=== PATIENT | female | born 1940 | race Caucasian/White ===

== ENCOUNTER 2018-02-07 01:33 | Outpatient (CLI) | payer OTHER, SELFPAY ==
[2018-02-07 11:00] LABS: HCT 39.5 % (36.0-46.0); Mean Corp. HGB Concentration 32.9 g/dL (32.0-36.0); Mean Corpuscular Hemoglobin 31.2 pg (27.0-33.0); Mean Corpuscular Volume 94.7 fL (80-95); Mean Platelet Volume 11.6 fL (8.0-11.0); Platelet Count 163 x1000/uL (130-400); RBC 4.17 m/cumm (4.00-5.20); White Blood Cell Count 3.76 k/cumm (4.4-10.8)
[2018-02-07 11:33] LABS: ALT 20 U/L (12-78); AST 19 U/L (15-37); Albumin 3.2 g/dL (3.4-5.0); Alkaline Phosphatase 60 U/L (46-116); Anion Gap 6.8 mmol/L (3-11); BUN 19 mg/dL (7-18); Bilirubin, Total 0.6 mg/dL (0.2-1.0); CO2 29.2 mmol/L (21.0-32.0); CREATININE 0.73 mg/dL (0.55-1.02); Calcium 8.5 mg/dL (8.5-10.1); Chloride 106 mmol/L (98-107); Glucose 110 mg/dL (70-100); Potassium 4.2 mmol/L (3.5-5.1); Sodium 142 mmol/L (136-145); TSH (W/Ref FT4) 1.87 uIU/mL (0.358-3.74); Total Protein 6.2 g/dL (6.4-8.2)
== END 2018-02-07 01:53 ==
PROVIDERS: PCP Family Medicine; Visit Provider Family Medicine
DX: E03.9 Hypothyroidism, unspecified (principal)
CPT/HCPCS: 36415; 80053; 85027; 84443

== ENCOUNTER 2018-04-03 13:21 | Outpatient (CLI) | payer OTHER, SELFPAY ==
--- NOTE | 2018-04-03 14:36 | DI.RAD_ITS ---
SYMPTOM/DIAGNOSIS: KNEE INJURY, RIGHT KNEE PAIN RIGHT KNEE: 04/03/18 Three views were obtained. There is mild hypertrophic spurring of the bones in the knee. No other focal bony abnormality seen. No evidence of acute fracture.
== END 2018-04-03 13:41 ==
PROVIDERS: PCP Family Medicine; Referring Provider Family Medicine; Visit Provider Student in an Organized Health Care Education/Training Program
DX: M25.561 Pain in right knee (principal); M23.91 Unspecified internal derangement of right knee
CPT/HCPCS: 73562; 99203; 99214

== ENCOUNTER 2018-07-12 19:10 | Outpatient (REF) | payer OTHER, SELFPAY | END 2018-07-12 19:30 | LOC: LBN 19:10 | PROVIDERS: PCP Family Medicine; Visit Provider Nurse Practitioner Family | DX: R35.0 Frequency of micturition (principal) | CPT/HCPCS: 87077; 87086; 87186 ==

== ENCOUNTER 2018-10-15 00:09 | Outpatient (CLI) | payer OTHER, SELFPAY ==
--- NOTE | 2018-10-15 08:50 | DI.MAMMO_ITS ---
SYMPTOM/DIAGNOSIS: SCREENING, Z12.31 MAMMOGRAMS: Mammograms were interpreted according to the usual protocol including computer analysis with CAD system, tomosynthesis and C view imaging. Comparison is made with prior examinations. Breast density, Category B. No suspicious microcalcifications are seen. No suspicious masses are seen in the left breast. There is a focal asymmetric density in the upper posterior right breast seen on the mediolateral oblique view. This area should be further evaluated with a spot compression view. Ultrasound may be indicated at that time. IMPRESSION: Additional views of the right breast as described above. Category 0. MQSA ASSESSMENT OF FINDINGS: Incomplete: Needs additional imaging evaluation. Category 0. Patient will receive a letter notifying them of these results. BI-RADS category B. There are scattered areas of fibroglandular density.
== END 2018-10-15 00:29 ==
PROVIDERS: PCP Family Medicine; Visit Provider Nurse Practitioner Family
DX: Z12.31 Encounter for screening mammogram for malignant neoplasm of breast (principal); R92.8 Other abnormal and inconclusive findings on diagnostic imaging of breast
CPT/HCPCS: 77063; 77067

== ENCOUNTER 2018-10-17 01:35 | Outpatient (CLI) | payer OTHER, SELFPAY ==
--- NOTE | 2018-10-17 14:55 | DI.COMBO_ITS ---
SYMPTOMS/DIAGNOSIS: F/U ABNORMAL MAMMO, FOCAL ASYMMETRIC DENSITY, UPPER POSTERIOR RIGHT BREAST ADDITIONAL VIEWS OF THE RIGHT BREAST AND RIGHT BREAST ULTRASOUND: A mediolateral compression spot film of the right breast was obtained. Nonspecific fibroglandular densities are demonstrated. There is no discrete mass. At ultrasound, no cyst or mass is identified. SUMMARY: No evidence of malignancy. Category 1. Annual screening mammography is recommended. Breast density category B. MQSA ASSESSMENT OF FINDINGS: Negative. Category 1. Patient will receive a letter notifying them of these results. BI-RADS category B. There are scattered areas of fibroglandular density.
== END 2018-10-17 01:55 ==
PROVIDERS: PCP Family Medicine; Visit Provider Nurse Practitioner Family
DX: Z12.31 Encounter for screening mammogram for malignant neoplasm of breast (principal); R92.8 Other abnormal and inconclusive findings on diagnostic imaging of breast; N60.81 Other benign mammary dysplasias of right breast
CPT/HCPCS: 76642; 77063; 77067

== ENCOUNTER 2018-10-28 10:06 | Outpatient (CLI) | payer OTHER, SELFPAY ==
[2018-10-28 13:07] LABS: ALT 25 U/L (12-78); AST 22 U/L (15-37); Albumin 3.6 g/dL (3.4-5.0); Alkaline Phosphatase 64 U/L (46-116); Anion Gap 5.9 mmol/L (3-11); BUN 21 mg/dL (7-18); Bilirubin, Total 0.5 mg/dL (0.2-1.0); CO2 30.1 mmol/L (21.0-32.0); CREATININE 0.67 mg/dL (0.55-1.02); Calcium 8.9 mg/dL (8.5-10.1); Chloride 102 mmol/L (98-107); Glucose 104 mg/dL (70-100); Potassium 4.5 mmol/L (3.5-5.1); Sodium 138 mmol/L (136-145); Total Protein 6.8 g/dL (6.4-8.2)
== END 2018-10-28 10:26 ==
PROVIDERS: PCP Family Medicine; Visit Provider Family Medicine
DX: R73.9 Hyperglycemia, unspecified (principal)
CPT/HCPCS: 36415; 80053; 83036

== ENCOUNTER 2019-04-29 01:12 | Outpatient (CLI) | payer OTHER, SELFPAY ==
--- NOTE | 2019-04-29 11:23 | DI.US_ITS ---
EXAM: US LOWER EXTREMITY VENOUS LT CLINICAL HISTORY: Superficial thrombophlebitis of greater saphenous vein, I80.9,? dvt TECHNIQUE: Ultrasound performed using standard protocol. COMPARISON: No exams were available for comparison FINDINGS: Thrombus is visible in the saphenous vein from the distal thigh through the level of the calf. The deep venous system appears free of thrombus. No hematoma or Gould's cyst is seen. IMPRESSION: Saphenous thrombosis. No evidence of deep venous thrombosis.
== END 2019-04-29 01:32 ==
PROVIDERS: PCP Family Medicine; Visit Provider Family Medicine
DX: I82.812 Embolism and thrombosis of superficial veins of left lower extremity (principal)
CPT/HCPCS: 93971

== ENCOUNTER 2019-05-01 09:51 | Outpatient (REF) | payer OTHER, SELFPAY | END 2019-05-01 10:11 | LOC: LBN 09:51 | PROVIDERS: PCP Family Medicine; Visit Provider Nurse Practitioner Family | DX: R30.0 Dysuria (principal) | CPT/HCPCS: 87086 ==

== ENCOUNTER 2019-11-13 17:49 | Outpatient (REF) | payer OTHER, SELFPAY ==
[2019-11-13 15:34] LABS: Bilirubin Negative (Negative); Blood Trace-intact (Negative); Clarity Clear (Clear); Glucose Negative (Negative); Ketones Negative (Negative); Leukocyte Esterase Negative (Negative); Nitrite Negative (Negative); Specific Gravity >= 1.030 (1.005-1.025); Urobilinogen 0.2 EU/dL (Up TO 0.2); pH 5.5 (5-8)
[2019-11-13 16:08] LABS: Bacteria Negative HPF (Negative); C & S Indicated? No/Sq. Contamination; Casts Negative LPF (Negative); Crystals Many Calcium Oxalate HPF (Negative); Epithelial Cells Many HPF (Negative); Mucus Negative (Negative); Other Cells Negative (Negative); RBC Negative HPF (0-2)
== END 2019-11-13 18:09 ==
LOC: LBN 17:49
PROVIDERS: PCP Family Medicine; Visit Provider Family Medicine
DX: N13.9 Obstructive and reflux uropathy, unspecified (principal); R53.81 Other malaise
CPT/HCPCS: 81003; 81015

== ENCOUNTER 2019-11-18 02:43 | Outpatient (CLI) | payer OTHER, SELFPAY ==
[2019-11-18 14:08] LABS: Absolute Basophil Count 0.02 k/cumm (0.0-0.2); Absolute Eosinophil Count 0.26 k/cumm (0.0-0.7); Absolute Lymphocyte Count 1.47 k/cumm (1.2-3.4); Absolute Monocyte Count 0.36 k/cumm (0.11-0.7); Absolute Neutrophil Count 2.58 k/cumm (1.2-6.7); Basophils % 0.4; Eosinophils % 5.5; HCT 41.6 % (36.0-46.0); HGB 13.9 g/dL (12.0-15.5); Lymphocytes % 31.3; Mean Corp. HGB Concentration 33.4 g/dL (32.0-36.0); Mean Corpuscular Hemoglobin 31.5 pg (27.0-33.0); Mean Corpuscular Volume 94.3 fL (80-95); Mean Platelet Volume 10.2 fL (8.0-11.0); Monocytes % 7.7; Neutrophils % 55.1; Platelet Count 192 x1000/uL (130-400); RBC 4.41 m/cumm (4.00-5.20); White Blood Cell Count 4.69 k/cumm (4.4-10.8)
[2019-11-18 14:45] LABS: ESR 20 mm/hr (0-30)
[2019-11-18 15:20] LABS: ALT 24 U/L (14-59); AST 22 U/L (15-37); Albumin 3.7 g/dL (3.4-5.0); Alkaline Phosphatase 59 U/L (46-116); Anion Gap 7.9 mmol/L (3-11); BUN 16 mg/dL (7-18); Bilirubin, Total 0.5 mg/dL (0.2-1.0); CO2 29.1 mmol/L (21.0-32.0); Calcium 9.5 mg/dL (8.5-10.1); Chloride 104 mmol/L (98-107); Glucose 99 mg/dL (74-106); Potassium 4.2 mmol/L (3.5-5.1); Sodium 141 mmol/L (136-145); TSH 1.54 uIU/mL (0.36-3.74); Total Protein 6.7 g/dL (6.4-8.2)
== END 2019-11-18 03:03 ==
PROVIDERS: PCP Family Medicine; Visit Provider Family Medicine
DX: E03.9 Hypothyroidism, unspecified (principal); R53.81 Other malaise
CPT/HCPCS: 36415; 80053; 85652; 84443; 85025

== ENCOUNTER 2020-04-07 16:52 | Outpatient (REF) | payer OTHER, SELFPAY | END 2020-04-07 17:12 | LOC: LBN 16:52 | PROVIDERS: PCP Family Medicine; Visit Provider Nurse Practitioner Women's Health | DX: R30.0 Dysuria (principal) | CPT/HCPCS: 87077; 87086; 87186 ==

== ENCOUNTER → 2020-04-26 09:34 | Outpatient (BNVA) | payer OTHER, SELFPAY | PROVIDERS: PCP Family Medicine; Referring Provider Family Medicine; Visit Provider Nurse Practitioner Gerontology | DX: N39.0 Urinary tract infection, site not specified (principal) | CPT/HCPCS: 81003; 99204; 99215 ==

== ENCOUNTER 2020-04-30 02:21 | Outpatient (CLI) | payer OTHER, SELFPAY ==
--- NOTE | 2020-04-30 06:45 | DI.CT_ITS ---
EXAM: CT ABDOMEN PELVIS WO/W TECHNIQUE: Imaging Protocol: Axial computed tomography images with coronal and sagittal reformatted images were created and reviewed. Pre and postcontrast imaging including delayed phase. CONTRAST MATERIAL: Intravenous: Omnipaque 350 Contrast volume:100 ml Contrast route:IV - Oral: no COMPARISON: US ABDOMEN ULTRASOUND (P) from 05/30/2011 FINDINGS: ABDOMEN: Lung Bases: Normal where visualized. Dilated left ventricle. Liver: Normal density. No measurable mass. Gallbladder and biliary tract: Numerous stones. No gallbladder wall thickening or biliary dilatation . Pancreas: Normal density, no abnormal calcifications or inflammatory process. Spleen: Normal. Kidneys: Normal size, contour and axis. No radiodense stones or obstructive uropathy. No masses seen. Adrenal glands: No masses seen. Lymph nodes: Within normal limits. Abdominal Aorta: Abdominal portion non-dilated. PELVIS: Bladder: Symmetric distention, no gross wall thickening. No calculi Bowel: No obstruction or bowel wall thickening. Extensive diverticulosis of the descending through si gmoid colon. No evidence of diverticulitis. Normal appendix. Peritoneal cavity: No ascites, collection or mesenteric inflammatory response. Bones: Mild degenerative changes in the spine and hips.. Reproductive organs: Fluid within the endometrial cavity. IMPRESSION: 1. No evidence of renal calculi, mass or hydronephrosis. No bladder abnormality. 2. Severe diverticulosis. 3. Cholelithiasis. No evidence of cholecystitis. 4. Apparent fluid within the endometrial cavity. Pelvic ultrasound could be considered for further evaluation. RADIATION DOSE DELIVERED: 2,396.62mGy.cm Total DLP DATA REPOSITORY: All CT scans at this facility are submitted to the National Radiology Data Registry (NRDR) Dose Index Registry (DIR) with the [employer] (ACR). RADIATION OPTIMIZATION: All CT scans at this facility use at least one of these dose optimization te chniques: automated exposure control; mA and/or kV adjustment per patient size (includes targeted exa ms where dose is matched to clinical indication); or iterative reconstruction.
[2020-04-30 08:14] LABS: CREATININE 0.88 mg/dL (0.55-1.02)
[2020-04-30] MEDS: Omnipaque 350 MG/ML 100 ML BTL IJ (09:05)
[2020-04-30] MEDS: Normal Saline - Diluent 50 ML VIAL IV (09:06)
== END 2020-04-30 02:41 ==
PROVIDERS: PCP Family Medicine; Visit Provider Nurse Practitioner Gerontology
DX: K57.30 Diverticulosis of large intestine without perforation or abscess without bleeding (principal); K80.20 Calculus of gallbladder without cholecystitis without obstruction; Z87.440 Personal history of urinary (tract) infections
CPT/HCPCS: 74178; 82565; J3490

== ENCOUNTER → 2020-05-03 14:52 | Outpatient (BNVA) | payer OTHER, SELFPAY | PROVIDERS: PCP Family Medicine; Referring Provider Family Medicine; Visit Provider Nurse Practitioner Gerontology | DX: R39.89 Other symptoms and signs involving the genitourinary system (principal); Z87.440 Personal history of urinary (tract) infections; Z79.899 Other long term (current) drug therapy | CPT/HCPCS: 99213 ==

== ENCOUNTER 2020-05-19 01:46 | Outpatient (CLI) | payer OTHER, SELFPAY ==
--- NOTE | 2020-05-19 08:23 | DI.US_ITS ---
APPROVED REPORT EXAM: Comprehensive 2D, Doppler, and color-flow Echocardiogram Patient Location: Out-Patient Supervisor [employer]: Kacie Cortes RDCS (AE) Indications: Arrhythmia Other Information Study Quality: Adequate Conclusion Normal left ventricular wall thickness and chamber size. Estimated ejection fraction is 60 to 65%. Wall motion is normal Normal right ventricular size and systolic function Both atria are normal in size Trileaflet aortic valve without regurgitation or stenosis Thickened mitral leaflets with systolic prolapse. There is moderate eccentric mitral regurgitation Structurally normal tricuspid valve with trace to mild regurgitation, normal estimated right ventricu lar systolic pressure Structurally normal pulmonic valve with trace physiologic regurgitation Wall motion Left Ventricle The left ventricle is normal size. The left ventricular systolic function is normal. The left ventric ular ejection fraction is within the normal range. There is normal left ventricular wall thickness. T here is normal LV segmental wall motion. There is no ventricular septal defect visualized. LVEF is 60 %-65%. Right Ventricle The right ventricle is normal size. The right ventricular systolic function is normal. The RVSP is 21 .8 mmHg. Atria The left atrium size is normal. The right atrium size is normal. The interatrial septum is intact wit h no evidence for an atrial septal defect. Aortic Valve The aortic valve is normal in structure. Aortic valve is trileaflet. There is no aortic valvular sten osis. No aortic regurgitation is present. Mitral Valve Mitral valve leaflets are thickened. No evidence of mitral valve stenosis. Moderate mitral regurgitat ion. Mitral regurgitation jet is eccentrically directed. Moderate mitral valve prolapse. Tricuspid Valve The tricuspid valve is normal in structure. There is no tricuspid valve stenosis. Trace to mild tricu spid regurgitation. Pulmonic Valve The pulmonary valve is normal in structure. There is no pulmonic valvular stenosis. Trace pulmonic re gurgitation. Great Vessels The aortic root is normal in size. The ascending aorta is normal in size. Aortic arch is normal in ca liber. IVC is normal in size and collapses >50% with inspiration. Pericardium There is no pericardial effusion. 2D Dimensions IVSD d PLAX 1.01 cm F: 0.6-1.0 LV Vol A2C d MOD 76.8 mL LVPW d PLAX 1.02 cm F: 0.6 - 1.0 LV Vol A4C d MOD 79.6 mL LVID d PLAX 4.87 cm F: 3.8 - 5.2 LA vol/ BSA A2C s A-L 36.9 mL/m2 LVDs 3.40 cm F: 2.2 - 3.5 LA vol/ BSA A4C s A-L 22.9 mL/m2 Ao Root d 3.00 cm F: 2.7 - 3.3 LA Vol/ BSA Biplane s A-L 29.1 mL/m2 RA Area A4C 13.41 cm2 LA Area A4C s MOD 15.82 cm2 RA Vol/ BSA A4C s A-L 20.0 mL/m2 LA Area A2C s MOD 20.05 cm2 Ao Asc Diam d 3.48 cm F: 2.3 - 3.1 LV EF A4C MOD 59.8 % LV EF Teichholz 57.2 % LV EF A2C MOD 61.3 % LVEF (Wetzel's) 59.99 % F: 54 - 74 LV EF Biplane MOD 60.0 % LV Volume 62.02 mL F: 46 - 106 SV 48.02 mL LV Volume Index 34.07 mL/m2 F: 29 - 61 SV Index 26.40 mL/m2 LV Vol Biplane MOD 80.0 mL FS 30.05 % M-Mode TAPSE 2.27 cm (M/F) >1.7 LV Diastology MV E' medial 0.062 (>0.07 m/s) E/A Ratio 0.8 LV E/e MED 10.55 (<14) MV E Vmax 0.66 (0.4-1.3 m/s) MV E' lateral 0.071 (>0.1 m/s) MV A Vmax 0.85 (0.4-1.3 m/s) LV E/e LAT 9.25 (<14) MV E/A Ratio 0.75 MV E/E' medial 10.57 MV E/E' lateral 9.29 Aortic Valve LVOT Area 3.36 cm2 AoV Area Vmax 2.72 cm2 LVOT Vmax 0.98 m/s AoV Area/ BSA (Vmax) 1.49 cm2/m2 LVOT Mean Rodrick. 0.58 m/s MARY ANN Mean Rodrick. 2.34 cm2 LVOT Peak Grad 3.9 mmHg MARY ANN Mean Rodrick. Index 1.29 cm2/m2 LVOT Mean Grad 1.7 mmHg LVOT VTI 0.212 m LVOT Diam s 2.05 cm AoV Vmax 1.21 m/s Velocity Ratio 0.80 AoV Mean Rodrick. 0.83 m/s AoV Peak Grad 5.9 mmHg LVOT SV 71.39 mL AoV Mean Grad 3.2 mmHg AoV VTI 0.230 m AoV Area VTI 3.10 cm2 AoV Area/ BSA (VTI) 1.70 cm/m2 Mitral Valve MV DT 273 (160-240 msec) MR Vmax 5.89 m/s MV PHT 79 msec MR VTI 2.049 m MV Area PHT 2.77 cm2 MR Peak Grad 138.8 mmHg MV VTI 0.284 m MR Mean Grad 108.0 mmHg MV VTI Annulus 0.289 m MR PISA Radius 0.56 cm MV Area VTI 2.56 (4.0-6.0 cm2) MR EROA 0.12 cm2 MR Aliasing Velocity 0.35 m/s MR PISA 1.99 cm2 Pulmonary Valve PV Vmax 0.82 (0.5-1.5 m/s) RVOT Peak Gr. 2.28 mmHg PV Peak Grad 2.7 mmHg RVOT Mean Gr. 1.05 mmHg PV Mean Grad 1.5 mmHg RVOT VTI 0.175 m PV VTI 0.192 m RVOT Vmax 0.75 m/s Tricuspid Valve TR Peak Grad 18.8 mmHg TR Vmax 2.17 m/s RA Pressure 3.00 mmHg RVSP (TR) 21.8 mmHg
== END 2020-05-19 02:06 ==
PROVIDERS: PCP Family Medicine; Visit Provider Family Medicine
DX: I49.9 Cardiac arrhythmia, unspecified (principal); I51.7 Cardiomegaly; I08.1 Rheumatic disorders of both mitral and tricuspid valves
CPT/HCPCS: 93306

== ENCOUNTER 2020-06-11 02:04 | Outpatient (CLI) | payer OTHER, SELFPAY ==
[2020-06-11 10:23] LABS: Bilirubin Negative (Negative); Blood Small (Negative); Clarity Sl Cloudy (Clear); Glucose Negative (Negative); Ketones Negative (Negative); Leukocyte Esterase Small (Negative); Nitrite Positive (Negative); Specific Gravity >= 1.030 (1.005-1.025); Urobilinogen 0.2 EU/dL (Up TO 0.2)
[2020-06-11 10:31] LABS: Bacteria Moderate HPF (Negative); C & S Indicated? Yes; Casts Negative LPF (Negative); Crystals Negative HPF (Negative); Epithelial Cells Few HPF (Negative); Mucus Trace (Negative); WBC 20-50 HPF (0-5)
== END 2020-06-11 02:24 ==
PROVIDERS: PCP Family Medicine; Visit Provider Nurse Practitioner Gerontology
DX: N39.0 Urinary tract infection, site not specified (principal); N32.89 Other specified disorders of bladder
CPT/HCPCS: 87077; 81003; 81015; 87086

== ENCOUNTER → 2020-07-06 10:03 | Outpatient (BNVA) | payer OTHER, SELFPAY | PROVIDERS: PCP Family Medicine; Referring Provider Family Medicine; Visit Provider Nurse Practitioner Gerontology | DX: N39.0 Urinary tract infection, site not specified (principal) | CPT/HCPCS: 81003; 99213 ==

== ENCOUNTER → 2020-10-13 13:53 | Outpatient (BNVA) | payer OTHER, SELFPAY | PROVIDERS: PCP Nurse Practitioner Family; Referring Provider Nurse Practitioner Family; Visit Provider Nurse Practitioner Gerontology | DX: N39.0 Urinary tract infection, site not specified (principal) | CPT/HCPCS: 81003; 99213 ==

== ENCOUNTER 2020-10-13 18:27 | Outpatient (REF) | payer OTHER, SELFPAY | END 2020-10-13 18:28 | disposition home or self-care (01) | LOC: LBN 18:27 | PROVIDERS: PCP Nurse Practitioner Family; Visit Provider Nurse Practitioner Gerontology | DX: R82.998 Other abnormal findings in urine (principal); Z87.440 Personal history of urinary (tract) infections | CPT/HCPCS: 87077; 87086 ==

== ENCOUNTER → 2020-10-27 07:53 | Outpatient (BNVA) | payer OTHER, SELFPAY | PROVIDERS: PCP Nurse Practitioner Family; Referring Provider Nurse Practitioner Family; Visit Provider Nurse Practitioner Gerontology | DX: R39.89 Other symptoms and signs involving the genitourinary system (principal); Z87.440 Personal history of urinary (tract) infections | CPT/HCPCS: 81003; 99213 ==

== ENCOUNTER → 2021-01-04 09:52 | Outpatient (BNVA) | payer OTHER, SELFPAY | PROVIDERS: PCP Nurse Practitioner Family; Referring Provider Family Medicine; Visit Provider Nurse Practitioner Gerontology | DX: N39.0 Urinary tract infection, site not specified (principal); R30.0 Dysuria | CPT/HCPCS: 81003; 99213 ==

== ENCOUNTER 2021-03-24 12:15 | Outpatient (REF) | payer MEDICARE, SELFPAY ==
[2021-03-24 12:56] LABS: Bilirubin Negative (Negative); Blood Large (Negative); Clarity Sl Cloudy (Clear); Glucose Negative (Negative); Ketones Negative (Negative); Leukocyte Esterase Large (Negative); Nitrite Negative (Negative); Specific Gravity 1.025 (1.005-1.025); Urobilinogen 0.2 EU/dL (Up TO 0.2); pH 6.5 (5-8)
[2021-03-24 13:04] LABS: Bacteria Few HPF (Negative); C & S Indicated? C&S Done As Ordered; Casts 0-2 Hyaline LPF (Negative); Crystals Negative HPF (Negative); Epithelial Cells Few HPF (Negative); Mucus Negative (Negative); RBC 20-50 HPF (0-2); WBC >50 HPF (0-5)
== END 2021-03-24 12:16 | disposition home or self-care (01) ==
LOC: LBN 12:15
PROVIDERS: PCP Nurse Practitioner Family; Visit Provider Nurse Practitioner Gerontology
DX: N39.0 Urinary tract infection, site not specified (principal)
CPT/HCPCS: 87077; 81003; 81015; 87086; 87186

== ENCOUNTER → 2021-03-30 07:52 | Outpatient (BNVA) | payer MEDICARE, SELFPAY | PROVIDERS: PCP Nurse Practitioner Family; Referring Provider Nurse Practitioner Family; Visit Provider Nurse Practitioner Gerontology | DX: N39.0 Urinary tract infection, site not specified (principal); Z79.899 Other long term (current) drug therapy | CPT/HCPCS: 99214 ==

== ENCOUNTER 2021-03-30 15:28 | Outpatient (REF) | payer MEDICARE, SELFPAY | END 2021-03-30 15:29 | disposition home or self-care (01) | LOC: LBN 15:28 | PROVIDERS: PCP Nurse Practitioner Family; Visit Provider Nurse Practitioner Gerontology | DX: N39.0 Urinary tract infection, site not specified (principal) | CPT/HCPCS: 87086 ==

== ENCOUNTER 2021-04-13 14:21 | Outpatient (REF) | payer MEDICARE, SELFPAY ==
[2021-04-13 12:29] LABS: Bilirubin Negative (Negative); Blood Negative (Negative); Clarity Clear (Clear); Glucose Negative (Negative); Ketones Negative (Negative); Leukocyte Esterase Negative (Negative); Nitrite Negative (Negative); Specific Gravity >= 1.030 (1.005-1.025); Urobilinogen 0.2 EU/dL (Up TO 0.2); pH 5.5 (5-8)
== END 2021-04-13 14:22 | disposition home or self-care (01) ==
LOC: LBN 14:21
PROVIDERS: PCP Nurse Practitioner Family; Visit Provider Nurse Practitioner Gerontology
DX: N39.0 Urinary tract infection, site not specified (principal)
CPT/HCPCS: 81003; 87086

== ENCOUNTER → 2021-10-06 09:56 | Outpatient (BNVA) | payer MEDICARE, SELFPAY | PROVIDERS: PCP Nurse Practitioner Family; Referring Provider Nurse Practitioner Family; Visit Provider Nurse Practitioner Gerontology | DX: N39.0 Urinary tract infection, site not specified (principal) | CPT/HCPCS: 81003; 99214 ==

== ENCOUNTER 2021-12-29 01:54 | Outpatient (CLI) | payer MEDICARE, SELFPAY ==
[2021-12-29 12:44] LABS: HCT 40.9 % (36.0-46.0); HGB 13.4 g/dL (11.2-15.7); MCH 31.2 pg (27.0-33.0); MCHC 32.8 % (32.0-36.0); MCV 95 fL (80-95); MPV 10.9 fL (8.0-11.0); Platelet Count 170 10^3/uL (130-400); RDW 12.5 % (11.7-14.6); RDW-SD 43.4 fL; WBC 4.21 10^3/uL (4.4-10.8)
[2021-12-30 10:46] LABS: Lyme Ab w Rflx to Lyme Confirm Negative (Negative)
[2022-01-02 00:34] LABS: Anaplasma phagocytophilum Negative (Negative); B. miyamotoi PCR Negative (Negative); Babesia divergens/MO-1 Negative (Negative); Babesia duncani Negative (Negative); Babesia microti Negative (Negative); Ehrlichia chaffeensis Negative (Negative); Ehrlichia ewingii/canis Negative (Negative); Ehrlichia muris eauclairensis Negative (Negative)
== END 2021-12-29 01:55 | disposition home or self-care (01) ==
LOC: LOS 01:55
PROVIDERS: PCP Nurse Practitioner Family; Visit Provider Nurse Practitioner Family
DX: R53.83 Other fatigue (principal); M79.18 Myalgia, other site
CPT/HCPCS: 36415; 85027; 87798; 84443; 86618

== ENCOUNTER → 2022-04-04 14:23 | Outpatient (BNVA) | payer MEDICARE, SELFPAY | PROVIDERS: PCP Nurse Practitioner Family; Referring Provider Nurse Practitioner Family; Visit Provider Nurse Practitioner Gerontology | DX: N39.0 Urinary tract infection, site not specified (principal) | CPT/HCPCS: 99213 ==

== ENCOUNTER 2022-04-26 15:14 | Outpatient (REF) | payer MEDICARE, SELFPAY ==
[2022-04-26 11:38] LABS: Bilirubin Negative (Negative); Blood Large (Negative); Clarity Cloudy (Clear); Glucose Negative (Negative); Ketones Negative (Negative); Leukocyte Esterase Large (Negative); Nitrite Positive (Negative); Specific Gravity 1.025 (1.005-1.025); pH 6.5 (5-8)
[2022-04-26 11:55] LABS: C & S Indicated? C&S Done As Ordered; WBC >50 HPF (0-5)
== END 2022-04-26 15:15 | disposition home or self-care (01) ==
LOC: LBN 15:14
PROVIDERS: PCP Nurse Practitioner Family; Visit Provider Nurse Practitioner Gerontology
DX: N39.0 Urinary tract infection, site not specified (principal)
CPT/HCPCS: 87077; 81003; 81015; 87086; 87186

== ENCOUNTER 2022-09-28 21:45 | Emergency (ER) | payer MEDICARE, SELFPAY ==
[2022-09-28 21:50] VITALS: BP 144/89; PULSE 84; RESP 16; TEMP 36.7; O2SAT 96
--- NOTE | 2022-09-28 22:36 | ED.GENADUL_ITS ---
Discharge Plan Disposition Patient Disposition: Home Discharge Details Clinical Impression: Edema, peripheral Primary Care Provider: Kobe Barrett ED Provider: Laura Humphries Home Meds and New Rx's Prescriptions: Continued fluocinonide-emollient [Fluocinonide-E] 0.05 % cream 1 applic TP BID-QID PRN Premarin 0.625 mg/gram cream See Rx Instructions .ROUTE .COMPLEX Qty: 30 0RF Dose Instruction: INSERT 0.5 GRAM VAGINALLY TWICE WEEKLY Rx Instructions: INSERT 0.5 GRAM VAGINALLY TWICE WEEKLY levothyroxine 50 mcg tablet 50 mcg PO DAILY Qty: 90 3RF No Action sulfamethoxazole-trimethoprim [Bactrim DS] 800-160 mg tablet 1 tab PO BID Qty: 14 0RF Discharge Instructions Additional Instructions: Elevate your leg is much as possible Please call at 7:00 in the morning to get your ultrasound scheduled, you should have this done on Sunday We will reassess you on Sunday after ultrasound was performed in the emergency department Please return immediately with chest pain, shortness of breath, fever, or should you develop new or worsening complaints Your exam today is reassuring aside from the swelling, I do not see clear evidence of infection Referrals: Kobe Barrett, [employer] MAINTENANCE WORKER [Primary Care Provider] - Discharge Data Discharge Date/Time-TO BE ENTERED AT DEPARTURE: 09/28/22 22:50 HPI General Date/Time Provider Initiated Documentation: 09/28/22 21:57 . HPI Narrative: This 82-year-old female presents with report of swelling to her left foot that she noticed when she arrived in [place] after a long drive from [place] where she stayed during the winter. She states that she had a recent trauma to her left leg. She states that she tripped and fell in July and was actually admitted secondary to a possible hemorrhage at the site of her adrenal gland on the right side. She states she was discharged the next day and cleared from a surgical standpoint. She states that approximately 3 days ago she completed an antibiotic for possible cellulitis on her left lower extremity. She denies any fever or chills. She denies any real pain to her left leg. She denies chest pain or shortness of breath. Denies history of coagulopathy. States that she arrived home yesterday evening from [place]. Related Data Home Medications Medication Instructions Recorded Confirmed fluocinonide-emollient 0.05 % 1 applic topical BID-QID PRN 07/12/18 09/28/22 topical cream (Fluocinonide-E) conjugated estrogens 0.625 mg/gram See Rx Instructions .Route 09/29/21 09/28/22 vaginal cream (Premarin) .COMPLEX #30 grams levothyroxine 50 mcg tablet 50 mcg PO DAILY #90 tab-caps 09/18/22 09/28/22 sulfamethoxazole 800 1 tab PO BID #14 tabs 09/29/22 mg-trimethoprim 160 mg tablet (Bactrim DS) Previous Rx's Medication Instructions Recorded conjugated estrogens 0.625 mg/gram See Rx Instructions .Route 09/29/21 vaginal cream (Premarin) .COMPLEX #30 grams levothyroxine 50 mcg tablet 50 mcg PO DAILY #90 tab-caps 09/18/22 sulfamethoxazole 800 1 tab PO BID #14 tabs 09/29/22 mg-trimethoprim 160 mg tablet (Bactrim DS) Allergies Allergy/AdvReac Type Severity Reaction Status Date / Time nitrofurantoin Allergy Intermediate Hives Verified 05/05/22 10:45 cyclobenzaprine Allergy Mild Verified 05/05/22 10:45 codeine AdvReac Intermediate NAUSEA Verified 05/05/22 10:45 rofecoxib AdvReac Mild Verified 05/05/22 10:45 lactose AdvReac ABDOMINAL Verified 05/05/22 10:45 CRAMPING. DIARRHEA General Stated Complaint: Cellulitis BRAYAN: 3 PFSH All Active Problems (Updated 09/28/22 @ 22:34 by [place]) Edema, peripheral (Acute) Influenza A (Acute) Abdominal cramping (Acute) Ganglion cyst (Acute) Cervical pain (Acute) Umbilical hernia (Acute) Body aches (Acute) Mitral prolapse (Acute) Actinic keratosis (Acute) Diverticulitis (Chronic) Cholelithiasis (Acute) Venous insufficiency (chronic) (peripheral) (Acute) Dysuria (Acute) Superficial phlebitis (Acute) Disequilibrium (Acute) Superficial thrombophlebitis of lower extremity (Acute) Tinnitus (Acute) Abnormal auditory perception (Acute) Sensory hearing loss, bilateral (Acute) History of section (Acute) History of surgical removal of lesion (Acute) Frequent UTI (Acute) Tubular adenoma of colon (Acute 02/27/17) Lichen planus (Acute 10/26/17) Hypothyroidism (Acute 01/31/08) Atrophic vaginitis (Acute 03/06/11) Cardiac arrhythmia (Acute 01/31/08) Surgical History section X 4 Colonoscopy - MAC (02/27/17) Skin Cancer Removal (~2009) 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 Maternal Grandfather Stroke Paternal Grandfather No problems noted. Maternal Grandmother , 103 Diabetes TYPE II Paternal Grandmother , 85 No problems noted. Son History of colon resection Hodgkin's disease Daughter Clotting disorder FACTOR 5 AND ONE OTHER DISORDER Asthma Daughter No problems noted. Social History Smoking/Tobacco Use Status: Former Tobacco Use tobacco type: cigarettes Quit Date: 05/21/1964 Tobacco: How many years used: 10 Second Hand Exposure: Yes Smoking risk assessment performed?: Yes Alcohol Intake: current Alcohol Intake frequency: a few times a month Alcohol type: beer, wine and hard liquor Drug use: Never Substance use type: does not use Counseling given: No Caregiver/Support person: No Household members: spouse Housing: house Communication Needs: None Do you need help understanding health information?: Never Pets and animals: Yes Pets and animals: dog(s) Sexually active: Yes Do you think of yourself as: straight/heterosexual Current gender identity: female What is your relationship status?: How often do you talk on the phone with friends or family?: three or more times per week How often do you get together with friends or relatives?: three or more times per week How often do you attend protestant or hoahaoism services?: 1-3 times per year Do you belong to any clubs or organized social groups?: yes Panel score (0-1 are the most socially isolated patients): 3 What type of physical activity do you participate in: walking, bicycling and other Details: Tennis,golf,pickleball,kayaking, gradening Duration: > 90 minutes/day Frequency: 3-4 times per week Joycelyn/Christianity: Restoration Special joycelyn needs: No Seatbelt use: always Helmet use: Yes Helmet use: sometimes Drive intox or ride w/intox car driver: No Do you feel safe at home: Yes Do you feel safe in your relationship?: Yes History History Para 4 Hx # Term Pregnancies Multiple births Hx # Pregnancies Ectopic pregnancies AB induced Hx Number of Living Children AB spontaneous Exam Narrative Exam Narrative: Patient is calm, cooperative, in no acute distress, lungs clear to auscultation, cardiac regular rate and rhythm regular, left lower extremity with swelling, 13.75 inches, right lower extremity 12 inches, 2+ edema, no evidence of cellulitis Resp Other: Lungs clear to auscultation bilaterally Cardio Other: Cardiac rate rhythm regular GI Other: No abdominal tenderness Extrem Other: Left lower extremity swelling no significant tenderness, no warmth, no erythema, distal pulses intact No evidence of secondary infection, distal pulses intact, no crepitus Course Vital Signs Vital signs: Vital Signs Temperature 36.7 C 09/28/22 21:50 Pulse 84 09/28/22 21:50 Respiratory Rate 16 09/28/22 21:50 Blood Pressure 144/89 H 09/28/22 21:50 Pulse Oximetry 96 09/28/22 21:50 Temperature 36.7 C 09/28/22 21:50 Temperature Source Oral 09/28/22 21:50 Pulse 84 09/28/22 21:50 Respiratory Rate 16 09/28/22 21:50 Respiratory Effort Normal 09/28/22 21:57 Blood Pressure 144/89 H 09/28/22 21:50 Pulse Oximetry 96 09/28/22 21:50 Oxygen Delivery Method Room Air 09/28/22 21:50 Oxygen Flow Rate 0 09/28/22 21:50 Pain Level 0 09/28/22 21:50
--- NOTE | 2022-09-28 23:54 | NUR.NOTE ---
RLE ultrasound requisiont faxed to DI for 09/29/22 appt. To f/u in E.D. Nursing Note:
== END 2022-09-28 22:50 | disposition home or self-care (01) ==
PROVIDERS: Emergency Provider Physician Assistant; PCP Nurse Practitioner Family
DX: M79.89 Other specified soft tissue disorders (principal); W19.XXXS Unspecified fall, sequela; R60.9 Edema, unspecified
CPT/HCPCS: 99281; 99282

== ENCOUNTER 2022-09-29 09:42 | Outpatient (CLI) | payer MEDICARE, SELFPAY ==
--- NOTE | 2022-09-29 | DI.US_ITS ---
Exam(s) US LOWER EXTREMITY VENOUS LT EXAM: US LOWER EXTREMITY VENOUS LT CLINICAL HISTORY: LT LOWER EXT PERIPHERAL EDEMA, R22.42, ? DVT. TECHNIQUE: Lower extremity venous ultrasound performed using grayscale, color-flow, and spectral Do ppler analysis. COMPARISON: No exams were available for comparison FINDINGS: The common femoral, femoral and popliteal veins demonstrate normal compressibility, augmentation, and color Doppler. The posterior tibial veins are patent. No saphenous vein thrombosis or other superfi cial venous thrombosis is seen. No hematoma or Gould's cyst is seen. IMPRESSION: Negative lower extremity ultrasound. No evidence of DVT. DATA REPOSITORY:
--- NOTE | 2022-09-29 10:42 | W.ED.FU ---
Date of service: 09/29/22 Time of Service: 10:42 Follow Up Plan: Patient brought to the emergency department by the concrete engineering technician with a negative DVT study that was ordered yesterday. I assessed the patient in the waiting room. She tells me that this is very similar to the episode of cellulitis she had approximately the 6 weeks ago that resolved with Bactrim. The left lower extremity is swollen with some anterior erythema and warmth. Mild tenderness. At this point I believe she would benefit from another course of antibiotics. Given that she has tolerated Bactrim in the past I will send a prescription of Bactrim to her pharmacy [facility].
== END 2022-09-29 10:02 | disposition home or self-care (01) ==
PROVIDERS: PCP Nurse Practitioner Family; Visit Provider Physician Assistant
DX: R22.42 Localized swelling, mass and lump, left lower limb (principal)
CPT/HCPCS: 93971

== ENCOUNTER 2022-10-02 09:37 | Outpatient (CLI) | payer MEDICARE, SELFPAY ==
--- NOTE | 2022-10-02 09:15 | DI.RAD_ITS ---
Exam(s) XR WRIST RT COMPLETE EXAM: XR WRIST RT COMPLETE CLINICAL HISTORY: fall/pain. TECHNIQUE: 2D digital imaging was performed. Three views. COMPARISON: No exams were available for comparison FINDINGS: BONES: No acute fracture is present. Scaphoid not well profiled. No bony destructive lesion is seen . JOINTS: Mild negative ulnar variance. Severe narrowing at the capitate lunate joint. Degenerative c hanges seen to a lesser extent the remaining joints. Chondrocalcinosis. SOFT TISSUE: Normal. IMPRESSION: Degenerative changes, greatest of the capitate lunate joint. DATA REPOSITORY: RADIATION DOSE DELIVERED:
== END 2022-10-02 09:38 | disposition home or self-care (01) ==
LOC: DIORS 09:37
PROVIDERS: PCP Nurse Practitioner Family; Referring Provider Nurse Practitioner Family; Visit Provider Student in an Organized Health Care Education/Training Program
DX: M19.031 Primary osteoarthritis, right wrist
CPT/HCPCS: 99213; 73110

== ENCOUNTER → 2022-10-10 14:17 | Outpatient (BNVA) | payer MEDICARE, SELFPAY | PROVIDERS: PCP Nurse Practitioner Family; Visit Provider Nurse Practitioner Gerontology | DX: Z09 Encounter for follow-up examination after completed treatment for conditions other than malignant neoplasm (principal); Z87.440 Personal history of urinary (tract) infections | CPT/HCPCS: 81003; 99213 ==

== ENCOUNTER 2022-10-23 02:18 | Outpatient (CLI) | payer MEDICARE, SELFPAY ==
--- NOTE | 2022-10-23 07:00 | DI.MAMMO_ITS ---
Exam(s) MAMMO SCREENING EXAM: MAMMO SCREENING CLINICAL HISTORY: screening,z12.39 TECHNIQUE: Bilateral full field digital CC and MLO mammographic images were obtained with 3D tomosyn thesis and utilizing computer aided detection (CAD). COMPARISON: Available for comparison. FINDINGS: Masses/Architectural Distortion: None seen. Microcalcifications: No suspicious pleomorphic-type are seen. Skin Thickening/Nipple Retraction: None. IMPRESSION: 1. No significant interval change with no specific features of malignancy noted. 2. Unless there is more urgent need, screening mammography is recommended, as per [employer] guidelines. BI-RADS Category 1 - Negative Breast Density - Category B - Scattered areas of fibroglandular density Breast density category C or D implies that the patient has dense breast tissue. Dense breast tissue is very common and is not abnormal but dense breast tissue can make it harder to find cancer on a ma mmogram. Also, dense breast tissue may increase their breast cancer risk. This information about the result of the mammogram report was provided to the patient to raise their awareness. Use this report when you speak with the patient about their risks for breast cancer, which includes their family hist ory. At that time, you may recommend for more screening tests (Ultrasound or MRI) as they might be us eful based on their risk. A negative radiographic report should not delay biopsy if a dominant or clinically suspicious mass is present. Up to ten percent of cancers are not identified on mammography. A negative report may reinforce clinical impression. Adenosis and dense breasts may obscure an underlying neoplasm. False positive reports average 6 to 10%. Patient will receive a letter notifying them of these results.
== END 2022-10-23 02:38 ==
LOC: DI 02:18
PROVIDERS: PCP Nurse Practitioner Family; Visit Provider Nurse Practitioner Women's Health
DX: Z12.31 Encounter for screening mammogram for malignant neoplasm of breast (principal)
CPT/HCPCS: 77063; 77067

== ENCOUNTER 2022-11-23 02:33 | Outpatient (CLI) | payer MEDICARE, SELFPAY ==
--- NOTE | 2022-11-23 08:15 | DI.US_ITS ---
Exam(s) US THYROID EXAM: US THYROID CLINICAL HISTORY: Incidental finding of thyroid nodule on CT, THYROID NODULE, E04.1. TECHNIQUE: Ultrasound thyroid performed using standard protocol. COMPARISON: MR MRI, CERVICAL SPINE S/ CONTRAST from 10/11/2022 FINDINGS: ISTHMUS: 3 mm RIGHT LOBE: Size: 5.0 x 2.1 x 2.3 cm Echogenicity: Heterogeneous Vascularity: Normal. Nodules: 1. Questionable isoechoic nodule superior pole measured at 1.5 x 1.1 x 1.9 cm. TR 3 2. Mixed cystic and solid nodule, mostly solid, isoechoic, smoothly marginated without echogenic foc i. 2.3 x 1.7 x 1.8 cm. This corresponds to the nodule seen on MRI. TR 3. LEFT LOBE: Size: 4.7 x 1.9 x 1.8 cm Echogenicity: Mildly heterogeneous. Vascularity: Normal. Nodules: No definite nodules. OTHER FINDINGS: None. IMPRESSION: 2.3 centimeter mixed cystic and solid nodule at the lower pole of the right lobe of the thyroid, TR 3 , follow-up recommended. Question of an additional isoechoic nodule at the upper pole of the right lobe although this is diffi cult to determine since the entire right lobe of the thyroid is heterogeneous. DATA REPOSITORY:
== END 2022-11-23 02:53 ==
LOC: DI 02:33
PROVIDERS: PCP Nurse Practitioner Family; Visit Provider Nurse Practitioner Family
DX: E04.1 Nontoxic single thyroid nodule (principal)
CPT/HCPCS: 76536

== ENCOUNTER → 2023-01-29 09:42 | Outpatient (BNVA) | payer MEDICARE, SELFPAY | PROVIDERS: PCP Nurse Practitioner Family; Referring Provider Nurse Practitioner Family; Visit Provider Surgery | DX: Z12.11 Encounter for screening for malignant neoplasm of colon (principal); Z86.010 Personal history of colon polyps; Z80.0 Family history of malignant neoplasm of digestive organs ==

== ENCOUNTER 2023-02-14 07:47 | Day surgery (SDC) | payer MEDICARE, SELFPAY ==
[2023-02-14 08:20] VITALS: BP 142/76; PULSE 68; RESP 16; TEMP 36.3; O2SAT 99
[2023-02-14] MEDS: Lactated Ringers 1,000 ML 80 ML IV (08:45)
--- NOTE | 2023-02-14 09:23 | W.ANESPRE ---
General Info Date of Service Date Performed: 02/14/23 Height: 5 ft 6.5 in Weight: 73.3 kg Body Mass Index (BMI): 25.7 Surgical Procedure: Operation Date: 02/14/23 09:05 Proposed Procedure Side Surgeon p Colonoscopy Gustavo Holley MD Actual Procedure Side Surgeon p Colonoscopy Not Applicable Gustavo Holley MD Meds Allergies and Home Medications Allergies Allergy/AdvReac Type Severity Reaction Status Date / Time nitrofurantoin Allergy Intermediate Hives Verified 02/14/23 08:13 cyclobenzaprine Allergy Mild Verified 02/14/23 08:13 codeine AdvReac Intermediate NAUSEA Verified 02/14/23 08:13 rofecoxib AdvReac Mild Verified 02/14/23 08:13 lactose AdvReac ABDOMINAL Verified 02/14/23 08:13 CRAMPING. DIARRHEA Home Medication Medication Instructions Recorded levothyroxine 50 mcg tablet 50 mcg PO DAILY #90 tab-caps 09/18/22 conjugated estrogens 0.625 mg/gram See Rx Instructions .Route 10/10/22 vaginal cream (Premarin) .COMPLEX #30 grams bisacodyl 5 mg tablet,delayed 5 mg PO ONCE #4 tabs 01/29/23 release (Dulcolax (bisacodyl)) polyethylene glycol 3350 17 17 g PO ONCE #238 grams 01/29/23 gram/dose oral powder omeprazole 20 mg capsule,delayed 20 mg PO DAILY 02/13/23 release Current Visit Medications: Current Medications Generic Name Dose Route Start Last Admin Trade Name Freq PRN Reason Stop Dose Admin Ringer's Solution 1,000 mls @ 80 mls/hr 02/14/23 06:00 02/14/23 08:45 IV 03/15/23 23:59 80 mls/hr INFUSION ISABELLA Administration IV Miscellaneous Supplies 1 each 02/14/23 06:00 Iv Access IV 03/15/23 23:59 DIRECTED ISABELLA Sodium Chloride 0 ml 02/14/23 06:00 Normal Saline Flush 10 Ml Syr IV 03/15/23 23:59 PRN PRN Sodium Chloride 0 ml 02/14/23 06:00 Normal Saline 10 Ml Vial IJ 03/15/23 23:59 DIRECTED PRN Sterile Water 0 ml 02/14/23 06:00 Water,Injection,Sterile 10 Ml Vial IJ 03/15/23 23:59 DIRECTED PRN PFSH Active Problems Active Problems: Problem Status Onset Code Cardiac arrhythmia 01/31/08 I49.9 Atrophic vaginitis 03/06/11 N95.2 Hypothyroidism 01/31/08 E03.9 Lichen planus 10/26/17 L43.9 Tubular adenoma of colon 02/27/17 D12.6 Frequent UTI N39.0 History of surgical removal of lesion Z98.890, Z87.2 History of section Z98.891 Sensory hearing loss, bilateral H90.3 Abnormal auditory perception H93.299 Tinnitus H93.19 Superficial thrombophlebitis of lower extremity I80.00 Disequilibrium R42 Superficial phlebitis I80.9 Dysuria R30.0 Venous insufficiency (chronic) (peripheral) I87.2 Cholelithiasis K80.20 Diverticulitis K57.92 Actinic keratosis L57.0 Mitral prolapse I34.1 Body aches R52 Umbilical hernia K42.9 Cervical pain M54.2 Ganglion cyst M67.40 Abdominal cramping R10.9 Influenza A J10.1 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 Tobacco Smoking/Tobacco Use Status: Former Tobacco Use Passive smoking exposure: Yes Second hand exposure: Yes Alcohol Alcohol Intake: current Alcohol intake frequency: a few times a month Alcohol type: beer, wine and hard liquor Substance Use Substance use: Never Substance use type: does not use Details: alcohol: t-5, one drink Prental History History Para 4 Hx # Term Pregnancies Multiple births Hx # Pregnancies Ectopic pregnancies AB induced Hx Number of Living Children AB spontaneous Vital Signs and Lab Results Vital Signs Most Recent Vital Signs in EMR: Most Recent Vital Signs Temp Pulse Resp BP Pulse Ox 36.3 C L 68 16 142/76 H 99 02/14/23 08:20 02/14/23 08:20 02/14/23 08:20 02/14/23 08:20 02/14/23 08:20 Lab Results Blood Type / Crossmatch: No Data to Display Complete Blood Count: No Data to Display Complete Metabolic Panel: No Data to Display Liver Function Panel: No Data to Display Coagulation Panel: No Data to Display Cardiac Panel: No Data to Display Arterial Blood Gas: No Data to Display Venous Blood Gas: No Data to Display Pancreas Panel: No Data to Display Thyroid Panel: No Data to Display Infectious Disease: No Data to Display Blood Cultures: No Data to Display Toxicology Panel: No Data to Display Anesthesia Assessment and Plan Anesthesia History Personal History: No History of Anesthesia Complications Family History: No Family History of Anesthesia Complications Exercise Tolerance Exercise Tolerance: Metabolic Equivalents>4 Pertinent Negatives Pertinent Negatives: No Symptoms of GERD Cardiac & Pulmonary Exam Cardiac Exam: Normal S1/S2 Heart Sounds Pulmonary Exam: Clear Bilateral Breath Sounds Implantable Cardiac Device Does patient have a Pacemaker or an ICD?: No Airway Exam Known Difficult Airway: No Mallampati Class: 2 Mouth Opening: Normal (> 3cm) Thyromental Distance: Greater than 3 cm Neck Range of Motion: Full ROM Neck Circumference: Normal Teeth Condition: Normal Dentition ASA Classification ASA Score: ASA 2 Emergency Case?: No NPO Status NPO Status: NPO Clears >2 hours, Solids >8 hours Anesthesia Plan Resuscitation Status: Full Code Anesthesia Technique: General Anesthesia Airway Planned: Natural Airway Monitors Used: Standard Monitors
[2023-02-14 09:24] VITALS: BMI 25.7
--- NOTE | 2023-02-14 09:43 | BOWEL_PTH ---
PATIENT: [place] LOC: [facility] U#:[id number] AGE/SX: 83/F ROOM: RE02/14/[address]: Gustavo Holley : 1940 BED: DIS: 02/14/2023 SPEC #: [id number] RECD: 02/14/23 12:50 STATUS: CRISTOBAL RE #: [id number] FRANCISCA: 02/14/23 09:[address]: Gustavo Holley DEPT: Surgical Specimen RECD BY: Laura Llamas ENTERED: 02/14/23 12:51 SP TYPE: Bowel OTHR DR: Kobe Barrett, JANUARY Tissues: 1 - BIOPSY BOWEL Procedures: GROSS AND MICRO LEVEL 4 Comments: [id number]
[2023-02-14 10:00] VITALS: BP 159/72; PULSE 72; RESP 16; TEMP 36; O2SAT 98
--- NOTE | 2023-02-14 10:00 | W.COLOREPORT ---
Date of service: 02/14/23 Time of Service: 10:00 Colonoscopy Report Procedure Description: Procedures performed: 1. Colonoscopy with cold forceps polypectomy x1 Preoperative diagnosis: Surveillance colonoscopy Postoperative diagnosis: Colon polyps, moderate/severe sigmoid diverticulosis Surgeon: Max Holley Anesthesia: Dillon Indication for procedure: Patient is a 83-year-old woman with a personal history of adenomatous polyps. Her last colonoscopy was 5 years ago. Her son actually recently had colon cancer in his 60s. Findings: The terminal ileum was normal. A 3-5 mm sessile polyp was removed from the ascending colon with cold forceps technique in piecemeal fashion. No other polyps were seen. Moderate/severe diverticular changes are present in the left colon but without stricture or active inflammation. Surveillance/follow-up recommendations: The patient is quite healthy and as long as there is a 5-10-year life expectancy perceived by her and her PCP, she should continue surveillance colonoscopies with a history of adenomatous polyps and colon cancer in the family. Complications: None Blood loss: Minimal Specimens:?? YES Quality of Prep:?? Good Procedure in detail: Written consent was obtained from the patient who was in agreement with the risks, benefits and indications of the procedure.? We went to the endoscopy suite and laid the patient in left lateral decubitus position.? Anesthesia was administered which was tolerated well.? A timeout was performed and when we are all in agreement we began the procedure. Digital rectal exam and visual examination was performed and within normal limits.? A well?lubricated colonoscope was advanced without difficulty all the way to the cecum identified by the ileocecal valve, and triangular folds and appendiceal orifice.? The terminal ileum was briefly intubated and look normal. The scope was then slowly withdrawn.?? Retroflexion was performed in the rectum.? The findings/interventions are noted above. The scope was then removed and the patient tolerated the procedure well and was then taken back to the PACU in hemodynamically stable condition.
--- NOTE | 2023-02-14 10:08 | W.ANESPOSTOP ---
Postoperative Evaluation Date, Time and Location Date Performed: 02/14/23 Time Performed: 10:08 Patient Location: Day Surgery Unit Vital Signs Most Recent Imported Vital Signs: Most Recent Vital Signs Temp Pulse Resp BP Pulse Ox 36.3 C L 68 16 142/76 H 99 02/14/23 08:20 02/14/23 08:20 02/14/23 08:20 02/14/23 08:20 02/14/23 08:20 Pain Score Most Recent Pain Score: Most Recent Pain Score Pain Level 0 02/14/23 08:20 Assessment Mental Status: Awake (Alert & Oriented to Patient Baseline) Airway and Respiratory Function: Patent airway with normal (patient baseline) respiratory exam Cardiovascular Function: Hemodynamically Stable Hydration Status: Adequately Hydrated Nausea & Vomiting: No Nausea or Vomiting Pain: Pt. Denies Any Pain Peripheral Nerve Block: Patient did not receive a nerve block Postoperative Comments:: Hypertension during procedure resolved in post-op area. BP at baseline. Polly Khalil CRNA
--- NOTE | 2023-02-14 10:13 | W.PM.DSUDISC ---
Date of service: 02/14/23 Time of Service: 10:13 Discharge Plan Disposition Patient Disposition: Home Condition: Good Discharge Details Attending Provider: Gustavo Holley Primary Care Provider: Kobe Barrett Home Meds and New Rx's Prescriptions: No Action Premarin 0.625 mg/gram cream See Rx Instructions .ROUTE .COMPLEX Qty: 30 0RF Dose Instruction: INSERT 0.5 GRAM VAGINALLY TWICE WEEKLY Rx Instructions: INSERT 0.5 GRAM VAGINALLY 3x WEEKLY bisacodyl [Dulcolax (bisacodyl)] 5 mg tablet,delayed release (DR/EC) 5 mg PO ONCE Qty: 4 0RF Rx Instructions: Take per colonoscopy instructions provided by ordering providers office polyethylene glycol 3350 17 gram/dose powder 17 g PO ONCE Qty: 238 0RF Rx Instructions: Take per colonoscopy instructions provided by ordering providers office levothyroxine 50 mcg tablet 50 mcg PO DAILY Qty: 90 3RF omeprazole 20 mg capsule,delayed release(DR/EC) 20 mg PO DAILY Patient Comments: TAKE ONE CAPSULE BY MOUTH EVERY DAY, pt. reports she is taking prilosec Discharge Instructions Stand Alone Forms: Colonoscopy Post Instructions Activity:: Activity as Tolerated Diet:: As Tolerated Discharge Orders Discharge Orders: Discharge Order (Routine); Ordered 02/14/23 Ordered By: Gustavo Holley DS: Diagnosis Discharge Diagnosis (1) Tubular adenoma of colon: Status: Acute Asessment and Plan: FINDINGS: Another polyp was found and removed today. This will redo the colonoscopy. It is nothing you need to worry about. As long as you continue to stay healthy you should consider repeating another colonoscopy in 5 years. Diverticular disease was again seen today. This is a very common, benign condition and nothing needs to be done about it as long as you not have symptoms.
[2023-02-14 10:45] VITALS: BP 140/66; PULSE 60; RESP 13; TEMP 35.9; O2SAT 98
== END 2023-02-14 11:00 | disposition home or self-care (01) ==
PROVIDERS: PCP Nurse Practitioner Family; Visit Provider Student in an Organized Health Care Education/Training Program
PROC: 0DJD8ZZ Inspection of Lower Intestinal Tract, Via Natural or Artificial Opening Endoscopic (ICD-10-PCS; CPT 45378; principal; 2023-02-14 09:00)
DX: Z12.11 Encounter for screening for malignant neoplasm of colon (principal); D12.2 Benign neoplasm of ascending colon; Z86.010 Personal history of colon polyps; Z80.0 Family history of malignant neoplasm of digestive organs; K57.30 Diverticulosis of large intestine without perforation or abscess without bleeding
CPT/HCPCS: 45380; 43239; 88305; J2001

== ENCOUNTER 2023-03-02 04:36 | Outpatient (CLI) | payer MEDICARE, SELFPAY ==
[2023-03-02 12:43] LABS: TSH (W/Ref FT4) 2.25 uIU/mL (0.36-3.74)
== END 2023-03-02 04:37 | disposition home or self-care (01) ==
LOC: LOS 04:36
PROVIDERS: PCP Nurse Practitioner Family; Visit Provider Nurse Practitioner Family
DX: E03.9 Hypothyroidism, unspecified (principal)
CPT/HCPCS: 36415; 84443

== ENCOUNTER → 2023-09-24 13:10 | Outpatient (CLI) | payer MEDICARE, SELFPAY ==
--- NOTE | 2023-09-24 09:30 | DI.US_ITS ---
Exam(s) US LOWER EXTREMITY VENOUS LT EXAM: US LOWER EXTREMITY VENOUS LT CLINICAL HISTORY: pain lt calf, M79.662,? dvt. TECHNIQUE: Lower extremity venous ultrasound performed using grayscale, color-flow, and spectral Do ppler analysis. COMPARISON: No exams were available for comparison FINDINGS: The common femoral, femoral and popliteal veins demonstrate normal compressibility, augmentation, and color Doppler. The posterior tibial veins are patent. No saphenous vein thrombosis is seen. There is a superficial thrombosis involving a branch over the saphenous vein in the mid calf which corresp onds to the palpable left abnormality. Length is approximately 1.5 cm. No hematoma or Gould's cyst is seen. IMPRESSION: Superficial thrombophlebitis in the mid calf involving branch off the greater saphenous vein. No jack dence of DVT. DATA REPOSITORY:
== END ==
PROVIDERS: PCP Nurse Practitioner Family; Visit Provider Nurse Practitioner Family
DX: M79.662 Pain in left lower leg (principal); I80.02 Phlebitis and thrombophlebitis of superficial vessels of left lower extremity
CPT/HCPCS: 93971

== ENCOUNTER → 2023-11-27 01:38 | Outpatient (CLI) | payer MEDICARE, SELFPAY ==
--- NOTE | 2023-11-27 07:45 | DI.US_ITS ---
Exam(s) US THYROID EXAM: US THYROID CLINICAL HISTORY: TR-3 follow up thyroid nodule,e04.1. TECHNIQUE: Ultrasound thyroid performed using standard protocol. COMPARISON: US US THYROID from 11/23/2022 FINDINGS: ISTHMUS: 4 mm RIGHT LOBE: Size: 4.9 x 2.1 x 2.2 cm Echogenicity: Mildly heterogeneous. Vascularity: Normal. Nodules: Dominant nodule measuring 2.5 x 1.8 x 1.7 cm, not significantly changed from prior exam. Ag ain noted to be mostly solid, isoechoic, wider than tall, smoothly marginated, without echogenic foci , TR 3. Additional nodule at the upper pole measuring 1.7 x 1.3 x 1.5 cm is less clearly seen, blending in wi th the thyroid tissue. It is isoechoic, smoothly marginated and shows no echogenic foci. TR 3. LEFT LOBE: Size: 4.9 x 1.8 x 1.7 cm Echogenicity: Normal mildly heterogeneous. Vascularity: Normal. Nodules: None. OTHER FINDINGS: No adenopathy. IMPRESSION: TI-RADS category 3 nodules in the right lobe of the thyroid, without significant change. Follow-up c ould be considered. DATA REPOSITORY:
== END ==
PROVIDERS: PCP Nurse Practitioner Family; Visit Provider Nurse Practitioner Family
DX: E04.1 Nontoxic single thyroid nodule (principal)
CPT/HCPCS: 76536

== ENCOUNTER 2023-11-30 10:07 | Emergency (ER) | payer MEDICARE, SELFPAY ==
[2023-11-30] VITALS (10 sets, daily range): BP systolic 149–209; BP diastolic 64–84; PULSE 62–78; RESP 12–18; TEMP 36.4; O2SAT 95–100
--- NOTE | 2023-11-30 10:31 | W.ED.GENAD ---
Discharge Plan Disposition Patient Disposition: Home Condition: Stable Discharge Details Clinical Impression: Closed dislocation of left shoulder Primary Care Provider: Kobe Barrett ED Provider: Yony Coppola Home Meds and New Rx's Prescriptions: Continued fluticasone propionate [Flonase Allergy Relief] 50 mcg/actuation spray,suspension 1 spray intranasal DAILY Qty: 16 3RF Rx Instructions: administer into each nostril levothyroxine 50 mcg tablet 50 mcg PO DAILY Qty: 90 3RF Premarin 0.625 mg/gram cream See Rx Instructions .ROUTE .COMPLEX Qty: 30 0RF Dose Instruction: INSERT 0.5 GRAM VAGINALLY TWICE WEEKLY Rx Instructions: INSERT 0.5 GRAM VAGINALLY 3x WEEKLY Discharge Instructions Instructions: Shoulder Dislocation, Procedural Sedation, Adult ED Additional Instructions: Please keep your shoulder in sling and follow-up with orthopedics. Call to schedule follow-up. Please contact your primary care physician to arrange follow-up. Return to the ER immediately for any worsening or new concerning symptoms. Referrals: [facility] [Provider Group] Kobe Barrett, HEALTH SOCIAL WORK PROFESSOR [Primary Care Provider] - Discharge Data Discharge Date/Time-TO BE ENTERED AT DEPARTURE: 11/30/23 14:08 HPI General Mode of arrival: ambulatory. Date/Time Provider Initiated Documentation: 11/30/23 10:22. Limitations to Documentation: no limitations. Information obtained by: patient. HPI Narrative: 83-year-old female presents with chief complaint of right shoulder pain. Patient notes she tripped over her dog and fell to the ground landing directly on her right shoulder. This occurred just prior to arrival. She has severe pain that is worse with any movement. No associated neck pain or head injury. No headache. No chest pain or abdominal pain. No pelvic pain. Related Data Home Medications ?Medication ?Instructions ?Recorded ?Confirmed fluticasone propionate 50 1 spray intranasal DAILY #16 grams 02/28/23 12/03/23 mcg/actuation nasal spray,suspension (Flonase Allergy Relief) levothyroxine 50 mcg tablet 50 mcg PO DAILY #90 tab-caps 09/21/23 12/03/23 conjugated estrogens 0.625 mg/gram See Rx Instructions .Route 10/21/23 12/03/23 vaginal cream (Premarin) .COMPLEX #30 grams Previous Rx's ?Medication ?Instructions ?Recorded fluticasone propionate 50 1 spray intranasal DAILY #16 grams 02/28/23 mcg/actuation nasal spray,suspension (Flonase Allergy Relief) levothyroxine 50 mcg tablet 50 mcg PO DAILY #90 tab-caps 09/21/23 conjugated estrogens 0.625 mg/gram See Rx Instructions .Route 10/21/23 vaginal cream (Premarin) .COMPLEX #30 grams Allergies Allergy/AdvReac Type Severity Reaction Status Date / Time nitrofurantoin Allergy Intermediate Hives Verified 12/03/23 13:23 cyclobenzaprine Allergy Mild Heart Verified 12/03/23 13:23 racing codeine AdvReac Intermediate NAUSEA Verified 12/03/23 13:23 rofecoxib AdvReac Mild Other (See Verified 12/03/23 13:23 Comment) lactose AdvReac ABDOMINAL Verified 12/03/23 13:23 CRAMPING. DIARRHEA General Stated Complaint: Orthopedic BRAYAN: 3 Review of Systems Musculoskeletal Musculoskeletal: Reports as per HPI Exam Const General: uncomfortable HENMT Head: normocephalic and atraumatic Mouth: moist mucous membranes Resp Auscultation: clear to auscultation bilaterally, no rales, no rhonchi and no wheezes Cardio Rate: regular rate and not tachycardic Rhythm: regular rhythm GI Palpation: soft, not firm, no guarding, no masses, not rigid and nontender Neuro General: patient alert, patient awake and tone normal Extrem Right upper extremity: shoulder/upper arm Details: tenderness Location: of the proximal humerus and hand Details: normal capillary refill, neuromotor exam normal, neurosensory exam normal and vascular exam Details: radial pulse present Course Vital Signs Vital signs: Vital Signs Temperature 36.4 C L 11/30/23 10:16 Pulse 78 11/30/23 10:16 Respiratory Rate 18 11/30/23 10:16 Blood Pressure 162/74 H 11/30/23 10:16 Pulse Oximetry 100 11/30/23 10:16 Temperature 36.4 C L 11/30/23 10:16 Pulse 78 11/30/23 10:16 Respiratory Rate 18 11/30/23 10:16 Respiratory Effort Normal 11/30/23 10:22 Blood Pressure 162/74 H 11/30/23 10:16 Blood Pressure Position Sitting 11/30/23 10:16 Pulse Oximetry 100 11/30/23 10:16 Oxygen Delivery Method Room Air 11/30/23 10:16 Oxygen Flow Rate 0 11/30/23 10:16 Pain Level 8 11/30/23 10:27 Procedures Orthopedic Joint Reduction Joint #1: Time Out Performed: Yes Side: right Joint Reduction Location: shoulder Analgesia: procedural sedation Shoulder Technique Used (if applicable): traction/counter-traction Technique used: traction/counter-traction Post-reduction neuro exam: intact Post-reduction vascular: intact Post Reduction X-Ray Obtained: Yes Post Reduction X-Ray Results: reduced Splint Applied: Yes Patient Tolerated Procedure: well Procedural Sedation Indication: fracture/dislocation reduction ASA Class: II Preparation: telemetry monitor applied, pulse oximeter, capnometry used, supplemental O2 applied and suction/airway equipment at bedside IV Propofol dose (mg): 70 Complications: hypoxia Interventions: oxygen applied, airway repositioned and assist by BVM Additional Comments: Patient had brief episode of hypoxia that responded quickly to oxygen by BVM. Medical Decision Making 83-year-old female here with right upper arm pain after mechanical fall just prior to arrival. Patient focally tender proximal humerus. Suspect fracture versus dislocation of the shoulder. Patient is neurovascular intact distally. X-ray of the right humerus and shoulder interpreted by radiology:Anterior shoulder dislocation. No evidence of fracture. Patient was given acetaminophen IV, Dilaudid IV, Toradol IV. Both the Weiss and fares technique were attempted and unsuccessful in reduction. Patient provided informed consent to procedural sedation for closed reduction of her right shoulder dislocation. Shoulder was reduced easily with sedation. Shoulder sling was applied. Patient did have brief episode of hypoxia which responded quickly to BVM ventilation. 145p -- Patient reassessed: Mentating well. Pain much improved now in sling. Postreduction x-rays confirm shoulder reduced. Usual customary discharge instructions were reviewed with the patient. She was encouraged to follow-up with orthopedics. Quality:SDOH Health Related Social Needs: No Data to Display PFSH All Active Problems (Updated 11/30/23 @ 13:49 by Yony Coppola MD) Closed dislocation of left shoulder (Acute) Tubular adenoma (Acute ~01/2023) Cardiac arrhythmia (Acute 01/31/08) Atrophic vaginitis (Acute 03/06/11) Hypothyroidism (Acute 01/31/08) Lichen planus (Acute 10/26/17) Frequent UTI (Acute) Sensory hearing loss, bilateral (Acute) Abnormal auditory perception (Acute) Tinnitus (Acute) Disequilibrium (Acute) Venous insufficiency (chronic) (peripheral) (Acute) Cholelithiasis (Acute) Diverticulitis (Chronic) Actinic keratosis (Acute) Mitral prolapse (Acute) Umbilical hernia (Acute) Cervical pain (Acute) Ganglion cyst (Acute) Osteoarthritis of right wrist (Acute) Neuroforaminal stenosis of cervical spine (Acute) Severe on CT C5-C6 and C6-C7 (see report from 08/04/22 Thyroid nodule (Acute) Medical History History of cellulitis L ankle from accident in July 2022 History of neck pain august 04 2022, pt. injured in parking garage, ramp came up and fell Family history of colon cancer Hx of adenomatous colonic polyps Tubular adenoma of colon (02/27/17) Surgical History History of section History of surgical removal of lesion Skin Cancer Removal (~2009) small cell carcinoma removed from chin section X 4 Colonoscopy - MAC (01/2023) sessile polups removed Family History Mother , 90 Pancreatic cancer Father , 85 Essential hypertension Aneurysm Heart disease Hyperlipidemia Hypertension Brother No problems noted. Maternal Grandfather Stroke Paternal Grandfather No problems noted. Maternal Grandmother , 103 Diabetes TYPE II Paternal Grandmother , 85 No problems noted. Son History of colon resection Hodgkin's disease Daughter Clotting disorder FACTOR 5 AND ONE OTHER DISORDER Asthma Daughter No problems noted. Social History Smoking/Tobacco Use Status: Former Tobacco Use tobacco type: cigarettes Quit Date: 05/21/1964 Tobacco: How many years used: 10 Quit status: has quit before Second Hand Exposure: Yes Smoking risk assessment performed?: Yes Alcohol Intake: current Alcohol Intake frequency: a few times a month Alcohol type: beer, wine and hard liquor Drug use: Never Substance use type: does not use Counseling given: No Details: alcohol: t-5, one drink Caregiver/Support person: No Household members: spouse Housing: house Communication Needs: None Do you need help understanding health information?: Never Pets and animals: Yes Pets and animals: dog(s) Sexually active: Yes Do you think of yourself as: straight/heterosexual Current gender identity: female What is your relationship status?: How often do you talk on the phone with friends or family?: three or more times per week How often do you get together with friends or relatives?: three or more times per week How often do you attend presybeterian or episcopalian services?: 1-3 times per year Do you belong to any clubs or organized social groups?: yes Panel score (0-1 are the most socially isolated patients): 3 What type of physical activity do you participate in: walking, bicycling and other Details: Tennis,golf,pickleball,kayaking, gradening Duration: > 90 minutes/day Frequency: 3-4 times per week Joycelyn/Restoration: Sabianism Special joycelyn needs: No Seatbelt use: always Helmet use: Yes Helmet use: sometimes Drive intox or ride w/intox charter driver: No Do you feel safe at home: Yes Do you feel safe in your relationship?: Yes History History Para 4 Hx # Term Pregnancies Multiple births Hx # Pregnancies Ectopic pregnancies AB induced Hx Number of Living Children AB spontaneous PAWSS Have you Been Recently Intoxicated or Drunk Within the Last 30 days?: No Have you Ever Experienced Previous Episodes of Alcohol Withdrawal?: No Have you ever Experienced Withdrawal Seizures?: No Have you ever Experienced Delirium Tremens(DT)s?: No Have you ever undergone Alcohol Rehabilitation Treatment (i.e, inpt ot outpatient treatment programs)?: No Have you ever Experienced Blackouts?: No Have you ever Combined Alcohol with other Downers within the last 90 days?: No Have you ever Combined Alcohol with any other Substance of Abuse during the last 90 days?: No Positive Blood Alcohol level on Presentation? [PCS.BAL]: No Evidence of Increased Autonomic Activity (i.e. HR>120, tremor, sweating, agitation, nausea)?: No Result: 0
[2023-11-30] MEDS: Ketorolac 15 MG/ML VIAL IVP (10:40)
[2023-11-30] MEDS: HYDROmorphone 2 MG/ML SYR 0.5 MG IVP (10:40)
[2023-11-30] MEDS: ACETAMINOPHEN 1,000 MG/100 ML BTL 400 MG IVPB (10:40)
--- NOTE | 2023-11-30 11:25 | DI.RAD_ITS ---
Exam(s) XR HUMERUS RT XR SHOULDER RT COMPLETE 2+V EXAM: XR SHOULDER RT COMPLETE 2+V CLINICAL HISTORY: pain. TECHNIQUE: 2D digital imaging was performed. Four views of the shoulder. Two views of the humerus COMPARISON: CR XR HUMERUS RT from 11/30/2023 FINDINGS: BONES: No acute fracture is present. No bony destructive lesion is seen. JOINTS: The humeral head is dislocated anteriorly and inferiorly with respect to the glenoid. Mild u nderlying degenerative changes. SOFT TISSUE: Normal. IMPRESSION: Anterior shoulder dislocation. No evidence of fracture. DATA REPOSITORY: RADIATION DOSE DELIVERED:
--- NOTE | 2023-11-30 12:20 | RESPIRATORY ---
Respiratory Therapy on emergency stand by for conscious sedation. ETC02, ambu, suction, and nasal trumpet set up and at bedside. Patient given few support breaths with ambu. Procedure tolerated well.
[2023-11-30] MEDS: Propofol 200 MG/20 ML VIAL 70 MG IVP (12:26)
[2023-11-30] MEDS: Ondansetron 4 MG/2 ML VIAL (12:26)
--- NOTE | 2023-11-30 12:50 | DI.RAD_ITS ---
Exam(s) XR SHOULDER RT COMP POST REDUC EXAM: XR SHOULDER RT COMP POST REDUC CLINICAL HISTORY: post reduction. TECHNIQUE: 2D digital imaging was performed. Three views. COMPARISON: No exams were available for comparison FINDINGS: BONES: No acute fracture is present. No bony destructive lesion is seen. JOINTS: The previously noted dislocation has been reduced. SOFT TISSUE: Normal. IMPRESSION: Reduction previously noted shoulder dislocation. No evidence of fracture DATA REPOSITORY: RADIATION DOSE DELIVERED:
== END 2023-11-30 14:08 | disposition home or self-care (01) ==
PROVIDERS: Emergency Provider Student in an Organized Health Care Education/Training Program; PCP Nurse Practitioner Family
DX: S43.014A Anterior dislocation of right humerus, initial encounter (principal); W01.0XXA Fall on same level from slipping, tripping and stumbling without subsequent striking against object, initial encounter; Z87.891 Personal history of nicotine dependence; Y93.01 Activity, walking, marching and hiking; Y92.018 Other place in single-family (private) house as the place of occurrence of the external cause
CPT/HCPCS: 23650; 73030; 96365; 96375; 99284; 73060; J0131; J1170; J1885; J2405; J2704

== ENCOUNTER → 2023-12-18 14:17 | Outpatient (BNVA) | payer MEDICARE, SELFPAY | PROVIDERS: PCP Nurse Practitioner Family; Referring Provider Nurse Practitioner Family; Visit Provider Student in an Organized Health Care Education/Training Program | DX: S43.014D Anterior dislocation of right humerus, subsequent encounter (principal); X58.XXXD Exposure to other specified factors, subsequent encounter | CPT/HCPCS: 99441 ==

== ENCOUNTER 2024-01-15 02:27 | Outpatient (CLI) | payer MEDICARE, SELFPAY ==
--- NOTE | 2024-01-15 | DI.CT_ITS ---
Exam(s) CT CERVICAL SPINE WO EXAM: CT CERVICAL SPINE WO CLINICAL HISTORY: NECK PAIN,M54.2,GREATER ON LT,S/P FALL,? FX. TECHNIQUE: Imaging Protocol: Axial computed tomography images with coronal and sagittal reformatted images were created and reviewed CONTRAST MATERIAL: Noncontrast COMPARISON: No exams were available for comparison FINDINGS: Bones: No fracture, lytic or blastic lesion. Degenerative changes noted at C1-2. C2-3 and C3-4 discs are unremarkable. Facet degenerative changes present. Findings greater on the l eft. Mild loss of height and small endplate osteophytes at C4-5. No significant central canal stenosis. Mild left foraminal narrowing. Moderate loss of disc height and circumferential small endplate Osteophytes at C5-6 cause left neural foraminal narrowing. Endplate osteophytes projecting posteriorly and toward the right at C6-7. Facet degenerative changes . There is severe right neural foraminal narrowing and mild left neural foraminal narrowing. There is also significant narrowing of the AP dimension of the central canal down to 7 millimeters. C7-T1 and T1-2 discs. Facet degenerative changes present at C7-T1. Soft Tissues: Right thyroid nodule noted. This was evaluated previously by ultrasound. The visualiz ed portions of the lung apices are clear. No pneumothorax is seen. IMPRESSION: Degenerative disc changes greatest at C6-7 with posteriorly projecting osteophytes causing narrowing of the AP dimension of the central canal as well as bilateral neural foraminal narrowing. Degenerative changes seen to a lesser extent at other levels. RADIATION DOSE DELIVERED: Total DLP DATA REPOSITORY: All CT scans at this facility are submitted to the National Radiology Data Registry (NRDR) Dose Index Registry (DIR) with the [employer] (ACR). RADIATION OPTIMIZATION: All CT scans at this facility use at least one of these dose optimization te chniques: automated exposure control; mA and/or kV adjustment per patient size (includes targeted exa ms where dose is matched to clinical indication); or iterative reconstruction.
--- NOTE | 2024-01-15 | DI.RAD_ITS ---
Exam(s) XR CERVICAL SP SANTILLAN TRAUMA 2-3V EXAM: XR CERVICAL SP SANTILLAN TRAUMA 2-3V CLINICAL HISTORY: NECK PAIN,M54.2,LT GREATER THAN RT, S/P FALL,? INSTABILITY. TECHNIQUE: 2D digital imaging was performed. Lateral view in flexion and extension only. COMPARISON: No exams were available for comparison FINDINGS: BONES: No fracture or destructive lesion. Vertebral bodies are unremarkable. Facet degenerative dixon ges present throughout. DISKS: Mild narrowing of the C 4 5 and C5-6 disc spaces with small endplate osteophytes. ALIGNMENT: Cervical spinal alignment is within normal limits. The odontoid and atlantoaxial articulat ions are normal. No subluxation with flexion or extension. Somewhat limited range of motion which c ould be secondary to degenerative changes.. SOFT TISSUE: Normal. The lung apices are clear. IMPRESSION: Degenerative disc changes greatest at 4 5 and C5-6. Facet degenerative changes noted throughout. DATA REPOSITORY: RADIATION DOSE DELIVERED:
--- OUTSIDE RECORDS SUMMARY | 2024-01-15 02:31 | XMS_ITS | Clinical Summary ---
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 0 Active omeprazole (PriLOSEC) 20 MG Oral Capsule Delayed Release Take 20 mg by mouth daily. 0 04/08/2022 Active conjugated estrogens (Premarin) 0.625 MG/GM Vaginal Cream vaginally. 0 Active Active Problems No known active problems Immunizations Name Administration Dates Next Due ADACEL, BOOSTRIX, Tdap Vacci ne, (7 yo and older), IM ([id number]) 08/04/2022 Family History Medical History Relation Comments Arthritis Brother Hearing Loss Brother Vision Loss Brother Heart Disease Father High Blood Pressure Father Vision Loss Father Hearing Loss Maternal Grandfather Arthritis Mother Cancer Mother Hearing Loss Mother No Known Problems Paternal Grandfather Stroke Paternal Grandmother Relation Status Comments Brother Father Maternal Grandfather Mother Paternal Grandfather Paternal Grandmother Social History Tobacco Use Types Packs/Day Years Used Date Smoking Tobacco: Never Smokeless Tobacco: Never Tobacco Cessation:Counseling Given: Not Answered Alcohol Use Standard Drinks/Week Comments Never 0 (1 standard drink = 0.6 oz pur e alcohol) Social Connection and Isolat ion Panel [NHANES] Answer Date Recorded In a typical week, how many times do you talk on the phone with family, friends, or neighbors? More than three times a week 08/22/2022 How often do you get togethe r with friends or relatives? More than three times a week 08/22/2022 How often do you attend chur ch or yazidism services? 1 to 4 times per year 08/22/2022 Do you belong to any clubs o r organizations such as moravian groups, unions, fraternal or athletic groups, or school groups? No 08/22/2022 How often do you attend meet ings of the clubs or organizations you belong to? More than 4 times per year 08/22/2022 Are you , , di vorced, , never , or living with a partner? 08/22/2022 AUDIT-C Answer Date Recorded Q1: How often do you have a drink containing alc ohol? 2-4 times a month 08/22/2022 Q2: How many drinks containi ng alcohol do you have on a typical day when you are drinking? 1 or 2 08/22/2022 Q3: How often do you have si x or more drinks on one occasion? Never 08/22/2022 Overall Financial Resource Strain (CARDIA) Answe r Date Recorded How hard is it for you to pa y for the very basics like food, housing, medical care, and heating? Not hard at all 08/22/2022 [facility] - Occupational Stress Questionnaire Answer Date Recorded Do you feel stress - tense, restless, nervous, or anxious, or unable to sleep at night because your mind is troubled all the time - these days? Not at all 08/22/2022 Exercise Vital Sign Answer Date Recorde d On average, how many days pe r week do you engage in moderate to strenuous exercise (like a brisk walk)? 4 days 08/22/2022 On average, how many minutes do you engage in exercise at this level? 120 min 08/22/2022 Hunger Vital Sign Answer Date Recorded Within the past 12 months, y ou worried that your food would run out before you got the money to buy more. Never true 08/23/19 23 Within the past 12 months, t he food you bought just didn't last and you didn't have money to get more. Never true 08/22/2022 PRAPARE - Transportation Answer Date Re corded In the past 12 months, has l ack of transportation kept you from medical appointments or from getting medications? No 04/0 08/2022 In the past 12 months, has l ack of transportation kept you from meetings, work, or from getting things needed for daily living? No 08/22/2022 Housing Stability Vital Sign Answer Tj e Recorded In the last 12 months, was t here a time when you were not able to pay the mortgage or rent on time? No 08/22/2022 In the last 12 months, how many places have you lived? 2 08/22/2022 In the last 12 months, was t here a time when you did not have a steady place to sleep or slept in a penitentiary (including now)? No 08/22/2022 PHQ-2 Risk Classification Answer Date R ecorded Patient Health Questionnaire-9 Score 2 08/22/2022 PHQ-9 Risk Classification Answer Date R ecorded Patient Health Questionnaire-9 Score 2 08/22/2022 Sex and Gender Information Value Date Recorded Sex Assigned at Not on file Gender Identity Not on file Sexual Orientation Not on file Last Filed Vital Signs Vital Sign Reading Time Taken Comments Blood Pressure 155/87 08/22/2022 1:28 PM EDT Pulse 69 08/22/2022 1:28 PM EDT Temperature 36.3 ??C (97.3 ??F) 08/22/2022 1:28 PM ED T Respiratory Rate 16 08/05/2022 12:22 AM EDT Oxygen Saturation 97% 08/22/2022 1:28 PM EDT Inhaled Oxygen Concentration - - Weight 72.6 kg (160 lb) 08/22/2022 1:28 PM EDT Height 167.6 cm (5' 6) 08/22/2022 1:28 PM EDT Body Mass Index 25.82 08/22/2022 1:28 PM EDT Plan of Treatment Health Maintenance Due Date Last Done Comments Preventive Wellness Visit 01/20/1960 Lipid Profile 1987 Zoster Vaccine (1 of 2) 01/20/1992 RSV Vaccine (1 - 1-dose 60+ series) 2002 Dexa 2007 Pneumococcal Vaccine (65+ yr s) (1 of 1 - PCV) 2007 SARS-CoV-2 (COVID-19) (1 - 2 023-24 season) 2023 Influenza Vaccine (#1) 2024 DTaP,Tdap,and Td Vaccines (2 - Td or Tdap) 08/04/2032 08/04/2022 HIB Vaccine Aged Out No longer eligi ble based on patient's age to complete this topic HPV Vaccine Aged Out No longer eligi ble based on patient's age to complete this topic Hepatitis A Vaccine Aged Out No longe r eligible based on patient's age to complete this topic Hepatitis B Vaccine Aged Out No longe r eligible based on patient's age to complete this topic Meningococcal ACWY Aged Out No longer eligible based on patient's age to complete this topic Polio Vaccine Aged Out No longer elig ible based on patient's age to complete this topic Rotavirus Vaccine Aged Out No longer eligible based on patient's age to complete this topic 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
--- OUTSIDE RECORDS SUMMARY | 2024-01-15 02:31 | XMS_ITS | Encounter Summary ---
Author Organization [facility] Address [address] [id number] Care Team Providers Care Mechanism Inspector Name Role Phone Анна Lyman APRN Primary Care Provider Reason for Visit * Reason Comments New Patient Hospital D/c Follow-up Encounter Details Date Type Department Care Team (Late st Contact Info) Description 08/22/2022 1:00 PM EDT Office Visit [facility] [address] [place] [address] Анна Lyman APRN [address] [place] [address] Fall from standing, initial encounter; Body mass index (BMI) of 25.0-25.9 in adult; Adrenal hemorrhage ([facility]: 23) Social History Tobacco Use Types Packs/Day Years [...] often do you attend chur ch or hoahaoism services? 1 to 4 times per year 08/22/2022 Do you belong to any clubs o r organizations such as yazidism groups, unions, fraternal or athletic groups, or [...] and heating? Not hard at all 08/22/2022 [facility] - Occupational Stress [...] medical appointments or from getting medications? No 08/2022 In the past 12 months, has [...] place to sleep or slept in a detention (including now)? No 08/22/2022 PHQ-2 Risk Classification Answer Date R ecorded Patient Health Questionnaire-9 Score 2 08/22/2022 PHQ-9 Risk Classification Answer Date R ecorded Patient Health Questionnaire-9 Score 2 08/22/2022 Sex and Gender Information Value Date Recorded Sex Assigned at Not on file Gender Identity Not on file Sexual Orientation Not on file COVID-19 Exposure Response Date Recorded In the last 10 days, have yo u been in contact with someone who was confirmed or suspected to have Coronavirus/COVID-19? No / Unsure 08/04/2022 12:31 PM EDT documented as of this encounter Last Filed Vital Signs Vital Sign Reading Time Taken Comments Blood Pressure 155/87 08/22/2022 1:28 PM EDT Pulse 69 08/22/2022 1:28 PM EDT Temperature 36.3 ??C (97.3 ??F) 08/22/2022 1:28 PM ED T Respiratory Rate - - Oxygen Saturation 97% 08/22/2022 1:28 PM EDT Inhaled Oxygen Concentration - - Weight 72.6 kg (160 lb) 08/22/2022 1:28 PM EDT Height 167.6 cm (5' 6) 08/22/2022 1:28 PM EDT Body Mass Index 25.82 08/22/2022 1:28 PM EDT documented in this encounter Progress Notes * Анна Lyman, MONICA - 08/22/2022 1:00 PM EDT Images from the original note were not included. Subjective: Aide Hills is a 82 y.o. female being seen today for New Patient and Hospital D/c Follow-up HPI Mrs. Hills is an 82 year old female here to establish care and for f/u from ER with overnight admission at in [place]. Patient is from [place] and is here visiting in [place] until 09/18/22. Patient was walking in garage of rental car facility and tripped over mechanism that comes up toprotect cars from rolling backward. Patient was following her , she is unsure if the action of him walking past caused the piece to come out of the floor, but ultimately she tripped injuring her right wrist, left lower leg, and right torso. Patient has questions regarding incidental findings on her xrays. One is thyroid nodule and the other is abnormal neck xray. Since 01/2022 started with left ear having beating vibration sensation, neck started clicking same time. No numbness or tingling. Patient wonders if this is correlated to her neck abnormalities. Admission on 08/04/2022, Discharged on 08/05/2022 Component Date Value Ref Range Status ??? Sodium 08/04/2022 137 135 - 145 MMOL/L Final ??? Potassium 08/04/2022 4.0 3.3 - 4.6 MMOL/L Final ??? Chloride 08/04/2022 101 101 - 110 MMOL/L Final ??? CO2 08/04/2022 24 21 - 29 MMOL/L Final ??? Urea Nitrogen 08/04/2022 15 6 - 22 MG/DL Final ??? Creatinine 08/04/2022 0.60 0.51 - 0.96 MG/DL Final ??? BUN/Creatinine Ratio 08/04/2022 25.0 (H) 6.0 - 22.0 (CALC) Final ??? Glucose 08/04/2022 147 (H) 71 - 99 MG/DL Final ??? Calcium 08/04/2022 9.3 8.6 - 10.0 MG/DL Final ??? Osmolality Calc 08/04/2022 277.3 Final ??? Anion Gap 08/04/2022 12 4 - 16 MMOL/L Final ? ? EGFR (CKD-EPI) 08/04/2022 91 >=60 ML/MIN/1.73M2 Final Calculation based on the??Chronic Kidney Disease Epidemiology Collaboration (CKD-EPI) equation refit??without adjustment for race ??? WBC 08/04/2022 8.96 4.5 - 11 THOU/CUMM Final ??? RBC 08/04/2022 4.53 4.20 - 5.40 x10E6/uL Final ??? Hemoglobin 08/04/2022 14.3 12.0 - 16.0 G/DL Final ??? Hematocrit 08/04/2022 42.2 37.0 - 47.0 % Final ??? MCV 08/04/2022 93.2 82.0 - 101.0 FL Final ??? MCH 08/04/2022 31.6 27.0 - 34.0 PG Final ??? MCHC 08/04/2022 33.9 31.0 - 36.0 G/DL Final ??? RDW 08/04/2022 12.9 12.0 - 16.1 % Final ??? Platelet Count 08/04/2022 173 140 - 440 x10E3/uL Final ??? MPV 08/04/2022 9.9 9.5 - 12.2 FL Final ??? nRBC % 08/04/2022 0.0 0.0 - 1.0 % Final ??? Neutrophils % 08/04/2022 85.3 (H) 34.0 - 73.0 % Final ??? Lymphocytes % 08/04/2022 8.4 (L) 25.0 - 45.0 % Final ??? Monocytes % 08/04/2022 5.2 % Final ??? Eosinophils % 08/04/2022 0.2 % Final ??? Immature Granulocytes % 08/04/2022 0.7 % Final ??? Neutrophils Absolute 08/04/2022 7.64 (H) 1.40 - 7.50 THOU/CUMM Final ??? Lymphocytes Absolute 08/04/2022 0.75 (L) 0.90 - 3.00 X10E3/UL Final ??? Monocytes Absolute 08/04/2022 0.47 0.20 - 0.90 X10E3/UL Final ??? Eosinophils Absolute 08/04/2022 0.02 0.00 - 0.50 THOU/CUMM Final ??? Basophil Absolute 08/04/2022 0.02 0.00 - 0.10 X10E3/UL Final ??? Absolute Immature Granulocytes 08/04/2022 0.06 (H) 0 - 0 X10E3/UL Final ??? Basophils % 08/04/2022 0.2 % Final ??? Absolute NRBC Count 08/04/2022 0.00 10*9/L Final ??? WBC 08/05/2022 4.62 4.5 - 11 THOU/CUMM Final ??? RBC 08/05/2022 4.19 (L) 4.20 - 5.40 x10E6/uL Final ??? Hemoglobin 08/05/2022 12.8 12.0 - 16.0 G/DL Final ??? Hematocrit 08/05/2022 38.7 37.0 - 47.0 % Final ??? MCV 08/05/2022 92.4 82.0 - 101.0 FL Final ??? MCH 08/05/2022 30.5 27.0 - 34.0 PG Final ??? MCHC 08/05/2022 33.1 31.0 - 36.0 G/DL Final ??? RDW 08/05/2022 13.0 12.0 - 16.1 % Final ??? Platelet Count 08/05/2022 172 140 - 440 x10E3/uL Final ??? MPV 08/05/2022 9.8 9.5 - 12.2 FL Final ??? nRBC % 08/05/2022 0.0 0.0 - 1.0 % Final ??? Neutrophils % 08/05/2022 73.2 (H) 34.0 - 73.0 % Final ??? Lymphocytes % 08/05/2022 17.3 (L) 25.0 - 45.0 % Final ??? Monocytes % 08/05/2022 7.4 % Final ??? Eosinophils % 08/05/2022 1.7 % Final ??? Immature Granulocytes % 08/05/2022 0.2 % Final ??? Neutrophils Absolute 08/05/2022 3.38 1.40 - 7.50 THOU/CUMM Final ??? Lymphocytes Absolute 08/05/2022 0.80 (L) 0.90 - 3.00 X10E3/UL Final ??? Monocytes Absolute 08/05/2022 0.34 0.20 - 0.90 X10E3/UL Final ??? Eosinophils Absolute 08/05/2022 0.08 0.00 - 0.50 THOU/CUMM Final ??? Basophil Absolute 08/05/2022 0.01 0.00 - 0.10 X10E3/UL Final ??? Absolute Immature Granulocytes 08/05/2022 0.01 (H) 0 - 0 X10E3/UL Final ??? Basophils % 08/05/2022 0.2 % Final ??? Absolute NRBC Count 08/05/2022 0.00 10*9/L Final ??? WBC 08/05/2022 4.73 4.5 - 11 THOU/CUMM Final ??? RBC 08/05/2022 4.14 (L) 4.20 - 5.40 x10E6/uL Final ??? Hemoglobin 08/05/2022 12.9 12.0 - 16.0 G/DL Final ??? Hematocrit 08/05/2022 38.5 37.0 - 47.0 % Final ??? MCV 08/05/2022 93.0 82.0 - 101.0 FL Final ??? MCH 08/05/2022 31.2 27.0 - 34.0 PG Final ??? MCHC 08/05/2022 33.5 31.0 - 36.0 G/DL Final ??? RDW 08/05/2022 13.2 12.0 - 16.1 % Final ??? Platelet Count 08/05/2022 161 140 - 440 x10E3/uL Final ??? MPV 08/05/2022 10.1 9.5 - 12.2 FL Final ??? nRBC % 08/05/2022 0.0 0.0 - 1.0 % Final ??? Neutrophils % 08/05/2022 66.9 34.0 - 73.0 % Final ??? Lymphocytes % 08/05/2022 20.9 (L) 25.0 - 45.0 % Final ??? Monocytes % 08/05/2022 9.1 % Final ??? Eosinophils % 08/05/2022 2.7 % Final ??? Immature Granulocytes % 08/05/2022 0.2 % Final ??? Neutrophils Absolute 08/05/2022 3.16 1.40 - 7.50 THOU/CUMM Final ??? Lymphocytes Absolute 08/05/2022 0.99 0.90 - 3.00 X10E3/UL Final ??? Monocytes Absolute 08/05/2022 0.43 0.20 - 0.90 X10E3/UL Final ??? Eosinophils Absolute 08/05/2022 0.13 0.00 - 0.50 THOU/CUMM Final ??? Basophil Absolute 08/05/2022 0.01 0.00 - 0.10 X10E3/UL Final ??? Absolute Immature Granulocytes 08/05/2022 0.01 (H) 0 - 0 X10E3/UL Final ??? Basophils % 08/05/2022 0.2 % Final ??? Absolute NRBC Count 08/05/2022 0.00 10*9/L Final Past Medical History: Diagnosis Date ??? Arthritis ??? Clotting disorder ([facility]: 48) ??? Hypothyroidism ??? Migraines Past Surgical History: Procedure Laterality Date ??? SECTION Family History Problem Relation Age of Onset ??? Hearing Loss Mother ??? Cancer Mother ??? Arthritis Mother ??? Vision Loss Father ??? High Blood Pressure Father ??? Heart Disease Father ??? Arthritis Brother ??? Hearing Loss Brother ??? Vision Loss Brother ??? Hearing Loss Maternal Grandfather ??? Stroke Paternal Grandmother ??? No Known Problems Paternal Grandfather Social History Socioeconomic History ??? Marital status: Spouse name: Guy ??? Number of children: 4 ??? Years of education: Not on file ??? Highest education level: Not on file Occupational History ??? Not on file Tobacco Use ??? Smoking status: Never ??? Smokeless tobacco: Never Vaping Use ??? Vaping status: Never Used Substance and Sexual Activity ??? Alcohol use: Never ??? Drug use: Never ??? Sexual activity: Yes Partners: Male Other Topics Concern ??? Not on file Social History Narrative ??? Not on file Social Determinants of Health Financial Resource Strain: Low Risk (08/22/2022) Overall Financial Resource Strain (CARDIA) ??? Difficulty of Paying Living Expenses: Not hard at all Food Insecurity: No Food Insecurity (08/22/2022) Hunger Vital Sign ??? Worried About Running Out of Food in the Last Year: Never true ??? Ran Out of Food in the Last Year: Never true Transportation Needs: No Transportation Needs (08/22/2022) PRAPARE - Transportation ??? Lack of Transportation (Medical): No ??? Lack of Transportation (Non-Medical): No Physical Activity: Sufficiently Active (08/22/2022) Exercise Vital Sign ??? Days of Exercise per Week: 4 days ??? Minutes of Exercise per Session: 120 min Stress: No Stress Concern Present (08/22/2022) [facility] - Occupational Stress Questionnaire ??? Feeling of Stress : Not at all Social Connections: Socially Integrated (08/22/2022) Social Connection and Isolation Panel [NHANES] ??? Frequency of Communication with Friends and Family: More than three times a week ??? Frequency of Social Gatherings with Friends and Family: More than three times a week ??? Attends Anabaptism Services: 1 to 4 times per year ??? Active Member of Clubs or Organizations: No ??? Attends Club or Organization Meetings: More than 4 times per year ??? Marital Status: Intimate Partner Violence: Not At Risk (08/22/2022) Humiliation, Afraid, Rape, and Kick questionnaire ??? Fear of Current or Ex-Partner: No ??? Emotionally Abused: No ??? Physically Abused: No ??? Sexually Abused: No Housing Stability: Low Risk (08/22/2022) Housing Stability Vital Sign ??? Unable to Pay for Housing in the Last Year: No ??? Number of Places Lived in the Last Year: 2 ??? Unstable Housing in the Last Year: No Current Outpatient Medications on File Prior to Visit Medication Sig ??? conjugated estrogens (Premarin) 0.625 MG/GM Vaginal Cream vaginally. ??? levothyroxine (SYNTHROID) 112 MCG Oral Tablet by mouth. ??? omeprazole (PriLOSEC) 20 MG Oral Capsule Delayed Release Take 20 mg by mouth daily. No current facility-administered medications on file prior to visit. Allergies Allergen Reactions ??? Codeine Review of Systems Constitutional: Negative for fever, chills, diaphoresis and unexpected weight change. Eyes: Negative. Respiratory: Negative. Cardiovascular: Hypertension Gastrointestinal: Negative. Endocrine: Negative. Genitourinary: Negative. Musculoskeletal:Mild swelling and pain to right hand, states much improved. Skin: Negative. Allergic/Immunologic: Negative. Neurological:Negative. Hematological: Negative. Psychiatric/Behavioral: Negative. Objective: VITAL SIGNS (all recorded) Clinic Vitals Row Name 08/22/22 1328 Amb Encounter Vitals Weight 72.6 kg (160 lb) -EP at 08/22/22 1329 Height 1.676 m (5' 6) -EP at 08/22/22 1329 BMI (Calculated) 25.88 -EP at 08/22/22 1329 BSA (Calculated - sq m) 1.84 -EP at 08/22/22 1329 BP 155/87 -EP at 08/22/22 1329 BP Location Right upper arm -EP at 08/22/22 1329 Position Sitting -EP at 08/22/22 1329 Pulse 69 -EP at 08/22/22 1329 Pulse Source Monitor -EP at 08/22/22 1329 Temp 36.3 ??C (97.3 ??F) -EP at 08/22/22 1329 Temperature Source Tympanic -EP at 08/22/22 1329 SpO2 97 % -EP at 08/22/22 1329 FiO2 Source RA -EP at 08/22/22 132 Pain Score Zero -EP at 08/22/22 132 Education/Communication Barriers? Learning/Communication Barriers? No -EP at 08/22/22 132 User Jamison (r) = Recorded By, (t) = Taken By, (c) = Cosigned By Initials Name Effective Dates EP Sanam, StephGERMANIA 09/29/21 - Physical Exam Constitutional: Pt is oriented to person, place, and time.Appears well-developed and well-nourished. Normal gait. HENT: Head: Normocephalic and atraumatic, without tenderness and visible depressions, scars, masses. Right Ear: External ear normal. TM is normal, translucent, no discharge, canal s not inflamed Left Ear: External ear normal. TM is normal, translucent, no discharge, canal not inflamed. Nose: Nose normal, no lesions, nasal turbinates: no inflammation, no polyps noted. Mouth/Throat: Oropharynx is clear and moist. Oral mucosa moist, pink, no bleeding noted. Eyes: Conjunctivae and EOM are normal. Pupils are equal, round, and reactive to light, no nystagmusnoted. Neck: Normal range of motion. Neck supple. Thyroid is normal. No cervical lymphoadenopathy appreciated. Cardiovascular: Normal rate, regular rhythm, normal heart sounds and intact distal pulses. Pulmonary/Chest: Effort normal and breath sounds normal. Abdominal: . Bowel sounds are normal in all quadrants . Soft, no masses. No rebound tenderness is present. Musculoskeletal: Good ROM, slight swelling to left lower leg, pt states overall pain is improving daily. Neurological:Alert and oriented to person, place, and time. Skin: Skin is warm and dry. Left lower leg with healing abrasion, scabbing noted. Psychiatric:Patient has a normal mood and affect. Patient's behavior is normal, cooperative . Judgment and thought content normal. Nursing note and vitals reviewed. Assessment/Plan: ICD-10-CM ICD-9-CM 1. Body mass index (BMI) of 25.0-25.9 in adult Z68.25 V85.21 Body mass index is 25.82 kg/m??. 1. Notify office with any new concerns 2. F/u with primary care when you return home Patient verbalized understanding and agrees with plan. No orders of the following type(s) were placed in this encounter: Medications. No orders of the following type(s) were placed in this encounter: Procedures Health Maintenance was reviewed. The patient has: There are no preventive care reminders to display for this patient. Maintaining a healthy weight is essential. Behavior modification, exercise (150 minutes of moderateintensity exercise per week), and dietary changes are encouraged. Information was provided. Will consider pharmacologic therapy for patients with a BMI greater than 30 kg/m2 that have failed to lose weight with diet and exercise alone. I spent 30 minutes on the date of the encounter preparing for, providing, and documenting the [facility]/ service and all associated orders/referrals/communications. documented in this encounter Plan of Treatment Not on file documented as of this encounter Visit Diagnoses Diagnosis Fall from standing, initial encounter Body mass index (BMI) of 25.0-25.9 in adult Body Mass Index 25.0-25.9, adult Adrenal hemorrhage ([facility]: 23) Glucocorticoid deficiency documented in this encounter Care Teams Mechanism Inspector Relationship Specialty Start Date End Date Анна Lyman APRN [address] [place] [address] PCP - General Family Medicine 08/22/22 documented as of this encounter
--- OUTSIDE RECORDS SUMMARY | 2024-01-15 02:31 | XMS_ITS | Referral Summary ---
Author Organization [facility] Address [address] [id number] Care Team Providers Care Classification Analyst Name Role Phone Анна Lyman MONICA Primary [...] Vacci ne, (7 yo and older), IM (CCI=444) 08/04/2022 Social History Tobacco Use Types Packs/Day Years [...] often do you attend chur ch or jehovah's witness services? 1 to 4 times per year 08/22/2022 Do you belong to any clubs o r organizations such as anglican groups, unions, fraternal or athletic groups, or [...] and heating? Not hard at all 08/22/2022 [facility] - Occupational Stress [...] place to sleep or slept in a longterm (including now)? No 08/22/2022 PHQ-2 Risk Classification [...] 08/22/2022 1:28 PM EDT Plan of Treatment Not on file Care Teams Classification Analyst Relationship Specialty Start Date End Date Анна Lyman APRN [address] [place] [address] PCP - General Family Medicine 08/22/22
--- OUTSIDE RECORDS SUMMARY | 2024-01-15 02:32 | XMS_ITS | Encounter Summary ---
Author Organization [facility] [place] [address] Care Team Providers Care Block Mechanic Name Role Phone oKbe Barrett APRN Primary Care Provider [phone]- [phone] Encounter Details Date Type Department Care Team (Late st Contact Info) Description 01/14/2024 [place] [address] Joon Roberts MD [address] [place] [address] RD, [place] [address] Social History Tobacco Use Types Packs/Day Years Used Date Smoking Tobacco: Former Cigarettes Q uit: 05/21/1964 Smokeless Tobacco: Never Alcohol Use Standard Drinks/Week Comments Yes 2 (1 standard drink = 0.6 oz pur e alcohol) Sex and Gender Information Value Date Recorded Sex Assigned at Not on file Gender Identity Not on file Sexual Orientation Not on file documented as of this encounter Plan of Treatment Pending Results Name Type Priority Associated Diagnoses Date /Time Surgical Pathology (Req Entry) Pathology/Cytol ogy Routine 01/14/2024 12:00 PM EDT documented as of this encounter Visit Diagnoses Not on filedocumented in this encounter Care Teams Block Mechanic Relationship Specialty Start Date End Date Kobe Barrett APRN [address] [place], [place] [address] PCP - General Family Medicine 03/06/23 documented as of this encounter
--- OUTSIDE RECORDS SUMMARY | 2024-01-15 02:32 | XMS_ITS | Encounter Summary ---
[place] [address] Care Team Providers Care Strip Picker Name Role Phone Kobe Barrett APRN Primary Care Provider +1- [phone] Encounter Details Date Type Department Care Team (Latest Contact Info) Description 01/14/2024 Travel Social History Tobacco Use Types Packs/Day Years [...] as of this encounter Plan of Treatment Not on file documented as of this encounter Visit Diagnoses Not on filedocumented in this encounter Care Teams Strip Picker Relationship Specialty Start Date End Date Kobe Barrett APRN [address] [place] [address] PCP - General Family Medicine 03/06/23 documented as of this encounter
--- OUTSIDE RECORDS SUMMARY | 2024-01-15 02:32 | XMS_ITS | Encounter Summary ---
Author Organization [facility] [place] [address] Care Team Providers Care Filer Finish Name Role Phone NenaKobe mckee MONICA Primary Care Provider +1- [phone] Reason for Visit * Reason Onset Date Comments Prior Authorization 12/31/2023 [facility] Encounter Details Date Type Department Care Team (Late st Contact Info) Description 12/31/2023 Telephone [place] [id number] Tawnya Joseph Prior Authorization ([facility] ) Social History Tobacco Use Types Packs/Day Years Used Date Smoking Tobacco: Former Cigarettes Q uit: 05/21/1964 Smokeless Tobacco: Never Alcohol Use Standard Drinks/Week Comments Yes 2 (1 standard drink = 0.6 oz pur e alcohol) Sex and Gender Information Value Date Recorded Sex Assigned at Not on file Gender Identity Not on file Sexual Orientation Not on file documented as of this encounter Miscellaneous Notes * Telephone Encounter - Tawnya Joseph - 12/31/2023 1:59 PM EDT Voicemail received in [place] Prior Authorization Office from this patient. Patient advised Dr. Toña Shetty at [facility] ordered a X-ray and CT of the neck to be performed at an outside facility, [facility] in [place]. This was ordered in September and no appointment has been made or prior auth obtained. The patient stated she has called several times and has [facility] and has still not received any answers and she is becoming very frustrated. Patient would like a return call to her at [phone]. I believe the ordering provider's office needs to submit for prior authorization. Our office does not submit prior authorizations for patient's going to external facilities. Sending in basket mssg to Gianni Serrano D.Sarantopoulos and Chasidy documented in this encounter Plan of Treatment Not on file documented as of this encounter Visit Diagnoses Not on filedocumented in this encounter Care Teams Filer Finish Relationship Specialty Start Date End Date Kobe Barrett, RN REVIEW [address] [place] [address] PCP - General Family Medicine 03/06/23 documented as of this encounter
--- OUTSIDE RECORDS SUMMARY | 2024-01-15 02:32 | XMS_ITS | Encounter Summary ---
Author Organization [facility] Address [address] [place] [address] Care Team Providers Care State Historical Society Director Name Role Phone Unavailable Primary Care Provider Unavailabl e Encounter Details Date Type Department Care Team (Latest Contact Info) Description 08/04/2022 Travel Social History Tobacco Use Types Packs/Day Years Used Date Smoking Tobacco: Never Smokeless Tobacco: Never Alcohol Use Standard Drinks/Week Comments Never 0 [...] PM EDT documented as of this encounter Plan of Treatment Not on file documented as of this encounter Visit Diagnoses Not on filedocumented in this encounter
--- OUTSIDE RECORDS SUMMARY | 2024-01-15 02:32 | XMS_ITS | Encounter Summary ---
Author Organization [facility] [place] [address] Care Team Providers Care Mechanical Service Representative Name Role Phone Unknown Primary Care Provider Unavailabl e Reason for Visit * Reason Onset Date Comments Prior Authorization 04/22/2021 no PA needed for echocardiogram Encounter Details Date Type Department Care Team (Late st Contact Info) Description 04/22/2021 Telephone Cardiology at [address] [address] Paula Heart, telesales agent (no PA needed for echocardiogram) Social History Tobacco Use Types Packs/Day Years [...] encounter Miscellaneous Notes * Telephone Encounter - Paula Heart, RN - 04/22/2021 2:09 PM EST Primary insurance is AARP Medicare AARP Managed Medicare AAR no longer requires prior authorization for .... CT, MRI, MRA, TRANSTHORACIC ECHOCARDIOGRAM ... as of 05/21/2017 documented in this encounter Plan of Treatment Not on file documented as of this encounter Visit Diagnoses Not on filedocumented in this encounter Care Teams Mechanical Service Representative Relationship Specialty Start Date End Date Unknown None PCP - General 02/18/21 09/25/21 documented as of this encounter
--- OUTSIDE RECORDS SUMMARY | 2024-01-15 02:32 | XMS_ITS | Encounter Summary ---
[place] [address] Care Team Providers Care Leaf Sticker Name Role Phone NenaDanielle mckeeyumi Garcia APRN Primary Care Provider [phone] Encounter Details Date Type Department Care Team (Late st Contact Info) Description 11/27/2023 Telephone [facility] [place] [id number] Nasrin Solares, RN Social History Tobacco Use Types Packs/Day Years [...] encounter Miscellaneous Notes * Telephone Encounter - Nasrin Solares RN - 11/27/2023 4:06 PM EDTSummary: Requesting clarification of CT and XR orders Today 11/27/23 - Received a call from Magy at [facility] Radiology calls for clarification of cervical spine xray order and cervical spine CT order. She states she has not received the auth, but she has received a copy of the CT order now marked URGENT. Review of chart: 10/01/23 - Patient was seen by Toña Shetty for neck pain. The cervical xray and CT were ordered atthat visit with f/u appointment to be scheduled following completion. 10/23/23 - Next documentation on chart, an outgoing fax from Barbara Madison to [facility] with orders andsafety questions. 11/12/23 - Documentation of secure chat from Jemima Kramer to Kiki, to check status of CT Auth. 11/26/23 - Yony Chantelgio records incoming call from patientAide, in regard to the auth status and secure chat to Kiki. documented in this encounter Plan of Treatment Not on file documented as of this encounter Visit Diagnoses Not on filedocumented in this encounter Care Teams Leaf Sticker Relationship Specialty Start Date End Date Kobe Barrett, FIELD LIABILITY GENERALIST [address] [place] [address] PCP - General Family Medicine 03/06/23 documented as of this encounter
--- OUTSIDE RECORDS SUMMARY | 2024-01-15 02:32 | XMS_ITS | Encounter Summary ---
[place] [address] Care Team Providers Care Emergency Services Director Name Role Phone Charley Stout MD Primary Care Provider [phone] Reason for Visit * Reason Comments Skin Check Encounter Details Date Type Department Care Team (Late st Contact Info) Description 06/06/2012 2:30 PM EST Office Visit Dermatology [address] [place] [address] [address] [place] [address] Joon Roberts MD [address] [place] [address] History of basal cell carcinoma (Primary Dx); Actinic keratosis Social History Tobacco Use Types Packs/Day Years Used Date Smoking Tobacco: Never Sex and Gender Information Value Date Recorded Sex Assigned at Not on file Gender Identity Not on file Sexual Orientation Not on file documented as of this encounter Progress Notes * Joon Roberts MD - 06/06/2012 3:00 PM EST Problem: 1. Skin lesion of concern. 2. 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 Aide Pabon follows up and has been doing well. She has noted a new lesion of concern. Physical examination reveals an actinic keratosis on the left medial cheek, which apparently was treated at one point in the past by Dr. Costello with LN2. Also on the left medial thigh she has an erythematous flat-topped papule that has not resolved over about a year. Physical examination confirms the presence of these and lack of evidence of any recurrence or erythema at the BCCA excision site on her central chin. Assessment and Plan: 1. Actinic keratosis, left medial cheek. a. After obtaining informed consent, the site was treated with LN2 times two. b. Patient tolerated well. 2. History of sclerosing BCCA, chin, May 2009. a. No evidence of recurrence. b. Patient reassured. 3. Irritated seborrheic keratosis versus rule out BCCA/SCCA of the left medial thigh. a. After obtaining informed consent, the site was anesthetized and shave C and D times three performed. b. Triple antibiotic ointment and Band-Aids placed. Wound care instructions and supplies given. Return to clinic on a p.r.n. basis for new lesions of concern. We will notify the patient of biopsy results within the next week. Copy: Charley Stout M.D. documented in this encounter Procedure Notes * Provider, Scanning - 06/13/2012 10:45 AM ESTAssociated Order(s): SCAN DOC: SURGICAL PATHOLOGY documented in this encounter Miscellaneous Notes * Miscellaneous - Provider, Scanning - 06/17/2012 1:19 PM EST * Miscellaneous - Provider, Scanning - 06/06/2012 2:36 PM EST documented in this encounter Plan of Treatment Not on file documented as of this encounter Procedures Procedure Name Priority Date/Time Associated Diagnosis Comments SURGICAL PATHOLOGY SCAN 06/13/2012 10:45 AM EST documented in this encounter Results * SCAN DOC: SURGICAL PATHOLOGY (06/13/2012 10:45 AM EST) Narrative Transcriptions Provider, Scanning - 06/13/2012 10:45 AM EST Scanning Provider MEDIA MGR SCAN EXT O RDR/RSLT documented in this encounter Visit Diagnoses Diagnosis History of basal cell carcinoma- Primary Personal history of other malignant neoplasm of skin Actinic keratosis documented in this encounter Care Teams Emergency Services Director Relationship Specialty Start Date End Date Charley Stout MD [address] [address] PCP - General 06/06/12 06/28/14 documented as of this encounter
--- OUTSIDE RECORDS SUMMARY | 2024-01-15 02:32 | XMS_ITS | Encounter Summary ---
[place] [address] Care Team Providers Care Assistant Press Operator Offset Name Role Phone Kirk Cornelius MD Primary Care Provider [phone] Encounter Details Date Type Department Care Team (Late st Contact Info) Description 01/27/2021 Telephone Dermatology at [address] [address] Mariela Bowles LPN Social History Tobacco Use Types Packs/Day Years [...] encounter Miscellaneous Notes * Telephone Encounter - Mariela Bowles LPN - 01/27/2021 11:07 AM EDT 01/18/21 Left mid jaw line, skin shave biospsy Dx: Benign Liver spot large sun freckle, NOT CANCER, no further treatment necessary, RTC PRN Reviewed above information with patient. She voiced understanding. documented in this encounter Plan of Treatment Not on file documented as of this encounter Visit Diagnoses Not on filedocumented in this encounter Care Teams Assistant Press Operator Offset Relationship Specialty Start Date End Date Kirk Cornelius MD PCP - General General Internal Medicine 06/28/2001/21 documented as of this encounter
--- OUTSIDE RECORDS SUMMARY | 2024-01-15 02:32 | XMS_ITS | Encounter Summary ---
Author Organization [facility] Address [facility] [place] [address] Care Team Providers Care Vp Cardiovascular Service Line Name Role Phone Kirk Cornelius MD Primary Care Provider [phone] Reason for Visit * Reason Comments Establish Care Hypertension Mitral Valve Prolapse * Consultation (Urgent) - Closed Specialty Diagnoses / Procedures Referred By Estela florez Referred To Contact Cardiology Diagnoses Nonrheumatic mitral (valve) prolapse Ela Reza L, SUPERVISOR [employer] [address] [place] [address] Maximino Guadarrama MD [facility] [place] [place] [address] Referral ID Status Reason Start Date Expiration Date V isits Requested Visits Authorized [id number] Closed Consult, Test & Treat Connection Center PCP Updated and/or Approved 06/28/2020 06/28/2021 6 6 Encounter Details Date Type Department Care Team (Late st Contact Info) Description 09/28/2020 3:20 PM EDT Office Visit Cardiology at [address] [place] [phone] Maximino Guadarrama MD [facility] [place] [address] Nonrheumatic mitral valve regurgitation, moderate Social History Tobacco Use Types Packs/Day Years Used Date Smoking Tobacco: Former Cigarettes Q uit: 05/21/1964 Smokeless Tobacco: Never Alcohol Use Standard Drinks/Week Comments Yes 2 (1 standard drink = 0.6 oz pur e alcohol) Sex and Gender Information Value Date Recorded Sex Assigned at Not on file Gender Identity Not on file Sexual Orientation Not on file documented as of this encounter Last Filed Vital Signs Vital Sign Reading Time Taken Comments Blood Pressure 137/78 09/28/2020 3:21 PM EDT Pulse 74 09/28/2020 3:21 PM EDT Temperature - - Respiratory Rate 18 09/28/2020 3:21 PM EDT Oxygen Saturation - - Inhaled Oxygen Concentration - - Weight 72.6 kg (160 lb) 09/28/2020 3:21 PM EDT Height 168.9 cm (5' 6.5) 09/28/2020 3:21 PM EDT Body Mass Index 25.44 09/28/2020 3:21 PM EDT documented in this encounter Progress Notes * Maximino Guadarrama MD - 09/28/2020 3:20 PM EDT Images from the original note were not included. CARDIOLOGY NEW OUTPATIENT PRIMARY CARE PROVIDER: Kirk Cornelius MD PROBLEM LIST: Patient Active Problem List Diagnosis ??? Nonrheumatic mitral valve regurgitation, moderate 04/2020 TTE ([facility]): moderate mitral regurgitation due to prolapse ??? Lactose intolerance ??? History of section ??? Sensory hearing loss, bilateral ??? Venous insufficiency (chronic) (peripheral) ??? Superficial thrombophlebitis of lower extremity ??? Tinnitus ??? Cholelithiasis and cholecystitis without obstruction ??? Diverticulosis of large intestine without perforation or abscess with bleeding ??? Frequent UTI ??? PVD (peripheral vascular disease) with claudication ??? Tubular adenoma of colon ??? Atrophic vaginitis ??? Hypothyroidism MEDICATIONS: Current Outpatient Medications Medication Sig Dispense Refill ??? fluocinonide-emollient 0.05 % Cream Apply 1 g topically 4 times daily as needed. ??? Premarin 0.625 mg/gram Cream Place 1 g vaginally three times a week. ??? levothyroxine (Synthroid) 50 mcg Tablet Take 50 mcg by mouth daily. No current facility-administered medications for this visit. Subjective: Patient ID: Aide Hills is a 80 y.o. female. HPI: 80 F referred by GP for moderate mitral regurgitation Patient was having frequent UTIs and had a CT scan for further evaluation. She notes that the heartappeared enlarged on it, and thus echocardiography was pursued, which demonstrate the moderate MR. She is incredibly active, enjoying tennis, walking golf, and pickleball multiple times a week without angina, dyspnea, palpitations, LH. bp reasonably controlled at home Objective: Patient Vitals for the past 24 hrs: Pulse Resp BP 09/28/20 1521 74 18 137/78 Gen: pleasant female in NAD Cor: rrr, s1/s2 of nl character and amplitude, II/ holosystolic best appreciated anteriorly. Estimated RAP not elevated. Carotids without bruit. Pulm: CTAB. Normal diaphragmatic movement without use of accessory muscles Ext: no c/c/e. Dp/pt ++ EKG: nsr, nl ekg TTE 04/2020 LV normal s/f RV normal s/f MV prolapse, with moderate eccentric regurgitation Assessment and Plan: Nonrheumatic mitral valve regurgitation, moderate Reviewed that mitral valve prolapse is the wear and tear on the mitral valve, and that overtime may lead to a bit of leakiness. By auscultation, it is likely posterior prolapse with an anteriorly-directed jet) She is incredibly active without symptoms, and there is only reported moderate disease. Thus, will obtain surveillance echocardiograph in 05/2021, with f/u shortly thereafter to review. By probability, the mitral valve won't require intervention. She was encouraged to remain active, continue to track BP, and inform her GP should SBP remain over 140 more often than not - TTE in 2021 RTC 9 months ( to review echocardiogram to be performed around 05/2021) Maximino Guadarrama MD documented in this encounter Miscellaneous Notes * Assessment & Plan Note - Maximino Guadarrama MD - 09/28/2020 3:55 PM EDT Associated Problem(s): Nonrheumatic mitral valve regurgitation, moderate Reviewed that mitral valve prolapse is the wear and tear on the mitral valve, and that overtime may lead to a bit of leakiness. By auscultation, it is likely posterior prolapse with an anteriorly-directed jet) She is incredibly active without symptoms, and there is only reported moderate disease. Thus, will obtain surveillance echocardiograph in 05/2021, with f/u shortly thereafter to review. By probability, the mitral valve won't require intervention. She was encouraged to remain active, continue to track BP, and inform her GP should SBP remain over 140 more often than not - TTE in 2021 documented in this encounter Plan of Treatment Not on file documented as of this encounter Visit Diagnoses Diagnosis Nonrheumatic mitral valve regurgitation, moderate documented in this encounter Care Teams Vp Cardiovascular Service Line Relationship Specialty Start Date End Date Kirk Cornelius MD PCP - General General Internal Medicine 06/28/2001/21 documented as of this encounter
--- OUTSIDE RECORDS SUMMARY | 2024-01-15 02:32 | XMS_ITS | Encounter Summary ---
Author Organization [facility] Address [address] [place] [address] Care Team Providers Care Bobj Developer Name Role Phone Unavailable Primary Care Provider Unavailabl e Encounter Details Date Type Department Care Team (Latest Contact Info) Description 02/27/2017 14:22 EDT - 02/27/2017 23:59 EDT Hospital Encounter [address] [address] Unknown, Provider, Discharge Disposition: Home or Self Care Social History Tobacco Use Types Packs/Day Years Used Date Smoking Tobacco: Never Assessed Sex and Gender Information Value Date Recorded Sex Assigned at Not on file Gender Identity Not on file Sexual Orientation Not on file documented as of this encounter Discharge Disposition Disposition Code Departure Means Destination Home or Self [facility] documented in this encounter Plan of Treatment Not on file documented as of this encounter Visit Diagnoses Not on filedocumented in this encounter
--- OUTSIDE RECORDS SUMMARY | 2024-01-15 02:32 | XMS_ITS | Encounter Summary ---
Author Organization [facility] [place] [address] Care Team Providers Care Generating Plant Superintendent Name Role Phone Unknown Primary Care Provider Unavailabl e Encounter Details Date Type Department Care Team (Late st Contact Info) Description 04/27/2021 Telephone Cardiology at [address] [place] [address] Maximino Guadarrama MD [facility] [place] [address] Social History Tobacco Use Types Packs/Day Years [...] encounter Miscellaneous Notes * Telephone Encounter - Lizzie Mcmanus - 04/29/2021 1:05 PM EST Note from LETAkirk Hinton that Patient declined appt to schedule an ECHO. #[phone] * Telephone Encounter - Danya Sainz - 04/27/2021 3:44 PM EST Patient called because someone had called her about having an echo. She said she is feeling fine, is having no issues. Does she need to have it? Please call her back @ [phone]. documented in this encounter Plan of Treatment Not on file documented as of this encounter Visit Diagnoses Not on filedocumented in this encounter Care Teams Generating Plant Superintendent Relationship Specialty Start Date End Date Unknown None PCP - General 02/18/21 09/25/21 documented as of this encounter
--- OUTSIDE RECORDS SUMMARY | 2024-01-15 02:32 | XMS_ITS | Encounter Summary ---
Author Organization [facility] [place] [address] Care Team Providers Care Television Maintenance Worker Name Role Phone Kobe Barrett APRN Primary Care Provider [phone] Reason for Referral * Diagnostic Test (Routine) - Pending Review Specialty Diagnoses / Procedures Referred By Contac t Referred To Contact Radiology Diagnoses Neck pain Procedures CT Cervical Spine wo Contrast Toña Shetty APRN [facility] [place] [address] [facility], [address] [place] [address] Referral ID Status Reason Start Date Expiration Date Visits Requested Visits Authorized [id number] Pending Review Specialty Service Requested 10/01/2023 04/02/2025 1 1 Reason for Visit * Reason Comments Neck Pain * Consultation (Routine) - Closed Specialty Diagnoses / Procedures Referred By Contac t Referred To Contact [facility] Sp[facility] Center Diagnoses Cervical pain cervical foraminal narrowing/ MRI 10/11/22 @ [place] Kobe York APRN [address] [place] [address] [facility] [place] [address] Referral ID Status Reason Start Date Expiration Date V isits Requested Visits Authorized [id number] Closed Consult, Test & Treat PCP Updated and/or Approved 03/06/2023 03/05/2024 1 1 Encounter Details Date Type Department Care Team (Late st Contact Info) Description 10/01/2023 1:45 PM EDT Office Visit [facility] [place] [address] Toña Shetty CAR INSPECTOR [facility] [address] [place] [address] Neck pain Social History Tobacco Use Types Packs/Day Years [...] Sign Reading Time Taken Comments Blood Pressure - - Pulse - - Temperature - - Respiratory Rate - - Oxygen Saturation - - Inhaled Oxygen Concentration - - Weight 72.6 kg (160 lb) 10/01/2023 1:42 PM EDT Height 168.9 cm (5' 6.5) 10/01/2023 1:42 PM EDT Body Mass Index 25.44 10/01/2023 1:42 PM EDT documented in this encounter Progress Notes * Toña Shetty APRN - 10/01/2023 1:45 PM EDT [facility] Medical Decision Making: Aide Hills is a pleasant 83 y.o. female seen today for a chief complaint of predominantly axial neck pain on the left greater than right that has been present since a traumatic fall in July 2022. Her MRI does not necessarily explain the etiology of her significant neck pain. I do somewhat suspect that she may have some slight excess motion given her sense that her neck locks up with certainmovements. I also do not think it is unreasonable since the suspect that she may have had a fracture given the significant mechanism of injury. I would recommend at this point dynamic cervical x-rayswith flexion and extension views along with a CT scan to evaluate in more detail, the bony structures of her neck. I will see her back once completed to review the results as well as to discuss any potential next steps. Diagnosis: ICD-10-CM 1. Neck pain M54.2 XR Cervical Spine AP Flexion & Extension Only CT Cervical Spine wo Contrast Plan Dynamic x-ray cervical CT cervical Follow-up with me when the above is completed NURIS Aide Hills is a 83 y.o. female seen in referral today upon the request of Kobe Barrett forevaluation of a chief complaint of neck pain. In review of her referral documentation, she did havesome falls while wintering in [place] and has had persistent neck pain with a sense of so her neck locks up since which has caused difficulties with range of motion. Subsequently, she has been referred here for further evaluation. Of note, referral was sent in February 2023. Last clinical documentation of this issue with her primary care provider is October 2022. Today, the patient reports that prior to her fall in July 2022, she did have a sense of stiffness in her neck was an occasional sense of her neck locking up. However, the symptoms were painless. Hersymptoms were generally managed with chiropractic manipulation. Additionally, in July 2022, while walking [place] an airport, she tripped over a electronic metal grate that popped up to deter car traffic. She fell landing forcefully on the right side of her face causing extreme left-sided rotation. Since the injury, she has had significant neck pain on the left greater than the right. She has tried to stay active but has been struggling. She had been planning on coming here to [facility] to have this addressed but her discomfort became so significant while she was wintering in [place] that she ultimately sought treatment with a spine clinic in [place]. 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 I was able to review these visit notes today. It is documented that she receivedat least 90% improvement in her pain and ultimately, the plan was to move forward with radiofrequency ablation. The patient ultimately opted to hold off [place] She advises me today that while the documentation of her pain improvement demonstrated a significant amount of improvement, she does not necessarily recall getting this type of feedback such as significant improvement in her pain. She also does not seem to be entirely clear on the purpose of radiofrequency ablation and would like to discuss this further. Her symptoms today consisted of neck pain on the left greater than the right. She does indicate the occipital region is the most predominant area of discomfort that does tend to refer down to the region of the C7 vertebral prom inence. She has increased discomfort on extension and rotation. There is no radicular pain but she does have some right shoulder discomfort that worsens with attempts at over the shoulder activities. 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 reports that she quit smoking about 59 years ago. Her smoking use included cigarettes. She has never used smokeless tobacco. Conservative Treatment: Physical Therapy: None recently Home Exercise Program: She has a provider directed home exercise program that she performs as tolerated Medications: Tylenol Other Treatments: Rest Activity modification Chiropractic manipulation Injections: MBB bilaterally C2-C4 (07/26/2023-[place] [facility])-90% improvement with improved performance of ADLs (per pain clinic records) MBB bilaterally C2-C4 (08/09/2023-[place] [facility]) -90% improvement with improved performance ofADLs (per pain clinic records) Physical Examination Wt Readings from Last 1 Encounters: 10/01/23 72.6 kg (160 lb) BMI Readings from Last 1 Encounters: 10/01/23 25.44 kg/m?? Pain: 0 - No pain (past 7 days pain lvl at lowest 0, highest 8) General: Pleasant, cooperative, Mood and affect are appropriate Posture: Upright Gait: Normal, Non-Antalgic Palpation: No palpable masses, lesions or deformities Skin: Intact with no stigmata of underlying disease. ROM: Limited with pain on movement, left worse than right Sensation: Grossly intact throughout all dermatomes Neuro: Strength: 5/5 throughout all muscle groups with the exception of some slight weakness to the right deltoid at 4+/5 Provocative Maneuvers: Facet loading Maneuvers: Positive with increased discomfort upon extension and rotation Imaging and Test Review: On the day of this encounter, I independently reviewed an MRI of the cervical spine was completed on 10/11/2022 demonstrating degenerative disc changes spanning C5-C7 with bilateral foraminal stenosisat C6-7 and additional left- sided foraminal stenosis at C5-6. CC: Kobe Barrett APRN Referring Provider: Kobe Sehtty APRN 10/01/2023 [facility] documented in this encounter Plan of Treatment Scheduled Orders Name Type Priority Associated Diagnoses Orde r Schedule CT Cervical Spine wo Contrast Imaging Routine Neck pain Expected: 10/08/2023, Expires: 04/08/2024 documented as of this encounter Visit Diagnoses Diagnosis Neck pain Cervicalgia documented in this encounter Care Teams Television Maintenance Worker Relationship Specialty Start Date End Date Kobe Barrett APRN [address] [facility] [address] [place] [address] PCP - General Family Medicine 03/06/23 documented as of this encounter
--- OUTSIDE RECORDS SUMMARY | 2024-01-15 02:32 | XMS_ITS | Encounter Summary ---
Author Organization [facility] Address [address] [place] [address] Care Team Providers Care Roll Threader Operator Name Role Phone Unavailable Primary Care Provider Unavailabl e Encounter Details Date Type Department Care Team (Late st Contact Info) Description 12/04/2005 Results Only [facility] - [facility] conversion [address] [place] [address] Veronika Mcknight, [address] [place] [address] Social History Tobacco Use Types Packs/Day Years Used Date Smoking Tobacco: Never Assessed Sex and Gender Information Value Date Recorded Sex Assigned at Not on file Gender Identity Not on file Sexual Orientation Not on file documented as of this encounter Plan of Treatment Not on file documented as of this encounter Procedures Procedure Name Priority Date/Time Associated Diagnosis Comments CYTOPATHOLOGY Routine 12/04/2005 0:00 EDT documented in this encounter Results * CYTOPATHOLOGY (12/04/2005 0:00 EDT) Pathology Report: CYTOPATHOLOGY REPORT Reports generated via electronic interface contain original data; however they are lacking the format of the original report. Caution should be taken when reading/interpreti ng unformatted reports. Name: ? REANNA HILLS ? Accession #: ? [id number] : ? 1940 (Age: 65) ??F ?Collect Date: ? 12/04/2005 Location: ? [facility] ? Receive Date: ? 12/05/2005 Provider: ?VERONIKA MCKNIGHT EXTRUDING PRESS OPERATOR Copy to: ? Specimen/Source: ?ThinPrep Pap Test, Cervix/Endocervix, processed on [employer] ThinPrep Imaging System, with manual evaluation Last Menstrual Period: ? 1989 Other: ? HPVA - HPV testing requested if ASC-US on the current ThinPrep Pap test. ? SPECIMEN ADEQUACY ? Satisfactory for Evaluation - transformation zone component present - scant squamous epithelial component secondary to excessive inflammation GENERAL CATEGORIZATION ? Negative for Intraepithelial Lesion or Malignancy ? Document reviewed and electronically signed by: ? LISA Win(ASCP) ? Report Date: ??12/06/2005 10:37 End of Report HEATHER PEREZ 12/04/2005 12/05/2005 Veronika Mcknight EXTRUDING PRESS OPERATOR PATHOLOGY ORDERABLES Performing Organization Address City/State/[facility] Co de Phone Number HEATHER PEREZ [address] [place] [address] documented in this encounter Visit Diagnoses Not on filedocumented in this encounter
--- OUTSIDE RECORDS SUMMARY | 2024-01-15 02:32 | XMS_ITS | Encounter Summary ---
Author Organization [facility] Address [address] [place] [address] Care Team Providers Care Defective Cigarette Slitter Name Role Phone Unavailable Primary Care Provider Unavailabl e Encounter Details Date Type Department Care Team (Late st Contact Info) Description 11/17/2003 Results Only [facility] - [facility] conversion [address] [place] [address] Veronika Mcknight, [address] [place] [address] Social History Tobacco Use Types [...] Priority Date/Time Associated Diagnosis Comments CYTOPATHOLOGY Routine 11/17/2003 0:00 EDT documented in this encounter Results * CYTOPATHOLOGY (11/17/2003 0:00 EDT) Pathology Report: CYTOPATHOLOGY REPORT Reports generated via electronic interface contain original data; however they are lacking the format of the original report. Caution should be taken when reading/interpreti ng unformatted reports. Name: ? REANNA HILLS ? Accession #: ? [id number] : ? 1940 (Age: 63) ??F ?Collect Date: ? 11/17/2003 Location: ? [facility] ? Receive Date: ? 11/18/2003 Provider: ?VERONIKA MCKNIGHT ADJUNCT INSTRUCTOR IN ECONOMICS Copy to: ? Specimen/Source: ?ThinPrep Pap Test, Cervix/Endocervix Last Menstrual Period: ? 1990 Other: ? HPVA - HPV testing requested if ASC-US on the current ThinPrep Pap test. ? SPECIMEN ADEQUACY ? Satisfactory for Evaluation - transformation zone component present GENERAL CATEGORIZATION ? Negative for Intraepithelial Lesion or Malignancy ? Document reviewed and electronically signed by: ? LISA Gunn(ASCP) ? Report Date: ??11/25/2003 15:20 End of Report HEATHER PEREZ 11/17/2003 11/18/2003 Veronika Mcknight ADJUNCT INSTRUCTOR IN ECONOMICS PATHOLOGY ORDERABLES HEATHER PEREZ [address] [place] [address] documented in this encounter Visit Diagnoses Not on filedocumented in this encounter
--- OUTSIDE RECORDS SUMMARY | 2024-01-15 02:32 | XMS_ITS | Encounter Summary ---
Author Organization [facility] Address [address] [place] [address] Care Team Providers Care Poultry Process Worker Name Role Phone Krista Carroll NP Primary Care Provider [phone] Kobe Barrett Primary Care Provider + [phone] Encounter Details Date Type Department Care Team (Late st Contact Info) Description 06/14/2020 Lab Requisition [facility] Pathology & Laboratory Medicine - [facility] [address] [place] [address] Krista Carroll, JANUARY [facility] [place] [address] Social History Tobacco Use Types Packs/Day Years Used Date Smoking Tobacco: Never Assessed Interpersonal Safety Answer Date Record ed Physically Hurt Never 12/21/2019 Verbally Threaten Not on file 12/21/2019 Sex and Gender Information Value Date Recorded Sex Assigned at Not on file Gender Identity Not on file Sexual Orientation Not on file documented as of this encounter Plan of Treatment Not on file documented as of this encounter Procedures Procedure Name Priority Date/Time Associated Diagnosis Comments ORGANISM IDENTIFICATION AND SUSCEPTIBILITY Today 06/11/2020 10:37 EST documented in this encounter Results * (ABNORMAL) ORGANISM IDENTIFICATION AND SUSCEPTIBILITY (06/11/2020 10:37 EST) Organism ID Escherichia coli(A) VITEK SUSCEPTIBILITY 06/16/2020 8:46 EST [facility] Comment: Cefazolin susceptibility results can be used to predict susceptibility results for the following oral cephalosporins when used for therapy of uncomplicated UTIs due to E.coli, K.pneumoniae, and P.mirabilis: cefaclor, cefdinir, cefpodoxime, cefprozil, cefuroxime, cephalexin, loracarbef. Cefdinir, cefpodoxime, and cefuroxime may be tested individually because some isolates may be susceptibile to these agents while testing resistance to cefazolin. Please note that only cefpodoxime and cephalexin are on the [facility] inpatient formulary. Organism (organism) URINE / Unknown 06/11/2020 10:37 EST 06/14/2020 16:43 EST Narrative Organism Antibiotic Method Susceptibility Escherichia coli Ampicillin VITEK SUSCEPTIBILITY >=32 ug/mL: Resistant Escherichia coli Cefazolin VITEK SUSCEPTIBILITY <=4 ug/mL: Susceptible Escherichia coli Ceftriaxone VITEK SUSCEPTIBILITY <=1 ug/mL: Susceptible Escherichia coli Ciprofloxacin VITEK SUSCEPTIBILITY <=0.25 ug/mL: Susceptible Escherichia coli Ertapenem VITEK SUSCEPTIBILITY <=0.5 ug/mL: Susceptible Escherichia coli Meropenem VITEK SUSCEPTIBILITY <=0.25 ug/mL: Susceptible Escherichia coli Nitrofurantoin VITEK SUSCEPTIBILITY 32 ug/mL: Susceptible Escherichia coli Piperacillin Tazobactam VITEK SUSCEPT IBILITY <=4 ug/mL: Susceptible Escherichia coli Trimethoprim-Sulfame thox azole VITEK SUSCEPTIBILITY <=20 ug/mL: Susceptible Krista Carroll NP MICROBIOLOGY - GENER AL ORDERABLES Performing Organization Address City/State/[facility] Co de Phone Number [facility] [address] [place] [address] documented in this encounter Visit Diagnoses Not on filedocumented in this encounter Care Teams Poultry Process Worker Relationship Specialty Start Date End Date Krista Carroll NP PCP - General 03/01/17 12/18/22 Kobe Barrett [address] [place] [address] PCP - General Family Medicine - [facility] 12/19/22 documented as of this encounter
--- OUTSIDE RECORDS SUMMARY | 2024-01-15 02:32 | XMS_ITS | Encounter Summary ---
[place] [address] Care Team Providers Care Laborer Fryer Farm Name Role Phone Kobe Barrett APRN Primary Care Provider [phone] Encounter Details Date Type Department Care Team (Late st Contact Info) Description 11/12/2023 Telephone [facility] [place] [id number] Jemima Kramer Social History Tobacco Use Types Packs/Day Years [...] on filedocumented in this encounter Care Teams Laborer Fryer Farm Relationship Specialty Start Date End Date Kobe Barrett APRN [address] [place] [address] PCP - General Family Medicine 03/06/23 documented as of this encounter
--- OUTSIDE RECORDS SUMMARY | 2024-01-15 02:32 | XMS_ITS | Encounter Summary ---
[place] [address] Care Team Providers Care Supervisor Webbing Name Role Phone Kobe Barrett APRN Primary Care Provider [phone] Reason for Referral * Consultation (Routine) - Closed Specialty Diagnoses / Procedures Referred By Estela t Referred To [facility] Diagnoses Cervical pain cervical foraminal narrowing/ MRI 10/11/22 @ [place] [facility] Kobe Barrett APRN [address] [place] [address] [facility] [place] [address] Referral ID Status Reason Start Date Expiration Date V isits Requested Visits Authorized [id number] Closed Consult, Test & Treat PCP Updated and/or Approved 03/06/2023 03/05/2024 1 1 Encounter Details Date Type Department Care Team (Late st Contact Info) Description 03/06/2023 Transcribe Orders eDH Incoming Referrals [phone] Kobe Barrett APRN [address] [place], [place] [address] Cervical pain Social History Tobacco Use Types Packs/Day [...] as of this encounter Plan of Treatment Scheduled Referrals Name Type Priority Associated Diagnoses Orde r Schedule Referral to Spine Center Outpatient Referral Routine Cervical pain Ordered: 03/06/2023 documented as of this encounter Visit Diagnoses Diagnosis Cervical pain Cervicalgia documented in this encounter Care Teams Supervisor Webbing Relationship Specialty Start Date End Date Kobe Barrett, METAL FLOORING INSTALLER [address] [place] [address] PCP - General Family Medicine 03/06/23 documented as of this encounter
--- OUTSIDE RECORDS SUMMARY | 2024-01-15 02:32 | XMS_ITS | Encounter Summary ---
Author Organization [facility] Address [address] [id number] Care Team Providers Care Manager Care Name Role Phone Unavailable Primary Care Provider Unavailabl e Reason for Visit * Reason Comments Fall * Auth/Cert Specialty Diagnoses / Procedures Referred By Estela t Referred To Contact Diagnoses Fall Maximino Lane MD [address] [place] [id number] Referral ID Status Reason Start Date Expiration Date Visits Re quested Visits Authorized [id number] 1 1 Encounter Details Date Type Department Care Team (Late st Contact Info) Description 08/04/2022 12:28 PM EDT - 08/05/2022 3:51 PM EDT Emergency [facility] Department of Emergency Medicine [address] [place] [phone] Kojo Hicks MD [address] [place] [address] [phone] Chris Ho MD [address] [place] [address] [phone] Mahamed Morris MD [address] [place] [phone] MD [address] [place] [address] [phone] Fall (Primary Dx); Contusion of face; Abrasion; Adrenal hemorrhage (CMS-HCC: 23); Fall; Left ankle pain; Right wrist pain Discharge Disposition: Discharge to Home or Self Care Social History Tobacco [...] Sign Reading Time Taken Comments Blood Pressure 125/83 08/05/2022 3:00 PM EDT Pulse 68 08/05/2022 3:00 PM EDT Temperature 36.8 ??C (98.2 ??F) 08/04/2022 12:30 PM E DT Respiratory Rate 16 08/05/2022 12:22 AM EDT Oxygen Saturation 97% 08/05/2022 3:00 PM EDT Inhaled Oxygen Concentration - - Weight 72.6 kg (160 lb) 08/04/2022 12:30 PM EDT Height 167.6 cm (5' 6) 08/04/2022 12:30 PM EDT Body Mass Index 25.82 08/04/2022 12:30 PM EDT documented in this encounter Discharge Instructions * Discharge Instructions* Mia Fuentes PA-C - 08/04/2022 3:44 PM EDT Per Radiology CT C Spine w/o IV Con Result Date: 08/04/2022 CT HEAD W/O IV CON, CT C SPINE W/O IV CON HISTORY:82 years Female Facial trauma, blunt TECHNIQUE: CT of the head and cervical spine was performed without intravenous contrast. Multiplanar reformattedimages were reviewed. COMPARISON: None. FINDINGS: HEAD: There is no acute intracranial hemorrhage. There is no intracranial mass effect, midline shift, or extra-axial fluid collection. There is normal size and configuration of the ventricular system. The basal cisterns are patent. There is no CT evidence of an evolved acute territorial infarct. There is no displaced calvarial fracture. Right maxillary and zygomatic facial soft tissue contusions. Mild mucosal thickening of the maxillary sinuses.Osteoma of the left ethmoid sinuses. The mastoid air cells are clear. Globes are unremarkable. CERVICAL SPINE: There is straightening of the cervical lordosis. No evidence of an acute fracture or traumatic malalignment. The bilateral atlantooccipital intervals are congruent. No acute prevertebral soft tissue swelling. Scattered disc space narrowing and degenerative endplate changes. Prominent posterior disc osteophyte complex at C6-C7 causing moderate to severe central canal stenosis. Combination of facet hypertrophy and uncovertebral hypertrophy noted to be causing severe neuroforaminal stenosis on the left at C5-C6 with further severe narrowing on the right also noted at C6-C7. No acute abnormalities of the unenhanced neck soft tissues. 1.6 x 1.5 cm hypodensity within the right thyroid lobe. Bilateral lung apices are clear. The visualized lung apices are clear. HEAD: Right facial soft tissue contusions without acute intracranial hemorrhage or displaced calvarial fracture. CERVICAL SPINE: No evidence of acute fracture or traumatic malalignment. Advanced degenerative changes of the cervical spine with large posterior disc osteophyte complex at C6-C7 causingmoderate to severe central canal stenosis. Multilevel degenerative severe neuroforaminal stenoses on the left at C5-C6 on the right at C6-C7. Consider follow-up noncontrast cervical MRI for further evaluation, pending patient clinical symptoms. 1.6 cm hypodensity within the right thyroid lobe. Can consider outpatient follow-up thyroid sonogram. I personally reviewed the images and the residents findings and agree with the above. Read By Nikole Hope M.D. Electronically Verified By Nikole Hope M.D. Released Date Time - 08/04/2022 3:11 PM Resident - Luis E Lester Per Radiology CT Head w/o IV Con Result Date: 08/04/2022 CT HEAD W/O IV CON, CT C SPINE W/O IV CON HISTORY:82 years Female Facial trauma, blunt TECHNIQUE: CT of the head and cervical spine was performed without intravenous contrast. Multiplanar reformattedimages were reviewed. COMPARISON: None. FINDINGS: HEAD: There is no acute intracranial hemorrhage. There is no intracranial mass effect, midline shift, or extra-axial fluid collection. There is normal size and configuration of the ventricular system. The basal cisterns are patent. There is no CT evidence of an evolved acute territorial infarct. There is no displaced calvarial fracture. Right maxillary and zygomatic facial soft tissue contusions. Mild mucosal thickening of the maxillary sinuses.Osteoma of the left ethmoid sinuses. The mastoid air cells are clear. Globes are unremarkable. CERVICAL SPINE: There is straightening of the cervical lordosis. No evidence of an acute fracture or traumatic malalignment. The bilateral atlantooccipital intervals are congruent. No acute prevertebral soft tissue swelling. Scattered disc space narrowing and degenerative endplate changes. Prominent posterior disc osteophyte complex at C6-C7 causing moderate to severe central canal stenosis. Combination of facet hypertrophy and uncovertebral hypertrophy noted to be causing severe neuroforaminal stenosis on the left at C5-C6 with further severe narrowing on the right also noted at C6-C7. No acute abnormalities of the unenhanced neck soft tissues. 1.6 x 1.5 cm hypodensity within the right thyroid lobe. Bilateral lung apices are clear. The visualized lung apices are clear. HEAD: Right facial soft tissue contusions without acute intracranial hemorrhage or displaced calvarial fracture. CERVICAL SPINE: No evidence of acute fracture or traumatic malalignment. Advanced degenerative changes of the cervical spine with large posterior disc osteophyte complex at C6-C7 causingmoderate to severe central canal stenosis. Multilevel degenerative severe neuroforaminal stenoses on the left at C5-C6 on the right at C6-C7. Consider follow-up noncontrast cervical MRI for further evaluation, pending patient clinical symptoms. 1.6 cm hypodensity within the right thyroid lobe. Can consider outpatient follow-up thyroid sonogram. I personally reviewed the images and the residents findings and agree with the above. Read By Nikole Hope M.D. Electronically Verified By Nikoel Hope M.D. Released Date Time - 08/04/2022 3:11 PM Resident - Luis E Lester Per Radiology CT Lumbar Spine W/O IV Con Result Date: 08/04/2022 History: 82 years Female Back trauma, no prior imaging (Age >= 16y) Comparison: None. Exam: Noncontrast CT of the thoracic and lumbar spine. Findings: Thoracic spine: There is anatomic alignment of the thoracic spine neutral position preservation thoracic vertebral body height. No evidence of acute osseous abnormality. There is minimal multilevel degenerative disc disease. There is a 1.6 cm right thyroid lobe nodule. There is a small hiatal hernia. Partially visualized gallstones in the gallbladder. There is a hyperdense nodule on the right adrenal gland measuring 2.5 cm with mild surrounding fatty stranding. Lumbar spine: There is anatomic alignment of the lumbar spine neutral position p reservation of lumbar vertebral body height. No evidence of acute osseous abnormality. Moderate L4-5 degenerative disc disease. Scattered calcified plaque within the abdominal aorta. Diffuse sigmoid colon diverticulosis. Impression: 1. Thoracic spine: No acute osseous abnormality. 2.6 cm mildly hyperdense right adrenalnodule with mild surrounding fatty stranding, which may represent a focal adrenal hemorrhage versusadrenal mass, possibly hemorrhagic. Recommend follow-up abdominal pelvic CT adrenal mass protocol for further evaluation. 1.6 mm right thyroid lobe nodule. Cholelithiasis. 2. Lumbar spine: No acute osseous abnormality. Findings discussed directly with Dr. Quick in the ED via telephone on 08/04/2022t 1500 hours by vice president of marketing Dr. Lester. Read By - Gustavo Hope M.D. Electronically Verified By - Gustavo Hope M.D. Released Date Time - 08/04/2022 3:04 PM Resident - Per Radiology CT T Spine w/o IV Con Result Date: 08/04/2022 History: 82 years Female Back trauma, no prior imaging (Age >= 16y) Comparison: None. Exam: Noncontrast CT of the thoracic and lumbar spine. Findings: Thoracic spine: There is anatomic alignment of the thoracic spine neutral position preservation thoracic vertebral body height. No evidence of acute osseous abnormality. There is minimal multilevel degenerative disc disease. There is a 1.6 cm right thyroid lobe nodule. There is a small hiatal hernia. Partially visualized gallstones in the gallbladder. There is a hyperdense nodule on the right adrenal gland measuring 2.5 cm with mild surrounding fatty stranding. Lumbar spine: There is anatomic alignment of the lumbar spine neutral position p reservation of lumbar vertebral body height. No evidence of acute osseous abnormality. Moderate L4-5 degenerative disc disease. Scattered calcified plaque within the abdominal aorta. Diffuse sigmoid colon diverticulosis. Impression: 1. Thoracic spine: No acute osseous abnormality. 2.6 cm mildly hyperdense right adrenalnodule with mild surrounding fatty stranding, which may represent a focal adrenal hemorrhage versusadrenal mass, possibly hemorrhagic. Recommend follow-up abdominal pelvic CT adrenal mass protocol for further evaluation. 1.6 mm right thyroid lobe nodule. Cholelithiasis. 2. Lumbar spine: No acute osseous abnormality. Findings discussed directly with Dr. Quick in the ED via telephone on 08/04/2022t 1500 hours by vice president of marketing Dr. Lester. Read By - Gustavo Hope M.D. Electronically Verified By Nikole Hope M.D. Released Date Time - 08/04/2022 3:04 PM Resident - Per Radiology US Venous Doppler Lower Ext Left Result Date: 08/05/2022 US VENOUS DOPPLER LOWER EXT LEFT ORDERING HISTORY: Not provided COMPARISON: None FINDINGS: Duplex Doppler evaluation of the deep venous system of the left lower extremity from the common femoral veinto the popliteal vein including color Doppler and spectral/pulsed waveform analysis was performed. The common femoral vein demonstrates appropriate compressibility and waveform variability. There is compressibility/patency of the great saphenous vein at the proximal thigh. The femoral vein demonstrates appropriate compressibility and waveform variability . The proximal deep femoral vein demonstrates appropriate compressibility. The popliteal vein demonstrates appropriate compressibility and waveform variability. 1.No left deep femoropopliteal venous thrombosis. If clinical concern/symptoms persist or worsen, short-interval follow-up study is suggested. Read By Nikole García Electronically Verified By Nikole García Released Date Time - 08/05/2022 11:06 AM Resident - Per Radiology XR Ankle Left 3 or More Views Result Date: 08/04/2022 XR ANKLE LEFT 3 OR MORE VIEWS, XR TIBIA & FIBULA LEFT Clinical indication:82 years Female Anklepain Comparison: None Findings: Small calcification along the medial margin of the medial tibial plateau. Small calcification along the inferior margin of the lateral malleolus tip no acute fracture.No dislocation. The ankle mortise is congruent. There is mild circumferential calf soft tissue swelling and edema. Small focus of Achilles enthesopathy. Impression: No acute osseous abnormality. Chronic appearing sequela from likely prior avulsion injuries at the medial tibial plateau and lateral malleolus tip. Circumferential calf soft tissue swelling and edema. Read By Nikole García Electronically Verified By Nikole García Released Date Time - 08/04/2022 2:03 PM Resident - Per Radiology XR Chest Single View Result Date: 08/04/2022 EXAMINATION: XR CHEST SINGLE VIEW CLINICAL HISTORY: 82 years old Female with Fall. COMPARISON: NoneFINDINGS: No abnormal tracheal deviation. Cardiac silhouette is normal in size. No pleural effusion, although the left costophrenic angle is not completely included within the [id number]. No pneumothorax. Lung volumes are normal. No acute pulmonary parenchymal abnormality. Rounded opacity withinthe right hilar/perihilar region could reflect a pulmonary vessel en face versus hilar lymph node. No acute bony abnormality. No acute cardiopulmonary process, within the limitations as described above. I personally reviewed the images and the residents findings and agree with the above. Read By Nikole Reese M.D. Electronically Verified By Nikole Reese M.D. Released Date Time - 08/04/2022 2:55 PM Resident Nikole Stephens Per Radiology XR Hand Right 3 Views Result Date: 08/04/2022 XR WRIST RIGHT MIN 3 VIEWS, XR HAND RIGHT 3 VIEWS Clinical indication:82 years Female Wrist pain Comparison: None Findings: Negative ulnar variance of approximately 5 mm. Calcifications within the TFCC. Scapholunate dissociation with intervening chondrocalcinosis. Moderate first CMC and mild STT ost eoarthritis. Flattening of the ulnar styloid mild interphalangeal degeneration. Mild to moderate interphalangeal osteoarthritis. No fracture. No dislocation Impression: No acute osseous abnormality of the right hand or wrist. 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 No erosion. Read By Nikole García Electronically Verified By Nikole García Released Date Time - 08/04/2022 2:01 PM Resident - Per Radiology XR Tibia & Fibula Left Result Date: 08/04/2022 XR ANKLE LEFT 3 OR MORE VIEWS, XR TIBIA & FIBULA LEFT Clinical indication:82 years Female Anklepain Comparison: None Findings: Small calcification along the medial margin of the medial tibial plateau. Small calcification along the inferior margin of the lateral malleolus tip no acute fracture.No dislocation. The ankle mortise is congruent. There is mild circumferential calf soft tissue swelling and edema. Small focus of Achilles enthesopathy. Impression: No acute osseous abnormality. Chronic appearing sequela from likely prior avulsion injuries at the medial tibial plateau and lateral malleolus tip. Circumferential calf soft tissue swelling and edema. Read By - Mahamed García Electronically Verified By Nikole García Released Date Time - 08/04/2022 2:03 PM Resident - Per Radiology XR Wrist Right Min 3 Views Result Date: 08/04/2022 XR WRIST RIGHT MIN 3 VIEWS, XR HAND RIGHT 3 VIEWS Clinical indication:82 years Female Wrist pain Comparison: None Findings: Negative ulnar variance of approximately 5 mm. Calcifications within the TFCC. Scapholunate dissociation with intervening chondrocalcinosis. Moderate first CMC and mild STT ost eoarthritis. Flattening of the ulnar styloid mild interphalangeal degeneration. Mild to moderate interphalangeal osteoarthritis. No fracture. No dislocation Impression: No acute osseous abnormality of the right hand or wrist. 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 No erosion. Read By Nikole García Electronically Verified By Nikole García Released Date Time - 08/04/2022 2:01 PM Resident - Per Radiology CT ADRENAL MASS w/o & w/ IV con, NO PO Result Date: 08/04/2022 STUDY: CT ADRENAL MASS W/O & W/ IV CON, NO PO CON HISTORY:82 years Female blunt abd trauma Comparison: Same day CT lumbar spine. TECHNIQUE: Volumetric imaging was performed from lung bases to iliac crest prior to intravenous contrast and then following hundred ML of Omnipaque 350 in portal venous and 15 minute delayed phases. FINDINGS: No lung base abnormality. Liver is normal in size,. No focal lesions or biliary dilatation. Patent hepatic vasculature. Normal appearance of the spleen pancreas. Cholelithiasis without evidence of cholecystitis. Symmetric renal enhancement without hydronephrosis. Normal caliber of small bowel and colon. No ascites. Normal caliber and appearance of the appendix. No bulky mesenteric or retroperitoneal lymphadenopathy. There is normal vascular enhancement within the abdomen. Review of bones demonstrates no suspicious lesions or fracture. Mild degenerative changes throughout the visualized spine. L4-L5 disc space target disc phenomena anterior and posterior disc osteophyte complex with left neural foraminal stenosis. There is a right 2.6 cm hyperattenuating lesion measuring 64 Hounsfield units on noncontrast examination.. There is no evidence of enhancement on material or contrast delayed imaging. There is fat stranding surrounding the right adrenal gland. Attenuation values are as follows: Pre-contrast phase: 64 Hounsfield units. Portal Venous phase: 62 Hounsfield units. 15 minute delayed phase: 61 Hounsfield units. 1. A 2.6 cm right adrenal nodule with characteristics of a right adrenal hemorrhage. No evidence ofactive extravasation 2. Incidental findings as above. I personally reviewed the images and the residents findings and agree with the above. Read By - Jona Giles Electronically Verified By - Jona Giles Released Date Time - 08/04/2022 9:02 PM Resident - Albert Mohan - BASIC METABOLIC PANEL - Abnormal Result Value Ref Range Sodium 137 135 - 145 MMOL/L Potassium 4.0 3.3 - 4.6 MMOL/L Chloride 101 101 - 110 MMOL/L CO2 24 21 - 29 MMOL/L Urea Nitrogen 15 6 - 22 MG/DL Creatinine 0.60 0.51 - 0.96 MG/DL BUN/Creatinine Ratio 25.0 (*) 6.0 - 22.0 (CALC) Glucose 147 (*) 71 - 99 MG/DL Calcium 9.3 8.6 - 10.0 MG/DL Osmolality Calc 277.3 Anion Gap 12 4 - 16 MMOL/L EGFR (CKD-EPI) 91 >=60 ML/MIN/1.73M2 Comment: Calculation based on the Chronic Kidney Disease Epidemiology Collaboration (CKD-EPI) equation refit without adjustment for race CBC AUTODIFF - Abnormal WBC 8.96 4.5 - 11 THOU/CUMM RBC 4.53 4.20 - 5.40 x10E6/uL Hemoglobin 14.3 12.0 - 16.0 G/DL Hematocrit 42.2 37.0 - 47.0 % MCV 93.2 82.0 - 101.0 FL MCH 31.6 27.0 - 34.0 PG MCHC 33.9 31.0 - 36.0 G/DL RDW 12.9 12.0 - 16.1 % Platelet Count 173 140 - 440 x10E3/uL MPV 9.9 9.5 - 12.2 FL nRBC % 0.0 0.0 - 1.0 % Neutrophils % 85.3 (*) 34.0 - 73.0 % Lymphocytes % 8.4 (*) 25.0 - 45.0 % Monocytes % 5.2 % Eosinophils % 0.2 % Immature Granulocytes % 0.7 % Neutrophils Absolute 7.64 (*) 1.40 - 7.50 THOU/CUMM Lymphocytes Absolute 0.75 (*) 0.90 - 3.00 X10E3/UL Monocytes Absolute 0.47 0.20 - 0.90 X10E3/UL Eosinophils Absolute 0.02 0.00 - 0.50 THOU/CUMM Basophil Absolute 0.02 0.00 - 0.10 X10E3/UL Absolute Immature Granulocytes 0.06 (*) 0 - 0 X10E3/UL Basophils % 0.2 % Absolute NRBC Count 0.00 10*9/L CBC AND DIFFERENTIAL Mia Fuentes PA-C 3:09 PM 08/05/2022 Please follow up with a primary care physician within 1 week, especially if symptoms do not improve. Return to the emergency department if your symptoms worsen, if new symptoms develop, or any other perceived emergencies. Please continue taking all previously prescribed prescriptions and keep all upcoming scheduled appointments. Non-Ionic Post Contrast AVS You have had an exam that required the use of a contrast material. The injected contrast material leaves the body during normal urination; the color of the urine is not changed. You may also experience diarrhea with nausea or vomiting for the next few hours because the contrast you drank is in yourdigestive system. We recommend: 1. Resume your normal diet after this exam unless your Provider has told you otherwise. 2. Drink plenty of fluids unless you are under fluid restrictions. 3. Renal-impaired patients on dialysis are advised to attend your next scheduled appointment. 4. You are encouraged to contact your Provider if any of the following occur: The injection site becomes red, swollen or hot. You develop hives or shortness of breath within 24 hours of the exam. You develop any unusual symptoms that you did not have before the exam. It is recommended you carry a list of your medications with you at all times in the event of an emergency situation. It is recommended that you notify your primary care Provider whenever you have a change in medication, medication dosage change or a new medication is added. * Attachments The following attachments cannot be sent through Care Everywhere. * BLUNT TRAUMA (COMORAN) * Facial or Scalp Contusion (Macedonian) * Fall Prevention in the Home Adult [id number] (Macedonian) documented in this encounter Medications at Time of Discharge Medication Sig Dispensed Refills Start Date End Date levothyroxine (SYNTHROID) 112 MCG Oral Tablet by mouth. 0 omeprazole (PriLOSEC) 20 MG Oral Capsule Delayed Release Take 20 mg by mouth daily. 0 04/08/2022 oseltamivir (TAMIFLU) 75 MG Oral Capsule TAKE ONE CAPSULE BY MOUTH TWO TIMES A DAY FOR 5 DAYS 0 05/05/2022 08/22/2022 phenazopyridine (PYRIDIUM) 100 MG Oral Tablet 0 06/19/2022 08/22/2022 sulfamethoxazole-trimeth oprim (BACTRIM DS) 800-160 MG Oral Tablet TAKE ONE TABLET BY MOUTH TWICE A DAY FOR UTI USE 0 05/03/2022 08/22/2022 documented as of this encounter Progress Notes * Mia Fuentes PA-C - 08/05/2022 11:02 AM EDT Images from the original note were not included. History Chief Complaint Patient presents with ??? Fall The primary encounter diagnosis was Fall. Diagnoses of Contusion of face, Abrasion, Adrenal hemorrhage (CMS-HCC: 23), Fall, Left ankle pain, and Right wrist pain were also pertinent to this visit. Patient is an 82-year-old female who presented to the ED for fall. History of hypothyroidism. She reports tripping over something that comes about the ground to stop cars from rolling backwards. Describes a purely mechanical fall. States she fell forward and hit her right face. Denies LOC. she reports right rib pain, right wrist pain, left ankle pain. She states she is not on any blood thinners. She states she is had a DVT in her left leg before and was on blood thinners but is no longer on them. She denies fever, chills, chest pain, shortness of breath, abdominal pain, nausea, vomiting, vision changes, headache, dizziness, neck pain, back pain, inability to ambulate. The history is provided by the patient. No language and literature division chair was used. Fall The accident occurred yesterday. The fall occurred while walking. Distance fallen: from standing. She landed on concrete. Pertinent negatives include no fever, no numbness, no abdominal pain, no nausea, no vomiting, no headaches and no loss of consciousness. Allergies Allergen Reactions ??? Codeine Patient's Medications New Prescriptions No medications on file Previous Medications LEVOTHYROXINE (SYNTHROID) 112 MCG ORAL TABLET by mouth. Modified Medications No medications on file Discontinued Medications No medications on file Past Medical History: Diagnosis Date ??? Hypothyroidism History reviewed. No pertinent surgical history. History reviewed. No pertinent family history. Social History Socioeconomic History ??? Marital status: Tobacco Use ??? Smoking status: Never ??? Smokeless tobacco: Never Substance and Sexual Activity ??? Alcohol use: Never Review of Systems Constitutional: Negative. Negative for fever, chills, diaphoresis and fatigue. HENT: Negative. Eyes: Negative. Negative for visual disturbance. Respiratory: Negative. Negative for chest tightness and shortness of breath. Cardiovascular: Negative. Negative for chest pain and palpitations. Gastrointestinal: Negative. Negative for nausea, vomiting, abdominal pain and diarrhea. Genitourinary: Negative. Musculoskeletal: Positive for joint swelling and arthralgias. Negative for back pain, gait problem and neck pain. Skin: Positive for wound. Neurological: Negative. Negative for dizziness, loss of consciousness, weakness, numbness and headaches. Psychiatric/Behavioral: Negative. Allergic/Immunologic: negative. Endocrine: negative. All other systems reviewed and are negative. Physical Exam ED Triage Vitals [08/04/22 1230] BP (!) 183/95 Pulse 89 Resp 18 Temp 36.8 ??C (98.2 ??F) Temp src Tympanic Height 1.676 m Weight 72.6 kg SpO2 100 % BMI (Calculated) 25.88 Physical Exam Vitals and nursing note reviewed. Constitutional: General: She is not in acute distress. Appearance: She is not ill-appearing, toxic-appearing or diaphoretic. HENT: Head: Normocephalic. Contusion present. Jaw: No trismus. Right Ear: External ear normal. Left Ear: External ear normal. Eyes: General: No scleral icterus. Right eye: No discharge. Left eye: No discharge. Extraocular Movements: Extraocular movements intact. Conjunctiva/sclera: Conjunctivae normal. Pupils: Pupils are equal, round, and reactive to light. Cardiovascular: Rate and Rhythm: Normal rate and regular rhythm. Pulses: Radial pulses are 2+ on the right side and 2+ on the left side. Dorsalis pedis pulses are 2+ on the right side and 2+ on the left side. Heart sounds: Normal heart sounds. No murmur heard. No friction rub. No gallop. Pulmonary: Effort: Pulmonary effort is normal. No respiratory distress. Breath sounds: Normal breath sounds. No stridor. No wheezing, rhonchi or rales. Chest: Chest wall: Tenderness (right lateral ribs) present. Abdominal: Palpations: Abdomen is soft. Tenderness: There is no abdominal tenderness. Musculoskeletal: Right shoulder: Normal. Left shoulder: Normal. Right upper arm: Normal. Left upper arm: Normal. Right elbow: Normal. Left elbow: Normal. Right forearm: Normal. Left forearm: Normal. Right wrist: Swelling, tenderness and bony tenderness present. Decreased range of motion. Normal pulse. Left wrist: Normal. Right hand: Swelling, tenderness and bony tenderness present. Normal range of motion. Normal strength. Normal sensation. Normal capillary refill. Left hand: Normal. Cervical back: Normal, full passive range of motion without pain and normal range of motion. No tenderness. No spinous process tenderness or muscular tenderness. Thoracic back: Normal. Lumbar back: Normal. Right hip: Normal. Left hip: Normal. Right upper leg: Normal. Left upper leg: Normal. Right knee: Normal. Left knee: Normal. Right lower leg: Normal. Left lower leg: Swelling, tenderness and bony tenderness present. Right ankle: Normal. Left ankle: Normal. Right foot: Normal. Left foot: Normal. Comments: Positive homans sign on left calf Skin: General: Skin is warm and dry. Findings: Abrasion and bruising present. Neurological: Mental Status: She is alert and oriented to person, place, and time. Sensory: No sensory deficit. Motor: Weakness (FROM and 5/5 strength in all 4 extremities except difficulty assessing at right wrist secondary to pain) present. Psychiatric: Mood and Affect: Mood normal. Behavior: Behavior normal. Thought Content: Thought content normal. Judgment: Judgment normal. Recent Results (from the past 24 hour(s)) Basic Metabolic Panel Collection Time: 08/04/22 3:40 PM Result Value Ref Range Sodium 137 135 - 145 MMOL/L Potassium 4.0 3.3 - 4.6 MMOL/L Chloride 101 101 - 110 MMOL/L CO2 24 21 - 29 MMOL/L Urea Nitrogen 15 6 - 22 MG/DL Creatinine 0.60 0.51 - 0.96 MG/DL BUN/Creatinine Ratio 25.0 (H) 6.0 - 22.0 (CALC) Glucose 147 (H) 71 - 99 MG/DL Calcium 9.3 8.6 - 10.0 MG/DL Osmolality Calc 277.3 Anion Gap 12 4 - 16 MMOL/L EGFR (CKD-EPI) 91 >=60 ML/MIN/1.73M2 CBC with Differential panel result Collection Time: 08/04/22 3:40 PM Result Value Ref Range WBC 8.96 4.5 - 11 THOU/CUMM RBC 4.53 4.20 - 5.40 x10E6/uL Hemoglobin 14.3 12.0 - 16.0 G/DL Hematocrit 42.2 37.0 - 47.0 % MCV 93.2 82.0 - 101.0 FL MCH 31.6 27.0 - 34.0 PG MCHC 33.9 31.0 - 36.0 G/DL RDW 12.9 12.0 - 16.1 % Platelet Count 173 140 - 440 x10E3/uL MPV 9.9 9.5 - 12.2 FL nRBC % 0.0 0.0 - 1.0 % Neutrophils % 85.3 (H) 34.0 - 73.0 % Lymphocytes % 8.4 (L) 25.0 - 45.0 % Monocytes % 5.2 % Eosinophils % 0.2 % Immature Granulocytes % 0.7 % Neutrophils Absolute 7.64 (H) 1.40 - 7.50 THOU/CUMM Lymphocytes Absolute 0.75 (L) 0.90 - 3.00 X10E3/UL Monocytes Absolute 0.47 0.20 - 0.90 X10E3/UL Eosinophils Absolute 0.02 0.00 - 0.50 THOU/CUMM Basophil Absolute 0.02 0.00 - 0.10 X10E3/UL Absolute Immature Granulocytes 0.06 (H) 0 - 0 X10E3/UL Basophils % 0.2 % Absolute NRBC Count 0.00 10*9/L CBC with Differential panel result Collection Time: 08/05/22 9:40 AM Result Value Ref Range WBC 4.62 4.5 - 11 THOU/CUMM RBC 4.19 (L) 4.20 - 5.40 x10E6/uL Hemoglobin 12.8 12.0 - 16.0 G/DL Hematocrit 38.7 37.0 - 47.0 % MCV 92.4 82.0 - 101.0 FL MCH 30.5 27.0 - 34.0 PG MCHC 33.1 31.0 - 36.0 G/DL RDW 13.0 12.0 - 16.1 % Platelet Count 172 140 - 440 x10E3/uL MPV 9.8 9.5 - 12.2 FL nRBC % 0.0 0.0 - 1.0 % Neutrophils % 73.2 (H) 34.0 - 73.0 % Lymphocytes % 17.3 (L) 25.0 - 45.0 % Monocytes % 7.4 % Eosinophils % 1.7 % Immature Granulocytes % 0.2 % Neutrophils Absolute 3.38 1.40 - 7.50 THOU/CUMM Lymphocytes Absolute 0.80 (L) 0.90 - 3.00 X10E3/UL Monocytes Absolute 0.34 0.20 - 0.90 X10E3/UL Eosinophils Absolute 0.08 0.00 - 0.50 THOU/CUMM Basophil Absolute 0.01 0.00 - 0.10 X10E3/UL Absolute Immature Granulocytes 0.01 (H) 0 - 0 X10E3/UL Basophils % 0.2 % Absolute NRBC Count 0.00 10*9/L US Venous Doppler Lower Ext Left Final Result 1.No left deep femoropopliteal venous thrombosis. If clinical concern/symptoms persist or worsen, short-interval follow-up study is suggested. Read By Nikole García Electronically Verified By Nikole García Released Date Time - 08/05/2022 11:06 AM Resident - CT ADRENAL MASS w/o & w/ IV con, NO PO Final Result 1. A 2.6 cm right adrenal nodule with characteristics of a right adrenal hemorrhage. No evidence of active extravasation 2. Incidental findings as above. I personally reviewed the images and the residents findings and agree with the above. Read By Nikole Giles Electronically Verified By Nikole Giles Released Date Time - 08/04/2022 9:02 PM Resident - Albert Mohan CT C Spine w/o IV Con Final Result HEAD: Right facial soft tissue contusions without acute intracranial hemorrhage or displaced calvarial fracture. CERVICAL SPINE: No evidence of acute fracture or traumatic malalignment. Advanced degenerative changes of the cervical spine with large posterior disc osteophyte complex at C6-C7 causing moderate to severe central canal stenosis. Multilevel degenerative severe neuroforaminal stenoses on the left at C5-C6 on the right at C6-C7. Consider follow-up noncontrast cervical MRI for further evaluation, pending patient clinical symptoms. 1.6 cm hypodensity within the right thyroid lobe. Can consider outpatient follow-up thyroid sonogram. I personally reviewed the images and the residents findings and agree with the above. Read By Nikole Hope M.D. Electronically Verified By Nikole Hope M.D. Released Date Time - 08/04/2022 3:11 PM Resident - Luis E Lester CT T Spine w/o IV Con Final Result Impression: 1. Thoracic spine: No acute osseous abnormality. 2.6 cm mildly hyperdense right adrenal nodule with mild surrounding fatty stranding, which may represent a focal adrenal hemorrhage versus adrenal mass, possibly hemorrhagic. Recommend follow-up abdominal pelvic CT adrenal mass protocol for further evaluation. 1.6 mm right thyroid lobe nodule. Cholelithiasis. 2. Lumbar spine: No acute osseous abnormality. Findings discussed directly with Dr. Quick in the ED via telephone on 08/04/2022 at 1500 hours by vice president of marketing Dr. Lester. Read By Nikole Hope M.D. Electronically Verified By Nikole Hope M.D. Released Date Time - 08/04/2022 3:04 PM Resident - CT Lumbar Spine W/O IV Con Final Result Impression: 1. Thoracic spine: No acute osseous abnormality. 2.6 cm mildly hyperdense right adrenal nodule with mild surrounding fatty stranding, which may represent a focal adrenal hemorrhage versus adrenal mass, possibly hemorrhagic. Recommend follow-up abdominal pelvic CT adrenal mass protocol for further evaluation. 1.6 mm right thyroid lobe nodule. Cholelithiasis. 2. Lumbar spine: No acute osseous abnormality. Findings discussed directly with Dr. Quick in the ED via telephone on 08/04/2022 at 1500 hours by vice president of marketing Dr. Lester. Read By Nikole Hope M.D. Electronically Verified By Nikole Hope M.D. Released Date Time - 08/04/2022 3:04 PM Resident - CT Head w/o IV Con Final Result HEAD: Right facial soft tissue contusions without acute intracranial hemorrhage or displaced calvarial fracture. CERVICAL SPINE: No evidence of acute fracture or traumatic malalignment. Advanced degenerative changes of the cervical spine with large posterior disc osteophyte complex at C6-C7 causing moderate to severe central canal stenosis. Multilevel degenerative severe neuroforaminal stenoses on the left at C5-C6 on the right at C6-C7. Consider follow-up noncontrast cervical MRI for further evaluation, pending patient clinical symptoms. 1.6 cm hypodensity within the right thyroid lobe. Can consider outpatient follow-up thyroid sonogram. I personally reviewed the images and the residents findings and agree with the above. Read By - Gustavo Hope M.D. Electronically Verified By Nikole Hope M.D. Released Date Time - 08/04/2022 3:11 PM Resident - Luis E Lester XR Hand Right 3 Views Final Result Impression: No acute osseous abnormality of the right hand or wrist. 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 No erosion. Read By Nikole García Electronically Verified By Nikole García Released Date Time - 08/04/2022 2:01 PM Resident - XR Wrist Right Min 3 Views Final Result Impression: No acute osseous abnormality of the right hand or wrist. 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 No erosion. Read By Nikole García Electronically Verified By Nikole García Released Date Time - 08/04/2022 2:01 PM Resident - XR Chest Single View Final Result No acute cardiopulmonary process, within the limitations as described above. I personally reviewed the images and the residents findings and agree with the above. Read By Nikole Reese M.D. Electronically Verified By Nikole Reese M.D. Released Date Time - 08/04/2022 2:55 PM Resident - Austin Stephens XR Tibia & Fibula Left Final Result Impression: No acute osseous abnormality. Chronic appearing sequela from likely prior avulsion injuries at the medial tibial plateau and lateral malleolus tip. Circumferential calf soft tissue swelling and edema. Read By Nikole García Electronically Verified By - Mahamed García Released Date Time - 08/04/2022 2:03 PM Resident - XR Ankle Left 3 or More Views Final Result Impression: No acute osseous abnormality. Chronic appearing sequela from likely prior avulsion injuries at the medial tibial plateau and lateral malleolus tip. Circumferential calf soft tissue swelling and edema. Read By - Mahamed García Electronically Verified By Nikole García Released Date Time - 08/04/2022 2:03 PM Resident - ED Course Procedures Assumed care of patient. Reviewed history, labs, imaging. No acute pathology seen on x-ray of rightwrist however edematous, tenderness to palpation, decreased range of motion secondary to pain. Willplace in Velcro splint and have her follow-up with ortho outpatient. Left lower extremity slightly larger than right will obtain DVT ultrasound. CT with a right adrenal nodule with concerns for hemorrhage. However no active extravasation. Ordered CBC which shows hgb of 12.8 this morning from 14.3 last night. Will d/w attending. Pt with no neck pain or back pain and without any neuro deficits. Trauma signed off and recommended admission for observation adenoma workup. Will discuss further admission versus outpatient follow-up with attending. Mia Fuentes PA-C 11:07 AM 08/05/2022 DVT US negative. Mia Fuentes PA-C 11:20 AM 08/05/2022 Discussed adrenal nodule with drop in hemoglobin with Dr. Caraballo who agrees with checking a repeat at 5 hrs from the last. If stable then d/c if still dropping will admit. Mia Fuentes PA-C 11:58 AM 08/05/2022 Repeat Hgb stable. D/c home with strict return precautions. F/u with PCP and ortho. Pt understands and agrees with plan. Mia Fuentes PA-C 3:11 PM 08/05/2022 Assessment and Plan Ms. Hills is a 82 y.o. female admitted to CDU for fall. Potential Intervention in CDU-OBU Monitoring for potential arrhythmias or hemodynamic issues Repeat laboratories as indicated Frequent re-assessments and documentation of clinical condition and response to therapy Repeat Hgb stable. D/c home with strict return precautions. F/u with PCP and ortho. Pt understands and agrees with plan. Mia Fuentes PA-C 08/05/22 1512 * Breanne Palmer MD - 08/05/2022 7:01 AM EDT Department of Surgery Division of Trauma/Critical Care Tertiary Survey Admission Date and Time: 08/04/2022 Mechanism of Injury: GLF after tripping over a metal car ramp at a rental car facility. Denies amnesia or LOC. Complained of R-sided facial soreness upon arrival. GCS: 15 SBP: 114 Hct: 42.2 FAST: N/a Past Medical History: Diagnosis Date ??? Hypothyroidism Social History: No current or prior use of tobaaco No current or prior use of alcohol Conditions Present on Admission Endocrine: right adrenal nodule with hematoma; hypothyroidism Objective: Physical Exam: exam completed while patient alert/confused. Vital signs: BP (!) 114/59 Pulse 60 Temp 36.8 ??C (98.2 ??F) (Tympanic) Resp 16 Ht 1.676 m (5' 6) Wt 72.6 kg (160 lb) SpO2 95% BMI 25.82 kg/m?? General appearance: alert, no distress, relaxed, cooperative Head: atraumatic Eyes: pupils equal and reactive. Periobrital ecchymosis to R eye noted. Nose/Midface: superficial abrasion to R chin Lungs: clear to auscultation bilaterally Heart: normal rate, regular rhythm and no murmurs, clicks, or gallops Abdomen: abdomen is soft without significant tenderness, masses, organomegaly or guarding Extremities: extremities normal, atraumatic, no clubbing, cyanosis or edema; superficial abrasion over L salazar Pulses: 2+ and symmetric Skin: warm, dry; normal except as above Neurologic: Alert and oriented X 3, normal strength and tone. ROM Strength Skin exam: R hip Full 5/5 Warm, dry without lesions R knee Full 5/5 Warm, dry without lesions R ankle Full 5/5 Superficial abrasion to L salazar R foot/toes Full 5/5 Warm, dry without lesions L hip Full 5/5 Warm, dry without lesions L knee Full 5/5 Warm, dry without lesions L ankle Full 5/5 Warm, dry without lesions L foot Full 5/5 Warm, dry without lesions R shoulder Full 5/5 Warm, dry without lesions R elbow Full 5/5 Warm, dry without lesions R wrist Full 5/5 Warm, dry without lesions R hand/fingers Full 5/5 Warm, dry without lesions L shoulder Full 5/5 Warm, dry without lesions L elbow Full 5/5 Warm, dry without lesions L wrist Full 5/5 Warm, dry without lesions L hand/fingers Full 5/5 Warm, dry without lesions Labs: Hct trend 42.2 Etoh N/a Cr 0.60 UDS N/a Radiology: CT ADRENAL MASS w/o & w/ IV con, NO PO Final Result 1. A 2.6 cm right adrenal nodule with characteristics of a right adrenal hemorrhage. No evidence of active extravasation 2. Incidental findings as above. I personally reviewed the images and the residents findings and agree with the above. Read By - Jona Giles Electronically Verified By Nikole Giles Released Date Time - 08/04/2022 9:02 PM Resident - Albert Mohan CT C Spine w/o IV Con Final Result HEAD: Right facial soft tissue contusions without acute intracranial hemorrhage or displaced calvarial fracture. CERVICAL SPINE: No evidence of acute fracture or traumatic malalignment. Advanced degenerative changes of the cervical spine with large posterior disc osteophyte complex at C6-C7 causing moderate to severe central canal stenosis. Multilevel degenerative severe neuroforaminal stenoses on the left at C5-C6 on the right at C6-C7. Consider follow-up noncontrast cervical MRI for further evaluation, pending patient clinical symptoms. 1.6 cm hypodensity within the right thyroid lobe. Can consider outpatient follow-up thyroid sonogram. I personally reviewed the images and the residents findings and agree with the above. Read By - Gustavo Hope M.D. Electronically Verified By - Gustavo Hope M.D. Released Date Time - 08/04/2022 3:11 PM Resident - Luis E Lester CT T Spine w/o IV Con Final Result Impression: 1. Thoracic spine: No acute osseous abnormality. 2.6 cm mildly hyperdense right adrenal nodule with mild surrounding fatty stranding, which may represent a focal adrenal hemorrhage versus adrenal mass, possibly hemorrhagic. Recommend follow-up abdominal pelvic CT adrenal mass protocol for further evaluation. 1.6 mm right thyroid lobe nodule. Cholelithiasis. 2. Lumbar spine: No acute osseous abnormality. Findings discussed directly with Dr. Quick in the ED via telephone on 08/04/2022 at 1500 hours by vice president of marketing Dr. Lester. Read By Nikole Hope M.D. Electronically Verified By Nikole Hope M.D. Released Date Time - 08/04/2022 3:04 PM Resident - CT Lumbar Spine W/O IV Con Final Result Impression: 1. Thoracic spine: No acute osseous abnormality. 2.6 cm mildly hyperdense right adrenal nodule with mild surrounding fatty stranding, which may represent a focal adrenal hemorrhage versus adrenal mass, possibly hemorrhagic. Recommend follow-up abdominal pelvic CT adrenal mass protocol for further evaluation. 1.6 mm right thyroid lobe nodule. Cholelithiasis. 2. Lumbar spine: No acute osseous abnormality. Findings discussed directly with Dr. Quick in the ED via telephone on 08/04/2022 at 1500 hours by vice president of marketing Dr. Lester. Read By Nikole Hope M.D. Electronically Verified By Nikole Hope M.D. Released Date Time - 08/04/2022 3:04 PM Resident - CT Head w/o IV Con Final Result HEAD: Right facial soft tissue contusions without acute intracranial hemorrhage or displaced calvarial fracture. CERVICAL SPINE: No evidence of acute fracture or traumatic malalignment. Advanced degenerative changes of the cervical spine with large posterior disc osteophyte complex at C6-C7 causing moderate to severe central canal stenosis. Multilevel degenerative severe neuroforaminal stenoses on the left at C5-C6 on the right at C6-C7. Consider follow-up noncontrast cervical MRI for further evaluation, pending patient clinical symptoms. 1.6 cm hypodensity within the right thyroid lobe. Can consider outpatient follow-up thyroid sonogram. I personally reviewed the images and the residents findings and agree with the above. Read By Nikole Hope M.D. Electronically Verified By Nikole Hope M.D. Released Date Time - 08/04/2022 3:11 PM Resident - Luis E Lester XR Hand Right 3 Views Final Result Impression: No acute osseous abnormality of the right hand or wrist. 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 No erosion. Read By - Mahamed García Electronically Verified By - Mahamed García Released Date Time - 08/04/2022 2:01 PM Resident - XR Wrist Right Min 3 Views Final Result Impression: No acute osseous abnormality of the right hand or wrist. 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 No erosion. Read By - Mahamed García Electronically Verified By - Mahamed García Released Date Time - 08/04/2022 2:01 PM Resident - XR Chest Single View Final Result No acute cardiopulmonary process, within the limitations as described above. I personally reviewed the images and the residents findings and agree with the above. Read By - Arnoldo Reese M.D. Electronically Verified By - Arnoldo Reese M.D. Released Date Time - 08/04/2022 2:55 PM Resident - Max Wallack XR Tibia & Fibula Left Final Result Impression: No acute osseous abnormality. Chronic appearing sequela from likely prior avulsion injuries at the medial tibial plateau and lateral malleolus tip. Circumferential calf soft tissue swelling and edema. Read By - Mahamed García Electronically Verified By - Mahamed García Released Date Time - 08/04/2022 2:03 PM Resident - XR Ankle Left 3 or More Views Final Result Impression: No acute osseous abnormality. Chronic appearing sequela from likely prior avulsion injuries at the medial tibial plateau and lateral malleolus tip. Circumferential calf soft tissue swelling and edema. Read By - Mahamed García Electronically Verified By Nikole García Released Date Time - 08/04/2022 2:03 PM Resident - Status of C collar: CT negative collar cleared clinically Consultants: n/a Service Date seen: Plan/Recs: Assessment and Plan: Injuries: Plan: 2.6cm right adrenal nodule with associated hematoma -No acute surgical intervention necessary -recommend inpatient admission for observation & adenoma workup -recommend outpatient referral for endorine surgery Breanne Francisco Emergency Medicine, PGY-1 08/05/2022 7:01 AM Associated attestation - Tiago Dacosta MD - 08/08/2022 4:50 PM EDT ATTENDING NOTE I have seen and evaluated the patient with trauma team 08/05/2022. I have discussed with the resident and agree with resident???s findings and plan as documented in the resident???s note. Tiago Dacosta MD 08/08/2022 4:50 PM * Chris Ho MD - 08/04/2022 12:28 PM EDT Attestation I saw and evaluated the patient. I reviewed and agree with the findings and plan as documented in the note. I reviewed the patient's history. I discussed this patient with the resident/fellow. Chris Ho MD 08/04/22 1727 Chris Ho MD 08/05/22 [id number] * Varun Caraballo MD - 08/04/2022 12:28 PM EDT Attestation I saw and evaluated the patient. I reviewed and agree with the findings and plan as documented in the note. I reviewed the patient's history. I have made corrections and additions as appropriate. I discussed this patient with the VP ANCILLARY/PA (Mia Wilson). Comments: CDU attestation. Patient denies any blood thinners (not even aspirin, no Plavix). States only on Levothyroxine. Pending repeat CBC to check blood counts. Varun Caraballo MD 12:22 PM 08/05/2022 Varun Caraballo MD 08/05/22 1222 Varun Caraballo MD 08/05/22 1231 Varun Caraballo MD 08/11/22 1042 * Kojo Hicks MD - 08/04/2022 12:28 PM EDT Attestation I saw and evaluated the patient. I reviewed and agree with the findings and plan as documented in the note. I reviewed the patient's history. I have made corrections and additions as appropriate. I discussed this patient with the resident/fellow. Comments: Admitted to CDU for transport, cleared from trauma Kojo Hicks MD 08/07/22 1027 documented in this encounter Consult Notes * Chaparro Zacarias MD - 08/04/2022 9:47 PM EDTAssociated Order(s): IP CONSULT TO SURGICAL CRITICAL CARE [facility] Department of Trauma Surgery CONSULTATION NOTE Date of Consult: 08/04/2022 Chief complaint/ Reason for request: adrenal hemorrhage s/p GLD Aide Hills is a 82 y.o. female who is being evaluated for injuries following a ground level fall. This consultation was requested by Dr. Castellon of the ED service. Subjective: History of present illness: Aide Hills is a 82 y.o. female with a PMHx of hypothyroidism who sustained a GLF earlier this afternoon. She states that she tripped over a metal car ramp while at a rental car facility. There is not history of amnesia. she did not have LOC. She was brought to the hospital by family members for evaluation. Complained of R-sided facial soreness on arrival. Imaging obtained by the ED notable for a 2.6cm right adrenal nodule with associated hemorrhage however no active extravastation. Patient has been hemodynamically normal since arrival. Hg stable at 14.3. Denies abdominal pain, N/V, flank pain, lightheadedness, dizziness. Past Medical History: Diagnosis Date ??? Hypothyroidism History reviewed. No pertinent surgical history. History reviewed. No pertinent family history. I have updated and/or confirmed the past medical, surgical history. Home Medications: (Not in a hospital admission) Current Hospital Medications: Scheduled: Continuous Infusions: PRN: Allergies: Codeine Review of Systems: All systems are negative except for: what is noted in the HPI Objective: Ht Readings from Last 1 Encounters: 08/04/22 1.676 m (5' 6) Wt Readings from Last 1 Encounters: 08/04/22 72.6 kg (160 lb) Body mass index is 25.82 kg/m??. Patient Vitals for the past 8 hrs: BP Pulse Resp SpO2 08/04/22 195 (!) 163/78 77 18 96 % 08/04/22 1935 -- 75 -- 99 % 08/04/22 1759 -- 83 16 96 % 08/04/22 1645 (!) 157/108 76 18 99 % Date 08/03/22 2300 - 08/04/22 0659(Not Admitted) 08/04/22 0700 - 08/05/22 0659 Shift 8999-2122 24 Hour Total 4076-6727 9731-0331 7660-6467 24 Hour Total INTAKE IV Piggyback 1000 1000 Volume (mL) (LR 1,000 mL bolus) 1000 1000 Shift Total 1000 1000 OUTPUT Shift Total NET 1000 1000 Physical Exam: BP (!) 163/78 Pulse 77 Temp 36.8 ??C (98.2 ??F) (Tympanic) Resp 18 Ht 1.676 m (5' 6) Wt 72.6 kg (160 lb) SpO2 96% BMI 25.82 kg/m?? General appearance: alert, cooperative, no distress, appears stated age Head: Normocephalic, without obvious abnormality Eyes: Periorbital ecchymosis to R eye. PERRL, EOM's intact. Face: superficial abrasion to R chin Back: no C/T/L spine tenderness Lungs: unlabored on RA Heart: regular rate and rhythm Abdomen: soft, non-distended, non-tender. No CVA tenderness bilaterally Pelvis: stable to anterior and lateral compression Extremities: Moves all extremities spontaneously. Superficial abrasion overlying L salazar Pulses: 2+ and symmetric Skin: As above, otherwise warm & dry Neurologic: Grossly normal Data Review: Recent Results (from the past 24 hour(s)) Basic Metabolic Panel Collection Time: 08/04/22 3:40 PM Result Value Ref Range Sodium 137 135 - 145 MMOL/L Potassium 4.0 3.3 - 4.6 MMOL/L Chloride 101 101 - 110 MMOL/L CO2 24 21 - 29 MMOL/L Urea Nitrogen 15 6 - 22 MG/DL Creatinine 0.60 0.51 - 0.96 MG/DL BUN/Creatinine Ratio 25.0 (H) 6.0 - 22.0 (CALC) Glucose 147 (H) 71 - 99 MG/DL Calcium 9.3 8.6 - 10.0 MG/DL Osmolality Calc 277.3 Anion Gap 12 4 - 16 MMOL/L EGFR (CKD-EPI) 91 >=60 ML/MIN/1.73M2 CBC with Differential panel result Collection Time: 08/04/22 3:40 PM Result Value Ref Range WBC 8.96 4.5 - 11 THOU/CUMM RBC 4.53 4.20 - 5.40 x10E6/uL Hemoglobin 14.3 12.0 - 16.0 G/DL Hematocrit 42.2 37.0 - 47.0 % MCV 93.2 82.0 - 101.0 FL MCH 31.6 27.0 - 34.0 PG MCHC 33.9 31.0 - 36.0 G/DL RDW 12.9 12.0 - 16.1 % Platelet Count 173 140 - 440 x10E3/uL MPV 9.9 9.5 - 12.2 FL nRBC % 0.0 0.0 - 1.0 % Neutrophils % 85.3 (H) 34.0 - 73.0 % Lymphocytes % 8.4 (L) 25.0 - 45.0 % Monocytes % 5.2 % Eosinophils % 0.2 % Immature Granulocytes % 0.7 % Neutrophils Absolute 7.64 (H) 1.40 - 7.50 THOU/CUMM Lymphocytes Absolute 0.75 (L) 0.90 - 3.00 X10E3/UL Monocytes Absolute 0.47 0.20 - 0.90 X10E3/UL Eosinophils Absolute 0.02 0.00 - 0.50 THOU/CUMM Basophil Absolute 0.02 0.00 - 0.10 X10E3/UL Absolute Immature Granulocytes 0.06 (H) 0 - 0 X10E3/UL Basophils % 0.2 % Absolute NRBC Count 0.00 10*9/L CT ADRENAL MASS w/o & w/ IV con, NO PO Final Result 1. A 2.6 cm right adrenal nodule with characteristics of a right adrenal hemorrhage. No evidence of active extravasation 2. Incidental findings as above. I personally reviewed the images and the residents findings and agree with the above. Read By - Jona Giles Electronically Verified By - Jona Giles Released Date Time - 08/04/2022 9:02 PM Resident - Albert Mohan CT C Spine w/o IV Con Final Result HEAD: Right facial soft tissue contusions without acute intracranial hemorrhage or displaced calvarial fracture. CERVICAL SPINE: No evidence of acute fracture or traumatic malalignment. Advanced degenerative changes of the cervical spine with large posterior disc osteophyte complex at C6-C7 causing moderate to severe central canal stenosis. Multilevel degenerative severe neuroforaminal stenoses on the left at C5-C6 on the right at C6-C7. Consider follow-up noncontrast cervical MRI for further evaluation, pending patient clinical symptoms. 1.6 cm hypodensity within the right thyroid lobe. Can consider outpatient follow-up thyroid sonogram. I personally reviewed the images and the residents findings and agree with the above. Read By Nikole Hope M.D. Electronically Verified By Nikole Hope M.D. Released Date Time - 08/04/2022 3:11 PM Resident - Luis E Lester CT T Spine w/o IV Con Final Result Impression: 1. Thoracic spine: No acute osseous abnormality. 2.6 cm mildly hyperdense right adrenal nodule with mild surrounding fatty stranding, which may represent a focal adrenal hemorrhage versus adrenal mass, possibly hemorrhagic. Recommend follow-up abdominal pelvic CT adrenal mass protocol for further evaluation. 1.6 mm right thyroid lobe nodule. Cholelithiasis. 2. Lumbar spine: No acute osseous abnormality. Findings discussed directly with Dr. Quick in the ED via telephone on 08/04/2022 at 1500 hours by vice president of marketing Dr. Lester. Read By Nikole Hope M.D. Electronically Verified By Nikole Hope M.D. Released Date Time - 08/04/2022 3:04 PM Resident - CT Lumbar Spine W/O IV Con Final Result Impression: 1. Thoracic spine: No acute osseous abnormality. 2.6 cm mildly hyperdense right adrenal nodule with mild surrounding fatty stranding, which may represent a focal adrenal hemorrhage versus adrenal mass, possibly hemorrhagic. Recommend follow-up abdominal pelvic CT adrenal mass protocol for further evaluation. 1.6 mm right thyroid lobe nodule. Cholelithiasis. 2. Lumbar spine: No acute osseous abnormality. Findings discussed directly with Dr. Quick in the ED via telephone on 08/04/2022 at 1500 hours by vice president of marketing Dr. Lester. Read By Nikole Hope M.D. Electronically Verified By Nikole Hope M.D. Released Date Time - 08/04/2022 3:04 PM Resident - CT Head w/o IV Con Final Result HEAD: Right facial soft tissue contusions without acute intracranial hemorrhage or displaced calvarial fracture. CERVICAL SPINE: No evidence of acute fracture or traumatic malalignment. Advanced degenerative changes of the cervical spine with large posterior disc osteophyte complex at C6-C7 causing moderate to severe central canal stenosis. Multilevel degenerative severe neuroforaminal stenoses on the left at C5-C6 on the right at C6-C7. Consider follow-up noncontrast cervical MRI for further evaluation, pending patient clinical symptoms. 1.6 cm hypodensity within the right thyroid lobe. Can consider outpatient follow-up thyroid sonogram. I personally reviewed the images and the residents findings and agree with the above. Read By - Gustavo Hope M.D. Electronically Verified By Nikole Hope M.D. Released Date Time - 08/04/2022 3:11 PM Resident - Luis E Lester XR Hand Right 3 Views Final Result Impression: No acute osseous abnormality of the right hand or wrist. 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 No erosion. Read By Nikole García Electronically Verified By Nikole García Released Date Time - 08/04/2022 2:01 PM Resident - XR Wrist Right Min 3 Views Final Result Impression: No acute osseous abnormality of the right hand or wrist. 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 No erosion. Read By Nikole García Electronically Verified By Nikole García Released Date Time - 08/04/2022 2:01 PM Resident - XR Chest Single View Final Result No acute cardiopulmonary process, within the limitations as described above. I personally reviewed the images and the residents findings and agree with the above. Read By - Arnoldo Reese M.D. Electronically Verified By Nikole Reese M.D. Released Date Time - 08/04/2022 2:55 PM Resident - Austin Stephens XR Tibia & Fibula Left Final Result Impression: No acute osseous abnormality. Chronic appearing sequela from likely prior avulsion injuries at the medial tibial plateau and lateral malleolus tip. Circumferential calf soft tissue swelling and edema. Read By - Mahamed García Electronically Verified By - Mahamed García Released Date Time - 08/04/2022 2:03 PM Resident - XR Ankle Left 3 or More Views Final Result Impression: No acute osseous abnormality. Chronic appearing sequela from likely prior avulsion injuries at the medial tibial plateau and lateral malleolus tip. Circumferential calf soft tissue swelling and edema. Read By - Mahamed García Electronically Verified By - Mahamed García Released Date Time - 08/04/2022 2:03 PM Resident - Assessment & Recommendations: ASSESSMENT Aide [place] is a 82 y.o. female with a 2.6cm right adrenal nodule with associated hematoma without active extravastion. Right adrenal hemorrhage is likely an incidental finding that is unrelated to the fall in the setting of low mechanism injury. PLAN - No acute surgical intervention necessary - Recommend inpatient admission for observation and adenoma workup - Recommend outpatient referral with Endocrine Surgery. Appointment requested. - Please call Trauma Surgery with any questions or concerns Chaparro Zacarias 08/04/2022 11:37 PM Associated attestation - Mandi Delcid MD - 08/07/2022 12:10 AM EDT ATTENDING NOTE I have seen and evaluated the patient. I have discussed with the resident and agree with their findings and plan as documented in their note. Mandi Delcid MD documented in this encounter ED Notes * Julianna Yip RN - 08/05/2022 3:50 PM EDT IV removed with catheter intact. Pressure applied, Time of discharge: 1550 PM., Patient discharged to Home. Patient discharged ambulatory. to exit with belongings in Stable condition. Patient escorted by family., Written discharge instructions given to patient. Patient/recipient verbalizes discharge instructions. * Julianna Yip RN - 08/05/2022 9:02 AM EDT Observed patient in bed alert and oriented, able to make wants and needs known, family at bedside, discoloration on right side on face, and wrist. Pt c/o some discomfort on right side, pt given tylenol for pain comfort. Pt has limited ROM on right side due to injury from fall, active ROM in left side extremities. Family is at bedside. * Amrik Jacobo RN - 08/05/2022 2:16 AM EDT Report given to KAMI Lee. KAMI Lee transporting patient to CDU. Pt stable and in NAD at time oftransport. * Amrik Jacobo RN - 08/05/2022 12:30 AM EDT Pt rounding complete. Patient is resting in stretcher comfortably. Stretcher locked and in lowest position with side rails raised for patient safety. Respirations are even and unlabored. Pt VS stableand in NAD at this time. * Amrik Jacobo RN - 08/04/2022 8:09 PM EDT Pt rounding complete. Patient is resting in recliner comfortably. Respirations are even and unlabored. Pt VS stable and in NAD at this time. * Amrik Jacobo RN - 08/04/2022 7:15 PM EDT Report received from KAMI Miles. Assumed care of patient at this time. * Ginger Small RN - 08/04/2022 1:11 PM EDT Pt here due to fall. She denies being on blood thinners. Pt denied LOC but hit right side of face. Abrasion noted to right side of face near eye. Pt reports 8/10 pain and is aching mostly on R side area. Abraision noted on LLE. No bone abnormalties or step offs noted. Pt is in supine position with c-collar on. RR e/u. Pt is able to control secretions.she is able to speak in full and complete sentences. VSS on the monitor. Spouse is at bedside. * Gricelda Gerber RN - 08/04/2022 12:31 PM EDT Pt to TC via [facility] fully immobilized on LBB with c-collar in place. Per report, [place] Pt denies hitting her head, denies LOC, and does not take blood thinners. Pt has laceration to L salazar. No paresthesias, is able to move all extremities. Pt is Aox4,GCS 15. Pt rolled off LBB while maintaining spinal precautions. No step-offs, complaining of T spine tenderness. Pt does not meet trauma criteria and is going to flex for further evaluation. * Cy Castellon MD - 08/04/2022 12:28 PM EDT History Chief Complaint Patient presents with ??? Fall Pt is an 82yoF with hx of hypothyroidism presenting to the ED with a fall that happened this afternoon. She reports that she was in her garage and she has something that comes up out of the ground tostop her cars from rolling backward and she tripped over it. She reports that she fell forward and hit her right face. She denies LOC but reports that she was unable to talk for a while after the incident. She reports she is currently having R flank pain, R wrist and hand pain, and left ankle pain.She reports that she does not take any blood thinners. She is unsure when her last tdap was. The history is provided by the patient. Fall The accident occurred 1 to 2 hours ago. The fall occurred while walking. She landed on a hard floor. The point of impact was the head. The pain is present in the right wrist. Pertinent negatives include no fever, no numbness, no abdominal pain, no nausea, no vomiting and no headaches. Allergies Allergen Reactions ??? Codeine Patient's Medications New Prescriptions No medications on file Previous Medications LEVOTHYROXINE (SYNTHROID) 112 MCG ORAL TABLET by mouth. Modified Medications No medications on file Discontinued Medications No medications on file Past Medical History: Diagnosis Date ??? Hypothyroidism History reviewed. No pertinent surgical history. History reviewed. No pertinent family history. Social History Socioeconomic History ??? Marital status: Tobacco Use ??? Smoking status: Never ??? Smokeless tobacco: Never Substance and Sexual Activity ??? Alcohol use: Never Review of Systems Constitutional: Negative for fever and chills. HENT: Negative for nasal congestion and sore throat. Respiratory: Negative for cough and shortness of breath. Cardiovascular: Negative for chest pain. Gastrointestinal: Negative for nausea, vomiting, abdominal pain, diarrhea and constipation. Genitourinary: Positive for flank pain. Negative for dysuria, urgency and frequency. Musculoskeletal: Negative for back pain and neck pain. Skin: Negative for rash. Neurological: Negative for dizziness, syncope, weakness, light-headedness, numbness and headaches. Psychiatric/Behavioral: Negative for confusion. All other systems reviewed and are negative. Physical Exam ED Triage Vitals [08/04/22 1230] BP (!) 183/95 Pulse 89 Resp 18 Temp 36.8 ??C (98.2 ??F) Temp src Tympanic Height 1.676 m Weight 72.6 kg SpO2 100 % BMI (Calculated) 25.88 Physical Exam Vitals and nursing note reviewed. Constitutional: General: She is not in acute distress. Appearance: Normal appearance. HENT: Head: Normocephalic. Comments: R face with contusion below eye and ttp. No crepitus noted. No other abrasions, bruising noted. Right Ear: Tympanic membrane, ear canal and external ear normal. Left Ear: Tympanic membrane, ear canal and external ear normal. Ears: Comments: No hemotympanum. Nose: Nose normal. No congestion or rhinorrhea. Mouth/Throat: Mouth: Mucous membranes are moist. Pharynx: Oropharynx is clear. No oropharyngeal exudate or posterior oropharyngeal erythema. Eyes: Extraocular Movements: Extraocular movements intact. Conjunctiva/sclera: Conjunctivae normal. Pupils: Pupils are equal, round, and reactive to light. Neck: Comments: Difficulty with downward motion of head. Cardiovascular: Rate and Rhythm: Normal rate and regular rhythm. Pulses: Normal pulses. Heart sounds: Normal heart sounds. No murmur heard. Pulmonary: Effort: Pulmonary effort is normal. No respiratory distress. Breath sounds: Normal breath sounds. Comments: R sided chest ttp. Chest: Chest wall: Tenderness present. Abdominal: General: Abdomen is flat. There is no distension. Palpations: Abdomen is soft. Tenderness: There is no abdominal tenderness. There is no right CVA tenderness, left CVA tenderness, guarding or rebound. Musculoskeletal: General: Swelling, tenderness and signs of injury present. No deformity. Normal range of motion. Cervical back: Neck supple. Tenderness present. No rigidity. Right lower leg: No edema. Left lower leg: No edema. Comments: R wrist with dorsal contusion and ttp. Dorsal wrist ttp. ROM of wrist decreased due to pain. Finger ROM intact. L leg with anterior abrasion and contusions. L ankle with lateral ttp. No crepitus noted. ROM normal. Radial and pedal pulses 2+ bilaterally. Skin: General: Skin is warm and dry. Findings: No rash. Neurological: General: No focal deficit present. Mental Status: She is alert and oriented to person, place, and time. Cranial Nerves: No cranial nerve deficit. Sensory: No sensory deficit. Motor: No weakness. Coordination: Coordination normal. Psychiatric: Mood and Affect: Mood normal. Behavior: Behavior normal. Differential DDx: Fracture, Closed head injury, laceration/abrasions, spinal cord injury, hemothorax, pneumothorax, pulmonary contusion, and others Is this an Emergent Medical Condition? Yes - Severe Pain/Acute Onset of Symptoms 409.901 FS 641.19 FS 627.732 (16) FS ED Workup Procedures Labs: - BASIC METABOLIC PANEL - Abnormal Result Value Ref Range Sodium 137 135 - 145 MMOL/L Potassium 4.0 3.3 - 4.6 MMOL/L Chloride 101 101 - 110 MMOL/L CO2 24 21 - 29 MMOL/L Urea Nitrogen 15 6 - 22 MG/DL Creatinine 0.60 0.51 - 0.96 MG/DL BUN/Creatinine Ratio 25.0 (*) 6.0 - 22.0 (CALC) Glucose 147 (*) 71 - 99 MG/DL Calcium 9.3 8.6 - 10.0 MG/DL Osmolality Calc 277.3 Anion Gap 12 4 - 16 MMOL/L EGFR (CKD-EPI) 91 >=60 ML/MIN/1.73M2 Comment: Calculation based on the??Chronic Kidney Disease Epidemiology Collaboration (CKD-EPI) equation refit??without adjustment for race CBC AUTODIFF - Abnormal WBC 8.96 4.5 - 11 THOU/CUMM RBC 4.53 4.20 - 5.40 x10E6/uL Hemoglobin 14.3 12.0 - 16.0 G/DL Hematocrit 42.2 37.0 - 47.0 % MCV 93.2 82.0 - 101.0 FL MCH 31.6 27.0 - 34.0 PG MCHC 33.9 31.0 - 36.0 G/DL RDW 12.9 12.0 - 16.1 % Platelet Count 173 140 - 440 x10E3/uL MPV 9.9 9.5 - 12.2 FL nRBC % 0.0 0.0 - 1.0 % Neutrophils % 85.3 (*) 34.0 - 73.0 % Lymphocytes % 8.4 (*) 25.0 - 45.0 % Monocytes % 5.2 % Eosinophils % 0.2 % Immature Granulocytes % 0.7 % Neutrophils Absolute 7.64 (*) 1.40 - 7.50 THOU/CUMM Lymphocytes Absolute 0.75 (*) 0.90 - 3.00 X10E3/UL Monocytes Absolute 0.47 0.20 - 0.90 X10E3/UL Eosinophils Absolute 0.02 0.00 - 0.50 THOU/CUMM Basophil Absolute 0.02 0.00 - 0.10 X10E3/UL Absolute Immature Granulocytes 0.06 (*) 0 - 0 X10E3/UL Basophils % 0.2 % Absolute NRBC Count 0.00 10*9/L CBC AND DIFFERENTIAL Imaging (Read by ED Provider): CT C Spine w/o IV Con Final Result HEAD: Right facial soft tissue contusions without acute intracranial hemorrhage or displaced calvarial fracture. CERVICAL SPINE: No evidence of acute fracture or traumatic malalignment. Advanced degenerative changes of the cervical spine with large posterior disc osteophyte complex at C6-C7 causing moderate to severe central canal stenosis. Multilevel degenerative severe neuroforaminal stenoses on the left at C5-C6 on the right at C6-C7. Consider follow-up noncontrast cervical MRI for further evaluation, pending patient clinical symptoms. 1.6 cm hypodensity within the right thyroid lobe. Can consider outpatient follow-up thyroid sonogram. I personally reviewed the images and the residents findings and agree with the above. Read By Nikole Hope M.D. Electronically Verified By Nikole Hope M.D. Released Date Time - 08/04/2022 3:11 PM Resident - Luis E Lester CT T Spine w/o IV Con Final Result Impression: 1. Thoracic spine: No acute osseous abnormality. 2.6 cm mildly hyperdense right adrenal nodule with mild surrounding fatty stranding, which may represent a focal adrenal hemorrhage versus adrenal mass, possibly hemorrhagic. Recommend follow-up abdominal pelvic CT adrenal mass protocol for further evaluation. 1.6 mm right thyroid lobe nodule. Cholelithiasis. 2. Lumbar spine: No acute osseous abnormality. Findings discussed directly with Dr. Quick in the ED via telephone on 08/04/2022 at 1500 hours by vice president of marketing Dr. Lester. Read By Nikole Hope M.D. Electronically Verified By Nikole Hope M.D. Released Date Time - 08/04/2022 3:04 PM Resident - CT Lumbar Spine W/O IV Con Final Result Impression: 1. Thoracic spine: No acute osseous abnormality. 2.6 cm mildly hyperdense right adrenal nodule with mild surrounding fatty stranding, which may represent a focal adrenal hemorrhage versus adrenal mass, possibly hemorrhagic. Recommend follow-up abdominal pelvic CT adrenal mass protocol for further evaluation. 1.6 mm right thyroid lobe nodule. Cholelithiasis. 2. Lumbar spine: No acute osseous abnormality. Findings discussed directly with Dr. Quick in the ED via telephone on 08/04/2022 at 1500 hours by vice president of marketing Dr. Lester. Read By Nikole Hope M.D. Electronically Verified By Nikole Hope M.D. Released Date Time - 08/04/2022 3:04 PM Resident - CT Head w/o IV Con Final Result HEAD: Right facial soft tissue contusions without acute intracranial hemorrhage or displaced calvarial fracture. CERVICAL SPINE: No evidence of acute fracture or traumatic malalignment. Advanced degenerative changes of the cervical spine with large posterior disc osteophyte complex at C6-C7 causing moderate to severe central canal stenosis. Multilevel degenerative severe neuroforaminal stenoses on the left at C5-C6 on the right at C6-C7. Consider follow-up noncontrast cervical MRI for further evaluation, pending patient clinical symptoms. 1.6 cm hypodensity within the right thyroid lobe. Can consider outpatient follow-up thyroid sonogram. I personally reviewed the images and the residents findings and agree with the above. Read By - Gustavo Hope M.D. Electronically Verified By Nikole Hope M.D. Released Date Time - 08/04/2022 3:11 PM Resident - Luis E Lester XR Hand Right 3 Views Final Result Impression: No acute osseous abnormality of the right hand or wrist. 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 No erosion. Read By Nikole García Electronically Verified By Nikole García Released Date Time - 08/04/2022 2:01 PM Resident - XR Wrist Right Min 3 Views Final Result Impression: No acute osseous abnormality of the right hand or wrist. 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 No erosion. Read By Nikole García Electronically Verified By Nikole García Released Date Time - 08/04/2022 2:01 PM Resident - XR Chest Single View Final Result No acute cardiopulmonary process, within the limitations as described above. I personally reviewed the images and the residents findings and agree with the above. Read By - Arnoldo Reese M.D. Electronically Verified By Nikole Reese M.D. Released Date Time - 08/04/2022 2:55 PM Resident - Austin Stephens XR Tibia & Fibula Left Final Result Impression: No acute osseous abnormality. Chronic appearing sequela from likely prior avulsion injuries at the medial tibial plateau and lateral malleolus tip. Circumferential calf soft tissue swelling and edema. Read By Nikole García Electronically Verified By Nikole García Released Date Time - 08/04/2022 2:03 PM Resident - XR Ankle Left 3 or More Views Final Result Impression: No acute osseous abnormality. Chronic appearing sequela from likely prior avulsion injuries at the medial tibial plateau and lateral malleolus tip. Circumferential calf soft tissue swelling and edema. Read By Nikole García Electronically Verified By Nikole García Released Date Time - 08/04/2022 2:03 PM Resident - CT ED ONLY ABD/PEL W/ IV CON (NO ORAL) (Results Pending) EKG (Read by ED Provider): not applicable Point of Care Ultrasound (Read by ED Provider): No results found. No results found. ED Course & Re-Evaluation ED Course as of 08/05/22 1445 SunAug 04, 2022 1319 Pt is an 82yoF with hx of hypothyroidism presenting to the ED with a fall that happened this afternoon. She reports that she was in her garage and she has something that comes up out of the ground to stop her cars from rolling backward and she tripped over it. She reports that she fell forwardand hit her right face. She denies LOC but reports that she was unable to talk for a while after the incident. She reports she is currently having R flank pain, R wrist and hand pain, and left ankle pain. She reports that she does not take any blood thinners. She is unsure when her last tdap was. [MS] 1416 Fast negative [MS] 1457 Xrs negative for fx. [MS] 1458 Radiology called, concern for R adrenal hemorrhage on CT. Adding on dedicated ct a/p [MS] 1504 Cleared C spine at this time [MS] [address] a/p [MS] 1658 Received sign-out from Dr. Quick, pending CT adrenal mass protocol. If worse, consult to trauma. [BS] 1659 Patient signed out to Dr. Castellon at this time. Pending ct a/p. [MS] 1716 XR Wrist Right Min 3 Views Impression: No acute osseous abnormality of the right hand or wrist. ?? 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 No erosion. [BS] 1747 Wrist findings appear chronic. Will have patient f/u with ortho outpatient. [BS] 210 CT ADRENAL MASS w/o & w/ IV con, NO PO IMPRESSION: 1. A 2.6 cm right adrenal nodule with characteristics of a right adrenal hemorrhage. No evidence of active extravasation [BS] 2108 Consulted trauma. [BS] 2158 Spoke with trauma. [BS] 2204 Trauma with patient. [BS] 2228 Admitted to trauma for R adrenal hemorrhage s/p GLF. Vital signs have remained stable. [BS] 233 Sign-out taken from off going physician. Pending trauma recs to dispo. If getting discharged will need BLS transport home. [ROSALINE] Sat Aug 05, [address] in CDU status for transport in the morning and trauma re- evaluation in the morning.[ROSALINE] 0112 CDU orders placed [ROSALINE] ED Course User Index [BS] Cy Castellon MD [ROSALINE] Casey Solorzano MD [MS] Keshav Quick MD MDM Decide to obtain history from someone other than the patient: No Decide to obtain previous medical records: No Clinical Lab Test(s): Ordered and Reviewed Results discussed with patient?: Yes Pertinent normals and abnormals discussed with patient. Specific treatments and interventions outlined in the ED record. Diagnostic Tests (Radiology, EKG): Ordered and Reviewed Results discussed with patient?: Yes Pertinent normals and abnormals discussed with patient. Specific treatments and interventions outlined in the ED record. Independent Visualization (ED US, Wet Prep, Other): No Used Risk Assessment Tool: No Discussed patient with NON-ED Provider: Perch Machine Inspector and Admitting Team Medication Treatment Plan & Referrals Medications given this encounter: Medications 0.9% NaCl flush 20-180 mL (has no administration in time range) levothyroxine (SYNTHROID) tablet 112 mcg (112 mcg Oral $$Given$$ 08/05/22 0902) acetaminophen (TYLENOL) tablet 650 mg (650 mg Oral $$Given$$ 08/05/22 0903) temazepam (RESTORIL) capsule 15 mg (has no administration in time range) ndtvrck-dzvpwfajbp-iprxikxxt vaccine, Tdap (BOOSTRIX) injection 0.5 mL (0.5 mLs Intramuscular $$Given$$ 08/04/22 1453) HYDROcodone-acetaminophen (NORCO) 5-325 MG per tablet 1 tablet (1 tablet Oral $$Given$$ 08/04/22 1453) LR 1,000 mL bolus ( Intravenous Stopped 08/04/22 193) ondansetron (ZOFRAN) injection 4 mg (4 mg Intravenous $$Given$$ 08/04/22 165) iohexol (OMNIPAQUE 350) injection 100 mL (100 mLs Intravenous $$Given$$ 08/04/222024) ondansetron (ZOFRAN) injection 4 mg (4 mg Intravenous $$Given$$ 08/04/222152) acetaminophen (TYLENOL) tablet 650 mg (325 mg Oral $$Given$$ 08/04/222152) OTC Medications considered: No Prescription Medications considered? N/A Referrals: N/A SDOH Diagnosis/treatment significantly limited by social determinants of health? Yes - Problems related to housing circumstances ED Disposition ED Disposition: ED CDU ED Clinical Impression ED Clinical Impression: Fall Contusion of face Abrasion Adrenal hemorrhage (CMS-HCC: 23) Fall Left ankle pain Right wrist pain ED Patient Status Patient Status: Fair ED Medical Evaluation Initiated Medical Evaluation Initiated: Yes, filed at 08/04/22 1237 by Keshav Quick MD Salvato, Bryan, MD Resident 08/04/22 2231 Cy Castellon MD Resident 08/05/22 1445 documented in this encounter Plan of Treatment Not on file documented as of this encounter Procedures Procedure Name Priority Date/Time Associated Diagnosis Comments CBC AUTODIFF STAT 08/05/2022 2:40 PM EDT CBC AND DIFFERENTIAL STAT 08/05/2022 2:40 PM EDT US VENOUS DOPPLER LOWER EXT LEFT STAT 08/05/2022 11:03 AM EDT CBC AUTODIFF STAT 08/05/2022 9:40 AM EDT CBC AND DIFFERENTIAL STAT 08/05/2022 9:[address] ADRENAL MASS W/O & W/ IV CON, NO PO CON STAT 08/04/2022 8:48 PM EDT CBC AUTODIFF STAT 08/04/2022 3:40 PM EDT CBC AND DIFFERENTIAL STAT 08/04/2022 3:40 PM EDT BASIC METABOLIC PANEL STAT 08/04/2022 3:[address] T SPINE W/O IV CON STAT 08/04/2022 2:[address] LUMBAR SPINE W/O IV CON STAT 08/04/2022 2:[address] HEAD W/O IV CON STAT 08/04/2022 2: [address] C SPINE W/O IV CON STAT 08/04/2022 2:44 PM EDT XR WRIST RIGHT MIN 3 VIEWS STAT 08/04/2022 1:54 PM EDT XR TIBIA & FIBULA LEFT STAT 08/04/2022 1:54 PM EDT XR HAND RIGHT 3 VIEWS STAT 08/04/2022 1:54 PM EDT XR CHEST SINGLE VIEW STAT 08/04/2022 1:54 PM EDT XR ANKLE LEFT 3 OR MORE VIEWS STAT 08/04/2022 1:54 PM EDT documented in this encounter Results * (ABNORMAL) CBC with Differential panel result (08/05/2022 2:40 PM EDT) [facility] WBC 4.73 4.5 - 11 THOU/CUMM 08/05/2022 3:02 PM EDT [facility] RBC 4.14(L) 4.20 - 5.40 x10E6/uL 08/05/2022 3:02 PM EDT [facility] Hemoglobin 12.9 12.0 - 16.0 G/DL 08/05/2022 3:02 PM EDT [facility] Hematocrit 38.5 37.0 - 47.0 % 08/05/2022 3:02 PM EDT [facility] MCV 93.0 82.0 - 101.0 FL 08/05/2022 3:02 PM EDT [facility] MCH 31.2 27.0 - 34.0 PG 08/05/2022 3:02 PM EDT [facility] MCHC 33.5 31.0 - 36.0 G/DL 08/05/2022 3:02 PM EDT [facility] RDW 13.2 12.0 - 16.1 % 08/05/2022 3:02 PM EDT [facility] Platelet Count 161 140 - 440 x10E3/uL 08/05/2022 3:02 PM EDT [facility] MPV 10.1 9.5 - 12.2 FL 08/05/2022 3:02 PM EDT [facility] nRBC % 0.0 0.0 - 1.0 % 08/05/2022 3:02 PM EDT [facility] Neutrophils % 66.9 34.0 - 73.0 % 08/05/2022 3:02 PM EDT [facility] Lymphocytes % 20.9(L) 25.0 - 45.0 % 08/05/2022 3:02 PM EDT [facility] Monocytes % 9.1 % 08/05/2022 3:02 PM EDT [facility] Eosinophils % 2.7 % 08/05/2022 3:02 PM EDT [facility] Immature Granulocytes % 0.2 % 08/05/2022 3:02 PM EDT [facility] Neutrophils Absolute 3.16 1.40 - 7.50 THOU/CUMM 08/05/2022 3:02 PM EDT [facility] Lymphocytes Absolute 0.99 0.90 - 3.00 X10E3/UL 08/05/2022 3:02 PM EDT [facility] Monocytes Absolute 0.43 0.20 - 0.90 X10E3/UL 08/05/2022 3:02 PM EDT [facility] Eosinophils Absolute 0.13 0.00 - 0.50 THOU/CUMM 08/05/2022 3:02 PM EDT [facility] Basophil Absolute 0.01 0.00 - 0.10 X10E3/UL 08/05/2022 3:02 PM EDT [facility] Absolute Immature Granulocytes 0.01(H) 0 - 0 X10E3/UL 08/05/2022 3:02 PM EDT [facility] Basophils % 0.2 % 08/05/2022 3:02 PM EDT [facility] Absolute NRBC Count 0.00 10*9/L 08/05/2022 3:02 PM EDT [facility] Blood Venipuncture / Unknown 08/05/2022 2:40 PM EDT 08/05/2022 2:45 PM EDT Mia Fuentes PA-C BLOOD ORDERABLES Performing Organization Address City/State/[facility] Co de Phone Number [facility] [address] [place] [address], [facility] [phone] * US Venous Doppler Lower Ext Left (08/05/2022 11:03 AM EDT) Anatomical Region Laterality Modality Thigh, Knee, Leg, Vascular, Lower Extremity Left Ultrasound 08/05/2022 11:0 5 AM EDT Impressions 08/05/2022 11:06 AM EDT 1.No left deep femoropopliteal venous thrombosis. If clinical concern/symptoms persist or worsen, short-interval follow-up study is suggested. Read By Nikole García Electronically Verified By Nikole García Released Date Time - 08/05/2022 11:06 AM Resident - Narrative 08/05/2022 11:06 AM EDT US VENOUS DOPPLER LOWER EXT LEFT ORDERING HISTORY: ??Not provided COMPARISON: None FINDINGS: Duplex Doppler evaluation of the deep venous system of the left lower extremity from the common femoral vein to the popliteal vein including color Doppler and spectral/pulsed waveform analysis was performed. The common femoral vein demonstrates appropriate compressibility and waveform variability. There is compressibility/patency of the great saphenous vein at the proximal thigh. The femoral vein demonstrates appropriate compressibility and waveform variability . The proximal deep femoral vein demonstrates appropriate compressibility. The popliteal vein demonstrates appropriate compressibility and waveform variability. Procedure Note Mahamed García MD - 08/05/2022 US VENOUS DOPPLER LOWER EXT LEFT ORDERING HISTORY: Not provided COMPARISON: None FINDINGS: Duplex Doppler evaluation of the deep venous system of the left lowerextremity from the common femoral vein to the popliteal vein including color Doppler andspectral/pulsed waveform analysis was performed. The common femoral vein demonstrates appropriate compressibility andwaveform variability. There is compressibility/patency of the great saphenous vein at theproximal thigh. The femoral vein demonstrates appropriate compressibility and waveformvariability . The proximal deep femoral vein demonstrates appropriate compressibility. The popliteal vein demonstrates appropriate compressibility and waveformvariability. IMPRESSION: 1.No left deep femoropopliteal venous thrombosis. If clinical concern/symptoms persist or worsen, short-interval follow-upstudy is suggested. Read By - Mahamed García Electronically Verified By - Mahamed García Released Date Time - 08/05/2022 11:06 AM Resident - Mia Fuentes PA-C RAD JX US ORDERABLES * (ABNORMAL) CBC with Differential panel result (08/05/2022 9:40 AM EDT) WBC 4.62 4.5 - 11 THOU/CUMM 08/05/2022 9:51 AM EDT [facility] RBC 4.19(L) 4.20 - 5.40 x10E6/uL 08/05/2022 9:51 AM EDT [facility] Hemoglobin 12.8 12.0 - 16.0 G/DL 08/05/2022 9:51 AM EDT [facility] Hematocrit 38.7 37.0 - 47.0 % 08/05/2022 9:51 AM EDT [facility] MCV 92.4 82.0 - 101.0 FL 08/05/2022 9:51 AM EDT [facility] MCH 30.5 27.0 - 34.0 PG 08/05/2022 9:51 AM EDT [facility] MCHC 33.1 31.0 - 36.0 G/DL 08/05/2022 9:51 AM EDT [facility] RDW 13.0 12.0 - 16.1 % 08/05/2022 9:51 AM EDT [facility] Platelet Count 172 140 - 440 x10E3/uL 08/05/2022 9:51 AM EDT [facility] MPV 9.8 9.5 - 12.2 FL 08/05/2022 9:51 AM EDT [facility] nRBC % 0.0 0.0 - 1.0 % 08/05/2022 9:51 AM EDT [facility] Neutrophils % 73.2(H) 34.0 - 73.0 % 08/05/2022 9:51 AM EDT [facility] Lymphocytes % 17.3(L) 25.0 - 45.0 % 08/05/2022 9:51 AM EDT [facility] Monocytes % 7.4 % 08/05/2022 9:51 AM EDT [facility] Eosinophils % 1.7 % 08/05/2022 9:51 AM EDT [facility] Immature Granulocytes % 0.2 % 08/05/2022 9:51 AM EDT [facility] Neutrophils Absolute 3.38 1.40 - 7.50 THOU/CUMM 08/05/2022 9:51 AM EDT [facility] Lymphocytes Absolute 0.80(L) 0.90 - 3.00 X10E3/UL 08/05/2022 9:51 AM EDT [facility] Monocytes Absolute 0.34 0.20 - 0.90 X10E3/UL 08/05/2022 9:51 AM EDT [facility] Eosinophils Absolute 0.08 0.00 - 0.50 THOU/CUMM 08/05/2022 9:51 AM EDT [facility] Basophil Absolute 0.01 0.00 - 0.10 X10E3/UL 08/05/2022 9:51 AM EDT [facility] Absolute Immature Granulocytes 0.01(H) 0 - 0 X10E3/UL 08/05/2022 9:51 AM EDT [facility] Basophils % 0.2 % 08/05/2022 9:51 AM EDT [facility] Absolute NRBC Count 0.00 10*9/L 08/05/2022 9:51 AM T [facility] Blood Venipuncture / Unknown 08/05/2022 9:40 AM EDT 08/05/2022 9:45 AM EDT Mia Fuentes PA-C BLOOD ORDERAB[place] [address], [facility] [phone] * CT ADRENAL MASS w/o & w/ IV con, NO PO (08/04/2022 8:48 PM EDT) Anatomical Region Laterality Modality Abdomen Computed Tomogra phy 08/04/2022 8:53 PM EDT Impressions 08/04/2022 9:02 PM EDT 1. ??A 2.6 ??cm right adrenal nodule with characteristics of a right adrenal hemorrhage. No evidence of active extravasation 2. ?? Incidental findings as above. I personally reviewed the images and the residents findings and agree with the above. Read By - Jona Giles Electronically Verified By - Jona Giles Released Date Time - 08/04/2022 9:02 PM Resident - Albert Mohan Narrative 08/04/2022 9:02 PM EDT STUDY: CT ADRENAL MASS W/O & W/ IV CON, NO PO CON HISTORY:82 years Female blunt abd trauma Comparison: Same day CT lumbar spine. TECHNIQUE: ??Volumetric imaging was performed from lung bases to iliac crest prior to intravenous contrast and then following hundred ML of Omnipaque 350 in portal venous and 15 minute delayed phases. FINDINGS: No lung base abnormality. ?? Liver is normal in size,. No focal lesions or biliary dilatation. Patent hepatic vasculature. ?? Normal appearance of the spleen pancreas. ?? Cholelithiasis without evidence of cholecystitis. Symmetric renal enhancement without hydronephrosis. Normal caliber of small bowel and colon. ?? No ascites. ??Normal caliber and appearance of the appendix. ?? No bulky mesenteric or retroperitoneal lymphadenopathy. ?? There is normal vascular enhancement within the abdomen. Review of bones demonstrates no suspicious lesions or fracture. ??Mild degenerative changes throughout the visualized spine. L4-L5 disc space target disc phenomena anterior and posterior disc osteophyte complex with left neural foraminal stenosis. There is a right 2.6 cm hyperattenuating lesion measuring 64 Hounsfield units on noncontrast examination.. There is no evidence of enhancement on material or contrast delayed imaging. There is fat stranding surrounding the right adrenal gland. Attenuation values are as follows: Pre-contrast phase: ?? 64 Hounsfield units. Portal Venous phase: ??62 Hounsfield units. 15 minute delayed phase: 61 Hounsfield units. ?? Procedure Note Jona Giles MD - 08/04/2022 STUDY: CT ADRENAL MASS W/O & W/ IV CON, NO PO CON HISTORY:82 years Female blunt abd trauma Comparison: Same day CT lumbar spine. TECHNIQUE: Volumetric imaging was performed from lung bases to iliaccrest prior to intravenous contrast and then following hundred ML of Omnipaque 350 inportal venous and 15 minute delayed phases. FINDINGS: No lung base abnormality. Liver is normal in size,. No focal lesions or biliary dilatation. Patenthepatic vasculature. Normal appearance of the spleen pancreas. Cholelithiasis without evidence of cholecystitis. Symmetric renal enhancement without hydronephrosis. Normal caliber of small bowel and colon. No ascites. Normal caliber and appearance of the appendix. No bulky mesenteric or retroperitoneal lymphadenopathy. There is normal vascular enhancement within the abdomen. Review of bones demonstrates no suspicious lesions or fracture. Milddegenerative changes throughout the visualized spine. L4-L5 disc space target disc phenomenaanterior and posterior disc osteophyte complex with left neural foraminal stenosis. There is a right 2.6 cm hyperattenuating lesion measuring 64 Hounsfieldunits on noncontrast examination.. There is no evidence of enhancement on material or contrastdelayed imaging. There is fat stranding surrounding the right adrenal gland. Attenuation values are as follows: Pre-contrast phase: 64 Hounsfield units. Portal Venous phase: 62 Hounsfield units. 15 minute delayed phase: 61 Hounsfield units. IMPRESSION: 1. A 2.6 cm right adrenal nodule with characteristics of a right adrenalhemorrhage. No evidence of active extravasation 2. Incidental findings as above. I personally reviewed the images and the residents findings and agree withthe above. Read By - Jona Giles Electronically Verified By - Grit Chan Released Date Time - 08/04/2022 9:02 PM Resident - Albert Mohan Keshav Quick MD RAD JX CT LYLE UREÑA * (ABNORMAL) CBC with Differential panel result (08/04/2022 3:40 PM EDT) WBC 8.96 4.5 - 11 THOU/CUMM 08/04/2022 3:50 PM EDT [facility] RBC 4.53 4.20 - 5.40 x10E6/uL 08/04/2022 3:50 PM EDT [facility] Hemoglobin 14.3 12.0 - 16.0 G/DL 08/04/2022 3:50 PM EDT [facility] Hematocrit 42.2 37.0 - 47.0 % 08/04/2022 3:50 PM EDT [facility] MCV 93.2 82.0 - 101.0 FL 08/04/2022 3:50 PM EDT [facility] MCH 31.6 27.0 - 34.0 PG 08/04/2022 3:50 PM EDT [facility] MCHC 33.9 31.0 - 36.0 G/DL 08/04/2022 3:50 PM EDT [facility] RDW 12.9 12.0 - 16.1 % 08/04/2022 3:50 PM EDT [facility] Platelet Count 173 140 - 440 x10E3/uL 08/04/2022 3:50 PM EDT [facility] MPV 9.9 9.5 - 12.2 FL 08/04/2022 3:50 PM EDT [facility] nRBC % 0.0 0.0 - 1.0 % 08/04/2022 3:50 PM EDT [facility] Neutrophils % 85.3(H) 34.0 - 73.0 % 08/04/2022 3:50 PM EDT [facility] Lymphocytes % 8.4(L) 25.0 - 45.0 % 08/04/2022 3:50 PM EDT [facility] Monocytes % 5.2 % 08/04/2022 3:50 PM EDT [facility] Eosinophils % 0.2 % 08/04/2022 3:50 PM EDT [facility] Immature Granulocytes % 0.7 % 08/04/2022 3:50 PM EDT [facility] Neutrophils Absolute 7.64(H) 1.40 - 7.50 THOU/CUMM 08/04/2022 3:50 PM EDT [facility] Lymphocytes Absolute 0.75(L) 0.90 - 3.00 X10E3/UL 08/04/2022 3:50 PM EDT [facility] Monocytes Absolute 0.47 0.20 - 0.90 X10E3/UL 08/04/2022 3:50 PM EDT [facility] Eosinophils Absolute 0.02 0.00 - 0.50 THOU/CUMM 08/04/2022 3:50 PM EDT [facility] Basophil Absolute 0.02 0.00 - 0.10 X10E3/UL 08/04/2022 3:50 PM EDT [facility] Absolute Immature Granulocytes 0.06(H) 0 - 0 X10E3/UL 08/04/2022 3:50 PM EDT [facility] Basophils % 0.2 % 08/04/2022 3:50 PM EDT [facility] Absolute NRBC Count 0.00 10*9/L 08/04/2022 3:50 PM EDT [facility] Blood Venipuncture / Unknown 08/04/2022 3:40 PM EDT 08/04/2022 3:45 PM EDT Keshav Quick MD BLOOD ORDERABL ES Performing Organization Address City/State/[facility] Co de Phone Number [facility] [address] [place] [address] * (ABNORMAL) Basic Metabolic Panel (08/04/2022 3:40 PM EDT) Sodium 137 135 - 145 MMOL/L 08/04/2022 4:21 PM EDT [facility] Potassium 4.0 3.3 - 4.6 MMOL/L 08/04/2022 4:21 PM EDT [facility] Chloride 101 101 - 110 MMOL/L 08/04/2022 4:21 PM EDT [facility] CO2 24 21 - 29 MMOL/L 08/04/2022 4:21 PM EDT [facility] Urea Nitrogen 15 6 - 22 MG/DL 08/04/2022 4:21 PM EDT [facility] Creatinine 0.60 0.51 - 0.96 MG/DL 08/04/2022 4:21 PM EDT [facility] BUN/Creatinine Ratio 25.0(H) 6.0 - 22.0 (CALC) 08/04/2022 4:21 PM EDT [facility] Glucose 147(H) 71 - 99 MG/DL 08/04/2022 4:21 PM EDT [facility] Calcium 9.3 8.6 - 10.0 MG/DL 08/04/2022 4:21 PM EDT [facility] Osmolality Calc 277.3 4:21 PM EDT [facility] Anion Gap 12 4 - 16 MMOL/L 08/04/2022 4:21 PM EDT [facility] EGFR (CKD-EPI) 91 >=60 ML/MIN/1. 73M2 08/04/2022 4:21 PM EDT [facility] Comment:Calculation based on the??Chronic Kidney Disease Epidemiology Collaboration (CKD-EPI) equation refit??without adjustment for race Blood Venipuncture / Unknown 08/04/2022 3:40 PM EDT 08/04/2022 3:45 PM EDT Keshav Quick MD BLOOD ORDERABL ES Performing Organization Address City/State/[facility] Co de Phone Number [facility] [address] [place] [address] * CT Head w/o IV Con (08/04/2022 2:44 PM EDT) Anatomical Region Laterality Modality Head Computed Tomogra phy 08/04/2022 2:48 PM EDT Impressions 08/04/2022 3:11 PM EDT HEAD: Right facial soft tissue contusions without acute intracranial hemorrhage or displaced calvarial fracture. CERVICAL SPINE: No evidence of acute fracture or traumatic malalignment. Advanced degenerative changes of the cervical spine with large posterior disc osteophyte complex at C6-C7 causing moderate to severe central canal stenosis. Multilevel degenerative severe neuroforaminal stenoses on the left at C5-C6 on the right at C6-C7. Consider follow-up noncontrast cervical MRI for further evaluation, pending patient clinical symptoms. 1.6 cm hypodensity within the right thyroid lobe. Can consider outpatient follow-up thyroid sonogram. I personally reviewed the images and the residents findings and agree with the above. Read By - Gustavo Hope M.D. Electronically Verified By - Gustavo Hope M.D. Released Date Time - 08/04/2022 3:11 PM Resident - Luis E Lester Narrative 08/04/2022 3:[address] HEAD W/O IV CON, CT C SPINE W/O IV CON HISTORY:82 years Female Facial trauma, blunt TECHNIQUE: CT of the head and cervical spine was performed without intravenous contrast. Multiplanar reformatted images were reviewed. COMPARISON: None. FINDINGS: HEAD: There is no acute intracranial hemorrhage. There is no intracranial mass effect, midline shift, or extra-axial fluid collection. There is normal size and configuration of the ventricular system. The basal cisterns are patent. There is no CT evidence of an evolved acute territorial infarct. ?? There is no displaced calvarial fracture. Right maxillary and zygomatic facial soft tissue contusions. Mild mucosal thickening of the maxillary sinuses. Osteoma of the left ethmoid sinuses. The mastoid air cells are clear. Globes are unremarkable. CERVICAL SPINE: There is straightening of the cervical lordosis. No evidence of an acute fracture or traumatic malalignment. The bilateral atlantooccipital intervals are congruent. No acute prevertebral soft tissue swelling. Scattered disc space narrowing and degenerative endplate changes. Prominent posterior disc osteophyte complex at C6-C7 causing moderate to severe central canal stenosis. Combination of facet hypertrophy and uncovertebral hypertrophy noted to be causing severe neuroforaminal stenosis on the left at C5-C6 with further severe narrowing on the right also noted at C6-C7. No acute abnormalities of the unenhanced neck soft tissues. 1.6 x 1.5 cm hypodensity within the right thyroid lobe. Bilateral lung apices are clear. The visualized lung apices are clear. Procedure Note Gustavo Hope MD - 08/04/2022 CT HEAD W/O IV CON, CT C SPINE W/O IV CON HISTORY:82 years Female Facial trauma, blunt TECHNIQUE: CT of the head and cervical spine was performed withoutintravenous contrast. Multiplanar reformatted images were reviewed. COMPARISON: None. FINDINGS: HEAD: There is no acute intracranial hemorrhage. There is no intracranial masseffect, midline shift, or extra-axial fluid collection. There is normal size and configurationof the ventricular system. The basal cisterns are patent. There is no CT evidence of anevolved acute territorial infarct. There is no displaced calvarial fracture. Right maxillary and zygomaticfacial soft tissue contusions. Mild mucosal thickening of the maxillary sinuses. Osteoma ofthe left ethmoid sinuses. The mastoid air cells are clear. Globes are unremarkable. CERVICAL SPINE: There is straightening of the cervical lordosis. No evidence of an acutefracture or traumatic malalignment. The bilateral atlantooccipital intervals are congruent. Noacute prevertebral soft tissue swelling. Scattered disc space narrowing and degenerative endplate changes.Prominent posterior disc osteophyte complex at C6-C7 causing moderate to severe central canalstenosis. Combination of facet hypertrophy and uncovertebral hypertrophy noted to be causing severeneuroforaminal stenosis on the left at C5-C6 with further severe narrowing on the rightalso noted at C6-C7. No acute abnormalities of the unenhanced neck soft tissues. 1.6 x 1.5 cmhypodensity within the right thyroid lobe. Bilateral lung apices are clear. The visualized lungapices are clear. IMPRESSION: HEAD: Right facial soft tissue contusions without acute intracranial hemorrhageor displaced calvarial fracture. CERVICAL SPINE: No evidence of acute fracture or traumatic malalignment. Advanced degenerative changes of the cervical spine with large posteriordisc osteophyte complex at C6-C7 causing moderate to severe central canal stenosis.Multilevel degenerative severe neuroforaminal stenoses on the left at C5-C6 on the right at C6- C7.Consider follow-up noncontrast cervical MRI for further evaluation, pending patient clinicalsymptoms. 1.6 cm hypodensity within the right thyroid lobe. Can consider outpatientfollow- up thyroid sonogram. I personally reviewed the images and the residents findings and agree withthe above. Read By Nikole Hope M.D. Electronically Verified By Nikole Hope M.D. Released Date Time - 08/04/2022 3:11 PM Resident - Luis E Lester Keshav Quick MD RAD JX CT ORDE RABLES * CT Lumbar Spine W/O IV Con (08/04/2022 2:44 PM EDT) Anatomical Region Laterality Modality L-spine Computed Tomogra phy 08/04/2022 2:51 PM EDT Impressions 08/04/2022 3:04 PM EDT Impression: 1. Thoracic spine: No acute osseous abnormality. 2.6 cm mildly hyperdense right adrenal nodule with mild surrounding fatty stranding, which may represent a focal adrenal hemorrhage versus adrenal mass, possibly hemorrhagic. Recommend follow-up abdominal pelvic CT adrenal mass protocol for further evaluation. 1.6 mm right thyroid lobe nodule. Cholelithiasis. 2. Lumbar spine: No acute osseous abnormality. Findings discussed directly with Dr. Quick in the ED via telephone on 08/04/2022 at 1500 hours by vice president of marketing Dr. Lester. Read By - Gustavo Hope M.D. Electronically Verified By - Gustavo Hope M.D. Released Date Time - 08/04/2022 3:04 PM Resident - Narrative 08/04/2022 3:04 PM EDT History: 82 years Female Back trauma, no prior imaging (Age >= 16y) Comparison: None. Exam: Noncontrast CT of the thoracic and lumbar spine. Findings: Thoracic spine: There is anatomic alignment of the thoracic spine neutral position preservation thoracic vertebral body height. No evidence of acute osseous abnormality. There is minimal multilevel degenerative disc disease. There is a 1.6 cm right thyroid lobe nodule. There is a small hiatal hernia. Partially visualized gallstones in the gallbladder. There is a hyperdense nodule on the right adrenal gland measuring 2.5 cm with mild surrounding fatty stranding. Lumbar spine: There is anatomic alignment of the lumbar spine neutral position preservation of lumbar vertebral body height. No evidence of acute osseous abnormality. Moderate L4-5 degenerative disc disease. Scattered calcified plaque within the abdominal aorta. Diffuse sigmoid colon diverticulosis. Procedure Note Gustavo Hope MD - 08/04/2022 History: 82 years Female Back trauma, no prior imaging (Age >= 16y) Comparison: None. Exam: Noncontrast CT of the thoracic and lumbar spine. Findings: Thoracic spine: There is anatomic alignment of the thoracic spine neutralposition preservation thoracic vertebral body height. No evidence of acute osseous abnormality.There is minimal multilevel degenerative disc disease. There is a 1.6 cm right thyroid lobenodule. There is a small hiatal hernia. Partially visualized gallstones in the gallbladder.There is a hyperdense nodule on the right adrenal gland measuring 2.5 cm with mild surroundingfatty stranding. Lumbar spine: There is anatomic alignment of the lumbar spine neutralposition preservation of lumbar vertebral body height. No evidence of acute osseous abnormality.Moderate L4-5 degenerative disc disease. Scattered calcified plaque within the abdominalaorta. Diffuse sigmoid colon diverticulosis. IMPRESSION: Impression: 1. Thoracic spine: No acute osseous abnormality. 2.6 cm mildly hyperdense right adrenal nodule with mild surrounding fattystranding, which may represent a focal adrenal hemorrhage versus adrenal mass, possiblyhemorrhagic. Recommend follow-up abdominal pelvic CT adrenal mass protocol for furtherevaluation. 1.6 mm right thyroid lobe nodule. Cholelithiasis. 2. Lumbar spine: No acute osseous abnormality. Findings discussed directly with Dr. Quick in the ED via telephone on08/04/2022 at 1500 hours by vice president of marketing Dr. Lester. Read By Nikole Hope M.D. Electronically Verified By Nikole Hope M.D. Released Date Time - 08/04/2022 3:04 PM Resident - Keshav Quick MD RAD JX CT ORDE RABLES * CT T Spine w/o IV Con (08/04/2022 2:44 PM EDT) Anatomical Region Laterality Modality T-spine Computed Tomogra phy 08/04/2022 2:51 PM EDT Impressions 08/04/2022 3:04 PM EDT Impression: 1. Thoracic spine: No acute osseous abnormality. 2.6 cm mildly hyperdense right adrenal nodule with mild surrounding fatty stranding, which may represent a focal adrenal hemorrhage versus adrenal mass, possibly hemorrhagic. Recommend follow-up abdominal pelvic CT adrenal mass protocol for further evaluation. 1.6 mm right thyroid lobe nodule. Cholelithiasis. 2. Lumbar spine: No acute osseous abnormality. Findings discussed directly with Dr. Quick in the ED via telephone on 08/04/2022 at 1500 hours by vice president of marketing Dr. Lester. Read By - Gustavo Hope M.D. Electronically Verified By - Gustavo Hope M.D. Released Date Time - 08/04/2022 3:04 PM Resident - Narrative 08/04/2022 3:04 PM EDT History: 82 years Female Back trauma, no prior imaging (Age >= 16y) Comparison: None. Exam: Noncontrast CT of the thoracic and lumbar spine. Findings: Thoracic spine: There is anatomic alignment of the thoracic spine neutral position preservation thoracic vertebral body height. No evidence of acute osseous abnormality. There is minimal multilevel degenerative disc disease. There is a 1.6 cm right thyroid lobe nodule. There is a small hiatal hernia. Partially visualized gallstones in the gallbladder. There is a hyperdense nodule on the right adrenal gland measuring 2.5 cm with mild surrounding fatty stranding. Lumbar spine: There is anatomic alignment of the lumbar spine neutral position preservation of lumbar vertebral body height. No evidence of acute osseous abnormality. Moderate L4-5 degenerative disc disease. Scattered calcified plaque within the abdominal aorta. Diffuse sigmoid colon diverticulosis. Procedure Note Gustavo Hope MD - 08/04/2022 History: 82 years Female Back trauma, no prior imaging (Age >= 16y) Comparison: None. Exam: Noncontrast CT of the thoracic and lumbar spine. Findings: Thoracic spine: There is anatomic alignment of the thoracic spine neutralposition preservation thoracic vertebral body height. No evidence of acute osseous abnormality.There is minimal multilevel degenerative disc disease. There is a 1.6 cm right thyroid lobenodule. There is a small hiatal hernia. Partially visualized gallstones in the gallbladder.There is a hyperdense nodule on the right adrenal gland measuring 2.5 cm with mild surroundingfatty stranding. Lumbar spine: There is anatomic alignment of the lumbar spine neutralposition preservation of lumbar vertebral body height. No evidence of acute osseous abnormality.Moderate L4-5 degenerative disc disease. Scattered calcified plaque within the abdominalaorta. Diffuse sigmoid colon diverticulosis. IMPRESSION: Impression: 1. Thoracic spine: No acute osseous abnormality. 2.6 cm mildly hyperdense right adrenal nodule with mild surrounding fattystranding, which may represent a focal adrenal hemorrhage versus adrenal mass, possiblyhemorrhagic. Recommend follow-up abdominal pelvic CT adrenal mass protocol for furtherevaluation. 1.6 mm right thyroid lobe nodule. Cholelithiasis. 2. Lumbar spine: No acute osseous abnormality. Findings discussed directly with Dr. Quick in the ED via telephone on08/04/2022 at 1500 hours by vice president of marketing Dr. Lester. Read By Nikole Hope M.D. Electronically Verified By Nikole Hope M.D. Released Date Time - 08/04/2022 3:04 PM Resident - Keshav Chikis Quick MD RAD JX CT ORDE RABLES * CT C Spine w/o IV Con (08/04/2022 2:44 PM EDT) Anatomical Region Laterality Modality C-spine Computed Tomogra phy 08/04/2022 2:48 PM EDT Impressions 08/04/2022 3:11 PM EDT HEAD: Right facial soft tissue contusions without acute intracranial hemorrhage or displaced calvarial fracture. CERVICAL SPINE: No evidence of acute fracture or traumatic malalignment. Advanced degenerative changes of the cervical spine with large posterior disc osteophyte complex at C6-C7 causing moderate to severe central canal stenosis. Multilevel degenerative severe neuroforaminal stenoses on the left at C5-C6 on the right at C6-C7. Consider follow-up noncontrast cervical MRI for further evaluation, pending patient clinical symptoms. 1.6 cm hypodensity within the right thyroid lobe. Can consider outpatient follow-up thyroid sonogram. I personally reviewed the images and the residents findings and agree with the above. Read By Nikole Hope M.D. Electronically Verified By Nikole Hope M.D. Released Date Time - 08/04/2022 3:11 PM Resident - Luis E Lester Narrative 08/04/2022 3:[address] HEAD W/O IV CON, CT C SPINE W/O IV CON HISTORY:82 years Female Facial trauma, blunt TECHNIQUE: CT of the head and cervical spine was performed without intravenous contrast. Multiplanar reformatted images were reviewed. COMPARISON: None. FINDINGS: HEAD: There is no acute intracranial hemorrhage. There is no intracranial mass effect, midline shift, or extra-axial fluid collection. There is normal size and configuration of the ventricular system. The basal cisterns are patent. There is no CT evidence of an evolved acute territorial infarct. ?? There is no displaced calvarial fracture. Right maxillary and zygomatic facial soft tissue contusions. Mild mucosal thickening of the maxillary sinuses. Osteoma of the left ethmoid sinuses. The mastoid air cells are clear. Globes are unremarkable. CERVICAL SPINE: There is straightening of the cervical lordosis. No evidence of an acute fracture or traumatic malalignment. The bilateral atlantooccipital intervals are congruent. No acute prevertebral soft tissue swelling. Scattered disc space narrowing and degenerative endplate changes. Prominent posterior disc osteophyte complex at C6-C7 causing moderate to severe central canal stenosis. Combination of facet hypertrophy and uncovertebral hypertrophy noted to be causing severe neuroforaminal stenosis on the left at C5-C6 with further severe narrowing on the right also noted at C6-C7. No acute abnormalities of the unenhanced neck soft tissues. 1.6 x 1.5 cm hypodensity within the right thyroid lobe. Bilateral lung apices are clear. The visualized lung apices are clear. Procedure Note Gustavo Hope MD - 08/04/2022 CT HEAD W/O IV CON, CT C SPINE W/O IV CON HISTORY:82 years Female Facial trauma, blunt TECHNIQUE: CT of the head and cervical spine was performed withoutintravenous contrast. Multiplanar reformatted images were reviewed. COMPARISON: None. FINDINGS: HEAD: There is no acute intracranial hemorrhage. There is no intracranial masseffect, midline shift, or extra-axial fluid collection. There is normal size and configurationof the ventricular system. The basal cisterns are patent. There is no CT evidence of anevolved acute territorial infarct. There is no displaced calvarial fracture. Right maxillary and zygomaticfacial soft tissue contusions. Mild mucosal thickening of the maxillary sinuses. Osteoma ofthe left ethmoid sinuses. The mastoid air cells are clear. Globes are unremarkable. CERVICAL SPINE: There is straightening of the cervical lordosis. No evidence of an acutefracture or traumatic malalignment. The bilateral atlantooccipital intervals are congruent. Noacute prevertebral soft tissue swelling. Scattered disc space narrowing and degenerative endplate changes.Prominent posterior disc osteophyte complex at C6-C7 causing moderate to severe central canalstenosis. Combination of facet hypertrophy and uncovertebral hypertrophy noted to be causing severeneuroforaminal stenosis on the left at C5-C6 with further severe narrowing on the rightalso noted at C6-C7. No acute abnormalities of the unenhanced neck soft tissues. 1.6 x 1.5 cmhypodensity within the right thyroid lobe. Bilateral lung apices are clear. The visualized lungapices are clear. IMPRESSION: HEAD: Right facial soft tissue contusions without acute intracranial hemorrhageor displaced calvarial fracture. CERVICAL SPINE: No evidence of acute fracture or traumatic malalignment. Advanced degenerative changes of the cervical spine with large posteriordisc osteophyte complex at C6-C7 causing moderate to severe central canal stenosis.Multilevel degenerative severe neuroforaminal stenoses on the left at C5-C6 on the right at C6- C7.Consider follow-up noncontrast cervical MRI for further evaluation, pending patient clinicalsymptoms. 1.6 cm hypodensity within the right thyroid lobe. Can consider outpatientfollow- up thyroid sonogram. I personally reviewed the images and the residents findings and agree withthe above. Read By Nikole Hope M.D. Electronically Verified By Nikole Hope M.D. Released Date Time - 08/04/2022 3:11 PM Resident - Luis E Lester Keshav Quick MD RAD JX CT LORENE ADELITA * XR Ankle Left 3 or More Views (08/04/2022 1:54 PM EDT) Anatomical Region Laterality Modality Ankle, ORT Ankle Computed Radiog martita 08/04/2022 2:01 PM EDT Impressions 08/04/2022 2:03 PM EDT Impression: No acute osseous abnormality. Chronic appearing sequela from likely prior avulsion injuries at the medial tibial plateau and lateral malleolus tip. Circumferential calf soft tissue swelling and edema. Read By Nikole García Electronically Verified By Nikole García Released Date Time - 08/04/2022 2:03 PM Resident - Narrative 08/04/2022 2:03 PM EDT XR ANKLE LEFT 3 OR MORE VIEWS, XR TIBIA & FIBULA LEFT Clinical indication:82 years Female Ankle pain Comparison: None Findings: Small calcification along the medial margin of the medial tibial plateau. Small calcification along the inferior margin of the lateral malleolus tip no acute fracture. No dislocation. The ankle mortise is congruent. There is mild circumferential calf soft tissue swelling and edema. Small focus of Achilles enthesopathy. Procedure Note Mahamed García MD - 08/04/2022 XR ANKLE LEFT 3 OR MORE VIEWS, XR TIBIA & FIBULA LEFT Clinical indication:82 years Female Ankle pain Comparison: None Findings: Small calcification along the medial margin of the medial tibial plateau.Small calcification along the inferior margin of the lateral malleolus tip no acute fracture.No dislocation. The ankle mortise is congruent. There is mild circumferential calf soft tissueswelling and edema. Small focus of Achilles enthesopathy. IMPRESSION: Impression: No acute osseous abnormality. Chronic appearing sequela from likely prior avulsion injuries at themedial tibial plateau and lateral malleolus tip. Circumferential calf soft tissue swelling and edema. Read By - Mahamed García Electronically Verified By Nikole García Released Date Time - 08/04/2022 2:03 PM Resident - Keshav Quick MD RAD JX XR ORDE RABLES * XR Tibia & Fibula Left (08/04/2022 1:54 PM EDT) Anatomical Region Laterality Modality Leg, ORT Leg, ORT Fibula, ORT Tibia Left Computed Radiography 08/04/2022 2:01 PM EDT Impressions 08/04/2022 2:03 PM EDT Impression: No acute osseous abnormality. Chronic appearing sequela from likely prior avulsion injuries at the medial tibial plateau and lateral malleolus tip. Circumferential calf soft tissue swelling and edema. Read By Nikole García Electronically Verified By Nikole García Released Date Time - 08/04/2022 2:03 PM Resident - Narrative 08/04/2022 2:03 PM EDT XR ANKLE LEFT 3 OR MORE VIEWS, XR TIBIA & FIBULA LEFT Clinical indication:82 years Female Ankle pain Comparison: None Findings: Small calcification along the medial margin of the medial tibial plateau. Small calcification along the inferior margin of the lateral malleolus tip no acute fracture. No dislocation. The ankle mortise is congruent. There is mild circumferential calf soft tissue swelling and edema. Small focus of Achilles enthesopathy. Procedure Note Mahamed García MD - 08/04/2022 XR ANKLE LEFT 3 OR MORE VIEWS, XR TIBIA & FIBULA LEFT Clinical indication:82 years Female Ankle pain Comparison: None Findings: Small calcification along the medial margin of the medial tibial plateau.Small calcification along the inferior margin of the lateral malleolus tip no acute fracture.No dislocation. The ankle mortise is congruent. There is mild circumferential calf soft tissueswelling and edema. Small focus of Achilles enthesopathy. IMPRESSION: Impression: No acute osseous abnormality. Chronic appearing sequela from likely prior avulsion injuries at themedial tibial plateau and lateral malleolus tip. Circumferential calf soft tissue swelling and edema. Read By Nikole García Electronically Verified By Nikole García Released Date Time - 08/04/2022 2:03 PM Resident - Keshav Quick MD RAD JX XR LYLE UREÑA * XR Chest Single View (08/04/2022 1:54 PM EDT) Anatomical Region Laterality Modality Chest, ORT Chest Computed Radiog martita 08/04/2022 2:06 PM EDT Impressions 08/04/2022 2:55 PM EDT No acute cardiopulmonary process, within the limitations as described above. I personally reviewed the images and the residents findings and agree with the above. Read By - Arnoldo Reese M.D. Electronically Verified By - Arnoldo Reese M.D. Released Date Time - 08/04/2022 2:55 PM Resident - Austin Ruiz 08/04/2022 2:55 PM EDT EXAMINATION: XR CHEST SINGLE VIEW CLINICAL HISTORY: ??82 years old Female with Fall. COMPARISON: None FINDINGS: No abnormal tracheal deviation. Cardiac silhouette is normal in size. No pleural effusion, although the left costophrenic angle is not completely included within the [id number]. No pneumothorax. ??Lung volumes are normal. ??No acute pulmonary parenchymal abnormality. Rounded opacity within the right hilar/perihilar region could reflect a pulmonary vessel en face versus hilar lymph node. No acute bony abnormality. Procedure Note Arnoldo Reese MD - 08/04/2022 EXAMINATION: XR CHEST SINGLE VIEW CLINICAL HISTORY: 82 years old Female with Fall. COMPARISON: None FINDINGS: No abnormal tracheal deviation. Cardiac silhouette is normal in size. Nopleural effusion, although the left costophrenic angle is not completely included within [id number]. No pneumothorax. Lung volumes are normal. No acute pulmonary parenchymalabnormality. Rounded opacity within the right hilar/perihilar region could reflect a pulmonaryvessel en face versus hilar lymph node. No acute bony abnormality. IMPRESSION: No acute cardiopulmonary process, within the limitations as describedabove. I personally reviewed the images and the residents findings and agree withthe above. Read By Nikole Reese M.D. Electronically Verified By Nikole Reese M.D. Released Date Time - 08/04/2022 2:55 PM Resident - Austin Stephens Keshav Quick MD RAD JX XR ORDE RABLES * XR Wrist Right Min 3 Views (08/04/2022 1:54 PM EDT) Anatomical Region Laterality Modality Wrist, ORT Wrist Right Computed Radiog martita 08/04/2022 1:57 PM EDT Impressions 08/04/2022 2:01 PM EDT Impression: No acute osseous abnormality of the right hand or wrist. 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 No erosion. Read By Nikole García Electronically Verified By Nikole García Released Date Time - 08/04/2022 2:01 PM Resident - Narrative 08/04/2022 2:01 PM EDT XR WRIST RIGHT MIN 3 VIEWS, XR HAND RIGHT 3 VIEWS Clinical indication:82 years Female Wrist pain Comparison: None Findings: Negative ulnar variance of approximately 5 mm. Calcifications within the TFCC. Scapholunate dissociation with intervening chondrocalcinosis. Moderate first CMC and mild STT osteoarthritis. Flattening of the ulnar styloid mild interphalangeal degeneration. Mild to moderate interphalangeal osteoarthritis. No fracture. No dislocation Procedure Note Mahamed García MD - 08/04/2022 XR WRIST RIGHT MIN 3 VIEWS, XR HAND RIGHT 3 VIEWS Clinical indication:82 years Female Wrist pain Comparison: None Findings: Negative ulnar variance of approximately 5 mm. Calcifications within theTFCC. Scapholunate dissociation with intervening chondrocalcinosis. Moderate first CMC andmild STT osteoarthritis. Flattening of the ulnar styloid mild interphalangealdegeneration. Mild to moderate interphalangeal osteoarthritis. No fracture. No dislocation IMPRESSION: Impression: No acute osseous abnormality of the right hand or wrist. 5 mm negative ulnar variance with chondrocalcinosis of the TFCC, mildscapholunate dissociation without corresponding complication, as well as multifocal regions of mildto moderate osteoarthritis. No erosion. Read By - Mahamed García Electronically Verified By Nikole García Released Date Time - 08/04/2022 2:01 PM Resident - Keshav Quick MD RAD JX XR LYLE UREÑA * XR Hand Right 3 Views (08/04/2022 1:54 PM EDT) Anatomical Region Laterality Modality Hand, ORT Hand Right Computed Radiogr aphy 08/04/2022 1:57 PM EDT Impressions 08/04/2022 2:01 PM EDT Impression: No acute osseous abnormality of the right hand or wrist. 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 No erosion. Read By Nikole García Electronically Verified By Nikole García Released Date Time - 08/04/2022 2:01 PM Resident - Narrative 08/04/2022 2:01 PM EDT XR WRIST RIGHT MIN 3 VIEWS, XR HAND RIGHT 3 VIEWS Clinical indication:82 years Female Wrist pain Comparison: None Findings: Negative ulnar variance of approximately 5 mm. Calcifications within the TFCC. Scapholunate dissociation with intervening chondrocalcinosis. Moderate first CMC and mild STT osteoarthritis. Flattening of the ulnar styloid mild interphalangeal degeneration. Mild to moderate interphalangeal osteoarthritis. No fracture. No dislocation Procedure Note Mahamed García MD - 08/04/2022 XR WRIST RIGHT MIN 3 VIEWS, XR HAND RIGHT 3 VIEWS Clinical indication:82 years Female Wrist pain Comparison: None Findings: Negative ulnar variance of approximately 5 mm. Calcifications within theTFCC. Scapholunate dissociation with intervening chondrocalcinosis. Moderate first CMC andmild STT osteoarthritis. Flattening of the ulnar styloid mild interphalangealdegeneration. Mild to moderate interphalangeal osteoarthritis. No fracture. No dislocation IMPRESSION: Impression: No acute osseous abnormality of the right hand or wrist. 5 mm negative ulnar variance with chondrocalcinosis of the TFCC, mildscapholunate dissociation without corresponding complication, as well as multifocal regions of mildto moderate osteoarthritis. No erosion. Read By - Mahamed García Electronically Verified By - Mahamed García Released Date Time - 08/04/2022 2:01 PM Resident - Keshav Quick MD RAD JX XR LYLE UREÑA documented in this encounter Visit Diagnoses Diagnosis Fall- Primary Unspecified fall Contusion of face Contusion of face, scalp, and neck except eye(s) Abrasion Abrasion or friction burn of other, multiple, and unspecified sites, without mention of infection Adrenal hemorrhage (CMS-HCC: 23) Glucocorticoid deficiency Left ankle pain Pain in joint, ankle and foot Right wrist pain Pain in joint, forearm * Team Conference - Chikis Fragoso RN - 08/04/2022 12:28 PM EDT Bed: [facility] Expected date: Expected time: Means of arrival: Comments: trauma documented in this encounter Administered Medications Inactive Administered Medications - up to 3 most recent administrations Medication Order MAR Action Action Date Dose Rate Site acetaminophen (TYLENOL) tablet 650 mg 650 mg, Oral, ONCE NOW, On Sun08/04/22 at 2200, For 1 dose $$Given$$ 08/04/2022 9:53 PM EDT 325 mg acetaminophen (TYLENOL) tablet 650 mg 650 mg, Oral, EVERY 4 HOURS PRN, T > 38.5 C (101.5 F), Starting on Sun08/05/22 at 0111 $$Given$$ 08/05/2022 9:03 AM EDT 650 mg $$Given$$ 08/05/2022 4:00 AM EDT 650 mg HYDROcodone-acetaminophen (NORCO) 5-325 MG per tablet 1 tablet 1 tablet, Oral, ONCE NOW, On Sun08/04/22 at 1345, For 1 dose $$Given$$ 08/04/2022 2:53 PM EDT 1 tablet iohexol (OMNIPAQUE 350) injection 100 mL 100 mL, Intravenous, ONCE NOW, On Sun08/04/22 at 2015, For 1 dose, Radiology JX pre-procedure- Pharmacist verify $$Given$$ 08/04/2022 8:25 PM EDT 100 mLs levothyroxine (SYNTHROID) tablet 112 mcg 112 mcg, Oral, EVERY MORNING, First dose on Sun08/05/22 at 0600 $$Given$$ 08/05/2022 9:02 AM EDT 112 mcg LR 1,000 mL bolus Intravenous, Administer over 60 Minutes, BOLUS ONCE, On Sun08/04/22 at 1645, For 1 dose $$New Bag$$ 08/04/2022 4:49 PM EDT ondansetron (ZOFRAN) injection 4 mg 4 mg, Intravenous, ONCE NOW, On Sun08/04/22 at 1700, For 1 dose $$Given$$ 08/04/2022 4:50 PM EDT 4 mg ondansetron (ZOFRAN) injection 4 mg 4 mg, Intravenous, ONCE NOW, On Sun08/04/22 at 2200, For 1 dose $$Given$$ 08/04/2022 9:53 PM EDT 4 mg temazepam (RESTORIL) capsule 15 mg 15 mg, Oral, NIGHTLY PRN, sleep, Starting on Sun08/05/22 at 0112, For 1 dose documented in this encounter Active and Recently Administered Medications Times are shown in EDT. Scheduled Medication Order 08/03/2022 08/04/2022 08/05/2022 acetaminophen (TYLENOL) tablet 650 mg (COMPLETED) 650 mg, Oral, ONCE NOW, On Sun08/04/22 at 2200, For 1 dose 2153 ($$Given$$ - Provider: Amrik Jacobo RN - Comment: Pt only wants 1) HYDROcodone-acetaminophen (NORCO) 5-325 MG per tablet 1 tablet (COMPLETED) 1 tablet, Oral, ONCE NOW, On Sun08/04/22 at 1345, For 1 dose 1453 ($$Given$$ - Provider: Ginger Small, KAMI) iohexol (OMNIPAQUE 350) injection 100 mL (COMPLETED) 100 mL, Intravenous, ONCE NOW, On Sun08/04/22 at 2015, For 1 dose, Radiology JX pre-procedure- Pharmacist verify 2024 ($$Given$$ - Provider: Addis Tran) levothyroxine (SYNTHROID) tablet 112 mcg 112 mcg, Oral, EVERY MORNING, First dose on Sun08/05/22 at 0600 0902 ($$Given$$ - Provider: Julianna Yip RN) LR 1,000 mL bolus (COMPLETED) Intravenous, Administer over 60 Minutes, BOLUS ONCE, On Sun08/04/22 at 1645, For 1 dose 1649 ($$New Bag$$ - Provider: Ginger Small, KAMI)1931 (Stopped - Provider: Amrik Jacobo, KAMI) ondansetron (ZOFRAN) injection 4 mg (COMPLETED) 4 mg, Intravenous, ONCE NOW, On Sun08/04/22 at 1700, For 1 dose 1650 ($$Given$$ - Provider: Ginger Small, KAMI) ondansetron (ZOFRAN) injection 4 mg (COMPLETED) 4 mg, Intravenous, ONCE NOW, On Sun08/04/22 at 2200, For 1 dose 2153 ($$Given$$ - Provider: Amrik Jacobo, KAMI) PRN Medication Order 08/03/2022 08/04/2022 08/05/2022 acetaminophen (TYLENOL) tablet 650 mg 650 mg, Oral, EVERY 4 HOURS PRN, T > 38.5 C (101.5 F), Starting on 08/05/22 at 0111 0400 ($$Given$$ - Pr ovider: Dany Basilio RN)0903 ($$Given$$ - Provider: Julianna Yip RN) temazepam (RESTORIL) capsule 15 mg 15 mg, Oral, NIGHTLY PRN, sleep, Starting on 08/05/22 at 0112, For 1 dose documented in this encounter
--- OUTSIDE RECORDS SUMMARY | 2024-01-15 02:32 | XMS_ITS | Encounter Summary ---
Author Organization [facility] Address [address] [place] [address] Care Team Providers Care Field Support Technician Name Role Phone Unavailable Primary Care Provider Unavailabl e Encounter Details Date Type Department Care Team (Late st Contact Info) Description 09/25/2000 Results Only [facility] - [facility] conversion [address] [place] [address] Veronika Mcknight, [address] [place] [address] Social History Tobacco Use Types [...] Priority Date/Time Associated Diagnosis Comments CYTOPATHOLOGY Routine 09/25/2000 0:00 EDT documented in this encounter Results * CYTOPATHOLOGY (09/25/2000 0:00 EDT) Pathology Report: CYTOPATHOLOGY REPORT Reports generated via electronic interface contain original data; however they are lacking the format of the original report. Caution should be taken when reading/interpreti ng unformatted reports. Name: ? REANNA HILLS ? Accession #: ? [id number] : ? 1940 (Age: 60) ??F ?Collect Date: ? 09/25/2000 Location: ? [facility] ? Receive Date: ? 09/26/2000 Provider: ?VERONIKA MCKNIGHT COST ESTIMATOR Copy to: ? Specimen/Source: ?ThinPrep Pap Test, Cervix/Endocervix Last Menstrual Period: ? 1989 Hormonal/Contracep tive Status: ? Hormone Replacement Therapy Previous Gynecologic Pathology: ? Benign cellular changes: ? SPECIMEN ADEQUACY ? Satisfactory for evaluation. GENERAL CATEGORIZATION ? Within Normal Limits ? Document reviewed and electronically signed by: ? Niya Mukherjee, ??SCT(ASCP) ? Report Date: ??09/27/2000 09:49 End of Report HEATHER PEREZ 09/25/2000 09/26/2000 Veronika Mcknight COST ESTIMATOR PATHOLOGY ORDERABLES HEATHER PEREZ [address] [place] [address] documented in this encounter Visit Diagnoses Not on filedocumented in this encounter
--- OUTSIDE RECORDS SUMMARY | 2024-01-15 02:32 | XMS_ITS | Encounter Summary ---
Author Organization [facility] Address [address] [place] [address] Care Team Providers Care Railcar Switcher Name Role Phone Kobe Barrett Primary Care Provider [phone]- [phone] Encounter Details Date Type Department Care Team (Late st Contact Info) Description 02/14/2023 Lab Requisition [facility] Pathology & Laboratory Medicine - [facility] [address] [place] [address] Gustavo Holley MD [address] [place] [phone] Benign neoplasm of colon, unspecified Social History Tobacco Use Types Packs/Day Years [...] Priority Date/Time Associated Diagnosis Comments SURGICAL PATHOLOGY Today 02/14/2023 9: 43 EDT Benign neoplasm of colon, unspecified documented in this encounter Results * SURGICAL PATHOLOGY (02/14/2023 9:43 EDT) Note to Patient The following pathology results have been interpreted by your pathologist and may be available to you before your health provider has had the opportunity to review them. Please allow time for your provider to receive these results and explore management options, if applicable. 02/15/2023 18:03 EDT [facility] Final Diagnosis A. COLON, ASCENDING, POLYP, BIOPSY: - Tubular adenoma. 02/15/2023 18:03 [facility] Attestation By the signature below, the attending physician certifies that they have 1) personally conducted a gross and/or microscopic examination of the described specimen(s), and/or personally interpreted the results of laboratory testing of the described specimen(s), and 2) personally rendered or confirmed the above diagnosis. 02/15/2023 18:03 [facility] at 1803 Clinical History History of polyps, family history of colon cancer, diverticulosis, colon polyp 02/15/2023 18:03 T [facility] Gross Description A. Received in formalin labelled with proper patient identification (initials W, L) and ascending colon polyp x1 is a single alvarez polypoid tissue (0.2 x 0.2 x 0.1 cm). Submitted intact in A1. APOLINAR CH(ASCP) 02/15/2023 7:55 02/15/2023 18:03 T [facility] Performing Lab [facility] 02/15/2023 18:03 [facility] Scanned Images 02/15/2023 18:03 [facility] Tissue ASCENDING COLON STRUCTURE / Unknown 02/14/2023 9:43 EDT 02/14/2023 18:33 EDT Gustavo Holley MD PATHOLOGY ORDERABLES [facility] [address] [place] [address] documented in this encounter Visit Diagnoses Diagnosis Benign neoplasm of colon, unspecified documented in this encounter Care Teams Railcar Switcher Relationship Specialty Start Date End Date Kobe Barrett [address] [place] [address] PCP - General Family Medicine - Hospital Medicine 12/19/22 documented as of this encounter
--- OUTSIDE RECORDS SUMMARY | 2024-01-15 02:32 | XMS_ITS | Encounter Summary ---
Author Organization [facility] Address [address] [place] [address] Care Team Providers Care Director Of Spa And Guest Experience Name Role Phone Unavailable Primary Care Provider Unavailabl e Encounter Details Date Type Department Care Team (Late st Contact Info) Description 03/06/2011 Results Only [facility] Laboratory Services - [facility] ([facility] [address] [place], [place] [id number] Tino Mcknight, [facility] [address] [place] [address] [place] [address] Social History Tobacco Use Types Packs/Day Years Used Date Smoking Tobacco: Never Assessed Sex and Gender Information Value Date Recorded Sex Assigned at Not on file Gender Identity Not on file Sexual Orientation Not on file documented as of this encounter Plan of Treatment Not on file documented as of this encounter Procedures Procedure Name Priority Date/Time Associated Diagnosis Comments PAP TEST- RESULT ONLY Routine 03/06/2011 0:00 EDT documented in this encounter Results * PAP TEST- RESULT ONLY (03/06/2011 0:00 EDT) Pathology Report: CYTOPATHOLOGY REPORT Reports generated via electronic interface contain original data; however they are lacking the format of the original report. Caution should be taken when reading/interpreti ng unformatted reports. Name: ? EDMOND HILLSCLAUDIA ? Accession #: ? [id number] ? : ? 1940 (Age: 71) ??F ?Collect Date: ? 03/06/2011 ? Location: ? [facility] ? Receive Date: ? 03/07/2011 ? Provider: TINO MCKNIGHT SOIL FERTILITY EXTENSION SPECIALIST Copy to: MENG CAMARGO MD ? Final Report SPECIMEN ADEQUACY ? Satisfactory for Evaluation - transformation zone component present GENERAL CATEGORIZATION ? Negative for Intraepithelial Lesion or Malignancy INTERPRETATION ? 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 Last Menstural Period: 1989 Hormonal/Contracep tive status: Estrogen: vaginal Previous Gynecologic Pathology: Benign cellular changes: 1999 Specimen/Source: ??Pap Test, Cervix/Endocervix, ThinPrep Imaging System with manual evaluation Document reviewed and electronically signed by: ? LISA Gunn(ASCP) ? Report ??Date: 03/13/2011 15:10 HPV with Pap Test ? Date Ordered: ? 03/13/2011 ? Status: ?? Signed Out ?Date Complete: ? 03/16/2011 ? By: ??System Interface ? Date Reported: ? 03/16/2011 ? Interpretation RESULT: Negative for HPV types 16, 18, 31, 33, 35, 39, 45, 51, 52, 56, 58, 59, and 68. Comments Document reviewed and electronically signed by: ? System Interface ? Report date: 03/16/2011 By the signature above, the attending physician certifies that he/she has personally conducted a gross and/or microscopic examination of the described specimens and rendered or confirmed the above diagnosis. End of Report [facility] 03/06/2011 03/07/2011 Tino Mcknight SOIL FERTILITY EXTENSION SPECIALIST PATHOLOGY ORDERABLES Performing Organization Address City/State/[facility] Co de Phone Number [facility] [address] [place] [address] documented in this encounter Visit Diagnoses Not on filedocumented in this encounter
--- OUTSIDE RECORDS SUMMARY | 2024-01-15 02:32 | XMS_ITS | Encounter Summary ---
Author Organization [facility] Address [address] [place] [address] Care Team Providers Care Machine Filler Shredder Name Role Phone Krista Carroll NP Primary Care Provider [phone] Kobe Barrett Primary Care Provider + [phone] Encounter Details Date Type Department Care Team (Late st Contact Info) Description 03/27/2021 Lab Requisition [facility] Pathology & Laboratory Medicine - [facility] [address] [place] [address] Krista Carroll, JANUARY [facility] [facility] [place] [phone] Encounter for other general examination Social History Tobacco Use Types Packs/Day Years [...] Diagnosis Comments ORGANISM IDENTIFICATION AND SUSCEPTIBILITY Today 03/24/2021 13:00 EDT Encounter for other general examination documented in this encounter Results * (ABNORMAL) ORGANISM IDENTIFICATION AND SUSCEPTIBILITY (03/24/2021 13:00 EDT) Organism ID Escherichia coli(A) VITEK SUSCEPTIBILITY 03/29/2021 8:02 EST [facility] Comment: Cefazolin susceptibility results can [...] only cefpodoxime and cephalexin are on the [facility] inpatient formulary. Organism (organism) URINE / Unknown 03/24/2021 13:00 EDT 03/27/2021 19:10 EST Narrative Organism Antibiotic Method Susceptibility Escherichia coli Ampicillin VITEK SUSCEPTIBILITY >=32 ug/mL: Resistant Escherichia coli Cefazolin VITEK SUSCEPTIBILITY <=4 ug/mL: Susceptible Escherichia coli Ceftriaxone VITEK SUSCEPTIBILITY <=1 ug/mL: Susceptible Escherichia coli Ciprofloxacin VITEK SUSCEPTIBILITY <=0.25 ug/mL: Susceptible Escherichia coli Ertapenem VITEK SUSCEPTIBILITY <=0.5 ug/mL: Susceptible Escherichia coli Meropenem VITEK SUSCEPTIBILITY <=0.25 ug/mL: Susceptible Escherichia coli Nitrofurantoin VITEK SUSCEPTIBILITY <=16 ug/mL: Susceptible Escherichia coli Piperacillin Tazobactam VITEK SUSCEPT IBILITY 64 ug/mL: Intermediate Escherichia coli Trimethoprim-Sulfame thox azole VITEK SUSCEPTIBILITY <=20 ug/mL: Susceptible Krista Carroll NP MICROBIOLOGY - [facility] ORDERABLES [facility] [address] [place] [address] documented in this encounter Visit Diagnoses Diagnosis Encounter for other general examination documented in this encounter Care Teams Machine Filler Shredder Relationship Specialty Start Date End Date Krista Carroll NP PCP - General 03/01/17 12/18/22 Kobe Barrett [address] [place] [id number] PCP - General Family Medicine - [facility] Medicine 12/19/22 documented as of this encounter
--- OUTSIDE RECORDS SUMMARY | 2024-01-15 02:32 | XMS_ITS | Encounter Summary ---
[place] [address] Care Team Providers Care Fish Cutting Machine Operator Name Role Phone Kobe Barrett APRN Primary Care Provider [phone] Encounter Details Date Type Department Care Team (Late st Contact Info) Description 10/23/2023 Notes Only [facility] [place] [address] Barbara [place] Social History Tobacco Use Types Packs/Day Years [...] as of this encounter Progress Notes * Barbara [place] - 10/23/2023 2:52 PM EDT Outgoing fax 10/23/[address] & Xray orders, including questions, and [facility] to [facility]. documented in this encounter Plan of Treatment Not on file documented as of this encounter Visit Diagnoses Not on filedocumented in this encounter Care Teams Fish Cutting Machine Operator Relationship Specialty Start Date End Date Kobe Barrett APRN [address] [place] [address] PCP - General Family Medicine 03/06/23 documented as of this encounter
--- OUTSIDE RECORDS SUMMARY | 2024-01-15 02:32 | XMS_ITS | Encounter Summary ---
Author Organization [facility] Address [facility] [place] [address] Care Team Providers Care Relay Checker Name Role Phone Unavailable Primary Care Provider Unavailabl e Reason for Visit * Reason Comments Mitral Valve Regurgitation Encounter Details Date Type Department Care Team (Latest Contact Info) Description 09/26/2021 9:20 AM EDT Office Visit Cardiology at [address] [address] Maximino Guadarrama MD [facility] [place] [address] Nonrheumatic mitral valve regurgitation, moderate; Venous insufficiency (chronic) (peripheral) Social History Tobacco Use Types Packs/Day Years [...] Sign Reading Time Taken Comments Blood Pressure 133/86 09/26/2021 9:41 AM EDT Pulse 70 09/26/2021 9:41 AM EDT Temperature - - Respiratory Rate - - Oxygen Saturation - - Inhaled Oxygen Concentration - - Weight 72.7 kg (160 lb 4.8 oz) 09/26/2021 9:34 A M EDT Height 168.5 cm (5' 6.34) 09/26/2021 9:34 AM ED T Body Mass Index 25.61 09/26/2021 9:34 AM EDT documented in this encounter Progress Notes * Maximino Guadarrama MD - 09/26/2021 9:20 AM EDT Images from the original note were not included. Subjective: Patient ID: Aide Hills is a 81 y.o. female who presents on follow-up for: Chief Complaint Patient presents with ??? Mitral Valve Regurgitation HPI Last seen by me 09/2020, at which time no changes were made. Since then, she continues to do well, enjoying tennis without angina nor untoeward dyspnea. Recently came back from [facility]) bp well controlled Stable palpitations, non-bothersome ciracdian peripheral edema, mild. Feels that the legs are more full at night Current Outpatient Medications: ??? sulfamethoxazole-trimethoprim (Bactrim) 400-80 mg Tablet, Take 1 tablet by mouth 2 times daily as needed., Disp: , Rfl: ??? fluocinonide (LIDEX) 0.05 % Gel, Apply topically 4 times daily as needed., Disp: , Rfl: ??? Premarin 0.625 mg/gram Cream, Place 1 g vaginally three times a week., Disp: , Rfl: ??? levothyroxine (Synthroid) 50 mcg Tablet, Take 50 mcg by mouth daily., Disp: , Rfl: Patient Active Problem List Diagnosis ??? Nonrheumatic mitral valve regurgitation, moderate 04/2020 TTE ([facility]): moderate mitral regurgitation due to prolapse ??? Lactose intolerance ??? Sensory hearing loss, bilateral ??? Venous insufficiency (chronic) (peripheral) ??? Superficial thrombophlebitis of lower extremity ??? Cholelithiasis and cholecystitis without obstruction ??? Diverticulosis of large intestine without perforation or abscess with bleeding ??? Frequent UTI ??? PVD (peripheral vascular disease) with claudication ??? Tubular adenoma of colon ??? Atrophic vaginitis ??? Hypothyroidism Objective: BP 133/86 (BP Location (NBP): Left arm, Patient Position: Standing, BP Cuff Sizes: Adult (25-34 cm)) Pulse 70 Ht 168.5 cm (5' 6.34) Wt 72.7 kg (160 lb 4.8 oz) BMI 25.61 kg/m?? Gen: pleasant female in NAD Cor: rrr, s1/s2 of nl character and amplitude, II/ holosys at apex no rg Estimated RAP not elevated. Carotids with normal upstroke without bruit. Pulm: CTAB. Normal diaphragmatic movement without use of accessory muscles Ext: reticular veins at ankles, no edema Assessment and Plan: Nonrheumatic mitral valve regurgitation, moderate No issues per history nor exam. Reviewed circadian peripheral edema is venous insufficiency, and will not cause stress on the heart nor is it a sign that there is anything amiss with the mitral valve. Venous insufficiency (chronic) (peripheral) Advised compression stockings, especially at the latter portion of the day RTC PRN, per patient preference Maximino Guadarrama MD documented in this encounter Miscellaneous Notes * Assessment & Plan Note - Maximino Guadarrama MD - 09/26/2021 10:05 AM EDT Associated Problem(s): Venous insufficiency (chronic) (peripheral) Advised compression stockings, especially at the latter portion of the day * Assessment & Plan Note - Maximino Guadarrama MD - 09/26/2021 10:04 AM EDT Associated Problem(s): Nonrheumatic mitral valve regurgitation, moderate No issues per history nor exam. Reviewed circadian peripheral edema is venous insufficiency, and will not cause stress on the heart nor is it a sign that there is anything amiss with the mitral valve. documented in this encounter Plan of Treatment Not on file documented as of this encounter Visit Diagnoses Diagnosis Nonrheumatic mitral valve regurgitation, moderate Venous insufficiency (chronic) (peripheral) Unspecified venous (peripheral) insufficiency documented in this encounter
--- OUTSIDE RECORDS SUMMARY | 2024-01-15 02:32 | XMS_ITS | Encounter Summary ---
Author Organization [facility] [address] Care Team Providers Care Supervisory Investigative Specialist Name Role Phone Kobe Barrett Radha ANDERSON Primary Care Provider [phone]- [phone] Encounter Details Date Type Department Care Team (Late st Contact Info) Description 06/18/2009 Orders Only D[facility] [place] [address] [facility] [place] [phone] Joon Roberts MD [address] [facility] [place] [facility] DERMATOLOGY [place], [place] [id number] Social History Tobacco Use Types Packs/Day Years Used Date Smoking Tobacco: Never Assessed Sex and Gender Information Value Date Recorded Sex Assigned at Not on file Gender Identity Not on file Sexual Orientation Not on file documented as of this encounter Plan of Treatment Not on file documented as of this encounter Procedures Procedure Name Priority Date/Time Associated Diagnosis Comments SURGICAL PATHOLOGY REPORT Routine 06/18/2009 6:09 PM EST documented in this encounter Results * Surgical Pathology Report (06/18/2009 6:09 PM EST) Surgical Pathology Report [id number] ? Location: [facility] The signing pathologist has (i) examined the relevant preparation(s) for the specimen(s) and (ii) rendered or confirmed the diagnosis(es). . ?Pathology Surgical Pathology Final Report Clinical Information Specimen Submitted: A - Chin, Excision: Clinical History: BX-proven BCCA, [id number] for excision, suture at 12 o'clock Clinical Diagnosis: BCCA Report to: Joon Roberts MD, III [facility] [place], [place] ??[address] Gross Description Labeled/Fixativ e: ? Chin, formalin. Qty/Size/Weight : ?Single, 1.6 x 0.9 x 0.4 cm. Tissue Description: ?? Ellipse of nodular, centrally ulcerated, pink-alvarez ?skin. ??A suture gray the 12 o'clock ellipse tip. ??The 12 to 3 to 6 o'clock margin is marked with black ink, and the 6 to 9 to 12 o'clock margin is marked with blue ink. Sections/Proces sing: ??The specimen is serially sectioned and entirely ?submitted with the 12 o'clock tip in (1), the 6 o'clock tip in (2), and the remaining sequential cross sections from 12 to 6 o'clock in (3-4). (T4) ??aje/EJR Microscopic Description Slides reviewed, microscopic description not recorded. Diagnosis Chin, excision: ?? 1. 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 appear free of basal cell carcinoma. ?? 2. ??Incidental dermal nevus, not at a margin. CR-0 06/19/09 JLK 06/21/09 Verified by: ? Satinder JUSTICE, Robert Waters ?Dermatopathol ogist ?(Electronic Signature) The attending pathologist whose signature appears on this report has reviewed all diagnostic slides and has edited the gross and/or microscopic portion of the report in rendering the final pathologic diagnosis. CARRI KENDALL 06/18/2009 6:09 PM EST Joon Roberts MD PATHOLOGY/CYTOLOGY O RDERABLES CARRI KENDALL documented in this encounter Visit Diagnoses Not on filedocumented in this encounter Care Teams Supervisory Investigative Specialist Relationship Specialty Start Date End Date Kobe Barrett, FIXED ROUTE BUS OPERATOR [address] [place] [address] PCP - General Family Medicine 03/06/23 documented as of this encounter
--- OUTSIDE RECORDS SUMMARY | 2024-01-15 02:32 | XMS_ITS | Encounter Summary ---
Author Organization [facility] Address [address] [place] [address] Care Team Providers Care Demolition Crane Operator Name Role Phone Unavailable Primary Care Provider Unavailabl e Encounter Details Date Type Department Care Team (Late st Contact Info) Description 10/25/2001 Results Only [facility] - Maple conversion [address] [place] [address] Veronika Mcknight, [address] [place] [address] Social History Tobacco Use Types [...] Priority Date/Time Associated Diagnosis Comments CYTOPATHOLOGY Routine 10/25/2001 0:00 EDT documented in this encounter Results * CYTOPATHOLOGY (10/25/2001 0:00 EDT) Pathology Report: CYTOPATHOLOGY REPORT Reports generated via electronic interface contain original data; however they are lacking the format of the original report. Caution should be taken when reading/interpreti ng unformatted reports. Name: ? REANNA HILLS ? Accession #: ? [id number] : ? 1940 (Age: 61) ??F ?Collect Date: ? 10/25/2001 Location: ? [facility] ? Receive Date: ? 10/28/2001 Provider: ?VERONIKA MCKNIGHT CLERICAL ASSISTANT Copy to: ? Specimen/Source: ?ThinPrep Pap Test, Cervix/Endocervix Last Menstrual Period: ? 1989 Hormonal/Contracep tive Status: ? Hormone Replacement Therapy Previous Gynecologic Pathology: ? Benign cellular changes: 1998 & 1999 Other: ? Additional clinical information: Pap 09/18 wnl ? SPECIMEN ADEQUACY ? Satisfactory for Evaluation - transformation zone component present GENERAL CATEGORIZATION ? Negative for Intraepithelial Lesion or Malignancy ? Document reviewed and electronically signed by: ? LISA Baker(ASCP) ? Report Date: ??10/30/2001 08:40 End of Report [facility]ATH[facility] PERE[facility] 10/25/2001 10/28/2001 Veronika Mcknight CLERICAL ASSISTANT PATHOLOGY ORDERABLES Performing Organization Address City/State/[facility] Co de Phone Number HEATHER PEREZ [address] [place] [address] documented in this encounter Visit Diagnoses Not on filedocumented in this encounter
--- OUTSIDE RECORDS SUMMARY | 2024-01-15 02:32 | XMS_ITS | Encounter Summary ---
Author Organization [facility] Address [address] [place] [address] Care Team Providers Care Waffle Machine Operator Name Role Phone Unavailable Primary Care Provider Unavailabl e Encounter Details Date Type Department Care Team (Late st Contact Info) Description 11/30/2004 Results Only [facility] - Maple conversion [address] [place] [address] Veronika Mcknight, [address] [place] [address] Social History Tobacco Use Types [...] Priority Date/Time Associated Diagnosis Comments CYTOPATHOLOGY Routine 11/30/2004 0:00 EDT documented in this encounter Results * CYTOPATHOLOGY (11/30/2004 0:00 EDT) Pathology Report: CYTOPATHOLOGY REPORT Reports generated via electronic interface contain original data; however they are lacking the format of the original report. Caution should be taken when reading/interpreti ng unformatted reports. Name: ? REANNA HILLS ? Accession #: ? [id number] : ? 1940 (Age: 64) ??F ?Collect Date: ? 11/30/2004 Location: ? [facility] ? Receive Date: ? 12/02/2004 Provider: ?VERONIKA MCKNIGHT SEWER AND DRAIN TECHNICIAN Copy to: ? Specimen/Source: ?ThinPrep Pap Test, Cervix/Endocervix, processed on [employer] ThinPrep Imaging System, with manual evaluation Last Menstrual Period: ? 1989 Previous Gynecologic Pathology: ? Benign cellular changes: 99, 2000 Other: ? HPVA - HPV testing requested if ASC-US on the current ThinPrep Pap test. ? SPECIMEN ADEQUACY ? Satisfactory for Evaluation - transformation zone component present GENERAL CATEGORIZATION ? Negative for Intraepithelial Lesion or Malignancy ? Document reviewed and electronically signed by: ? LISA Mijares(ASCP) ? Report Date: ??12/06/2004 15:34 End of Report HEATHER PEREZ 11/30/2004 12/02/2004 Veronika Mcknight SEWER AND DRAIN TECHNICIAN PATHOLOGY ORDERABLES HEATHER PEREZ [address] [place] [address] documented in this encounter Visit Diagnoses Not on filedocumented in this encounter
--- OUTSIDE RECORDS SUMMARY | 2024-01-15 02:32 | XMS_ITS | Encounter Summary ---
Author Organization [facility] Address [address] [place] [address] Care Team Providers Care Propagator Name Role Phone Unavailable Primary Care Provider Unavailabl e Encounter Details Date Type Department Care Team (Late st Contact Info) Description 02/27/2017 Results Only [facility]ISM [phone] Joey Dow, DO [address] [facility] [address] [place], [place] [id number] Social History Tobacco Use Types Packs/Day Years Used Date Smoking Tobacco: Never Assessed Sex and Gender Information Value Date Recorded Sex Assigned at Not on file Gender Identity Not on file Sexual Orientation Not on file documented as of this encounter Plan of Treatment Not on file documented as of this encounter Procedures Procedure Name Priority Date/Time Associated Diagnosis Comments SURGICAL PATHOLOGY Routine 02/27/2017 17 :19 EDT documented in this encounter Results * SURGICAL PATHOLOGY (02/27/2017 17:19 EDT) Pathology Report: SURGICAL PATHOLOGY REPORT Reports generated via electronic interface contain original data; however they are lacking the format of the original report. Caution should be taken when reading/interpret ing unformatted reports. Name: ? CLARI EDMONDCLAUDIA ? Accession #: ? [id number] ? : ? 1940 (Age: 77) ??F ? Collect Date: ? 02/27/2017 ? Location: ? [facility] ? Receive Date: ? 02/27/2017 ? Provider: JOEY DOW DO Copy to: RINKU VERAS CONSULTING SOFTWARE ENGINEER ? Final Pathologic Diagnosis: COLON, CECUM POLYP, BIOPSY: - ??Fragments of tubular adenoma. Document reviewed and electronically signed by: MIKA JOSE MD Report ??Date: 02/28/2017 17:09 By the signature above, the attending physician certifies that he/she has personally conducted a gross and/or microscopic examination of the described specimens and rendered or confirmed the above diagnosis. Specimen(s) Received: Cecum polyp Clinical History: Fm hx of colon CA Gross Description: ? Received in formalin labelled with proper patient identification (initials W, L) and cecum polyp are five alvarez irregular tissues ranging from 0.1 cm in greatest dimension to 0.3 x 0.3 x 0.2 cm. Entirely submitted in 1 and 2. APOLINAR Mcdowell (ASCP) 02/28/2017 9:03 AM End of Report [facility] 02/27/2017 17:1 9 EDT 02/27/2017 17:19 EDT Joey Dow DO PATHOLOGY ORDER MIRNA [facility] [address] [place] [address] documented in this encounter Visit Diagnoses Not on filedocumented in this encounter
--- OUTSIDE RECORDS SUMMARY | 2024-01-15 02:32 | XMS_ITS | Encounter Summary ---
[place] [address] Care Team Providers Care Ground Mixer Name Role Phone Kobe Barrett MONICA Primary Care Provider [phone]- [phone] Reason for Visit * Reason Comments Follow-up Encounter Details Date Type Department Care Team (Late st Contact Info) Description 01/14/2024 11:15 AM EDT Office Visit Dermatology at [address] [address] Joon Roberts MD [address] [facility], [facility] [address] [place] (actinic keratosis) Social History Tobacco Use Types Packs/Day Years [...] Progress Notes * Joon Roberts MD - 01/14/2024 11:15 AM EDT Problem: 1. Skin lesions of concern. 2. 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 Aide follows up and is concerned about some new skin lesions. A nonhealing lesion on the upper posterior left calf x 6 months. No some rough spots on her face. I last saw her in December 2020. Physical examination is a pleasant 83-year-old woman who has an umbilicated ulcerated papular nodule on the left upper posterior calf concerning for SCC versus BCCA. She has actinic's present on the left mid infraorbital fold and on the mid nasal bridge. Otherwise examination of her back is benign examination of the head and neck hands arms and forearms is benign. Assessment and plan: Actinic keratosis [address] 2 x 2 applied to each of 2 sites. BCC versus SCC left upper posterior calf 1. After obtaining consent site was anesthetized and removed with shave C&D 2. Triple antibiotic ointment and bandage placed 3. Wound care instructions and supplies given. After curettage site measured 1 cm in diameter. 4. Return to clinic prn for any new concerns. CC: Kobe Barrett APRN documented in this encounter Plan of Treatment Not on file documented as of this encounter Visit Diagnoses Diagnosis AK (actinic keratosis) Actinic keratosis documented in this encounter Care Teams Ground Mixer Relationship Specialty Start Date End Date Kobe Barrett APRN [address] [place] [address] PCP - General Family Medicine 03/06/23 documented as of this encounter
--- OUTSIDE RECORDS SUMMARY | 2024-01-15 02:32 | XMS_ITS | Encounter Summary ---
[place] [address] Care Team Providers Care Telemarketing Agent Name Role Phone Kirk Cornelius MD Primary Care Provider [phone] Reason for Visit * Reason Comments Skin Check Encounter Details Date Type Department Care Team (Late st Contact Info) Description 01/18/2021 8:30 AM EDT Office Visit Dermatology at [address] [address] Joon Roberts MD [address] [place] [address], [facility] [place] [address] History of basal cell carcinoma; AK (actinic keratosis) Social History Tobacco Use [...] Progress Notes * Joon Roberts MD - 01/18/2021 8:30 AM EDT Problem: 1. Skin lesions of concern. ??2. 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 Aide follows up and is now 80. She is concerned about some new skin lesions. I last saw her in 2014. He is very active playing tennis and pickleball regularly. Physical examination reveals actinic's present 1 left dorsal forearm and one the left dorsal thigh.She has a pigmented patch on the left mid jawline which was 2 cm in diameter when I last saw her [id number], and it now is 3 cm in diameter. Is concerning for possible lentigo maligna. Otherwise examination of the head and the neck the chest the back the hands the arms of forearms thighs and calves is benign. Assessment plan: Solar lentigo rule out lentigo maligna melanoma left mid jawline 1. Today site was anesthetized and a 1cm shave biopsy specimen was obtained and submitted for pathologic analysis. 2. Wound care instructions supplies given 3. We will notify patient by results in 1 week with further treatment to be based on histology. Actinic keratoses left dorsal forearm left dorsal thigh 1. LN 2 x 2 applied each of 2 sites. 2. These do not resolve then return to clinic for shave C&D removal. History of sclerosing BCCA central chin generally 2009 1. No evidence of recurrence 2. Patient reassured about the remainder of her benign skin examination today. CC: Kirk Cornelius MD?? documented in this encounter Plan of Treatment Not on file documented as of this encounter Visit Diagnoses Diagnosis History of basal cell carcinoma Personal history of other malignant neoplasm of skin AK (actinic keratosis) Actinic keratosis documented in this encounter Care Teams Telemarketing Agent Relationship Specialty Start Date End Date Kirk Cornelius MD PCP - General General Internal Medicine 06/28/20 93 documented as of this encounter
--- OUTSIDE RECORDS SUMMARY | 2024-01-15 02:32 | XMS_ITS | Encounter Summary ---
Author Organization [facility] Address [facility] [place] [address] Care Team Providers Care Actuarial Director Name Role Phone Unavailable Primary Care Provider Unavailabl e Encounter Details Date Type Department Care Team (Late st Contact Info) Description 10/11/2022 Ancillary Procedure [place] [phone] Kobe Barrett, CARAMEL MAKER [address] [place] [address] Social History Tobacco Use Types Packs/Day Years [...] Procedure Name Priority Date/Time Associated Diagnosis Comments FILM LIBRARY STORAGE ONLY MR SPINE Routine 10/11/2022 12:00 AM EDT documented in this encounter Results * Film Library- Storage Only MR Spine (10/11/2022 12:00 AM EDT) Narrative [facility] - 09/26/2023 3:39 PM EDT This exam is auto-finalizing. It's purpose is for storage only. Kobe Barrett APRN IMG FILM LIBRARY O RDERABLES [facility] [place] documented in this encounter Visit Diagnoses Not on filedocumented in this encounter
--- OUTSIDE RECORDS SUMMARY | 2024-01-15 02:32 | XMS_ITS | Encounter Summary ---
Author Organization [facility] Address [address] [place] [address] Care Team Providers Care Associate Trainer Name Role Phone Unavailable Primary Care Provider Unavailabl e Encounter Details Date Type Department Care Team (Late st Contact Info) Description 12/27/2007 Before PRISM Converted Visit (Maple) [facility] - Maple conversion [address] [place] [address] Veronika Mcknight, [facility] [address] [place] [address] Social History Tobacco Use Types Packs/Day Years Used Date Smoking Tobacco: Never Assessed Sex and Gender Information Value Date Recorded Sex Assigned at Not on file Gender Identity Not on file Sexual Orientation Not on file documented as of this encounter Plan of Treatment Not on file documented as of this encounter Procedures Procedure Name Priority Date/Time Associated Diagnosis Comments HPV DETECTION, HIGH RISK TYPES Routine 12/27/2007 12:05 EDT CYTOPATHOLOGY Routine 12/27/2007 0:00 EDT documented in this encounter Results * HUMAN PAPILLOMA VIRUS DNA TEST (12/27/2007 12:05 EDT) Specimen Description Cervix, ThinPrep vial [facility] Result Negative for HPV types 16, 18, 31, 33, 35, 39, 45, 51, 52, 56, 58, 59, and 68. [facility] Report Status Final [id number] [facility] 12/27/2007 12:0 5 EDT 01/01/2008 14:18 EDT Veronika Mcknight LABORER BRUSH CLEARING MICROBIOLOGY - GENER AL ORDERABLES HEATHER [address] [address] * CYTOPATHOLOGY (12/27/2007 0:00 EDT) Pathology Report: CYTOPATHOLOGY REPORT ? Reports generated via electronic interface contain original data; ? however they are lacking the format of the original report. ? Caution should be taken when reading/interpreti ng unformatted reports. ? Name: ? REANNA HILLS ? Accession #: ? [id number] ? : ? 1940 (Age: 67) ??F ?Collect Date: ? 12/27/2007 ? Location: ? [facility] ? Receive Date: ? 12/30/2007 ? Provider: ?VERONIKA RILEY LABORER BRUSH CLEARING ? Copy to: ? Specimen/Source: ?ThinPrep Pap Test, Cervix/Endocervix, processed on [employer] ThinPrep Imaging System, with manual evaluation ? Last Menstrual Period: ? 1990 ? Hormonal/Contracep tive Status: ? Estrogen: vag. ? Previous Gynecologic Pathology: ? Benign cellular changes: 99, 00 ? Other: ? HPVDX - HPV testing requested regardless of diagnosis on current ThinPrep Pap ?? test. ? SPECIMEN ADEQUACY ? Satisfactory for Evaluation ? - transformation zone component present ? GENERAL CATEGORIZATION ? Negative for Intraepithelial Lesion or Malignancy ? Document reviewed and electronically signed by: ? Lynan Sony, [place](ASCP) ? Report Date: ??01/01/2008 11:07 ? End of Report ? HEATHER PEREZ 12/27/2007 12/30/2007 Veronika Mcknight LABORER BR[employer] CLEARING PATHOLOGY ORDERABLES [facility]ATH[facility] P[facility] [address] [place] [address] documented in this encounter Visit Diagnoses Not on filedocumented in this encounter
--- OUTSIDE RECORDS SUMMARY | 2024-01-15 02:32 | XMS_ITS | Encounter Summary ---
[place] [address] Care Team Providers Care Transit Planning Manager Name Role Phone Kobe Barrett APRN Primary Care Provider [phone] Encounter Details Date Type Department Care Team (Latest Contact Info) Description 01/12/2024 Travel Social History Tobacco Use Types Packs/Day [...] on filedocumented in this encounter Care Teams Transit Planning Manager Relationship Specialty Start Date End Date Kobe Barrett APRN [address] [place] [address] PCP - General Family Medicine 03/06/23 documented as of this encounter
--- OUTSIDE RECORDS SUMMARY | 2024-01-15 02:32 | XMS_ITS | Clinical Summary ---
Author Organization [facility] Address [address] [place] [address] Care Team Providers Care Payroll Tax Analyst Name Role Phone Kobe Barrett Primary Care Provider [phone] Social History Tobacco Use Types Packs/Day Years Used Date Smoking Tobacco: Never Assessed Interpersonal Safety Answer Date Record ed Physically Hurt Never 12/21/2019 Verbally Threaten Not on file 12/21/2019 Sex and Gender Information Value Date Recorded Sex Assigned at Not on file Gender Identity Not on file Sexual Orientation Not on file Plan of Treatment Health Maintenance Due Date Last Done Comments RSV Immunization ( o r 60+ Years) (1 - 1-dose 60+ series) 2002 Fall Risk Screening 2007 COVID-19 Vaccine ( season) 2023 Care Teams Payroll Tax Analyst Relationship Specialty Start Date End Date Kobe Barrett [address] [place] [id number] PCP - General Family Medicine - [facility] 12/19/22
--- OUTSIDE RECORDS SUMMARY | 2024-01-15 02:32 | XMS_ITS | Encounter Summary ---
Author Organization [facility] Address [address] [place] [address] Care Team Providers Care Lamp Assembler Name Role Phone Unavailable Primary Care Provider Unavailabl e Encounter Details Date Type Department Care Team (Late st Contact Info) Description 10/29/2002 Results Only [facility] - Maple conversion [address] [place] [address] Veronika Mcknight, [address] [place] [address] Social History Tobacco Use Types [...] Priority Date/Time Associated Diagnosis Comments CYTOPATHOLOGY Routine 10/29/2002 0:00 EDT documented in this encounter Results * CYTOPATHOLOGY (10/29/2002 0:00 EDT) Pathology Report: CYTOPATHOLOGY REPORT Reports generated via electronic interface contain original data; however they are lacking the format of the original report. Caution should be taken when reading/interpreti ng unformatted reports. Name: ? REANNA HILLS ? Accession #: ? [id number] : ? 1940 (Age: 62) ??F ?Collect Date: ? 10/29/2002 Location: ? [facility] ? Receive Date: ? 11/03/2002 Provider: ?VERONIKA MCKNIGHT COMPOSITE LAYUP WORKER Copy to: ? Specimen/Source: ?ThinPrep Pap Test, Cervix/Endocervix Last Menstrual Period: ? 1989 ? SPECIMEN ADEQUACY ? Satisfactory for Evaluation - transformation zone component present GENERAL CATEGORIZATION ? Negative for Intraepithelial Lesion or Malignancy ? Document reviewed and electronically signed by: ? Mago Pena, CT(ASCP) ? Report Date: ??11/05/2002 10:54 End of Report HEATHER PEREZ 10/29/2002 11/03/2002 Veronika Mcknight COMPOSITE LAYUP WORKER PATHOLOGY ORDERABLES [facility] [address] [place] [address] documented in this encounter Visit Diagnoses Not on filedocumented in this encounter
--- OUTSIDE RECORDS SUMMARY | 2024-01-15 02:32 | XMS_ITS | Referral Summary ---
Author Organization [facility] Address [address] [place] [address] Care Team Providers Care Digital Account Executive Name Role Phone Kobe Barrett Primary Care Provider [phone]- [phone] Social History Tobacco Use Types Packs/Day Years Used Date Smoking Tobacco: Never Assessed Interpersonal Safety Answer Date Record ed Physically Hurt Never 12/21/2019 Verbally Threaten Not on file 12/21/2019 Sex and Gender Information Value Date Recorded Sex Assigned at Not on file Gender Identity Not on file Sexual Orientation Not on file Plan of Treatment Not on file Care Teams Digital Account Executive Relationship Specialty Start Date End Date Kobe Barrett [address] [place] [phone] PCP - General Family Medicine - Hospital Medicine 12/19/22
--- OUTSIDE RECORDS SUMMARY | 2024-01-15 02:32 | XMS_ITS | Encounter Summary ---
Author Organization [facility] Address [address] [place] [address] Care Team Providers Care Pumper Head Name Role Phone Unavailable Primary Care Provider Unavailabl e Encounter Details Date Type Department Care Team (Late st Contact Info) Description 09/15/1999 Results Only [facility] - Maple conversion [address] [place] [address] Veronika Mcknight, [address] [place] [address] Social History Tobacco Use Types [...] Priority Date/Time Associated Diagnosis Comments CYTOPATHOLOGY Routine 09/15/1999 16:15 EDT documented in this encounter Results * CYTOPATHOLOGY (09/15/1999 16:15 EDT) Pathology Report: CYTOPATHOLOGY REPORT Reports generated via electronic interface contain original data; however they are lacking the format of the original report. Caution should be taken when reading/interpreti ng unformatted reports. Name: ? REANNA HILLS ? Accession #: ? [id number] : ? 1940 (Age: 59) ??F ?Collect Date: ? 09/15/1999 Location: ?Receive Date: ? 09/15/1999 Provider: ?VEROINKA RILEY SPRAYER INSECTICIDE Copy to: ?VERONIKA RILEY SPRAYER INSECTICIDE ? Specimen/Source: ?[employer] Judge ThinPrep Last Menstrual Period: ? GYNECOLOGIC ??CYTOPATHOLOGY ??REPORT Name: REANNA HILLS ? [facility] : 1940 ?? 59Y F ?Client ID: [id number] SS#: ? Clinician: RILEY SPRAYER INSECTICIDE, VERONIKA ?? Location: [facility] ??Copy to: ?? Specimen: ?[employer] Judge ThinPrep ? Source: Cervix/Endocervix ?Collected: 09/13/99 ? Received: 09/15/1999 ?LMP: 1989 ? Hormone Therapy: Yes ? : No ? Radiation Therapy: No ?? Post : No ?Chemotherapy: No ?IUD: No ? Prev Abnormal Pap: No ?? Clinical Hx: ?(Blank duvall indicate information not provided on requisition) SPECIMEN ADEQUACY: ? Satisfactory For Evaluation ?? GENERAL CATEGORIZATION: ? BENIGN CELLULAR CHANGES ?? DESCRIPTIVE DIAGNOSIS: ? 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 Species ? Reviewed And Electronically Signed By: ? Portillo Ortiz, CT(ASCP) ? Report Date: ?? 09/21/1999 [employer] Archived Tests - Final Diagnosis Text Field: Clinical History : ? Document reviewed and electronically signed by: ? Conversion ? Report Date: ??09/21/1999 00:00 End of Report HEATHER PEREZ 09/15/1999 16:1 5 EDT 09/15/1999 16:16 EDT Veronika Mcknight SPRAYER INSECTICIDE PATHOLOGY ORDERABLES [facility]ATH[facility] P[facility] [address] [place] [address] documented in this encounter Visit Diagnoses Not on filedocumented in this encounter
--- OUTSIDE RECORDS SUMMARY | 2024-01-15 02:32 | XMS_ITS | Encounter Summary ---
[place] [address] Care Team Providers Care Highway Landscape Architect Name Role Phone Vicky Kent MD Primary Care Provider Reason for Visit * Reason Comments Skin Check Encounter Details Date Type Department Care Team (Late st Contact Info) Description 06/29/2014 1:15 PM EST Office Visit Dermatology at [address] [address] Joon Roberts MD [address] [place] [address], [facility] [place] [address] [place] (actinic keratosis); History of basal cell carcinoma; Milium Discharge Disposition: Home Social History Tobacco Use Types Packs/Day Years Used Date Smoking Tobacco: Never Sex and Gender Information Value Date Recorded Sex Assigned at Not on file Gender Identity Not on file Sexual Orientation Not on file documented as of this encounter Patient Instructions * Patient Instructions* Pepper Hernandez LPN - 06/29/2014 1:23 PM EST [facility] Actinic Keratosis: After Your Visit Your Care Instructions Actinic keratosis is a skin growth caused by sun damage. It can turn into skin cancer, but this isn't common. Actinic keratoses, also called solar keratoses, are small red, brown, or skin-colored scaly patches. They are most common on the face, neck, hands, and forearms. Your doctor can remove these growths by freezing or scraping them off or by putting medicines on them. Follow-up care is a montaño part of your treatment and safety. Be sure to make and go to all appointments, and call your doctor if you are having problems. It's also a good idea to know your test resultsand keep a list of the medicines you take. How can you care for yourself at home? ?? If your doctor removes the growth, clean the area with soap and water 2 times a day unless your doctor gives you different instructions. Don't use hydrogen peroxide or alcohol, which can slow healing. ?? You may cover the wound with a thin layer of petroleum jelly, such as Vaseline, and a nonstick bandage. To prevent actinic keratosis ?? Always wear sunscreen on exposed skin. Make sure the sunscreen blocks ultraviolet rays (both UVAand UVB) and has a sun protection factor (SPF) of at least 15. Use it every day, even when it is cloudy. Some doctors may recommend a higher SPF, such as 30. ?? Wear long sleeves, a hat, and pants if you are going to be outdoors for a long time. ?? Avoid the sun between 10 a.m. and 4 p.m., the peak time for UV rays. ?? Do not use tanning booths or sunlamps. When should you call for help? Watch closely for changes in your health, and be sure to contact your doctor if: ?? The areas that were treated are red, drain pus, or have red streaks leading from them. ?? You see other growths that do not go away. ?? You do not get better as expected. Where can you learn more? Visit our health information library at [email or web address] You can also view health information on [employer], your personal patient account. Log in or sign up today. Enter L364 in the search box to learn more about Actinic Keratosis: After Your Visit. ?? [id number] [employer]. Care instructions adapted under license by [facility]. This care instruction is for use with your licensed healthcare professional. If you have questions about a medical condition or this instruction, always ask your healthcare professional. [employer] disclaims any warranty or liability for your use of this information. Content Version: 10.3.065103; Current as of: December 18, 2013 documented in this encounter Progress Notes * Joon Roberts MD - 06/29/2014 1:43 PM EST Problem: 1. Skin lesion of concern. 2. 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 Aide Pabon follows up and has noted recurrence of an actinic keratosis on the left infraorbital fold, also she has two milia there. She states that this has been treated three times prior to today's visit and each time it has taken a couple years for it to come back. Patient continues to have a 2-cm pigmented patch on her left chin. Physical examination reveals again an actinic keratosis present on the left infraorbital fold/medial cheek area, and medially there are two milia present. There is no evidence of recurrent BCCA on her chin. Examination of the face and the hands, arms, forearms is otherwise benign. Assessment and Plan: 1. Actinic keratosis, left infraorbital fold. a. LN2 times two applied to single site. b. Patient reassured about remainder of benign skin examination. c. Return to clinic p.r.n. for new lesions/concerns. d. Discussed the possible need for repeat treatments for actinic keratoses. 2. Milia. a. Patient reassured about these lesions. 3. History of BCCA, central chin. a. No evidence of recurrence. b. Patient reassured. Return to clinic p.r.n. COPY: Charley Stout M.D. documented in this encounter Plan of Treatment Not on file documented as of this encounter Visit Diagnoses Diagnosis AK (actinic keratosis) Actinic keratosis History of basal cell carcinoma Personal history of other malignant neoplasm of skin Milium Sebaceous cyst documented in this encounter Care Teams Highway Landscape Architect Relationship Specialty Start Date End Date Vicky Kent MD [address] [place] [address] 1 [place] [address] PCP - General 06/29/14 06/27/20 documented as of this encounter
--- OUTSIDE RECORDS SUMMARY | 2024-01-15 02:32 | XMS_ITS | Encounter Summary ---
Author Organization [facility] [place] [address] Care Team Providers Care Home Based Assistant Name Role Phone Kirk Cornelius MD Primary Care Provider [phone] Encounter Details Date Type Department Care Team (Late st Contact Info) Description 09/27/2020 Orders Only Cardiology at [address] [address] Paula Heart, RN Social History Tobacco Use Types Packs/Day [...] on filedocumented in this encounter Care Teams Home Based Assistant Relationship Specialty Start Date End Date Kirk Cornelius MD PCP - General General Internal Medicine 06/28/20 9/3 documented as of this encounter
--- OUTSIDE RECORDS SUMMARY | 2024-01-15 02:32 | XMS_ITS | Encounter Summary ---
Author Organization [facility] Address [address] [place] [address] Care Team Providers Care Cut Off Operator Scorer Name Role Phone Unavailable Primary Care Provider Unavailabl e Encounter Details Date Type Department Care Team (Late st Contact Info) Description 12/24/2006 Results Only [facility] - [facility] conversion [address] [place] [address] Veronika Mcknight, [address] [place] [address] Social History Tobacco Use Types [...] Priority Date/Time Associated Diagnosis Comments CYTOPATHOLOGY Routine 12/24/2006 0:00 EDT documented in this encounter Results * CYTOPATHOLOGY (12/24/2006 0:00 EDT) Pathology Report: CYTOPATHOLOGY REPORT Reports generated via electronic interface contain original data; however they are lacking the format of the original report. Caution should be taken when reading/interpreti ng unformatted reports. Name: ? REANNA HILLS ? Accession #: ? [id number] : ? 1940 (Age: 66) ??F ?Collect Date: ? 12/24/2006 Location: ? [facility] ? Receive Date: ? 12/25/2006 Provider: ?VERONIKA MCKNIGHT DIRECTOR ERP Copy to: ? Specimen/Source: ?ThinPrep Pap Test, Cervix/Endocervix, processed on [employer] ThinPrep Imaging System, with manual evaluation Last Menstrual Period: ? 1989 Previous Gynecologic Pathology: ? Benign cellular changes: 1998, 1999 Other: ? HPVA - HPV testing requested if ASC-US on the current ThinPrep Pap test. ? SPECIMEN ADEQUACY ? Satisfactory for Evaluation - transformation zone component present GENERAL CATEGORIZATION ? Negative for Intraepithelial Lesion or Malignancy ? Document reviewed and electronically signed by: ? Lizzie Rucker, SCT(ASCP) ? Report Date: ??12/27/2006 10:42 End of Report HEATHER PEREZ 12/24/2006 12/25/2006 Veronika Mcknight DIRECTOR ERP PATHOLOGY ORDERABLES HEATHER PEREZ [address] [place] [address] documented in this encounter Visit Diagnoses Not on filedocumented in this encounter
--- OUTSIDE RECORDS SUMMARY | 2024-01-15 02:32 | XMS_ITS | Encounter Summary ---
Author Organization [facility] Address [address] [place] [address] Care Team Providers Care Counter Waiter Name Role Phone Krista Carroll NP Primary Care Provider Kobe Barrett Primary Care Provider [phone] Encounter Details Date Type Department Care Team (Late st Contact Info) Description 10/17/2020 Lab Requisition [facility] Pathology & Laboratory Medicine - [facility] [address] [place] [address] Krista Carroll, JANUARY [facility] [facility] [place] [phone] Urinary tract infection, site not specified Social History Tobacco Use Types Packs/Day Years [...] Diagnosis Comments ORGANISM IDENTIFICATION AND SUSCEPTIBILITY Today 10/17/2020 18:17 EDT Urinary tract infection, site not specified documented in this encounter Results * (ABNORMAL) ORGANISM IDENTIFICATION AND SUSCEPTIBILITY (10/17/2020 18:17 EDT) Organism ID Escherichia coli(A) VITEK SUSCEPTIBILITY 10/19/2020 8:43 EDT [facility] Comment: Cefazolin susceptibility results [...] only cefpodoxime and cephalexin are on the [facility] inpatient formulary. Organism (organism) URINE / Unknown 10/17/2020 18:17 EDT 10/17/2020 18:34 EDT Narrative Organism Antibiotic Method Susceptibility Escherichia coli Ampicillin VITEK SUSCEPTIBILITY >=32 ug/mL: Resistant Comment:This is an a ppended report. These results have been appended to a previously preliminary verified report. Escherichia coli Cefazolin VITEK SUSCEPTIBILITY >=64 ug/mL: Resistant Comment:This is an a ppended report. These results have been appended to a previously preliminary verified report. Escherichia coli Ceftriaxone VITEK SUSCEPTIBILITY <=1 ug/mL: Susceptible Comment:This is an a ppended report. These results have been appended to a previously preliminary verified report. Escherichia coli Ciprofloxacin VITEK SUSCEPTIBILITY <=0.25 ug/mL: Susceptible Comment:This is an a ppended report. These results have been appended to a previously preliminary verified report. Escherichia coli Ertapenem VITEK SUSCEPTIBILITY <=0.5 ug/mL: Susceptible Comment:This is an a ppended report. These results have been appended to a previously preliminary verified report. Escherichia coli Meropenem VITEK SUSCEPTIBILITY <=0.25 ug/mL: Susceptible Comment:This is an a ppended report. These results have been appended to a previously preliminary verified report. Escherichia coli Nitrofurantoin VITEK SUSCEPTIBILITY <=16 ug/mL: Susceptible Comment:This is an a ppended report. These results have been appended to a previously preliminary verified report. Escherichia coli Piperacillin Tazobactam VITEK SUSCEPT IBILITY 64 ug/mL: Intermediate Comment:This is an a ppended report. These results have been appended to a previously preliminary verified report. Escherichia coli Trimethoprim-Sulfame thox azole VITEK SUSCEPTIBILITY <=20 ug/mL: Susceptible Comment:This is an a ppended report. These results have been appended to a previously preliminary verified report. Krista Carroll NP MICROBIOLOGY - GENER AL ORDERABLES [facility] [address] [place] [address] documented in this encounter Visit Diagnoses Diagnosis Urinary tract infection, site not specified documented in this encounter Care Teams Counter Waiter Relationship Specialty Start Date End Date Krista Carroll NP PCP - General 03/01/17 12/18/22 Kobe Barrett [address] [place] [address] PCP - General Family Medicine - [facility] Medicine 12/19/22 documented as of this encounter
--- OUTSIDE RECORDS SUMMARY | 2024-01-15 02:32 | XMS_ITS | Clinical Summary ---
Author Organization [place] [address] Care Team Providers Care Senior Managing Director Name Role Phone Danielle Barrettyumi Garcia APRN Primary Care Provider [phone] Allergies Active Allergy Reactions Criticality Noted Date Comments Codeine 09/26/2021 Nausea/vomitting Lactose Low 05/10/2020 Other reaction(s): ABDOMINAL CRAMPING. DIARRHEA Nitrofurantoin Macrocrystalline Medium Medications Medication Sig Dispensed Refills Start Date End Date Status Premarin 0.625 mg/gram Cream Place 1 g vaginally three times a week. 05/15/2020 Active levothyroxine (Synthroid) 50 mcg Tablet Take 50 mcg by mouth daily. 07/30/2020 Active fluocinonide (LIDEX) 0.05 % Gel Apply topically 4 times daily as needed. 11/08/2020 Active sulfamethoxazole-trim ethoprim (Bactrim) 400-80 mg Tablet Take 1 tablet by mouth 2 times daily as needed. Active Active Problems Problem Noted Date Diagnosed Date Lactose intolerance 09/28/2020 Sensory hearing loss, bilateral 09/27/2020 Venous insufficiency (chronic) (peripheral) 09/18 Assessment & Plan (09/26/2021 10:06 AM EDT): Advised compression stockings, especially at the latter portion of the day Superficial thrombophlebitis of lower extremity 09/27/2020 Cholelithiasis and cholecystitis without obstruc tion 07/01/2020 Diverticulosis of large inte benigno without perforation or abscess with bleeding 07/01/2020 Nonrheumatic mitral valve regurgitation, moderat e 07/01/2020 Overview (09/28/2020): 04/2020 TTE ([facility]): moderate mitral regurgitation due to prolapse Assessment & Plan (09/26/2021 10:05 AM EDT): No issues per history nor exam. Reviewed circadian peripheral edema is venous insufficiency, and will not cause stress on the heart nor is it a sign that there is anything amiss with the mitral valve. Assessment & Plan (09/28/2020 4:00 PM EDT): Reviewed that mitral valve prolapse is the [...] often than not - TTE in 2021 Frequent UTI 07/01/2020 PVD (peripheral vascular disease) with claudicat ion 07/01/2020 Tubular adenoma of colon 02/27/2017 Atrophic vaginitis 03/06/2011 Hypothyroidism 01/31/2008 Resolved Problems Problem Noted Date Diagnosed Date Resolved Date Intolerance of drug 09/28/2020 09/29/19 21 Overview (09/28/2020): Codeine - causes vomiting Cholelithiasis 09/27/2020 09/28/2020 Disequilibrium 09/27/2020 09/28/2020 Diverticulitis 09/27/2020 09/28/2020 Dysuria 09/27/2020 09/28/2020 History of section 09/27/2020 09/26/2021 History of surgical removal of lesion 09/27/2020 09/28/2020 Tinnitus 09/27/2020 09/26/2021 Post-nasal discharge 07/01/2020 021 Enlarged cardiac ventricle 07/01/2020 0 09/28/2020 Overview (07/01/2020): Left ventricle Lichen planus 10/26/2017 09/28/2020 Actinic keratosis 06/29/2014 09/28/2020 Milium 06/29/2014 09/28/2020 History of basal cell carcinoma 06/06/2012 09/28/2020 Cardiac arrhythmia 01/31/2008 Encounters Date Type Department Care Team Description 01/14/2024 11:15 AM EDT Office Visit Dermatology at [address] [place] [address] Joon Roberts MD [place] (actinic keratosis) 01/14/2024 Lab [place] [address] Joon Roberts MD 01/14/2024 Travel 01/12/2024 Travel 12/31/2023 Telephone [place] [address] Tawnya Joseph Prior Authorization ([facility] ) 12/18/2023 Telephone [facility] [place] [address] Tawnya Person 11/27/2023 Telephone [facility] [place] [address] Nasrin Solares, RN 11/27/2023 Orders Only [facility] [place] [address] Toña Shetty APRN Neck pain 11/26/2023 Telephone [facility] [place] [address] Yony Henson 11/12/2023 Telephone [facility] [place] [address] Jemima Kramer 10/23/2023 Notes Only [facility] [place] [address] Barbara Madison from Last 3 Months Immunizations Name Administration Dates Next Due TD Adult 06/02/2003 Family History Medical History Relation Comments Aneurysm Father Heart Disease Father Hyperlipidemia Father Hypertension Father Cerebrovascular Accident Maternal Grandfather Diabetes Maternal Grandmother Pancreatic Cancer Mother Relation Status Comments Father Maternal Grandfather Maternal Grandmother Mother Social History Tobacco Use Types Packs/Day Years [...] AM EDT Temperature - - Respiratory Rate 18 09/28/2020 3:21 PM EDT Oxygen Saturation - - Inhaled Oxygen Concentration - - Weight 72.6 kg (160 lb) 10/01/2023 1:42 PM EDT Height 168.9 cm (5' 6.5) 10/01/2023 1:42 PM EDT Body Mass Index 25.44 10/01/2023 1:42 PM EDT Plan of Treatment Health Maintenance Due Date Last Done Comments Tdap adult 1961 Zoster vaccine (1 of 2) 01/20/1992 Advance Directive 1997 Bone Density Scan 2007 Pneumoccocal Vaccine: 65+ (1 of 1 - PCV) 2007 Tetanus vaccine 06/02/2013 06/02/2003 Covid-19 Vaccine (1 - 2022-24 season) 2023 Influenza (Flu) vaccine (1 o f 1 - Influenza standard series) 01/20/2024 Care Teams Senior Managing Director Relationship Specialty Start Date End Date Kobe Barrett, FILM BOOKER [address] [place] [address] PCP - General Family Medicine 03/06/23
--- OUTSIDE RECORDS SUMMARY | 2024-01-15 02:32 | XMS_ITS | Encounter Summary ---
Author Organization [facility] Address [address] [place] [address] Care Team Providers Care Proposal Editor Name Role Phone Krista Carroll NP Primary Care Provider [phone] Kobe Barrett Primary Care Provider [phone] Encounter Details Date Type Department Care Team (Late st Contact Info) Description 12/29/2021 Lab Requisition [facility] Pathology & Laboratory Medicine - [facility] [address], [place] [id number] Outr Resulting Lab, Provider Social History Tobacco Use Types Packs/Day Years [...] Procedure Name Priority Date/Time Associated Diagnosis Comments LYME AB Routine 12/29/2021 9:00 EDT documented in this encounter Results * LYME AB (12/29/2021 9:00 EDT) Lyme Ab Negative Negative 12/30/2021 10:41 EDT [facility] Blood VENOUS BLOOD / Unknown 12/29/2021 9:00 EDT 12/29/2021 21:19 EDT Provider Outr Resulting Lab IMMUNOLOGY A ND SEROLOGY ORDERABLES [facility] [address] [place] [address] documented in this encounter Visit Diagnoses Not on filedocumented in this encounter Care Teams Proposal Editor Relationship Specialty Start Date End Date Krista Carroll NP PCP - General 03/01/17 12/18/22 Kobe Barrett [address] [place] [address] [address] [place] [address] PCP - General Family Medicine - [facility] Medicine 12/19/22 documented as of this encounter
--- OUTSIDE RECORDS SUMMARY | 2024-01-15 02:32 | XMS_ITS | Encounter Summary ---
Author Organization [place] [address] Care Team Providers Care Corpsman Name Role Phone Kobe Barrett APRN Primary Care Provider [phone] Encounter Details Date Type Department Care Team (Latest Contact Info) Description 09/30/2023 Travel Social History Tobacco Use Types Packs/Day [...] on filedocumented in this encounter Care Teams Corpsman Relationship Specialty Start Date End Date Kobe Barrett APRN [address] [place] [address] PCP - General Family Medicine 03/06/23 documented as of this encounter
--- OUTSIDE RECORDS SUMMARY | 2024-01-15 02:32 | XMS_ITS | Encounter Summary ---
[place] [address] Care Team Providers Care Blood And Plasma Laboratory Assistant Name Role Phone Kobe Barrett APRN Primary Care Provider [phone] Encounter Details Date Type Department Care Team (Late st Contact Info) Description 11/26/2023 Telephone [facility] [place] [address] Yony Henson Social History Tobacco Use Types Packs/Day Years [...] on filedocumented in this encounter Care Teams Blood And Plasma Laboratory Assistant Relationship Specialty Start Date End Date Kobe Barrett APRN [address] [place] [address] PCP - General Family Medicine 03/06/23 documented as of this encounter
--- OUTSIDE RECORDS SUMMARY | 2024-01-15 02:32 | XMS_ITS | Encounter Summary ---
[place] [address] Care Team Providers Care Oracle Wms Consultant Name Role Phone Kirk Cornelius MD Primary Care Provider [phone] Encounter Details Date Type Department Care Team (Latest Contact Info) Description 01/18/2021 8:46 PM EDT - 01/18/2021 11:59 PM EDT Hospital [place] [address] Discharge Disposition: Home Social History Tobacco Use [...] on file documented as of this encounter Medications at Time of Discharge Medication Sig Dispensed Refills Start Date End Date fluocinonide (LIDEX) 0.05 % Gel Apply topically 4 times daily as needed. 11/08/2020 Premarin 0.625 mg/gram Cream Place 1 g vaginally three times a week. 05/15/2020 levothyroxine (Synthroid) 50 mcg Tablet Take 50 mcg by mouth daily. 07/30/2020 fluocinonide-emollient 0.05 % Cream Apply 1 g topically 4 times daily as needed. 07/12/2018 2 documented as of this encounter Plan of Treatment Not on file documented as of this encounter Procedures Procedure Name Priority Date/Time Associated Diagnosis Comments SURGICAL PATHOLOGY REPORT Routine 01/18/2021 12:00 PM EDT documented in this encounter Results * Surgical Pathology Report (01/18/2021 12:00 PM EDT) Final Diagnosis [id number] ? Location: [facility] The signing pathologist has (i) examined the relevant preparation(s) for the specimen(s) and (ii) rendered or confirmed the diagnosis(es). . ?Surgical Pathology DIAGNOSIS Left mid jawline, skin shave biopsy: - Features of pigmented macular ?? seborrheic keratosis/lentigo with overlapping actinic keratosis-type changes (see discussion) Electronically signed by: ?Jeannine Fofana MD Verified: ??01/26/2021 17:11 ??Dermatopathologist Performed at: ??-[facility] [place], [place], [place] DISCUSSION As the biopsy represents portion of a larger lesion, the findings may not be extrapolated to the lesion in its entirety. ?Clinicopathologic correlation is recommended to determine if this is community representative of the lesion. ADDITIONAL STUDIES Melan-A stain highlights poultry feed supervisor distributed junctional melanocytes. Immunohistochemistry Studies: Formalin-fixed, paraffin-embedded tissue sections are studied using the polymer technique with appropriate positive and negative controls. ?These IHC studies provide the pathologist with adjunctive diagnostic information. Antibody specificity has been verified by testing antibodies on a series of in-house tissues with known immunohistochemical performance characteristics. The clinical interpretation of any antibody positive staining or its absence is evaluated within the context of clinical presentation, morphology, histopathological criteria and other diagnostic tests. SPECIMEN(S) SUBMITTED A - L mid jawline, skin shave biopsy Referring Identifier: ?(not provided) CLINICAL INFORMATION 3 cm atypical pigmented patch; R/O MM in situ, lentigo maligna type SPECIMEN PROCESSING A - Labeled/Fixative: Patient demographics, formalin. Quantity/Size: ??Single, 1.2 x 1.1 x 0.1 cm. Tissue Description: Shave of alvarez-brown, variegated skin. Sections/Processing: Inked, serially sectioned and entirely submitted in 2 cassettes as follows: ?A1: ??Tips ?A2: ??Body ??mary 01/26/2021 5:11 PM EDT [facility] SPECIMEN FROM SKIN / Unknown 01/18/2021 12:00 PM EDT 01/18/2021 12:00 PM EDT Joon Roberts MD PATHOLOGY/CYTOLOGY O RDERAOPAL [facility] [place] [address] documented in this encounter Visit Diagnoses Not on filedocumented in this encounter Care Teams Oracle Wms Consultant Relationship Specialty Start Date End Date Kirk Cornelius MD PCP - General General Internal Medicine 06/28/2001/21 documented as of this encounter
--- OUTSIDE RECORDS SUMMARY | 2024-01-15 02:32 | XMS_ITS | Encounter Summary ---
[place] [address] Care Team Providers Care Program Schedule Clerk Name Role Phone Kobe Barrett APRN Primary Care Provider +1- [phone] Encounter Details Date Type Department Care Team (Late st Contact Info) Description 12/18/2023 Telephone [facility] [place] [phone] Tawnya Person Social History Tobacco Use Types Packs/Day Years [...] Miscellaneous Notes * Telephone Encounter - Tawnya Person - 12/18/2023 8:28 AM EDT Pt called looking to see if her Insurance is going to cover her XR & CT Scan that she is needing, Advised pt she needs to call [facility] for any billing questions and provided her their # and Transferred her to [place] documented in this encounter Plan of Treatment Not on file documented as of this encounter Visit Diagnoses Not on filedocumented in this encounter Care Teams Program Schedule Clerk Relationship Specialty Start Date End Date Kobe Barrett APRN [address] [place] [address] PCP - General Family Medicine 03/06/23 documented as of this encounter
--- OUTSIDE RECORDS SUMMARY | 2024-01-15 02:32 | XMS_ITS | Encounter Summary ---
Author Organization [facility] [place] [address] Care Team Providers Care Jewelry Mechanic Name Role Phone Danielle Barrettyumi Garcia APRN Primary Care Provider +1- [phone] Encounter Details Date Type Department Care Team (Late st Contact Info) Description 05/17/2009 Orders Only Dermatology at [place] [address] [facility] [place] [phone] Joon Roberts MD [address] [facility], [place] Arpan DERMATOLOGY [place], [place] [id number] Social History Tobacco Use Types Packs/Day Years [...] Associated Diagnosis Comments SURGICAL PATHOLOGY REPORT Routine 05/17/2009 6:59 PM EST documented in this encounter Results * Surgical Pathology Report (05/17/2009 6:59 PM EST) Surgical Pathology Report [id number] ? Location: [facility] The signing pathologist has (i) examined the relevant preparation(s) for the specimen(s) and (ii) rendered or confirmed the diagnosis(es). . ?Pathology Surgical Pathology Final Report Clinical Information Specimen Submitted: A - Chin, 4-mm Punch: Clinical History: Crusting scabbing papule x 2 years Clinical Diagnosis: BCCA/SCCA Report to: Joon Roberts MD, III [facility] Dermatology [place], [place] ??[address] Gross Description Labeled/Fixativ e: ? Chin, formalin. Qty/Size/Weight : ?Single punch, 0.4 cm, excised to a depth of 0.35 cm. ?Alvarez skin with an eccentric, 0.25 x 0.2 x 0.1-cm, ?alvarez-brown, friable papule. Sections/Proces sing: ??Bisected. ??(T1) ??aje/CJL Microscopic Description Slides reviewed, microscopic description not recorded. Diagnosis Skin, chin, punch biopsy: ?? Basal cell carcinoma, present at the peripheral and deep specimen edges. CR-0 05/19/09 JLK 05/19/09 Verified by: ? Edgar JUSTICE, PhD, [facility] ?Dermatopathol ogist ?(Electronic Signature) The attending pathologist whose signature appears on this report has reviewed all diagnostic slides and has edited the gross and/or microscopic portion of the report in rendering the final pathologic diagnosis. CARRI ROSASIUM 05/17/2009 6:59 PM EST Joon Roberts MD PATHOLOGY/CYTOLOGY O RDERABLES CARRI KENDALL documented in this encounter Visit Diagnoses Not on filedocumented in this encounter Care Teams Jewelry Mechanic Relationship Specialty Start Date End Date Kobe Barrett, LOCOMOTIVE FIRER/FIREMAN [address] [place] [address] PCP - General Family Medicine 03/06/23 documented as of this encounter
--- OUTSIDE RECORDS SUMMARY | 2024-01-15 02:32 | XMS_ITS | Encounter Summary ---
Author Organization [facility] [place] [address] Care Team Providers Care Records Management Analyst Name Role Phone Kobe Barrett APRN Primary Care Provider +1- [phone] Encounter Details Date Type Department Care Team (Late st Contact Info) Description 11/27/2023 Orders Only [facility] [place] [address] Toña Shetty [facility] [place] [address] Neck pain Social History Tobacco Use Types [...] of this encounter Plan of Treatment Scheduled Orders Name Type Priority Associated Diagnoses Orde r Schedule XR Cervical Spine AP Flexion & Extension Only Imaging Routine Neck pain Expected: 12/04/2023, Expires: 04/08/2024 documented as of this encounter Visit Diagnoses Diagnosis Neck pain Cervicalgia documented in this encounter Care Teams Records Management Analyst Relationship Specialty Start Date End Date Kobe Barrett APRN [address] [place], [place] [address] PCP - General Family Medicine 03/06/23 documented as of this encounter
== END 2024-01-15 02:47 ==
LOC: DI 02:27
PROVIDERS: PCP Nurse Practitioner Family; Visit Provider Nurse Practitioner
DX: M50.023 Cervical disc disorder at C6-C7 level with myelopathy (principal)
CPT/HCPCS: 72040; 72125

== ENCOUNTER 2024-01-24 21:21 | Outpatient (REF) | payer MEDICARE, SELFPAY ==
--- OUTSIDE RECORDS SUMMARY | 2024-01-24 21:23 | XMS_ITS | Encounter Summary ---
Author Organization [facility] Address [address] [place] [address] Care Team Providers Care Public Health Representative Name Role Phone Unavailable Primary Care Provider Unavailabl e Encounter Details Date Type Department Care Team (Late st Contact Info) Description 12/27/2007 Before PRISM Converted Visit (Maple) [facility] - Maple conversion [address] [place] [address] Veronika Mcknight, [facility] [address] [place] [address] Social History Tobacco Use Types [...] 68. [facility] Report Status Final [id number] [facility] 12/27/2007 12:0 5 EDT 01/01/2008 14:18 EDT Veronika Mcknight PICTURE PAINTER MICROBIOLOGY - GENER AL ORDERABLES HEATHER [address] [address] * CYTOPATHOLOGY (12/27/2007 0:00 EDT) Pathology Report: CYTOPATHOLOGY REPORT ? Reports generated via electronic interface contain original data; ? however they are lacking the format of the original report. ? Caution should be taken when reading/interpreti ng unformatted reports. ? Name: ? REANNA HILLS ? Accession #: ? [id number] ? : ? 1940 (Age: 67) ??F ?Collect Date: ? 12/27/2007 ? Location: ? [facility] ? Receive Date: ? 12/30/2007 ? Provider: ?VERONIKA RILEY PICTURE PAINTER ? Copy to: ? Specimen/Source: ?ThinPrep Pap Test, Cervix/Endocervix, processed on Fittr ThinPrep Imaging System, with manual evaluation ? [...] ? HEATHER PEREZ 12/27/2007 12/30/2007 Veronika Mcknight PICTURE PAINTER PATHOLOGY ORDERABLES [facility] P[facility] [address] [place] [address] documented in this encounter Visit Diagnoses Not on filedocumented in this encounter
--- OUTSIDE RECORDS SUMMARY | 2024-01-24 21:23 | XMS_ITS | Encounter Summary ---
Author Organization [facility] Address [address] [place] [address] Care Team Providers Care Search Manager Name Role Phone Unavailable Primary Care Provider Unavailabl e Encounter Details Date Type Department Care Team (Latest Contact Info) Description 02/27/2017 14:22 EDT - 02/27/2017 23:59 EDT Hospital Encounter [address] [address] Unknown, Provider, Discharge Disposition: Home or Self Care Social History Tobacco Use Types Packs/Day Years Used Date Smoking Tobacco: Never Assessed Sex and Gender Information Value Date Recorded Sex Assigned at Not on file Gender Identity Not on file Sexual Orientation Not on file documented as of this encounter Discharge Disposition Disposition Code Departure Means Destination Home or Self Detention documented in this encounter Plan of Treatment Not on file documented as of this encounter Visit Diagnoses Not on filedocumented in this encounter
--- OUTSIDE RECORDS SUMMARY | 2024-01-24 21:23 | XMS_ITS | Encounter Summary ---
Author Organization [facility] Address [address] [place] [address] Care Team Providers Care Tractor Engine Mechanic Name Role Phone Unavailable Primary Care Provider Unavailabl e Encounter Details Date Type Department Care Team (Late st Contact Info) Description 09/15/1999 Results Only [facility] - Maple conversion [address] [place] [address] Veronika Mcknight, [address] [place] [address] Social History Tobacco Use Types [...] ? REANNA HILLS ? Accession #: ? [id number] : ? 1940 (Age: 59) ??F ?Collect Date: ? 09/15/1999 Location: ?Receive Date: ? 09/15/1999 Provider: ?VERONIKA RILEY INFORMATICA MDM ARCHITECT Copy to: ?VERONIKA RILEY INFORMATICA MDM ARCHITECT ? Specimen/Source: ?Bag Sorter ThinPrep Last Menstrual Period: ? GYNECOLOGIC ??CYTOPATHOLOGY ??REPORT Name: REANNA HILLS ? [facility] : 1940 ?? 59Y F ?Client ID: [id number] SS#: ? Clinician: RILEY INFORMATICA MDM ARCHITECT, VERONIKA ?? Location: [facility] ??Copy to: ?? Specimen: ?Bag Sorter ThinPrep ? Source: Cervix/Endocervix ?Collected: 09/13/99 ? [...] Ortiz, CT(ASCP) ? Report Date: ?? 09/21/1999 [email or web address] Archived Tests - Final Diagnosis Text Field: Clinical History : ? Document reviewed and electronically signed by: ? Conversion ? Report Date: ??09/21/1999 00:00 End of Report HEATHER PEREZ 09/15/1999 16:1 5 EDT 09/15/1999 16:16 EDT Veronika Mcknight INFORMATICA MDM ARCHITECT PATHOLOGY ORDERABLES HEATHER PEREZ [address] [place] [address] documented in this encounter Visit Diagnoses Not on filedocumented in this encounter
--- OUTSIDE RECORDS SUMMARY | 2024-01-24 21:23 | XMS_ITS | Encounter Summary ---
Author Organization [facility] Address [address] [place] [address] Care Team Providers Care Radiation Control Technician Name Role Phone Krista Carroll NP Primary Care Provider [phone] Kobe Barrett Primary Care Provider +- [phone] Encounter Details Date Type Department Care Team (Late st Contact Info) Description 12/29/2021 Lab Requisition [facility] Pathology & Laboratory Medicine - [facility] [address] [place], [place] [id number] Outr Resulting Lab, Provider Social History Tobacco [...] Lyme Ab Negative Negative 12/30/2021 10:41 EDT [facility] Blood VENOUS BLOOD / Unknown 12/29/2021 9:00 EDT 12/29/2021 21:19 EDT Provider Outr Resulting Lab IMMUNOLOGY A ND SEROLOGY ORDERABLES [facility] [address] [place] [address] documented in this encounter Visit Diagnoses Not on filedocumented in this encounter Care Teams Radiation Control Technician Relationship Specialty Start Date End Date Krista Carroll NP PCP - General 03/01/17 12/18/22 Kobe Barrett [address] [place] [address] [address] [place] [address] PCP - General Family Medicine - [facility] Medicine 12/19/22 documented as of this encounter
--- OUTSIDE RECORDS SUMMARY | 2024-01-24 21:23 | XMS_ITS | Encounter Summary ---
Author Organization [facility] Address [address] [place] [address] Care Team Providers Care Water Chemist Name Role Phone Unavailable Primary Care Provider [...]
--- OUTSIDE RECORDS SUMMARY | 2024-01-24 21:23 | XMS_ITS | Encounter Summary ---
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 1 to 4 times per year 08/22/2022 Do you belong to any clubs o r organizations such as jew groups, unions, fraternal or athletic groups, or [...] and heating? Not hard at all 08/22/2022 [employer] [place] [facility] [employer] - Occupational Stress [...] place to sleep or slept in a fci (including now)? No 08/22/2022 PHQ-2 Risk Classification [...] from ER with overnight admission at in [place]. Patient is from [place] and is here visiting in [place] until 09/18/22. Patient was walking in garage [...] Diagnosis Date ??? Arthritis ??? Clotting disorder ([facility]-HCC: 48) ??? Hypothyroidism ??? Migraines Past [...] min Stress: No Stress Concern Present (08/22/2022) [employer] [place] [employer] - Occupational Stress Questionnaire ??? Feeling of Stress : Not at all Social Connections: Socially Integrated (08/22/2022) Social Connection and Isolation Panel [NHANES] ??? Frequency of Communication with Friends and Family: More than three times a week ??? Frequency of Social Gatherings with Friends and Family: More than three times a week ??? Attends Rastafari Services: 1 to 4 times per year [...] 1329 FiO2 Source RA -EP at 08/22/22 1329 Pain Score Zero -EP at 08/22/22 132 [...] encounter preparing for, providing, and documenting the above/M service and all associated orders/referrals/communications. 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
--- OUTSIDE RECORDS SUMMARY | 2024-01-24 21:23 | XMS_ITS | Clinical Summary ---
Author Organization [facility] Address [address] [place] [address] Care Team Providers Care Housecalls Nurse Name Role Phone Kobe Barrett Primary Care Provider +1- [phone] Social History Tobacco Use Types Packs/Day Years [...] COVID-19 Vaccine ( season) 2023 Care Teams Housecalls Nurse Relationship Specialty Start Date End Date Kobe Barrett [address] [place] [phone] PCP - General Family Medicine - [facility] Medicine 12/19/22
--- OUTSIDE RECORDS SUMMARY | 2024-01-24 21:23 | XMS_ITS | Encounter Summary ---
Author Organization [facility] Address [address] [place] [address] Care Team Providers Care Cheese Packer Name Role Phone Krista Carroll NP Primary Care Provider [phone] Kobe Barrett Primary Care Provider + [phone] Encounter Details Date Type Department Care Team (Late st Contact Info) Description 03/27/2021 Lab Requisition [facility] Pathology & Laboratory Medicine - [facility] [address] [place] [address] Krista Carroll, JANUARY [facility] [place] [address] Encounter for other general examination Social History [...] Escherichia coli(A) VITEK SUSCEPTIBILITY 03/29/2021 8:02 EST [facility] Comment: Cefazolin susceptibility results [...] only cefpodoxime and cephalexin are on the [facility] inpatient formulary. Organism (organism) URINE / [...] ug/mL: Susceptible Krista Carroll NP MICROBIOLOGY - [facility] ORDERABLES [facility] [address] [place] [address] documented in this encounter Visit Diagnoses Diagnosis Encounter for other general examination documented in this encounter Care Teams Cheese Packer Relationship Specialty Start Date End Date Krista Carroll NP PCP - General 03/01/17 12/18/22 Kobe Barrett [address] [place] [phone] PCP - General Family Medicine - [facility] Medicine 12/19/22 documented as of this encounter
--- OUTSIDE RECORDS SUMMARY | 2024-01-24 21:23 | XMS_ITS | Encounter Summary ---
Author Organization [facility] Address [address] [place] [address] Care Team Providers Care Screw Machine Repairer Name Role Phone Krista Carroll NP Primary Care Provider [phone] Kobe Barrett Primary Care Provider + [phone] Encounter Details Date Type Department Care Team (Late st Contact Info) Description 06/14/2020 Lab Requisition [facility] Pathology & Laboratory Medicine - [facility] [address] [place] [address] Krista Carroll, JANAURY [facility] [place] [address] Social History Tobacco Use Types [...] Escherichia coli(A) VITEK SUSCEPTIBILITY 06/16/2020 8:46 EST [facility] Comment: Cefazolin susceptibility results [...] only cefpodoxime and cephalexin are on the [facility] inpatient formulary. Organism (organism) URINE / [...] - GENER AL ORDERABLES Performing Organization Address City/State/[facility] Co de Phone Number [facility] [address] [place] [address] documented in this encounter Visit Diagnoses Not on filedocumented in this encounter Care Teams Screw Machine Repairer Relationship Specialty Start Date End Date Krista Carroll NP PCP - General 03/01/17 12/18/22 Kobe Barrett [address] [place] [address] PCP - General Family Medicine - [facility] 12/19/22 documented as of this encounter
--- OUTSIDE RECORDS SUMMARY | 2024-01-24 21:23 | XMS_ITS | Encounter Summary ---
Author Organization [facility] Address [address] [place] [address] Care Team Providers Care Skidway Man Name Role Phone Unavailable Primary Care Provider Unavailabl e Encounter Details Date Type Department Care Team (Late st Contact Info) Description 03/06/2011 Results Only [facility] Laboratory Services - [facility] [address] [place], [place] [address] Tino Mcknight, [facility] [address] [place] [address] [place] [address] Social History Tobacco Use [...] ? EDMOND HILLSCLAUDIA ? Accession #: ? [id number] ? : ? 1940 (Age: 71) ??F ?Collect Date: ? 03/06/2011 ? Location: ? [facility] ? Receive Date: ? 03/07/2011 ? Provider: TINO MCKNIGHT SLATER APPRENTICE Copy to: MENG CAMARGO MD ? Final [...] [facility] 03/06/2011 03/07/2011 Tino Mcknight SLATER APPRENTICE PATHOLOGY ORDERABLES Performing Organization Address City/State/[facility] Co de Phone Number [facility] [address] [place] [address] documented in this encounter Visit Diagnoses Not on filedocumented in this encounter
--- OUTSIDE RECORDS SUMMARY | 2024-01-24 21:23 | XMS_ITS | Encounter Summary ---
Author Organization [facility] Address [address] [place] [address] Care Team Providers Care Cake Froster Name Role Phone Unavailable Primary Care Provider Unavailabl e Encounter Details Date Type Department Care Team (Late st Contact Info) Description 09/25/2000 Results Only [facility] - Maple conversion [address] [place] [address] Veronika Mcknight, [address] [place] [address] Social History Tobacco Use Types [...] ? REANNA HILLS ? Accession #: ? [id number] : ? 1940 (Age: 60) ??F ?Collect Date: ? 09/25/2000 Location: ? [facility] ? Receive Date: ? 09/26/2000 Provider: ?VERONIKA MCKNIGHT SALES TEACHER Copy to: ? Specimen/Source: ?ThinPrep Pap Test, [...] Report HEATHER PEREZ 09/25/2000 09/26/2000 Veronika Mcknight SALES TEACHER PATHOLOGY ORDERABLES [facility] [address] [place] [address] documented in this encounter Visit Diagnoses Not on filedocumented in this encounter
--- OUTSIDE RECORDS SUMMARY | 2024-01-24 21:23 | XMS_ITS | Encounter Summary ---
Author Organization [facility] Address [address] [place] [address] Care Team Providers Care Wire Loop Machine Operator Name Role Phone Unavailable Primary Care Provider Unavailabl e Encounter Details Date Type Department Care Team (Late st Contact Info) Description 02/27/2017 Results Only [facility]- PRISM [phone] Joey Dow, DO [address] [facility] [address] [place], [place] [id number] Social History Tobacco Use Types Packs/Day Years [...] when reading/interpret ing unformatted reports. Name: ? EDMOND HILLSCLAUDIA ? Accession #: ? [id number] ? : ? 1940 (Age: 77) ??F ? Collect Date: ? 02/27/2017 ? Location: ? [facility] ? Receive Date: ? 02/27/2017 ? Provider: JOEY DOW DO Copy to: RINKU VERAS ROD HANGER ? Final Pathologic Diagnosis: COLON, CECUM POLYP, [...] (ASCP) 02/28/2017 9:03 AM End of Report [facility] 02/27/2017 17:1 9 EDT 02/27/2017 17:19 EDT Joey Dow DO PATHOLOGY ORDER MIRNA [facility] [address] [place] [address] documented in this encounter Visit Diagnoses Not on filedocumented in this encounter
--- OUTSIDE RECORDS SUMMARY | 2024-01-24 21:23 | XMS_ITS | Encounter Summary ---
Author Organization [facility] Address [address] [id number] Care Team Providers Care Drawer Maker Name Role Phone Unavailable Primary Care Provider Unavailabl e Reason for Visit * Reason Comments Fall * Auth/Cert Specialty Diagnoses / Procedures Referred By Estela t Referred To Contact Diagnoses Fall Maximino Lane MD [address] [place] [id number] Referral ID Status Reason Start Date Expiration Date Visits Re quested Visits Authorized [id number] 1 1 Encounter Details Date Type Department Care Team (Late st Contact Info) Description 08/04/2022 12:28 PM EDT - 08/05/2022 3:51 PM EDT Emergency [facility] Department of Emergency Medicine [address] [place] [address] Kojo Hicks MD [address] [place] [address] [phone] Chris Ho MD [address] [place] [address] [phone] Mahamed Morris MD [address] [place] [address] MD [address] [place] [address] [phone] Fall (Primary Dx); Contusion of face; Abrasion; [...] on 08/04/2022t 1500 hours by vice president planning Dr. Lester. Read By - Gustavo Hope [...] on 08/04/2022t 1500 hours by vice president planning Dr. Lester. Read By - Gustavo Hope [...] angle is not completely included within the [id number]-[id number]. No pneumothorax. Lung volumes are normal. No [...] sent through Care Everywhere. * BLUNT TRAUMA (MALTESE) * Facial or Scalp Contusion (Central African) * Fall Prevention in the Home Adult Jqki-pu-Nhrt (Central African) documented in this encounter Medications at Time [...] history is provided by the patient. No compositor apprentice was used. Fall The accident occurred yesterday. [...] Read By Nikole Giles Electronically Verified By Niokle Giles Released Date Time - 08/04/2022 9:02 [...] 08/04/2022 at 1500 hours by vice president planning Dr. Lester. Read By Nikole Hope M.D. [...] 08/04/2022 at 1500 hours by vice president planning Dr. Lester. Read By Nikole Hope M.D. [...] 08/04/2022 at 1500 hours by vice president planning Dr. Lester. Read By Nikole Hope M.D. [...] 08/04/2022 at 1500 hours by vice president planning Dr. Lester. Read By Nikole Hope M.D. [...] with the resident/fellow. Chris Ho MD 08/04/22 5207 Chris Ho MD 08/05/22 [phone] * Varun Caraballo MD - 08/04/2022 12:28 PM EDT Attestation I saw and evaluated the patient. I reviewed and agree with the findings and plan as documented in the note. I reviewed the patient's history. I have made corrections and additions as appropriate. I discussed this patient with the TUBING MACHINE TENDER/PA (Mia Wilson). Comments: CDU attestation. Patient denies [...] in this encounter Consult Notes * Chaparro Zacarais MD - 08/04/2022 9:47 PM EDTAssociated Order(s): [...] Admitted) 08/04/22 0700 - 08/05/22 0659 Shift [id number] 24 Hour Total [id number] [id number] 1194-2656 24 Hour Total INTAKE IV Piggyback 1000 [...] 08/04/2022 at 1500 hours by vice president planning Dr. Lester. Read By Nikole Hope M.D. [...] 08/04/2022 at 1500 hours by vice president planning Dr. Lester. Read By Nikole Hope M.D. [...] 08/04/2022 at 1500 hours by vice president planning Dr. Lester. Read By Nikole Hope M.D. [...] 08/04/2022 at 1500 hours by vice president planning Dr. Lester. Read By Nikole Hope M.D. [...] Tool: No Discussed patient with NON-ED Provider: Content Administrator and Admitting Team Medication Treatment Plan & Referrals Medications given this encounter: Medications 0.9% NaCl flush 20-180 mL (has no administration in time range) levothyroxine (SYNTHROID) tablet 112 mcg (112 mcg Oral $$Given$$ 08/05/22 0902) acetaminophen (TYLENOL) tablet 650 mg (650 mg Oral $$Given$$ 08/05/22 0903) temazepam (RESTORIL) capsule 15 mg (has no administration in time range) wpfkiyf-zbyprgpfbt-beyhphape vaccine, Tdap (BOOSTRIX) injection 0.5 mL (0.5 [...] Differential panel result (08/05/2022 2:40 PM EDT) [facility] WBC 4.73 4.5 - 11 THOU/CUMM 08/05/2022 3:02 PM EDT [facility] RBC 4.14(L) 4.20 - 5.40 x10E6/uL 08/05/2022 3:02 PM EDT [facility] Hemoglobin 12.9 12.0 - 16.0 G/DL 08/05/2022 3:02 PM EDT [facility] Hematocrit 38.5 37.0 - 47.0 % 08/05/2022 3:02 PM EDT [facility] MCV 93.0 82.0 - 101.0 FL 08/05/2022 3:02 PM EDT [facility] MCH 31.2 27.0 - 34.0 PG 08/05/2022 3:02 PM EDT [facility] MCHC 33.5 31.0 - 36.0 G/DL 08/05/2022 3:02 PM EDT [facility] RDW 13.2 12.0 - 16.1 % 08/05/2022 3:02 PM EDT [facility] Platelet Count 161 140 - 440 x10E3/uL 08/05/2022 3:02 PM EDT [facility] MPV 10.1 9.5 - 12.2 FL 08/05/2022 3:02 PM EDT [facility] nRBC % 0.0 0.0 - 1.0 % 08/05/2022 3:02 PM EDT [facility] Neutrophils % 66.9 34.0 - 73.0 % 08/05/2022 3:02 PM EDT [facility] Lymphocytes % 20.9(L) 25.0 - 45.0 % 08/05/2022 3:02 PM EDT [facility] Monocytes % 9.1 % 08/05/2022 3:02 PM EDT [facility] Eosinophils % 2.7 % 08/05/2022 3:02 PM EDT [facility] Immature Granulocytes % 0.2 % 08/05/2022 3:02 PM EDT [facility] Neutrophils Absolute 3.16 1.40 - 7.50 THOU/CUMM 08/05/2022 3:02 PM EDT [facility] Lymphocytes Absolute 0.99 0.90 - 3.00 X10E3/UL 08/05/2022 3:02 PM EDT [facility] Monocytes Absolute 0.43 0.20 - 0.90 X10E3/UL 08/05/2022 3:02 PM EDT [facility] Eosinophils Absolute 0.13 0.00 - 0.50 THOU/CUMM 08/05/2022 3:02 PM EDT [facility] Basophil Absolute 0.01 0.00 - 0.10 X10E3/UL 08/05/2022 3:02 PM EDT [facility] Absolute Immature Granulocytes 0.01(H) 0 - 0 X10E3/UL 08/05/2022 3:02 PM EDT [facility] Basophils % 0.2 % 08/05/2022 3:02 PM EDT [facility] Absolute NRBC Count 0.00 10*9/L 08/05/2022 3:02 PM EDT [facility] Blood Venipuncture / Unknown 08/05/2022 2:40 PM EDT 08/05/2022 2:45 PM EDT Mia Fuentes PA-C BLOOD ORDERABLES Performing Organization Address City/State/[place] Co de Phone Number [facility] [address] [place] [address], [facility] [phone] * US Venous Doppler Lower Ext Left [...] - 11 THOU/CUMM 08/05/2022 9:51 AM EDT [facility] RBC 4.19(L) 4.20 - 5.40 x10E6/uL 08/05/2022 9:51 AM EDT [facility] Hemoglobin 12.8 12.0 - 16.0 G/DL 08/05/2022 9:51 AM EDT [facility] Hematocrit 38.7 37.0 - 47.0 % 08/05/2022 9:51 AM EDT [facility] MCV 92.4 82.0 - 101.0 FL 08/05/2022 9:51 AM EDT [facility] MCH 30.5 27.0 - 34.0 PG 08/05/2022 9:51 AM EDT [facility] MCHC 33.1 31.0 - 36.0 G/DL 08/05/2022 9:51 AM EDT [facility] RDW 13.0 12.0 - 16.1 % 08/05/2022 9:51 AM EDT [facility] Platelet Count 172 140 - 440 x10E3/uL 08/05/2022 9:51 AM EDT [facility] MPV 9.8 9.5 - 12.2 FL 08/05/2022 9:51 AM EDT [facility] nRBC % 0.0 0.0 - 1.0 % 08/05/2022 9:51 AM EDT [facility] Neutrophils % 73.2(H) 34.0 - 73.0 % 08/05/2022 9:51 AM EDT [facility] Lymphocytes % 17.3(L) 25.0 - 45.0 % 08/05/2022 9:51 AM EDT [facility] Monocytes % 7.4 % 08/05/2022 9:51 AM EDT [facility] Eosinophils % 1.7 % 08/05/2022 9:51 AM EDT [facility] Immature Granulocytes % 0.2 % 08/05/2022 9:51 AM EDT [facility] Neutrophils Absolute 3.38 1.40 - 7.50 THOU/CUMM 08/05/2022 9:51 AM EDT [facility] Lymphocytes Absolute 0.80(L) 0.90 - 3.00 X10E3/UL 08/05/2022 9:51 AM EDT [facility] Monocytes Absolute 0.34 0.20 - 0.90 X10E3/UL 08/05/2022 9:51 AM EDT [facility] Eosinophils Absolute 0.08 0.00 - 0.50 THOU/CUMM 08/05/2022 9:51 AM EDT [facility] Basophil Absolute 0.01 0.00 - 0.10 X10E3/UL 08/05/2022 9:51 AM EDT [facility] Absolute Immature Granulocytes 0.01(H) 0 - 0 X10E3/UL 08/05/2022 9:51 AM EDT [facility] Basophils % 0.2 % 08/05/2022 9:51 AM EDT [facility] Absolute NRBC Count 0.00 10*9/L 08/05/2022 9:51 AM T [facility] Blood Venipuncture / Unknown 08/05/2022 9:40 AM EDT 08/05/2022 9:45 AM EDT Mia Fuentes PA-C [place] [address], [facility] [phone] * CT ADRENAL MASS w/o & w/ [...] - 11 THOU/CUMM 08/04/2022 3:50 PM EDT [facility] RBC 4.53 4.20 - 5.40 x10E6/uL 08/04/2022 3:50 PM EDT [facility] Hemoglobin 14.3 12.0 - 16.0 G/DL 08/04/2022 3:50 PM EDT [facility] Hematocrit 42.2 37.0 - 47.0 % 08/04/2022 3:50 PM EDT [facility] MCV 93.2 82.0 - 101.0 FL 08/04/2022 3:50 PM EDT [facility] MCH 31.6 27.0 - 34.0 PG 08/04/2022 3:50 PM EDT [facility] MCHC 33.9 31.0 - 36.0 G/DL 08/04/2022 3:50 PM EDT [facility] RDW 12.9 12.0 - 16.1 % 08/04/2022 3:50 PM EDT [facility] Platelet Count 173 140 - 440 x10E3/uL 08/04/2022 3:50 PM EDT [facility] MPV 9.9 9.5 - 12.2 FL 08/04/2022 3:50 PM EDT [facility] nRBC % 0.0 0.0 - 1.0 % 08/04/2022 3:50 PM EDT [facility] Neutrophils % 85.3(H) 34.0 - 73.0 % 08/04/2022 3:50 PM EDT [facility] Lymphocytes % 8.4(L) 25.0 - 45.0 % 08/04/2022 3:50 PM EDT [facility] Monocytes % 5.2 % 08/04/2022 3:50 PM EDT [facility] Eosinophils % 0.2 % 08/04/2022 3:50 PM EDT [facility] Immature Granulocytes % 0.7 % 08/04/2022 3:50 PM EDT [facility] Neutrophils Absolute 7.64(H) 1.40 - 7.50 THOU/CUMM 08/04/2022 3:50 PM EDT [facility] Lymphocytes Absolute 0.75(L) 0.90 - 3.00 X10E3/UL 08/04/2022 3:50 PM EDT [facility] Monocytes Absolute 0.47 0.20 - 0.90 X10E3/UL 08/04/2022 3:50 PM EDT [facility] Eosinophils Absolute 0.02 0.00 - 0.50 THOU/CUMM 08/04/2022 3:50 PM EDT [facility] Basophil Absolute 0.02 0.00 - 0.10 X10E3/UL 08/04/2022 3:50 PM EDT [facility] Absolute Immature Granulocytes 0.06(H) 0 - 0 X10E3/UL 08/04/2022 3:50 PM EDT [facility] Basophils % 0.2 % 08/04/2022 3:50 PM EDT [facility] Absolute NRBC Count 0.00 10*9/L 08/04/2022 3:50 PM EDT [facility] Blood Venipuncture / Unknown 08/04/2022 3:40 PM EDT 08/04/2022 3:45 PM EDT Keshav Quick MD BLOOD ORDERABL ES Performing Organization Address City/State/[place] Co de Phone Number [facility] [address] [place] [address] * (ABNORMAL) Basic Metabolic Panel (08/04/2022 3:40 PM EDT) Sodium 137 135 - 145 MMOL/L 08/04/2022 4:21 PM EDT [facility] Potassium 4.0 3.3 - 4.6 MMOL/L 08/04/2022 4:21 PM EDT [facility] Chloride 101 101 - 110 MMOL/L 08/04/2022 4:21 PM EDT [facility] CO2 24 21 - 29 MMOL/L 08/04/2022 4:21 PM EDT [facility] Urea Nitrogen 15 6 - 22 MG/DL 08/04/2022 4:21 PM EDT [facility] Creatinine 0.60 0.51 - 0.96 MG/DL 08/04/2022 4:21 PM EDT [facility] BUN/Creatinine Ratio 25.0(H) 6.0 - 22.0 (CALC) 08/04/2022 4:21 PM EDT [facility] Glucose 147(H) 71 - 99 MG/DL 08/04/2022 4:21 PM EDT [facility] Calcium 9.3 8.6 - 10.0 MG/DL 08/04/2022 4:21 PM EDT [facility] Osmolality Calc 277.3 4:21 PM EDT [facility] Anion Gap 12 4 - 16 MMOL/L 08/04/2022 4:21 PM EDT [facility] EGFR (CKD-EPI) 91 >=60 ML/MIN/1. 73M2 08/04/2022 4:21 PM EDT [facility] Comment:Calculation based on the??Chronic Kidney Disease Epidemiology Collaboration (CKD-EPI) equation refit??without adjustment for race Blood Venipuncture / Unknown 08/04/2022 3:40 PM EDT 08/04/2022 3:45 PM EDT Keshav Quick MD BLOOD ORDERABL ES Performing Organization Address City/State/[place] Co de Phone Number [facility] [address] [place] [address] * CT Head w/o IV Con (08/04/2022 [...] 08/04/2022 at 1500 hours by vice president planning Dr. Lester. Read By - Gustavo Hope M.D. Electronically Verified By - Gustavo oHpe M.D. Released Date Time - 08/04/2022 3:04 [...] on08/04/2022 at 1500 hours by vice president planning Dr. Lester. Read By Nikole Hope M.D. [...] 08/04/2022 at 1500 hours by vice president planning Dr. Lester. Read By - Gustavo Hope [...] on08/04/2022 at 1500 hours by vice president planning Dr. Lester. Read By Nikole Hope M.D. [...] angle is not completely included within the [id number]-fx-fpbc. No pneumothorax. ??Lung volumes are normal. ??No [...] costophrenic angle is not completely included within bhmzcdmy-vg-strb. No pneumothorax. Lung volumes are normal. No [...] RN - 08/04/2022 12:28 PM EDT Bed: [facility] Expected date: Expected time: Means of arrival: [...]
--- OUTSIDE RECORDS SUMMARY | 2024-01-24 21:23 | XMS_ITS | Clinical Summary ---
Author Organization [facility] Address [address] [id number] Care Team Providers Care Molasses Feed Mixer Name Role Phone Анна Lyman APRN Primary Care Provider Unavailable Allergies Active Allergy Reactions Criticality Noted Date [...] Vacci ne, (7 yo and older), IM (VCL=844) 08/04/2022 Family History Medical History Relation Comments [...] often do you attend chur ch or spiritism services? 1 to 4 times per year [...] and heating? Not hard at all 08/22/2022 [facility] - Occupational Stress [...] place to sleep or slept in a residential (including now)? No 08/22/2022 PHQ-2 Risk Classification [...] s) (1 of 1 - PCV) 2007 Influenza Vaccine (#1) 2024 SARS-CoV-2 (COVID-19) (1 - 2 023-24 season) 2024 DTaP,Tdap,and Td Vaccines (2 - Td [...] age to complete this topic Care Teams Molasses Feed Mixer Relationship Specialty Start Date End Date Анна Lyman APRN PCP - General Family Medicine 08/22/22
--- OUTSIDE RECORDS SUMMARY | 2024-01-24 21:23 | XMS_ITS | Encounter Summary ---
Author Organization [facility] Address [address] [place] [address] Care Team Providers Care Final Cigar And Box Examiner Name Role Phone Unavailable Primary Care Provider Unavailabl e Encounter Details Date Type Department Care Team (Late st Contact Info) Description 12/24/2006 Results Only [facility] - Maple conversion [address] [place] [address] Veronika Mcknight, [address] [place] [address] Social History Tobacco Use Types [...] ? REANNA HILLS ? Accession #: ? [id number] : ? 1940 (Age: 66) ??F ?Collect Date: ? 12/24/2006 Location: ? [facility] ? Receive Date: ? 12/25/2006 Provider: ?VERONIKA MCKNIGHT SECRETARY BOOK KEEPER Copy to: ? Specimen/Source: ?ThinPrep Pap Test, Cervix/Endocervix, processed on [employer] ThinPrep Imaging System, with manual evaluation Last [...] Report HEATHER PEREZ 12/24/2006 12/25/2006 Veronika Mcknight SECRETARY BOOK KEEPER PATHOLOGY ORDERABLES HEATHER PEREZ [address] [place] [address] documented in this encounter Visit Diagnoses Not on filedocumented in this encounter
--- OUTSIDE RECORDS SUMMARY | 2024-01-24 21:23 | XMS_ITS | Encounter Summary ---
Author Organization [facility] Address [address] [place] [address] Care Team Providers Care Fish Drier Name Role Phone Unavailable Primary Care Provider Unavailabl e Encounter Details Date Type Department Care Team (Late st Contact Info) Description 11/30/2004 Results Only [facility] - Maple conversion [address] [place] [address] Veronika Mcknight, [address] [place] [address] Social History Tobacco Use Types [...] ? REANNA HILLS ? Accession #: ? [id number] : ? 1940 (Age: 64) ??F ?Collect Date: ? 11/30/2004 Location: ? [facility] ? Receive Date: ? 12/02/2004 Provider: ?VERONIKA MCKNIGHT GLAZIER SUPERVISOR Copy to: ? Specimen/Source: ?ThinPrep Pap Test, Cervix/Endocervix, processed on [employer] ThinPrep Imaging System, with manual evaluation Last [...] Report HEATHER PEREZ 11/30/2004 12/02/2004 Veronika Mcknight GLAZIER SUPERVISOR PATHOLOGY ORDERABLES HEATHER PEREZ [address] [place] [address] documented in this encounter Visit Diagnoses Not on filedocumented in this encounter
--- OUTSIDE RECORDS SUMMARY | 2024-01-24 21:23 | XMS_ITS | Encounter Summary ---
Author Organization [facility] Address [address] [place] [address] Care Team Providers Care Director Clinical Data Name Role Phone Unavailable Primary Care Provider Unavailabl e Encounter Details Date Type Department Care Team (Late st Contact Info) Description 12/04/2005 Results Only [facility] - Maple conversion [address] [place] [address] Veronika Mcknight, [address] [place] [address] Social History Tobacco Use Types [...] ? REANNA HILLS ? Accession #: ? [id number] : ? 1940 (Age: 65) ??F ?Collect Date: ? 12/04/2005 Location: ? [facility] ? Receive Date: ? 12/05/2005 Provider: ?VERONIKA MCKNIGHT NURSERY WORKER Copy to: ? Specimen/Source: ?ThinPrep Pap Test, Cervix/Endocervix, processed on [employer] ThinPrep Imaging System, with manual evaluation Last [...] Report HEATHER PEREZ 12/04/2005 12/05/2005 Veronika Mcknight NURSERY WORKER PATHOLOGY ORDERABLES Performing Organization Address City/State/[facility] Co de Phone Number HEATHER PEREZ [address] [place] [address] documented in this encounter Visit Diagnoses Not on filedocumented in this encounter
--- OUTSIDE RECORDS SUMMARY | 2024-01-24 21:23 | XMS_ITS | Encounter Summary ---
Author Organization [facility] Address [address] [place] [address] Care Team Providers Care Architectural Drafting Instructor Name Role Phone Kobe Barrett Primary Care Provider [phone]- [phone] Encounter Details Date Type Department Care Team (Late st Contact Info) Description 02/14/2023 Lab Requisition [facility] Pathology & Laboratory Medicine - [facility] [address] [place] [address] Gustavo Holley MD [address] [place] [phone] Benign neoplasm of colon, unspecified Social History [...] management options, if applicable. 02/15/2023 18:03 EDT [facility] Final Diagnosis A. COLON, ASCENDING, POLYP, BIOPSY: - Tubular adenoma. 02/15/2023 18:03 [facility] Attestation By the signature below, the attending physician certifies that they have 1) personally conducted a gross and/or microscopic examination of the described specimen(s), and/or personally interpreted the results of laboratory testing of the described specimen(s), and 2) personally rendered or confirmed the above diagnosis. 02/15/2023 18:03 [facility] at 1803 Clinical History History of polyps, family history of colon cancer, diverticulosis, colon polyp 02/15/2023 18:03 T [facility] Gross Description A. Received in formalin labelled with proper patient identification (initials W, L) and ascending colon polyp x1 is a single alvarez polypoid tissue (0.2 x 0.2 x 0.1 cm). Submitted intact in A1. APOLINAR CH(ASCP) 02/15/2023 7:55 02/15/2023 18:03 T [facility] Performing Lab [facility] 02/15/2023 18:03 [facility] Scanned Images 02/15/2023 18:03 [facility] Tissue ASCENDING COLON STRUCTURE / Unknown 02/14/2023 9:43 EDT 02/14/2023 18:33 EDT Gustavo Holley MD PATHOLOGY LYLE UREÑA [facility] [address] [place] [address] documented in this encounter Visit Diagnoses Diagnosis Benign neoplasm of colon, unspecified documented in this encounter Care Teams Architectural Drafting Instructor Relationship Specialty Start Date End Date Kobe Barrett [address] [place] [phone] PCP - General Family Medicine - Hospital Medicine 12/19/22 documented as of this encounter
--- OUTSIDE RECORDS SUMMARY | 2024-01-24 21:23 | XMS_ITS | Encounter Summary ---
Author Organization [facility] Address [address] [place] [address] Care Team Providers Care Milk House Worker Name Role Phone Unavailable Primary Care Provider Unavailabl e Encounter Details Date Type Department Care Team (Late st Contact Info) Description 11/17/2003 Results Only [facility] - Maple conversion [address] [place] [address] Veronika Mcknight, [address] [place] [address] Social History Tobacco Use Types [...] ? REANNA HILLS ? Accession #: ? [id number] : ? 1940 (Age: 63) ??F ?Collect Date: ? 11/17/2003 Location: ? [facility] ? Receive Date: ? 11/18/2003 Provider: ?VERONIKA MCKNIGHT QUALITY ASSURANCE TECH Copy to: ? Specimen/Source: ?ThinPrep Pap Test, [...] Report HEATHER PEREZ 11/17/2003 11/18/2003 Veronika Mcknight QUALITY ASSURANCE TECH PATHOLOGY ORDERABLES HEATHER PEREZ [address] [place] [address] documented in this encounter Visit Diagnoses Not on filedocumented in this encounter
--- OUTSIDE RECORDS SUMMARY | 2024-01-24 21:23 | XMS_ITS | Encounter Summary ---
Author Organization [facility] Address [address] [place] [address] Care Team Providers Care Project Lead Name Role Phone Unavailable Primary Care Provider Unavailabl e Encounter Details Date Type Department Care Team (Late st Contact Info) Description 10/25/2001 Results Only [facility] - Maple conversion [address] [place] [address] Veronika Mcknight, [address] [place] [address] Social History Tobacco Use Types [...] ? REANNA HILLS ? Accession #: ? [id number] : ? 1940 (Age: 61) ??F ?Collect Date: ? 10/25/2001 Location: ? [facility] ? Receive Date: ? 10/28/2001 Provider: ?VERONIKA MCKNIGHT MODEL PHOTOGRAPHERS' Copy to: ? Specimen/Source: ?ThinPrep Pap Test, [...] Report HEATHER PEREZ 10/25/2001 10/28/2001 Veronika Mcknight MODEL PHOTOGRAPHERS' PATHOLOGY ORDERABLES Performing Organization Address City/State/[facility] Co de Phone Number HEATHER PEREZ [address] [place] [address] documented in this encounter Visit Diagnoses Not on filedocumented in this encounter
--- OUTSIDE RECORDS SUMMARY | 2024-01-24 21:23 | XMS_ITS | Referral Summary ---
Author Organization [facility] Address [address] [place] [address] Care Team Providers Care Bowling Ball Patcher Name Role Phone Kobe Barrett Primary Care Provider +1- [phone] Social History Tobacco Use Types Packs/Day Years Used Date Smoking Tobacco: Never Assessed Interpersonal Safety Answer Date Record ed Physically Hurt Never 12/21/2019 Verbally Threaten Not on file 12/21/2019 Sex and Gender Information Value Date Recorded Sex Assigned at Not on file Gender Identity Not on file Sexual Orientation Not on file Plan of Treatment Not on file Care Teams Bowling Ball Patcher Relationship Specialty Start Date End Date Kobe Barrett [address] [place] [phone] PCP - General Family Medicine - Hospital Medicine 12/19/22
--- OUTSIDE RECORDS SUMMARY | 2024-01-24 21:23 | XMS_ITS | Encounter Summary ---
Author Organization [facility] Address [address] [place] [address] Care Team Providers Care Ecommerce Analyst Name Role Phone Krista Carroll NP Primary Care Provider Kobe Barrett Primary Care Provider +- [phone] Encounter Details Date Type Department Care Team (Late st Contact Info) Description 10/17/2020 Lab Requisition [facility] Pathology & Laboratory Medicine - [facility] [address] [place] [address] Krista Carroll, JANUARY [facility] [place] [phone] Urinary tract infection, site not specified Social [...] Escherichia coli(A) VITEK SUSCEPTIBILITY 10/19/2020 8:43 EDT [facility] Comment: Cefazolin susceptibility results [...] only cefpodoxime and cephalexin are on the [facility] inpatient formulary. Organism (organism) URINE / [...] Carroll NP MICROBIOLOGY - GENER AL ORDERABLES [facility] [address] [place] [address] documented in this encounter Visit Diagnoses Diagnosis Urinary tract infection, site not specified documented in this encounter Care Teams Ecommerce Analyst Relationship Specialty Start Date End Date Krista Carroll NP PCP - General 03/01/17 12/18/22 Kobe Barrett [address] [place] [address] PCP - General Family Medicine - [facility] Medicine 12/19/22 documented as of this encounter
--- OUTSIDE RECORDS SUMMARY | 2024-01-24 21:23 | XMS_ITS | Referral Summary ---
Author Organization [facility] Address [address] [id number] Care Team Providers Care Ortho/Prosthetic Aide Name Role Phone Анна Lyman APRN Primary [...] Vacci ne, (7 yo and older), IM (TAU=123) 08/04/2022 Social History Tobacco Use Types Packs/Day [...] often do you attend chur ch or hinduism services? 1 to 4 times per year 08/22/2022 Do you belong to any clubs o r organizations such as mandaen groups, unions, fraternal or athletic groups, or [...] and heating? Not hard at all 08/22/2022 [facility] Occupat ional Health - Occupational Stress [...] place to sleep or slept in a mcc (including now)? No 08/22/2022 PHQ-2 Risk Classification [...] of Treatment Not on file Care Teams Ortho/Prosthetic Aide Relationship Specialty Start Date End Date Анна Lyman APRN PCP - General Family Medicine 08/22/22
--- OUTSIDE RECORDS SUMMARY | 2024-01-24 21:23 | XMS_ITS | Encounter Summary ---
Author Organization [facility] Address [address] [place] [address] Care Team Providers Care Plastic Maker Name Role Phone Unavailable Primary Care Provider Unavailabl e Encounter Details Date Type Department Care Team (Late st Contact Info) Description 10/29/2002 Results Only [facility] - [facility] conversion [address] [place] [address] Veronika Mcknight, [address] [place] [address] Social History Tobacco Use Types [...] ? REANNA HILLS ? Accession #: ? [id number] : ? 1940 (Age: 62) ??F ?Collect Date: ? 10/29/2002 Location: ? [facility] ? Receive Date: ? 11/03/2002 Provider: ?VERONIKA MCKNIGHT WEATHER FORECASTER Copy to: ? Specimen/Source: ?ThinPrep Pap Test, Cervix/Endocervix Last Menstrual Period: ? 1989 ? SPECIMEN ADEQUACY ? Satisfactory for Evaluation - transformation zone component present GENERAL CATEGORIZATION ? Negative for Intraepithelial Lesion or Malignancy ? Document reviewed and electronically signed by: ? Mago Pena, CT(ASCP) ? Report Date: ??11/05/2002 10:54 End of Report HEATHER PEREZ 10/29/2002 11/03/2002 Veronika Mcknight [facility] PATHOLOGY ORDERABLES HEATHER PEREZ [address] [place] [address] documented in this encounter Visit Diagnoses Not on filedocumented in this encounter
--- OUTSIDE RECORDS SUMMARY | 2024-01-24 21:24 | XMS_ITS | Encounter Summary ---
Author Organization [facility] [place] [address] Care Team Providers Care Medical Imaging Technician Name Role Phone Kirk Cornelius MD Primary Care Provider [phone] Encounter Details Date Type Department Care Team (Late st Contact Info) Description 09/27/2020 Orders Only Cardiology at [address] [place] [address] Paula Heart, RN Social History Tobacco [...] on filedocumented in this encounter Care Teams Medical Imaging Technician Relationship Specialty Start Date End Date Kirk Cornelius MD PCP - General General Internal Medicine 06/28/20 9/3 documented as of this encounter
--- OUTSIDE RECORDS SUMMARY | 2024-01-24 21:24 | XMS_ITS | Encounter Summary ---
Author Organization [facility] [place] [address] Care Team Providers Care Flight Engineer Name Role Phone Kirk Cornelius MD Primary Care Provider Encounter Details Date Type Department Care Team (Late st Contact Info) Description 01/27/2021 Telephone Dermatology at [address] [place] [address] Mariela Bowles LPN Social History Tobacco [...] on filedocumented in this encounter Care Teams Flight Engineer Relationship Specialty Start Date End Date Kirk Cornelius MD PCP - General General Internal Medicine 06/28/2001/21 documented as of this encounter
--- OUTSIDE RECORDS SUMMARY | 2024-01-24 21:24 | XMS_ITS | Encounter Summary ---
[place] [address] Care Team Providers Care Survey Manager Name Role Phone Kobe Barrett APRN Primary Care Provider [phone]- [phone] Encounter Details Date Type Department Care Team (Late st Contact Info) Description 11/26/2023 Telephone [facility] [place] [phone] Yony Henson Social History Tobacco Use Types [...] on filedocumented in this encounter Care Teams Survey Manager Relationship Specialty Start Date End Date Kobe Barrett APRN [address] [place] [address] PCP - General Family Medicine 03/06/23 documented as of this encounter
--- OUTSIDE RECORDS SUMMARY | 2024-01-24 21:24 | XMS_ITS | Encounter Summary ---
Author Organization [facility] [place] [address] Care Team Providers Care Xm1 Tank Driver Name Role Phone Kirk Cornelius MD Primary Care Provider [phone] Encounter Details Date Type Department Care Team (Latest Contact Info) Description 01/18/2021 8:46 PM EDT - 01/18/2021 11:59 PM EDT Hospital [place] [address] Discharge Disposition: Home Social History Tobacco Use [...] Report (01/18/2021 12:00 PM EDT) Final Diagnosis [id number] ? Location: [facility] The signing pathologist has (i) examined the relevant preparation(s) for the specimen(s) and (ii) rendered or confirmed the diagnosis(es). . ?Surgical Pathology DIAGNOSIS Left mid jawline, skin shave biopsy: - Features of pigmented macular ?? seborrheic keratosis/lentigo with overlapping actinic keratosis-type changes (see discussion) Electronically signed by: ?Jeannine Fofana MD Verified: ??01/26/2021 17:11 ??Dermatopathologist Performed at: ??-[facility] Dept. of Pathology, [place], [place] DISCUSSION As the biopsy represents portion of a larger lesion, the findings may not be extrapolated to the lesion in its entirety. ?Clinicopathologic correlation is recommended to determine if this is international account representative of the lesion. ADDITIONAL STUDIES Melan-A stain highlights handle sewer distributed junctional melanocytes. Immunohistochemistry Studies: Formalin-fixed, paraffin-embedded [...] ?A2: ??Body ??mary 01/26/2021 5:11 PM EDT [facility] SPECIMEN FROM SKIN / Unknown 01/18/2021 12:00 PM EDT 01/18/2021 12:00 PM EDT Joon Roberts MD PATHOLOGY/CYTOLOGY O RDERABLES [facility] [place] [address] documented in this encounter Visit Diagnoses Not on filedocumented in this encounter Care Teams Xm1 Tank Driver Relationship Specialty Start Date End Date Kirk Cornelius MD PCP - General General Internal Medicine 06/28/20 9/3 documented as of this encounter
--- OUTSIDE RECORDS SUMMARY | 2024-01-24 21:24 | XMS_ITS | Encounter Summary ---
[place] [address] Care Team Providers Care Upper And Bottom Lacer Hand Name Role Phone Nena Kobe Garcia APRN Primary Care Provider [phone]- [phone] Encounter Details Date Type Department Care Team (Late st Contact Info) Description 11/27/2023 Telephone [facility] [place] [phone] Nasrin Solares, RN Social History Tobacco Use [...] - Received a call from Magy at [facility] Radiology calls for clarification of cervical spine [...] an outgoing fax from Barbara [place] to [facility] with orders andsafety questions. 11/12/23 - Documentation of secure chat from Jemima Kramer to Kiki, to check status of CT Auth. 11/26/23 - Yony Henson records incoming call from patient, Aide, in regard to the auth status and secure chat to Kiki. documented in this encounter Plan of Treatment Not on file documented as of this encounter Visit Diagnoses Not on filedocumented in this encounter Care Teams Upper And Bottom Lacer Hand Relationship Specialty Start Date End Date Kobe Barrett, MEDICAL DOCTOR MD/MEDICAL DIRECTOR [address] [place] [address] PCP - General Family Medicine 03/06/23 documented as of this encounter
--- OUTSIDE RECORDS SUMMARY | 2024-01-24 21:24 | XMS_ITS | Encounter Summary ---
Author Organization [facility] [place] [address] Care Team Providers Care Formula Clerk Name Role Phone Nena Kobe Garcia APRN Primary Care Provider [phone]- [phone] Reason for Visit * Reason Comments Follow-up Encounter Details Date Type Department Care Team (Late st Contact Info) Description 01/14/2024 11:15 AM EDT Office Visit Dermatology at [address] [phone] Joon Roberts MD [address] [facility] [place] [address] [place] (actinic keratosis) Social History Tobacco Use [...] keratosis documented in this encounter Care Teams Formula Clerk Relationship Specialty Start Date End Date Kobe Barrett APRN [address] [place] [address] PCP - General Family Medicine 03/06/23 documented as of this encounter
--- OUTSIDE RECORDS SUMMARY | 2024-01-24 21:24 | XMS_ITS | Encounter Summary ---
Author Organization [facility] [place] [address] Care Team Providers Care Bevel Polisher Name Role Phone Nena Kobe Garcia APRN Primary Care Provider [phone]- [phone] Encounter Details Date Type Department Care Team (Late st Contact Info) Description 05/17/2009 Orders Only Dermatology at [place] [address] [facility] [place] [address] Joon Roberts MD [address] [facility] [place] [address] Social History Tobacco Use Types Packs/Day Years [...] (05/17/2009 6:59 PM EST) Surgical Pathology Report [id number] ? Location: [facility] The signing pathologist has (i) examined the relevant preparation(s) for the specimen(s) and (ii) rendered or confirmed the diagnosis(es). . ?Pathology Surgical Pathology Final Report Clinical Information Specimen Submitted: A - Chin, 4-mm Punch: Clinical History: Crusting scabbing papule x 2 years Clinical Diagnosis: BCCA/SCCA Report to: Joon Roberts MD, III [facility] Dermatology [place], [place] ??[address] Gross Description Labeled/Fixativ e: ? Chin, formalin. [...] 05/19/09 Verified by: ? Edgar JUSTICE, PhD, Lata ?Dermatopathol ogist ?(Electronic Signature) The attending pathologist whose signature appears on this report has reviewed all diagnostic slides and has edited the gross and/or microscopic portion of the report in rendering the final pathologic diagnosis. CARRI KENDALL 05/17/2009 6:59 PM EST Joon Roberts MD PATHOLOGY/CYTOLOGY O RDERABLES Performing Organization Address City/State/[facility] Co de Phone Number CARRI KENDALL documented in this encounter Visit Diagnoses Not on filedocumented in this encounter Care Teams Bevel Polisher Relationship Specialty Start Date End Date Kobe Barrett APRN [address] [place] [address] PCP - General Family Medicine 03/06/23 documented as of this encounter
--- OUTSIDE RECORDS SUMMARY | 2024-01-24 21:24 | XMS_ITS | Encounter Summary ---
[place] [address] Care Team Providers Care Rehabilitation Services Manager Name Role Phone Kobe Barrett APRN Primary Care Provider +1- [phone] Reason for Referral * Consultation (Routine) - Closed Specialty Diagnoses / Procedures Referred By Estela florez Referred To [facility] Diagnoses Cervical pain cervical foraminal narrowing/ MRI 10/11/22 @ [facility] Kobe Barrett APRN [address] [place] [address] [facility] [place] [address] Referral ID Status Reason Start Date Expiration Date V isits Requested Visits Authorized [id number] Closed Consult, Test & Treat PCP Updated and/or Approved 03/06/2023 03/05/2024 1 1 Encounter Details Date Type Department Care Team (Late st Contact Info) Description 03/06/2023 Transcribe Orders eDH Incoming Referrals [phone] Kobe Barrett APRN [address] [place], [place] [id number] Cervical pain Social History Tobacco Use Types [...] Cervicalgia documented in this encounter Care Teams Rehabilitation Services Manager Relationship Specialty Start Date End Date Kobe Barrett, HOME HEALTH CARE CASE MANAGER [address] [place] [address] PCP - General Family Medicine 03/06/23 documented as of this encounter
--- OUTSIDE RECORDS SUMMARY | 2024-01-24 21:24 | XMS_ITS | Encounter Summary ---
Author Organization [facility] [place] [address] Care Team Providers Care Respiratory Clinician Name Role Phone Unknown Primary Care Provider Unavailabl e Reason for Visit * Reason Onset Date Comments Prior Authorization 04/22/2021 no PA needed for echocardiogram Encounter Details Date Type Department Care Team (Late st Contact Info) Description 04/22/2021 Telephone Cardiology at [address] [address] Paula Heart, template cutter (no PA needed for echocardiogram) Social History [...] PM EST Primary insurance is AARP Medicare AAR Managed Medicare AARP no longer requires prior authorization for .... CT, MRI, MRA, TRANSTHORACIC ECHOCARDIOGRAM ... as of 05/21/2017 documented in this encounter Plan of Treatment Not on file documented as of this encounter Visit Diagnoses Not on filedocumented in this encounter Care Teams Respiratory Clinician Relationship Specialty Start Date End Date Unknown None PCP - General 02/18/21 09/25/21 documented as of this encounter
--- OUTSIDE RECORDS SUMMARY | 2024-01-24 21:24 | XMS_ITS | Encounter Summary ---
Author Organization [facility] [place] [address] Care Team Providers Care Waste Specialist Name Role Phone Kirk Cornelius MD Primary Care Provider [phone] Reason for Visit * Reason Comments Skin Check Encounter Details Date Type Department Care Team (Late st Contact Info) Description 01/18/2021 8:30 AM EDT Office Visit Dermatology at [address] [phone] Joon Roberts MD [address] [place] [address], [facility] [place] [address] History of basal cell carcinoma; [place] (actinic [...] in diameter when I last saw her [id number], and it now is 3 cm in [...] keratosis documented in this encounter Care Teams Waste Specialist Relationship Specialty Start Date End Date Kirk Cornelius MD PCP - General General Internal Medicine 06/28/2001/21 documented as of this encounter
--- OUTSIDE RECORDS SUMMARY | 2024-01-24 21:24 | XMS_ITS | Encounter Summary ---
[place] [address] Care Team Providers Care Media Marketing Director Name Role Phone Kobe Barrett APRN Primary Care Provider [phone]- [phone] Encounter Details Date Type Department Care Team (Late st Contact Info) Description 11/12/2023 Telephone [place] [phone] [place] Jemima Jannette Social History Tobacco Use Types Packs/Day Years [...] on filedocumented in this encounter Care Teams Media Marketing Director Relationship Specialty Start Date End Date Kobe Barrett APRN [address] [place] [address] PCP - General Family Medicine 03/06/23 documented as of this encounter
--- OUTSIDE RECORDS SUMMARY | 2024-01-24 21:24 | XMS_ITS | Encounter Summary ---
[place] [address] Care Team Providers Care Slat Twister Name Role Phone NenaDanielleyumi Garcia APRN Primary Care Provider [phone]- [phone] Encounter Details Date Type Department Care Team (Late st Contact Info) Description 01/14/2024 Lab [place] [address] Joon Roberts MD [address] [place] [address], [place] [address] Social History Tobacco Use Types Packs/Day Years [...] Priority Date/Time Associated Diagnosis Comments SURGICAL PATHOLOGY (REQ ENTRY) Routine 01/14/2024 12:00 PM EDT documented in this encounter Results * (ABNORMAL) Surgical Pathology (Req Entry) (01/14/2024 12:00 PM EDT) Case Report Surgical Pathology Report ? Case: [id number] ? Authorizing Provider: ??Joon Roberts MD ?Collected: ? 01/14/2024 1200 ? Ordering Location: ? Laboratory ? Received: ?01/14/2024 2248 ? Pathologist: ? Jeannine Fofana MD ? Specimen: ?Calf, Left, (L) upper posterior calf ? 01/17/2024 4:40 PM EDT [facility] Final Diagnosis A. Calf, Left, upper posterior calf Shave biopsy: - Basal cell carcinoma, superficial and nodular patterns, present at the peripheral and deep specimen edges 01/17/2024 4:40 PM EDT [facility] Clinical Information BCCa/SCCa 01/17/2024 4:40 PM EDT [facility] Gross Description A. Calf, Left. Labeled/Fixativ e: Patient demographics, formalin. Quantity/Size: Single, 1.1 x 0.9 x 0.1 cm. Tissue Description: Shave of white skin with 0.7 x 0.4 cm pink eroded skin papule. Sections/Proces sing: Inked, quadrisected and entirely submitted in 2 cassettes as follows: A1: Tips A2: Body 01/17/2024 4:40 PM EDT [facility] Result Note THIS RESULT REQUIRES PHYSICIAN/RUTH FOLLOW UP(A) 01/17/2024 4:40 PM EDT [facility] Tissue STRUCTURE OF CALF OF LEFT LOWER LEG / Unknown 01/14/2024 12:00 PM EDT 01/14/2024 10:48 PM EDT Joon Roberts MD PATHOLOGY/CYTOLOGY O RDERABLES [facility] [place] [address] documented in this encounter Visit Diagnoses Not on filedocumented in this encounter Care Teams Slat Twister Relationship Specialty Start Date End Date Kobe Barrett APRN [address] [place] [address] PCP - General Family Medicine 03/06/23 documented as of this encounter
--- OUTSIDE RECORDS SUMMARY | 2024-01-24 21:24 | XMS_ITS | Encounter Summary ---
Author Organization [facility] [place] [address] Care Team Providers Care Pediatric Social Worker Name Role Phone Kobe Barrett APRN Primary Care Provider +1- [phone] Encounter Details Date Type Department Care Team [...] on filedocumented in this encounter Care Teams Pediatric Social Worker Relationship Specialty Start Date End Date Kobe Barrett APRN [address] [place] [address] PCP - General Family Medicine 03/06/23 documented as of this encounter
--- OUTSIDE RECORDS SUMMARY | 2024-01-24 21:24 | XMS_ITS | Encounter Summary ---
Author Organization [facility] [place] [address] Care Team Providers Care Radio Electronics Technician Name Role Phone Kobe Barrett APRN Primary Care Provider +1- [phone] Encounter Details Date Type Department Care Team (Late st Contact Info) Description 11/27/2023 Orders Only [facility] [place] [address] Tñoa Shetty APRN [facility] [place] [address] Neck pain Social History Tobacco Use Types [...] Cervicalgia documented in this encounter Care Teams Radio Electronics Technician Relationship Specialty Start Date End Date Kobe Barrett APRN [address] [place] [address] PCP - General Family Medicine 03/06/23 documented as of this encounter
--- OUTSIDE RECORDS SUMMARY | 2024-01-24 21:24 | XMS_ITS | Encounter Summary ---
Author Organization [facility] [place] [address] Care Team Providers Care Senior Ui Software Engineer Name Role Phone Nena Kobe Garcia APRN Primary Care Provider [phone]- [phone] Reason for Visit * Reason Onset Date Comments Prior Authorization 12/31/2023 [facility] Encounter Details Date Type Department Care Team (Late st Contact Info) Description 12/31/2023 Telephone Revenue [place] [phone] Tawnya Joseph Prior Authorization ([facility] ) Social History Tobacco Use Types [...] 12/31/2023 1:59 PM EDT Voicemail received in [place] Prior Authorization Office from this patient. Patient advised Dr. Toña Shetty at [facility] ordered a X-ray and CT of the neck to be performed at an outside facility, [facility] in [place]. This was ordered in September and no appointment has been made or prior auth obtained. The patient stated she has called several times and has been sent to many different departments andfacilities and has still not received any answers and she is becoming very frustrated. Patient would like a return call to her at [phone]. I believe the ordering provider's office needs to submit for prior authorization. Our office does not submit prior authorizations for patient's going to external facilities. Sending in basket mssg to Gianni Serrano, Jaylene and Chasidy documented in this encounter Plan of Treatment Not on file documented as of this encounter Visit Diagnoses Not on filedocumented in this encounter Care Teams Senior Ui Software Engineer Relationship Specialty Start Date End Date Kobe Barrett, MONICA [address] [place] [address] PCP - General Family Medicine 03/06/23 documented as of this encounter
--- OUTSIDE RECORDS SUMMARY | 2024-01-24 21:24 | XMS_ITS | Encounter Summary ---
Author Organization [facility] [place] [address] Care Team Providers Care Chef De Cuisine Name Role Phone Unknown Primary Care Provider Unavailabl e Encounter Details Date Type Department Care Team (Late st Contact Info) Description 04/27/2021 Telephone Cardiology at [address] [place] [address] Maximino Guadarrama MD [facility] [place] [address] Social History Tobacco Use Types Packs/Day Years [...] - 04/29/2021 1:05 PM EST Note from Mason Hinton that Patient declined appt to schedule an ECHO. #[phone] * Telephone Encounter - Danya Sainz - 04/27/2021 3:44 PM EST Patient called because someone had called her about having an echo. She said she is feeling fine, is having no issues. Does she need to have it? Please call her back @ [phone]. documented in this encounter Plan of Treatment Not on file documented as of this encounter Visit Diagnoses Not on filedocumented in this encounter Care Teams Chef De Cuisine Relationship Specialty Start Date End Date Unknown None PCP - General 02/18/21 09/25/21 documented as of this encounter
--- OUTSIDE RECORDS SUMMARY | 2024-01-24 21:24 | XMS_ITS | Encounter Summary ---
Author [facility] [place] [address] Care Team Providers Care Security Professional Name Role Phone Kobe Barrett APRN Primary Care Provider +1- [phone] Encounter Details Date Type Department Care Team [...] on filedocumented in this encounter Care Teams Security Professional Relationship Specialty Start Date End Date Kobe Barrett APRN [address] [place] [address] PCP - General Family Medicine 03/06/23 documented as of this encounter
--- OUTSIDE RECORDS SUMMARY | 2024-01-24 21:24 | XMS_ITS | Encounter Summary ---
Author Organization [facility] [place] [address] Care Team Providers Care Assistant Professor Of Chemistry Name Role Phone Kobe Barrett APRN Primary Care Provider +1- [phone] Reason for Referral * Diagnostic Test (Routine) - Pending Review Specialty Diagnoses / Procedures Referred By Estela florez Referred To Contact Radiology Diagnoses Neck pain Procedures CT Cervical Spine wo Contrast Toña Shetty APRN [facility] [place] [address] [facility], [address] KEMAL MCGUIRE [address] [place] [address] Referral ID Status Reason Start Date Expiration Date Visits Requested Visits Authorized [id number] Pending Review Specialty Service Requested 10/01/2023 04/02/2025 1 1 Reason for Visit * Reason Comments Neck Pain * Consultation (Routine) - Closed Specialty Diagnoses / Procedures Referred By Estela florez Referred To Contact [facility] Diagnoses Cervical pain cervical foraminal narrowing/ MRI 10/11/22 @ [place] Kobe York APRN [address] [place] [address] [facility] [place] [address] Referral ID Status Reason Start Date Expiration Date V isits Requested Visits Authorized [id number] Closed Consult, Test & Treat PCP Updated and/or Approved 03/06/2023 03/05/2024 1 1 Encounter Details Date Type Department Care Team (Late st Contact Info) Description 10/01/2023 1:45 PM EDT Office Visit [place] [address] Toña Shetty APRN [facility] [place] [address] Neck pain Social History Tobacco Use Types [...] with me when the above is completed HPI A[place] is a 83 y.o. female seen in referral today upon the request of Kobe Barrett forevaluation of a chief complaint of neck pain. In review of her referral documentation, she did havesome falls while wintering in [place] and has had persistent neck pain with [...] had been planning on coming here to [facility] to have this addressed but her discomfort became so significant while she was wintering in [place] that she ultimately sought treatment with a spine clinic in [place]. 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 I was able to review these visit notes today. It is documented that she receivedat least 90% improvement in her pain and ultimately, the plan was to move forward with radiofrequency ablation. The patient ultimately opted to hold off [place] She advises me today that [...] modification Chiropractic manipulation Injections: MBB bilaterally C2-C4 (07/26/2023-[place] [facility])-90% improvement with improved performance of ADLs (per pain clinic records) MBB bilaterally C2-C4 (08/09/2023-[place] [facility]) -90% improvement with improved performance [...] CC: Kobe Barrett APRN Referring Provider: Kobe Shetty APRN 10/01/2023 [facility] Center for Pain and Spine documented in this encounter Plan of Treatment Scheduled Orders Name Type Priority Associated Diagnoses Orde r Schedule CT Cervical Spine wo Contrast Imaging Routine Neck pain Expected: 10/08/2023, Expires: 04/08/2024 documented as of this encounter Visit Diagnoses Diagnosis Neck pain Cervicalgia documented in this encounter Care Teams Assistant Professor Of Chemistry Relationship Specialty Start Date End Date Kobe Barrett APRN [address] [place] [address] PCP - General Family Medicine 03/06/23 documented as of this encounter
--- OUTSIDE RECORDS SUMMARY | 2024-01-24 21:24 | XMS_ITS | Encounter Summary ---
[place] [address] Care Team Providers Care Mining Technician Name Role Phone Kobe Barrett APRN Primary Care Provider [phone]- [phone] Encounter Details Date Type Department Care Team (Late st Contact Info) Description 10/23/2023 Notes Only [facility] [place] [address] Barbara Madison Social History Tobacco Use Types [...] Xray orders, including questions, and [facility] to [facility]. documented in this encounter Plan of Treatment Not on file documented as of this encounter Visit Diagnoses Not on filedocumented in this encounter Care Teams Mining Technician Relationship Specialty Start Date End Date Kobe Barrett APRN [address] [place] [address] PCP - General Family Medicine 03/06/23 documented as of this encounter
--- OUTSIDE RECORDS SUMMARY | 2024-01-24 21:24 | XMS_ITS | Encounter Summary ---
Author Organization [facility] [place] [address] Care Team Providers Care Airline Security Representative Name Role Phone Vicky Kent MD Primary Care Provider [phone] Reason for Visit * Reason Comments Skin Check Encounter Details Date Type Department Care Team (Late st Contact Info) Description 06/29/2014 1:15 PM EST Office Visit Dermatology at [address] [place] [address] Joon Roberts MD [address] [facility], [place] [address] [place] (actinic keratosis); History of basal cell [...] Hernandez LPN - 06/29/2014 1:23 PM EST [facility] Actinic Keratosis: After Your Visit Your Care [...] more? Visit our health information library at [email or web address] You can also view health information on [email or web address], your personal patient account. Log in or sign up today. Enter L364 in the search box to learn more about Actinic Keratosis: After Your Visit. ?? [id number] [employer]. Care instructions adapted under license by [facility]. This care instruction is for use with your licensed healthcare professional. If you have questions about a medical condition or this instruction, always ask your healthcare professional. [employer] disclaims any warranty or liability for your use of this information. Content Version: 10.3.833046; Current as of: December 18, 2013 documented [...] cyst documented in this encounter Care Teams Airline Security Representative Relationship Specialty Start Date End Date Vicky Kent MD [address] [place] [address], [place] [address] PCP - General 06/29/14 2 documented as of this encounter
--- OUTSIDE RECORDS SUMMARY | 2024-01-24 21:24 | XMS_ITS | Clinical Summary ---
Author Organization [facility] Address [facility] [place] [address] Care Team Providers Care Lay Out Technician Name Role Phone Nena Kobe Garcia APRN Primary Care Provider [phone]- [phone] Allergies Active Allergy Reactions Criticality Noted Date [...] moderat e 07/01/2020 Overview (09/28/2020): 04/2020 TTE ([place]): moderate mitral regurgitation due to prolapse Assessment [...] Encounters Date Type Department Care Team Description 01/18/2024 Telephone Dermatology at [address] [address] Annette Rhodes RN 01/15/2024 12:05 AM EDT Ancillary Procedure [place] [address] Kobe Barrett, PIT MANAGER 01/15/2024 Ancillary Procedure [place] [address] Kobe Barrett, PIT MANAGER 01/14/2024 11:15 AM EDT Office Visit Dermatology at [address] [address] Joon Roberts MD [place] (actinic keratosis) 01/14/2024 Lab [place] [address] Joon Roberts MD 01/14/2024 Travel 01/12/2024 Travel 12/31/2023 Telephone [place] [address] Tawnya Joseph Prior Authorization ([facility] ) 12/18/2023 Telephone [place] [address] Tawnya Person 11/27/2023 Telephone [place] [address] Nasrin Solares RN 11/27/2023 Orders Only [facility] [place] [address] Toña Shetty APRN Neck pain 11/26/2023 Telephone [place] [address] Yony Henson 11/12/2023 Telephone [place] [address] Jemima Kramer from Last 3 Months Immunizations Name Administration [...] vaccine 06/02/2013 06/02/2003 Covid-19 Vaccine (1 - 2023-24 season) 2024 Influenza (Flu) vaccine (1 o f 1 - Influenza standard series) 01/20/2024 Procedures Procedure Name Priority Date/Time Associated Diagnosis Comments FILM LIBRARY STORAGE ONLY CT SPINE Routine 01/15/2024 12:05 AM EDT FILM LIBRARY STORAGE ONLY DX SPINE Routine 01/15/2024 12:00 AM EDT SURGICAL PATHOLOGY (REQ ENTRY) Routine 01/14/2024 12:00 PM EDT from Last 3 Months Results * Film Library- Storage Only CT Spine (01/15/2024 12:05 AM EDT) [facility] 01/16/2024 8:45 AM EDT This exam is auto-finalizing. It's purpose is for storage only. Kobe Barrett APRN IMG FILM LIBRARY O RDERABLES Performing Organization Address [facility] de Phone Number [place], [place] * Film Library- Storage Only DX Spine (01/15/2024 12:00 AM EDT) [facility] 01/16/2024 8:45 AM EDT This exam is auto-finalizing. It's purpose is for storage only. Kobe Barrett APRN IMG FILM LIBRARY O RDERABLES Performing Organization Address [facility] de Phone Number [place], [place] * (ABNORMAL) Surgical Pathology (Req Entry) (01/14/2024 12:00 PM EDT) Case Report Surgical Pathology Report ? Case: [id number] ? Authorizing Provider: ??Joon Roberts MD ?Collected: ? 01/14/2024 1200 ? Ordering Location: ? Laboratory ? Received: ?01/14/2024 2248 ? Pathologist: ? Jeannine Fofana MD ? Specimen: ?Calf, Left, (L) upper posterior calf ? 01/17/2024 4:40 PM EDT [facility] Final Diagnosis A. Calf, Left, upper posterior calf Shave biopsy: - Basal cell carcinoma, superficial and nodular patterns, present at the peripheral and deep specimen edges 01/17/2024 4:40 PM EDT [facility] Clinical Information BCCa/SCCa 01/17/2024 4:40 PM EDT [facility] Gross Description A. Calf, Left. Labeled/Fixativ e: Patient demographics, formalin. Quantity/Size: Single, 1.1 x 0.9 x 0.1 cm. Tissue Description: Shave of white skin with 0.7 x 0.4 cm pink eroded skin papule. Sections/Proces sing: Inked, quadrisected and entirely submitted in 2 cassettes as follows: A1: Tips A2: Body 01/17/2024 4:40 PM EDT [facility] Result Note THIS RESULT REQUIRES PHYSICIAN/RUTH FOLLOW UP(A) 01/17/2024 4:40 PM EDT [facility] Tissue STRUCTURE OF CALF OF LEFT LOWER LEG / Unknown 01/14/2024 12:00 PM EDT 01/14/2024 10:48 PM EDT Joon Roberts MD PATHOLOGY/CYTOLOGY O RDERABLES [facility] [place] [address] from Last 3 Months Care Teams Lay Out Technician Relationship Specialty Start Date End Date Kobe Barrett, PIT MANAGER [address] [place] [address] PCP - General Family Medicine 03/06/23
--- OUTSIDE RECORDS SUMMARY | 2024-01-24 21:24 | XMS_ITS | Encounter Summary ---
Author Organization [facility] [place] [address] Care Team Providers Care Margin Clerk Name Role Phone Kobe Barrett APRN Primary Care Provider [phone]- [phone] Encounter Details Date Type Department Care Team (Late st Contact Info) Description 01/15/2024 Ancillary Procedure [place] [address] Kobe Barrett APRN [address] [place], [place] [id number] Social History Tobacco Use Types Packs/Day Years [...] Associated Diagnosis Comments FILM LIBRARY STORAGE ONLY DX SPINE Routine 01/15/2024 12:00 AM EDT documented in this encounter Results * Film Library- Storage Only DX Spine (01/15/2024 12:00 AM EDT) Narrative [facility] - 01/16/2024 8:45 AM EDT This exam is auto-finalizing. It's purpose is for storage only. Kobe Barrett APRN IM FILM LIBRARY O RDERABLES [facility] [place], [place] documented in this encounter Visit Diagnoses Not on filedocumented in this encounter Care Teams Margin Clerk Relationship Specialty Start Date End Date Kobe Barrett APRN [address] [place] [address] [address] [place] [address] PCP - General Family Medicine 03/06/23 documented as of this encounter
--- OUTSIDE RECORDS SUMMARY | 2024-01-24 21:24 | XMS_ITS | Encounter Summary ---
Author Organization [facility] [place] [address] Care Team Providers Care Peanut Vendor Name Role Phone Kobe Barrett APRN Primary Care Provider [phone]- [phone] Encounter Details Date Type Department Care Team (Late st Contact Info) Description 01/15/2024 12:05 AM EDT Ancillary Procedure [place] [address] Kobe Barrett APRN [address] [place], [place] [id number] Social History Tobacco Use Types Packs/Day Years [...] CT SPINE Routine 01/15/2024 12:05 AM EDT documented in this encounter Results * Film Library- Storage Only CT Spine (01/15/2024 12:05 AM EDT) Narrative [facility] - 01/16/2024 8:45 AM EDT This exam is auto-finalizing. It's purpose is for storage only. Kobe Barrett APRN IMG FILM LIBRARY O RDERABLES [place], [place] documented in this encounter Visit Diagnoses Not on filedocumented in this encounter Care Teams Peanut Vendor Relationship Specialty Start Date End Date Kobe Barrett APRN [address] [place] [address] PCP - General Family Medicine 03/06/23 documented as of this encounter
--- OUTSIDE RECORDS SUMMARY | 2024-01-24 21:24 | XMS_ITS | Encounter Summary ---
Author Organization [facility] Address [facility] [place] [address] Care Team Providers Care Pharmacy Teacher Name Role Phone Kirk Cornelius MD Primary Care Provider [phone] Reason for Visit * Reason Comments Establish Care Hypertension Mitral Valve Prolapse * Consultation (Urgent) - Closed Specialty Diagnoses / Procedures Referred By Estela florez Referred To Contact Cardiology Diagnoses Nonrheumatic mitral (valve) prolapse Ela Reza L, DIRECTOR HUMAN SERVICES [address] [place] [address] Maximino Guadarrama MD [facility] [place] [address] Referral ID Status Reason Start Date Expiration Date V isits Requested Visits Authorized [id number] Closed Consult, Test & Treat Connection Center PCP Updated and/or Approved 06/28/2020 06/28/2021 6 6 Encounter Details Date Type Department Care Team (Late st Contact Info) Description 09/28/2020 3:20 PM EDT Office Visit Cardiology at [address] [place] [address] Maximino Guadarrama MD [facility] [place] [address] Nonrheumatic mitral valve regurgitation, moderate [...] moderate documented in this encounter Care Teams Pharmacy Teacher Relationship Specialty Start Date End Date Kirk Cornelius MD PCP - General General Internal Medicine 06/28/2001/21 documented as of this encounter
--- OUTSIDE RECORDS SUMMARY | 2024-01-24 21:24 | XMS_ITS | Encounter Summary ---
Author Organization [facility] [place] [address] Care Team Providers Care Victims Advocate Clerk/Specialist Name Role Phone Nena Kobe Garcia APRN Primary Care Provider [phone]- [phone] Encounter Details Date Type Department Care Team (Late st Contact Info) Description 01/18/2024 Telephone Dermatology at [address] [place] [address] Annette Rhodes RN Social History Tobacco Use Types Packs/Day [...] encounter Miscellaneous Notes * Telephone Encounter - Annette Rhodes RN - 01/18/2024 1:43 PM EDT Patient called and informed of her pathology results. Patient had a shave C&D on 01/14/2024 of the left upper posterior calf. Diagnosis: Basal cell carcinoma. Per Dr. Roberts's recommendation no further treatment is needed and patient to follow up as needed. Patient informed and she stated that she understood. documented in this encounter Plan of Treatment Not on file documented as of this encounter Visit Diagnoses Not on filedocumented in this encounter Care Teams Victims Advocate Clerk/Specialist Relationship Specialty Start Date End Date Kobe Barrett, MONICA [address] [facility] [address] [facility] 1 [place] [address] PCP - General Family Medicine 03/06/23 documented as of this encounter
--- OUTSIDE RECORDS SUMMARY | 2024-01-24 21:24 | XMS_ITS | Encounter Summary ---
Author Organization [facility] [place] [address] Care Team Providers Care Child Study Team Director Name Role Phone Charley Stout MD Primary Care Provider [phone] Reason for Visit * Reason Comments Skin Check Encounter Details Date Type Department Care Team (Late st Contact Info) Description 06/06/2012 2:30 PM EST Office Visit Dermatology [address] [place] [address] [address] [place] [address] Joon Roberts MD [address] [facility] [place] [address] History of basal cell carcinoma (Primary Dx); [...] keratosis documented in this encounter Care Teams Child Study Team Director Relationship Specialty Start Date End Date Charley Stout MD [address] [place], [place] [address]Y [facility] [place] [address] PCP - General 06/06/12 06/28/14 documented as of this encounter
--- OUTSIDE RECORDS SUMMARY | 2024-01-24 21:24 | XMS_ITS | Encounter Summary ---
Author Organization [facility] [place] [address] Care Team Providers Care Summer Counselor Name Role Phone Unavailable Primary Care Provider Unavailabl e Reason for Visit * Reason Comments Mitral Valve Regurgitation Encounter Details Date Type Department Care Team (Latest Contact Info) Description 09/26/2021 9:20 AM EDT Office Visit Cardiology at [address] [place] [address] Maximino Guadarrama MD [facility] [place] [address] Nonrheumatic mitral valve regurgitation, moderate; Venous insufficiency [...] nor untoeward dyspnea. Recently came back from [facility]) bp well controlled Stable palpitations, non-bothersome ciracdian [...]
--- OUTSIDE RECORDS SUMMARY | 2024-01-24 21:24 | XMS_ITS | Encounter Summary ---
[place] [address] Care Team Providers Care Receiving Associate Store Name Role Phone Kobe Barrett APRN Primary Care Provider [phone]- [phone] Encounter Details Date Type Department Care Team (Late st Contact Info) Description 12/18/2023 Telephone [place] [address] Tawnya Person Social History Tobacco Use Types [...] needing, Advised pt she needs to call [facility] for any billing questions and provided her their # and Transferred her to [place] documented in this encounter Plan of Treatment Not on file documented as of this encounter Visit Diagnoses Not on filedocumented in this encounter Care Teams Receiving Associate Store Relationship Specialty Start Date End Date Kobe Barrett APRN [address] [place] [address] PCP - General Family Medicine 03/06/23 documented as of this encounter
--- OUTSIDE RECORDS SUMMARY | 2024-01-24 21:24 | XMS_ITS | Encounter Summary ---
Author Organization [facility] [place] [address] Care Team Providers Care Senior Medical Writer Name Role Phone Nena Kobe Garcia APRN Primary Care Provider [phone]- [phone] Encounter Details Date Type Department Care Team (Late st Contact Info) Description 06/18/2009 Orders Only Dermatology at [place] [address] [facility] [place] [address] Joon Roberts MD [address] [facility] [place] [address] Social History Tobacco Use Types Packs/Day Years [...] (06/18/2009 6:09 PM EST) Surgical Pathology Report [id number] ? Location: [facility] The signing pathologist has (i) examined the relevant preparation(s) for the specimen(s) and (ii) rendered or confirmed the diagnosis(es). . ?Pathology Surgical Pathology Final Report Clinical Information Specimen Submitted: A - Chin, Excision: Clinical History: BX-proven BCCA, [id number] for excision, suture at 12 o'clock Clinical Diagnosis: BCCA Report to: Joon Roberts MD, III [facility] Dermatology [place], [place] ??[address] Gross Description Labeled/Fixativ e: ? Chin, formalin. [...] CR-0 06/19/09 JLK 06/21/09 Verified by: ? Robert Rajan MD ?Dermatopathol ogist ?(Electronic Signature) The attending pathologist [...] filedocumented in this encounter Care Teams Senior Medical Writer Relationship Specialty Start Date End Date Kobe Barrett APRN [address] [place] [address] PCP - General Family Medicine 03/06/23 documented as of this encounter
--- OUTSIDE RECORDS SUMMARY | 2024-01-24 21:24 | XMS_ITS | Encounter Summary ---
Author Organization [facility] [place] [address] Care Team Providers Care Keyliner Name Role Phone Kobe Barrett APRN Primary Care Provider [phone]- [phone] Encounter Details Date Type Department Care Team [...] on filedocumented in this encounter Care Teams Keyliner Relationship Specialty Start Date End Date Kobe Barrett APRN [address] [place] [address] PCP - General Family Medicine 03/06/23 documented as of this encounter
--- OUTSIDE RECORDS SUMMARY | 2024-01-24 21:24 | XMS_ITS | Encounter Summary ---
Author Organization [facility] [place] [address] Care Team Providers Care Parent Coach Name Role Phone Unavailable Primary Care Provider Unavailabl e Encounter Details Date Type Department Care Team (Late st Contact Info) Description 10/11/2022 Ancillary Procedure [place] [address] Kobe Barrett R, CERAMIC ENGINEER [address] [place] [address] Social History Tobacco Use Types Packs/Day Years [...] MR Spine (10/11/2022 12:00 AM EDT) Narrative [facility] - 09/26/2023 3:39 PM EDT This exam is auto-finalizing. It's purpose is for storage only. Kobe Barrett APRN IMG FILM LIBRARY O RDERABLES Performing Organization Address City/State/[facility] Co de Phone Number [place], [place] documented in this encounter Visit Diagnoses Not on filedocumented in this encounter
[2024-01-24 21:29] LABS: Bilirubin Negative (Negative); Blood Large (Negative); Clarity Sl Cloudy (Clear); Glucose Negative (Negative); Ketones Negative (Negative); Leukocyte Esterase Moderate (Negative); Nitrite Negative (Negative); Specific Gravity 1.025 (1.005-1.025); Urobilinogen 0.2 mg/dL (Up to 0.2); pH 5.5 (5-8)
[2024-01-24 21:54] LABS: Bacteria Moderate HPF (Negative); C & S Indicated? C&S Done As Ordered; Casts Negative LPF (Negative); Crystals Negative HPF (Negative); Epithelial Cells Few HPF (Negative); Mucus Negative (Negative); WBC >50 HPF (0-5)
== END 2024-01-24 21:22 | disposition home or self-care (01) ==
LOC: LBN 21:21
PROVIDERS: PCP Nurse Practitioner Family; Visit Provider Nurse Practitioner Gerontology
DX: N39.0 Urinary tract infection, site not specified (principal); B96.29 Other Escherichia coli [E. coli] as the cause of diseases classified elsewhere; R82.89 Other abnormal findings on cytological and histological examination of urine
CPT/HCPCS: 87077; 81003; 81015; 87086; 87186

== ENCOUNTER → 2024-02-05 10:20 | Outpatient (BNVA) | payer MEDICARE, SELFPAY | PROVIDERS: PCP Nurse Practitioner Family; Visit Provider Student in an Organized Health Care Education/Training Program | DX: S43.014D Anterior dislocation of right humerus, subsequent encounter (principal); X58.XXXD Exposure to other specified factors, subsequent encounter | CPT/HCPCS: 99213 ==

== ENCOUNTER 2024-03-04 02:29 | Outpatient (CLI) | payer MEDICARE, SELFPAY ==
[2024-03-04 13:02] LABS: Anion Gap 8.5 mmol/L (3-11); BUN 15 mg/dL (7-18); CO2 27.5 mmol/L (21.0-32.0); CREATININE 0.8 mg/dL (0.55-1.02); Calculated LDL 79 mg/dL (<100); Chloride 106 mmol/L (98-107); Cholesterol 175 mg/dL (<200); Estimated GFR 73.52 (mL/min/1.73m2); Glucose 111 mg/dL (74-106); HDL Cholesterol 57 mg/dL (40-60); Potassium 4.2 mmol/L (3.5-5.1); Sodium 142 mmol/L (136-145); Triglyceride 197 mg/dL (<150)
[2024-03-04 16:58] LABS: Hemoglobin A1C 5.9 % (<5.7)
== END 2024-03-04 02:30 | disposition home or self-care (01) ==
LOC: LOS 02:29
PROVIDERS: PCP Nurse Practitioner Family; Visit Provider Nurse Practitioner Family
DX: Z13.1 Encounter for screening for diabetes mellitus (principal); Z13.6 Encounter for screening for cardiovascular disorders; E03.9 Hypothyroidism, unspecified; Z23 Encounter for immunization; M54.2 Cervicalgia
CPT/HCPCS: 36415; 80048; 80061; 83036; 84443

== ENCOUNTER 2024-03-17 17:30 | Outpatient (REF) | payer MEDICARE, SELFPAY ==
[2024-03-17 21:17] LABS: Bilirubin Negative (Negative); Blood Trace-lysed (Negative); Clarity Clear (Clear); Glucose Negative (Negative); Ketones Negative (Negative); Leukocyte Esterase Negative (Negative); Nitrite Negative (Negative); Specific Gravity >= 1.030 (1.005-1.025); Urobilinogen 0.2 mg/dL (Up to 0.2); pH 5.5 (5-8)
[2024-03-17 21:38] LABS: Bacteria Rare HPF (Negative); C & S Indicated? No; Casts Negative LPF (Negative); Crystals Many Calcium Oxalate HPF (Negative); Epithelial Cells Many HPF (Negative); Mucus Negative (Negative); Other Cells Rare Transitional (Negative); RBC 0-2 HPF (0-2)
== END 2024-03-17 17:31 | disposition home or self-care (01) ==
LOC: LBN 17:30
PROVIDERS: PCP Nurse Practitioner Family; Visit Provider Nurse Practitioner Family
DX: R39.9 Unspecified symptoms and signs involving the genitourinary system (principal)
CPT/HCPCS: 81003; 81015

== ENCOUNTER 2024-10-31 11:02 | Outpatient (CLI) | payer MEDICARE, SELFPAY ==
--- NOTE | 2024-10-31 10:45 | DI.RAD_ITS ---
Exam(s) XR KNEE RT 4V AP,LAT,SHEA,PAT EXAM: XR KNEE RT 4V AP,LAT,SHEA,PAT CLINICAL HISTORY: RIGHT KNEE PAIN. TECHNIQUE: 2D digital imaging was performed. COMPARISON: No exams were available for comparison FINDINGS: Four views. No evidence of fracture or prominent joint effusion. There is moderate narrowing of the patellofemoral compartment, more so laterally than medially. There are small marginal osteophytes off the inner and outer aspects of the medial lateral compartments also indicating degenerative changes despite relatively preserved height of these compartments. Bone density normal. No significant osseous lesions. IMPRESSION: Degenerative changes as above in all 3 compartments, most evident in the patellofemoral compartment. DATA REPOSITORY: RADIATION DOSE DELIVERED:
== END 2024-10-31 11:03 | disposition home or self-care (01) ==
LOC: DIORS 11:05
PROVIDERS: PCP Nurse Practitioner Family; Referring Provider Nurse Practitioner Family; Visit Provider Physician Assistant
DX: M25.561 Pain in right knee (principal); M17.11 Unilateral primary osteoarthritis, right knee; M25.461 Effusion, right knee
CPT/HCPCS: 99213; 29530; 73564

== ENCOUNTER 2024-11-03 00:18 | Outpatient (CLI) | payer MEDICARE, SELFPAY ==
--- NOTE | 2024-11-03 13:40 | DI.MAMMO_ITS ---
Exam(s) US BREAST RT COMPLETE MG MAMMO DIAGNOSTIC BI EXAM: MAMMO DIAGNOSTIC BI and U/S breast RT complete CLINICAL HISTORY: Palpable breast mass in right breast with pain,n64.4,n63.0. TECHNIQUE: Craniocaudal and mediolateral oblique Full Field Digital Mammography views of the right breast with Computer Aided Diagnosis followed by Tomosynthesis and complete right breast ultrasound. All 4 quadrants of the right breast, the right axilla and the right retroareolar region were evaluated sonographically. COMPARISON: US US BREAST RT COMPLETE from 11/03/2024 FINDINGS: Mammography/Tomosynthesis: Masses/Architectural Distortion: The asymmetric density in the medial right breast does not persist on the additional views. No suspicious masses or areas of architectural distortion are present. Microcalcifictions: No suspicious pleomorphic-type are seen. Skin Thickening/Nipple Retraction: None. Complete right breast US: Echotexture: Normal appearance of the glandular tissue. Shadowing: No suspicious foci. Cyst: None. Solid lesions: None seen. Ductal dilation: None. IMPRESSION: 1. No evidence of malignancy is noted. 2. Unless there is more urgent need, follow-up screening mammography is recommended, as per [place] [employer] guidelines. 3. The findings were discussed with the patient on the date of the examination. BI-RADS Category 1 - Negative Breast Density - Category B - There are scattered areas of fibroglandular density. Breast density Category C or D implies that the patient has dense breast tissue. Dense breast tissue can make it harder to find cancer on a mammogram. Dense breast tissue is also associated with an increased risk of breast cancer. This information about the result of the mammogram report was provided to the patient to raise their awareness. Use this report when you speak with the patient about their risks for breast cancer, which includes their family history. At that time, you may recommend additional screening tests (Ultrasound or MRI) as these tests may add significant information. A negative radiographic report should not delay biopsy if a dominant or clinically suspicious mass is present. Up to ten percent of cancers are not identified on mammography. A negative report may reinforce clinical impression. Adenosis and dense breasts may obscure an underlying neoplasm. False positive reports average 6 to 10%. Patient will receive a letter notifying them of these results.
== END 2024-11-03 00:38 ==
LOC: DI 00:18
PROVIDERS: PCP Nurse Practitioner Family; Visit Provider Obstetrics & Gynecology
DX: Z12.31 Encounter for screening mammogram for malignant neoplasm of breast (principal); N64.4 Mastodynia; N63.11 Unspecified lump in the right breast, upper outer quadrant; Z91.89 Other specified personal risk factors, not elsewhere classified
CPT/HCPCS: 76642; 77062; 77066; G0279

== ENCOUNTER 2024-11-07 01:07 | Outpatient (CLI) | payer MEDICARE, SELFPAY ==
[2024-11-10 09:36] LABS: Anaplasma phagocytophilum Negative (Negative); B. miyamotoi PCR Negative (Negative); Babesia divergens/MO-1 Negative (Negative); Babesia duncani Negative (Negative); Babesia microti Negative (Negative); Ehrlichia chaffeensis Negative (Negative); Ehrlichia ewingii/canis Negative (Negative); Ehrlichia muris eauclairensis Negative (Negative)
[2024-11-11 13:33] LABS: Lyme Ab w Rflx to Lyme Confirm Negative (Negative)
== END 2024-11-07 01:08 | disposition home or self-care (01) ==
LOC: LOS 01:07
PROVIDERS: PCP Nurse Practitioner Family; Visit Provider Physician Assistant
DX: M25.461 Effusion, right knee (principal)
CPT/HCPCS: 36415; 87798; 86618

== ENCOUNTER → 2025-01-22 10:07 | Outpatient (BNVA) | payer MEDICARE, SELFPAY | PROVIDERS: PCP Nurse Practitioner Family; Referring Provider Nurse Practitioner Family; Visit Provider Student in an Organized Health Care Education/Training Program | DX: M17.11 Unilateral primary osteoarthritis, right knee (principal) | CPT/HCPCS: 20610; J1010 ==

== ENCOUNTER 2025-03-10 08:20 | Outpatient (CLI) | payer MEDICARE, SELFPAY ==
[2025-03-10 10:21] LABS: TSH (W/Ref FT4) 2.80 uIU/mL (0.36-3.74)
== END 2025-03-10 08:21 | disposition home or self-care (01) ==
LOC: LBO 08:23
PROVIDERS: PCP Nurse Practitioner Family; Visit Provider Nurse Practitioner Family
DX: E03.9 Hypothyroidism, unspecified (principal)
CPT/HCPCS: 36415; 84443